=== PATIENT | male | born 1960 | race Caucasian/White ===

== ENCOUNTER 2016-09-19 11:34 | Inpatient (IN) ==
[2016-09-19 13:19] LABS: Basophils % 0.7 %; Hemoglobin 16.2 g/dL (12.9-16.9)
[2016-09-19 13:20] LABS: Basophils # 0.1 K/mcL (0.0-0.2); Eosinophils % 2.4 %; Hematocrit 48.7 % (37.5-50.1); Immature Granulocytes % 0.4 % (0-4); Immature Platelets 6.5 % (1.1-6.1); Lymphocytes % 51.8 %; Mean Corpuscular HGB Conc 33.3 g/dL (31.6-35.5); Mean Corpuscular Hemoglobin 30.5 pg (28.0-33.3); Mean Corpuscular Volume 91.7 fL (83.0-100.0); Mean Platelet Volume 10.9 fL (9.4-12.4); Monocytes % 8.8 %; Red Blood Count 5.31 M/mcL (4.19-5.50); Red Cell Distribution Width 13.6 % (11.5-14.5); Segmented Neutrophils % 35.9 %
[2016-09-19 13:21] LABS: Eosinophils # 0.2 K/mcL (0.0-0.6); Lymphocytes # 3.6 K/mcL (0.6-4.6); Monocytes # 0.6 K/mcL (0.0-1.3); Neutrophils # 2.5 K/mcL (1.6-8.9)
[2016-09-19 13:30] LABS: Bilirubin,Urine Negative (Negative); Blood,Urine Large (Negative); Clarity,Urine Clear (Clear); Color,Urine Yellow (Yellow); Glucose,Urine (UA) Normal (Normal); Ketones,Urine Negative (Negative); Leukocyte Esterase,Urine Moderate (Negative); Nitrite,Urine Negative (Negative); Protein,Urine 30 mg/dL (Neg-Trace); Specific Gravity,Urine 1.007 (1.010-1.025); Urobilinogen,Urine Normal (Normal)
[2016-09-19 13:32] LABS: Bacteria,Urine None Seen per hpf (None-Few); Hyaline Casts,Urine None Seen per lpf (None-Few); RBC,Urine 15-30 per hpf (0-3); Squamous Epithelial Cell,Urine Many per lpf (None-Few); WBC,Urine 30-50 per hpf (0-3)
[2016-09-19 13:35] LABS: BUN/Creatinine Ratio 10 (6-26); Blood Urea Nitrogen 9 mg/dL (8-26); Calcium 8.9 mg/dL (8.6-10.8); Carbon Dioxide 22 mEq/L (19-29); Chloride 104 mEq/L (98-109); Glucose 105 mg/dL (70-99); Osmolality,Calculated 283 (280-300); Sodium 137 mEq/L (136-145); eGFR For African Americans > 60 (> 60); eGFR For Non-African Americans > 60 (> 60)
[2016-09-19 13:37] LABS: Amphetamine Screen,Urine Negative ng/mL (Cutoff=1000); Barbiturate Screen,Urine Negative ng/mL (Cutoff=200); Benzodiazepines Screen,Urine Negative ng/mL (Cutoff=200); Cannabinoid Screen,Urine Positive ng/mL (Cutoff = 50); Cocaine Screen,Urine Negative ng/mL (Cutoff= 300); Opiate Screen,Urine Negative ng/mL (Cutoff=300); Phencyclidine Screen,Urine Negative ng/mL (Cutoff=25)
[2016-09-19 13:40] LABS: Acetaminophen < 1.0 mcg/mL (10-30); Salicylate < 5.0 mg/dL (15-30)
[2016-09-19 13:41] LABS: Ethanol < 10 mg/dL (0-10)
[2016-09-19 13:44] LABS: Platelet Count 90 K/mcL (140-400)
[2016-09-19 13:45] LABS: Platelet Estimate Slight Decrease (Normal); Reactive Lymphocytes Present (Not Present)
[2016-09-19 14:12] LABS: Thyroid Stimulating Hormone 1.839 mcIU/mL (0.350-4.840)
[2016-09-19] MEDS ORDERED: Lidocaine 1% 20 ML MDV ID ONE (14:15)
[2016-09-19] MEDS ORDERED: *HR* LORazepam 2 MG/ML VIAL IM PRN (18:21)
[2016-09-19] MEDS ORDERED: Ibuprofen 400 MG TABLET PO PRN (18:21)
[2016-09-19] MEDS ORDERED: Haloperidol Lactate 5 MG/ML VIAL IM PRN (18:21)
[2016-09-19] MEDS ORDERED: *HR* LORazepam 1 MG TABLET PO PRN (18:21)
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
[2016-09-20] MEDS: clonazePAM 0.5 MG TABLET PO SCH (14:32)
[2016-09-20] MEDS: Mirtazapine 15 MG TABLET PO SCH (20:49)
[2016-09-20] MEDS: Neosporin OINT 15 GM TUBE TP SCH (20:49)
[2016-09-21] MEDS: clonazePAM 0.5 MG TABLET PO SCH (08:28)
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
[2016-09-21] MEDS: Neosporin OINT 15 GM TUBE TP SCH ×2 (15:54→21:18)
[2016-09-21] MEDS: Mirtazapine 15 MG TABLET PO SCH (21:14)
[2016-09-22] MEDS: clonazePAM 0.5 MG TABLET PO SCH (08:31)
[2016-09-22] MEDS: Neosporin OINT 15 GM TUBE TP SCH ×2 (08:32→20:59)
[2016-09-22] MEDS: Nicotine 14 MG PATCH.TD24 TD SCH (09:54)
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
[2016-09-22] MEDS: Mirtazapine 15 MG TABLET PO SCH (20:37)
[2016-09-22] MEDS ORDERED: traZODone 50 MG TABLET PO PRN (22:33)
[2016-09-22] MEDS ORDERED: hydrOXYzine pamoate 25 MG CAPSULE PO PRN (22:33)
[2016-09-22] MEDS ORDERED: MOM Conc 10 ML UD.LIQ PO PRN (22:33)
[2016-09-22] MEDS ORDERED: Mag Hydrox/Al Hydrox/Simeth 30 ML UDC PO PRN (22:33)
[2016-09-23] MEDS: Nicotine 14 MG PATCH.TD24 TD SCH (08:32)
[2016-09-23] MEDS: clonazePAM 0.5 MG TABLET PO SCH (08:32)
[2016-09-23 08:36] VITALS: BP 125/94
[2016-09-23] MEDS: Neosporin OINT 15 GM TUBE TP SCH (09:08)
--- NOTE | 2016-09-23 13:20 | Discharge Summary ---
Date of Encounter: 09/23/16 Time of Encounter: 13:14 Diagnosis - Discharge Diagnosis (1) PTSD (post-traumatic stress disorder) Priority: Primary Status: Acute Medications - Discharge Medications Prescriptions: Mirtazapine [Remeron] 15 mg PO HS #30 tablet Prazosin [Minipress] 1 mg PO HS #30 capsule Mirtazapine [Remeron] 15 mg PO HS #30 tablet 09/23/16 [Rx] Prazosin [Minipress] 1 mg PO HS #30 capsule 09/23/16 [Rx] Allergies Penicillins Allergy (Verified 09/19/16 11:43) Hives Provider Date of admission: 09/19/16 18:02 Primary care physician: PCP NO Discharging clinician: Marcos White Assessment and Plan - Patient/Caregiver Discharge Instructions Activity: resume usual activities as tolerated Diet: regular diet - Follow up Plan Follow up with: [facility] [Outside] - 10/13/16 2:00 pm (The above appointment is with tutu Albaradoor. When you come to your first appointment , you will have an orientation to the agency and you will meet with a counselor. Please bring the following with you to your first visit to the clinic: 1) proof of household income (two consecutive pay stubs, social security award letter, bank statement, statement letter from [facility], child support statement, IRS 1040 or W2 form, or a statement from the person who financially supports you stating they help provide for your basic needs), 2) proof of residency (drivers license, a piece of mail showing your address, a statement from person you live with verifying you live at their address), 3) your social security number, and 4) your insurance card (if you have commercial insurance you must call to obtain a prior authorization number before you arrive to your first appointment). If you do not bring these items, you will not be seen.) Pawel Shah PAC [Physician Commercial Collections Driver] - 10/12/16 10:00 am (The above appointment is with VALE Beasley at [facility]. This appointment is to establish you with a primary care provider. If you have needs related to psychiatric medication and/or Vivitrol, you will be assessed for these as well. Please arrive 15 minutes early to complete paperwork. Please bring your insurance card, photo ID and list of current medications to your first appointment.) Functional capacity at discharge: independent ambulation Overall status at discharge: Stable Disposition: Home, Self-Care Hospital Course Hospital course: Mr. Camilo is a 55 year old male admitted from the emergency room having suicidal ideation and PTSD symptoms. For details of the admission please see H& P. On the unit patient medication were reviewed and he was placed on mirtazapine in addition to when necessary medication and blood pressure medication prazosin. His sleep and appetite improved his, paranoia improved he participated in some activities. Prior to discharge patient was medically stable and tolerates her medication and future oriented with discharge plans and follow-up he was non suicidal , his nightmares and flashback subsided. - Time Spent with Patient Total time spent providing and/or coordinating discharge services: Less than 30 minutes Quality - Multiple Antipsychotics Patient discharged on 2 or more antipsychotic medications: No Mental Status Exam - Mental Status Exam Patient orientation: Yes Person, Yes Time, Yes Place Level of alertness: Alert Patient appearance: Appropriate, Well Groomed Behavior: calm, cooperative, restless, dramatic Psychomotor activity: Normal Eye contact: Maintains Eye Contact Mood description: Depressed, Anxious Affect description: tearful, dysphoric, anxious Speech pattern: Normal rate, Normal rhythm, Normal tone Speech Volume: Normal Thought process: Intact, Logical, Linear, Goal Oriented Thought Content: Yes Intact, No Suicidal ideation Perceptual Disturbances: No Auditory hallucinations, No Visual hallucinations Judgment: Fair Insight: Partial
== END 2016-09-23 15:05 | disposition home or self-care (01) | DRG 755 ==
LOC: EMEROO 11:34 → 1ANU 18:02 → SUATTDRO 18:02 → 1ANU 18:19
PROVIDERS: ADMIT Psychiatry & Neurology Psychiatry; ATTEND Psychiatry & Neurology Psychiatry

== ENCOUNTER 2017-10-09 07:38 | Inpatient (IN) ==
[2017-10-09 08:10] LABS: Basophils % 0.3 %; Hematocrit 38.8 % (37.5-50.1); Hemoglobin 12.7 g/dL (12.9-16.9); Immature Granulocytes % 1.1 % (0-4); Lymphocytes # 1.5 K/mcL (0.6-4.6); Lymphocytes % 12.6 %; Mean Corpuscular HGB Conc 32.7 g/dL (31.6-35.5); Mean Corpuscular Hemoglobin 29.8 pg (28.0-33.3); Mean Corpuscular Volume 91.1 fL (83.0-100.0); Mean Platelet Volume 9.7 fL (9.4-12.4); Monocytes # 0.9 K/mcL (0.0-1.3); Monocytes % 7.8 %; Platelet Count 117 K/mcL (140-400); Red Blood Count 4.26 M/mcL (4.19-5.50); Segmented Neutrophils % 78.2 %
[2017-10-09] MEDS: 0.9 % Sodium Chloride 1,000 ML IVC SCH ×2 (08:21→09:20)
--- NOTE | 2017-10-09 08:25 | Emergency Department Note ---
START Narrative - START START: I examined this patient and my medical decision-making was reviewed with the Resident Physician. I agree with the documented findings, disposition and treatment plan as described except to the extent set forth below. 56-year-old male presents to the ER for evaluation for right leg pain. Patient had been in [place] [facility] all weekend has been out for 3 days. He lives at his house. He has been sick for the past few days with fevers. States he snorted heroin last night for fun. He also took some gabapentin. He apparently also snorted some sort of marijuana last night for fondness well. On arrival to the ER, patient has a fever is tachycardic. He is having some right lower extremity pain. We will obtain some plain films of this as well as a chest x-ray. Sepsis workup at this time. Fluids and antipyretics. 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 He denies any recent IV drug use. Total critical care time of 35 minutes spent in medical management of Sirs criteria and possible sepsis.
[2017-10-09 08:47] LABS: Albumin 3.2 g/dL (3.5-5.7); Albumin/Globulin Ratio 0.9 (1.1-2.2); Bilirubin,Direct 0.3 mg/dL (0.0-0.2); Bilirubin,Indirect 0.4 mg/dL (0.0-1.2); Bilirubin,Total 0.7 mg/dL (0.3-1.0); Calcium 8.7 mg/dL (8.6-10.3); Globulin 3.5 g/dL (2.4-3.5); Magnesium 2.2 mg/dL (1.6-2.6); Potassium 3.9 mEq/L (3.5-5.1); Total Protein 6.7 g/dL (6.4-8.9)
[2017-10-09] MEDS ORDERED: 0.9 % Sodium Chloride 500 ML IVC ONE (09:41)
--- NOTE | 2017-10-09 12:36 | Emergency Department Note ---
Disposition Clinical Impression: CRISTHIAN (acute kidney injury), SIRS (systemic inflammatory response syndrome), Polysubstance abuse Febrile Qualifiers: Fever type: unspecified Qualified Code(s): R50.9 - Fever, unspecified Disposition: Admitted As Inpatient Condition: Fair Time of Disposition: 12:46 General Adult HPI - General Chief complaint: ED Syncope Stated complaint: syncope/R knee pain Time Seen by Provider: 10/09/17 07:43 Source: EMS Mode of arrival: EMS Limitations: no limitations Nursing Notes Reviewed: Yes Vital Signs Reviewed: Yes - History of Present Illness HPI Narrative: 56-year-old male presenting to the emergency Department chief complaint of fall. The patient states he was walking over to his brother's house this morning when he slipped in a mud puddle and hit his head on a telephone pole. Patient states he is having right knee pain. Denies dizziness or syncope. Patient was recently released from the alf 3 days ago. Patient has a significant past medical history of endocarditis at the age of 21. He does disclose snorting heroin yesterday. Patient denies any chest pain or recent illnesses. Patient is repeating that he needs his home medications because "he is out of his mind" without them. Pain Scale: 8 - Related Data Home Medications Medication Instructions Recorded Confirmed Unable To Obtain [Unable to Obtain] 10/09/17 10/09/17 Allergies Allergy/AdvReac Type Severity Reaction Status Date / Time Penicillins Allergy Hives Verified 10/09/17 07:39 All systems ED: reviewed and negative except as stated. Constitutional: Reports: fever Cardiovascular: Denies: chest pain, palpitations Respiratory: Denies: cough, dyspnea, wheezes Gastrointestinal: Denies: abdominal pain, nausea, vomiting Integumentary: Denies: rash Past Medical History - Past Medical History Attestation: Yes The following information was validated with the patient. Medical history: Reports: hypertension, other Psychiatric history: Reports: no psych history, PTSD - Social History Smoking Status: Current every day smoker Smokeless Tobacco Status: No Alcohol use: Reports: none Drug use: Reports: none Physical Exam - General Limitations: no limitations General appearance: alert, in no apparent distress - Head Head exam: atraumatic, normocephalic, normal inspection - Eye Eye exam: Present: normal appearance, PERRL, EOMI. Absent: scleral icterus, conjunctival injection - Neck Neck exam: Present: normal inspection, full ROM. Absent: tenderness, meningismus - Chest Chest inspection: Present: normal inspection, symmetric chest wall rise. Absent : tenderness, rash - Respiratory Respiratory exam: Present: normal lung sounds bilaterally. Absent: respiratory distress, wheezes - Cardiovascular Cardiovascular exam: Present: normal rhythm, tachycardia, normal heart sounds - Abdominal Exam Abdominal exam: Present: soft, Non-Tender. Absent: distention, guarding, rebound - Extremities Exam Extremities exam: Present: normal inspection, full ROM, tenderness (diffuse mild tenderness to palpation of right knee. no swelling, redness or crepitus noted), other (BLE muscle strength 5/5, patient neurovascularly intact b/l LE) - Neurological Exam Neurological exam: Present: alert, oriented X3 - Psychiatric Psychiatric exam: Present: normal affect, normal mood - Skin Skin exam: Present: warm, intact Course Course Narrative: 56-year-old male presenting to emergency Department after a fall. Complaining of right knee pain. On physical exam is slightly altered. He is febrile at 102. Patient does disclose drug use. We will perform sepsis workup including CBC, BMP, lactate And Provide the Patient with Fluids. Patient Is Stable at This Time. Stable Vital Signs. Patient agrees with the plan. Brother is at bedside. - Reevaluation(s) Reevaluation #1: Patient has elevated creatinine at 3.07. Patient unable to provide us with urine sample at this time. Provided the patient with 2500 of fluid. Patient refuses catheter for urine specimen. I spoke with the admitting hospitalist Dr. Oates who agrees to accept the patient at this time. Patient is alert with brother at bedside. Stable vital signs at this time. Agrees to admission. Vital Signs Temperature 102.6 F H 10/09/17 07:40 Pulse Rate 106 10/09/17 07:40 Respiratory Rate 22 10/09/17 07:40 Blood Pressure 94/71 10/09/17 07:40 O2 Sat by Pulse Oximetry 94 10/09/17 07:40 Temperature 98.2 F 10/09/17 11:31 Pulse Rate 94 10/09/17 11:31 Respiratory Rate 16 10/09/17 11:31 Blood Pressure 107/83 10/09/17 11:31 O2 Sat by Pulse Oximetry 95 10/09/17 11:31 Oxygen Delivery Oxygen Delivery Room Air Medical Decision Making - Lab Data Result diagrams: 10/09/17 08:02 10/09/17 08:02 Lab Results 10/09/17 10/09/17 10/09/17 Range/Units 08:02 08:02 08:02 WBC 11.5 H (4.3-11.1) K/mcL RBC 4.26 (4.19-5.50) M/mcL Hgb 12.7 L (12.9-16.9) g/dL Hct 38.8 (37.5-50.1) % MCV 91.1 (83.0-100.0) fL MCH 29.8 (28.0-33.3) pg MCHC 32.7 (31.6-35.5) g/dL RDW 15.0 H (11.5-14.5) % Plt Count 117 L (140-400) K/mcL MPV 9.7 (9.4-12.4) fL Immature Gran % 1.1 (0-4) % Seg Neutrophils % 78.2 % Lymphocytes % 12.6 % Monocytes % 7.8 % Eosinophils % 0.0 % Basophils % 0.3 % Neutrophils # 9.0 H (1.6-8.9) K/mcL Lymphocytes # 1.5 (0.6-4.6) K/mcL Monocytes # 0.9 (0.0-1.3) K/mcL Eosinophils # 0.0 (0.0-0.6) K/mcL Basophils # 0.0 (0.0-0.2) K/mcL Sodium 128 L (136-145) mEq/L Potassium 3.9 (3.5-5.1) mEq/L Chloride 98 (98-107) mEq/L Carbon Dioxide 19 L (23-29) mEq/L BUN 42 H (6-20) mg/dL Creatinine 3.07 H (0.70-1.30) mg/dL Est GFR ( Amer) 26 L (> 60) Est GFR (Non-Af Amer) 21 L (> 60) BUN/Creatinine Ratio 14 (6-26) Glucose 159 H (70-105) mg/dL Calculated Osmolality 280 (280-300) Lactic Acid 3.1 H (0.5-2.2) mmol/L Calcium 8.7 (8.6-10.3) mg/dL Magnesium 2.2 (1.6-2.6) mg/dL Total Bilirubin 0.7 (0.3-1.0) mg/dL Direct Bilirubin 0.3 H (0.0-0.2) mg/dL Indirect Bilirubin 0.4 (0.0-1.2) mg/dL AST 28 (13-39) Units/L ALT 29 (7-52) Units/L Alkaline Phosphatase 105 H (34-104) Units/L Troponin I (< 0.04) ng/mL Serum Total Protein 6.7 (6.4-8.9) g/dL Albumin 3.2 L (3.5-5.7) g/dL Globulin 3.5 (2.4-3.5) g/dL Albumin/Globulin Ratio 0.9 L (1.1-2.2) 10/09/17 Range/Units 08:02 WBC (4.3-11.1) K/mcL RBC (4.19-5.50) M/mcL Hgb (12.9-16.9) g/dL Hct (37.5-50.1) % MCV (83.0-100.0) fL MCH (28.0-33.3) pg MCHC (31.6-35.5) g/dL RDW (11.5-14.5) % Plt Count (140-400) K/mcL MPV (9.4-12.4) fL Immature Gran % (0-4) % Seg Neutrophils % % Lymphocytes % % Monocytes % % Eosinophils % % Basophils % % Neutrophils # (1.6-8.9) K/mcL Lymphocytes # (0.6-4.6) K/mcL Monocytes # (0.0-1.3) K/mcL Eosinophils # (0.0-0.6) K/mcL Basophils # (0.0-0.2) K/mcL Sodium (136-145) mEq/L Potassium (3.5-5.1) mEq/L Chloride (98-107) mEq/L Carbon Dioxide (23-29) mEq/L BUN (6-20) mg/dL Creatinine (0.70-1.30) mg/dL Est GFR ( Amer) (> 60) Est GFR (Non-Af Amer) (> 60) BUN/Creatinine Ratio (6-26) Glucose (70-105) mg/dL Calculated Osmolality (280-300) Lactic Acid (0.5-2.2) mmol/L Calcium (8.6-10.3) mg/dL Magnesium (1.6-2.6) mg/dL Total Bilirubin (0.3-1.0) mg/dL Direct Bilirubin (0.0-0.2) mg/dL Indirect Bilirubin (0.0-1.2) mg/dL AST (13-39) Units/L ALT (7-52) Units/L Alkaline Phosphatase (34-104) Units/L Troponin I 0.03 (< 0.04) ng/mL Serum Total Protein (6.4-8.9) g/dL Albumin (3.5-5.7) g/dL Globulin (2.4-3.5) g/dL Albumin/Globulin Ratio (1.1-2.2) - EKG Data EKG #1 EKG attestation: Yes I reviewed and interpreted this EKG. EKG results narrative: Sinus tachycardia. 106 bpm. DE interval 148, QRS 100, QTc 381. Nonspecific T wave abnormality noted. No signs of acute ST segment elevation or ischemia. Compared to previous EKG completed on 04/10/2017 New Nonspecific T-wave changes noted.
[2017-10-09] MEDS ORDERED: Naloxone 0.4 MG/ML INJ IVP PRN (12:53)
--- NOTE | 2017-10-09 12:59 | Internal Med History&Physical ---
<Aquilino Page - Last Filed: 10/09/17 12:57> Date of Encounter: 10/09/17 Time of Encounter: 12:57 Assessment and Plan (1) Congestive heart failure Current visit: Yes Status: Acute Presents today with pulmonary vascular congestion as well as fluid overload with swelling in BLE No prior known h/o CHF, denies CAD, or prior IN. Admits to prior h/o endocarditis. No recent cardiac workup. rales B/L lobes anterior and posterior as well as mild tachycardia remains stable from a respiratory standpoint -TTE -trop now -measure I&O, Daily weight -hold lasix for now as he also has an CRISTHIAN. Consider lasix if BLE swelling or pulmonary vascular congestion does not improve -tele, SP02 monitoring -CBCD, CMP in am -heparin 5000 units SC BID Qualifiers: Heart failure type: unspecified Heart failure chronicity: unspecified Qualified Code(s): I50.9 - Heart failure, unspecified (2) Fluid overload Current visit: Yes Status: Acute see plan above Qualifiers: Hypervolemia type: unspecified Qualified Code(s): E87.70 - Fluid overload, unspecified (3) Uveih-ia-hpuovwn kidney injury Current visit: Yes Status: Acute H/O chronic kidney disease. Does not follow with nephrology. Increase in serum creatinine from 1.56 to 3.07 Unclear as to whether this is pre-renal or cardiorenal syndrome May be r/t drug ingestion (heroin) -avoid nephrotoxins -consult nephrology Qualifiers: Acute renal failure type: unspecified Chronic kidney disease stage: unspecified stage Qualified Code(s): N17.9 - Acute kidney failure, unspecified ; N18.9 - Chronic kidney disease, unspecified; N18.9 - Chronic kidney disease, unspecified (4) Intoxication by drug Current visit: Yes Status: Acute remains intermittently confused ingested heroin, marijuana last night unclear if he ingested any additional substances -UDS now -tele, spo2 monitoring Qualifiers: Complication of substance-induced condition: with unspecified complication Qualified Code(s): F19.929 - Other psychoactive substance use, unspecified with intoxication, unspecified (5) Pain and swelling of right knee Current visit: Yes Status: Acute Mild erythema and pain in superior aspect of right knee unknown mechanism of injury. Reports he fell this morning but that his knee was swollen prior to fall, however I am unsure if this is correct as he is still intermittently confused Does not appear to have joint involvement, mild limitation to ROM d/t swelling and pain treat with rocephin 1gm daily tylenol for pain (6) Falls Current visit: Yes Status: Acute d/t drug intoxication. likely the result of the rt knee injury Qualifiers: Encounter type: initial encounter Qualified Code(s): W19.XXXA - Unspecified fall, initial encounter (7) SIRS (systemic inflammatory response syndrome) Current visit: Yes Status: Acute Presented with mild leukocytosis, fever, hypotension, tachycardia, and tachypnea Hemodynamic status improved with volume replacement 1gm IV tylenol given and he is now afebrile. No longer tachycardic No obvious source of infection. Does have some swelling and erythema on Rt knee but no open wounds -blood cultures x2 -treat Rt knee swelling/erythema with rocephin -CBCD, CMP (8) Polysubstance abuse Current visit: Yes Status: Acute Admits that he snorted heroin last night, ingested gabapentin, and smoked marijuana -UDS (9) Febrile Current visit: Yes Status: Resolved Qualifiers: Fever type: unspecified Qualified Code(s): R50.9 - Fever, unspecified (10) DVT prophylaxis Current visit: Yes Status: Acute Internal Medicine - H&P: HPI Chief complaint: falls, CHF, polysubtance abuse, acute on chronic kidney injury , rt knee sheri Admitted From: Home Plans for Post Hospital Care: Home History of present illness: Mr. Camilo is a 56 year old male with a PMH of chronic kidney disease, endocarditis, and polysubstance abuse. He present to [facility] today s/p fall early this morning at approximately 0500. He reports that last night he ingested heroin, marijuana, and gabapentin and woke up this morning feeling delirious and disoriented. He states that he walked to his brother's to get help and fell in the mud, striking his head on a telephone pole. He is also reporting Rt knee swelling and pain. It is unclear if the knee pain/swelling was there prior to the fall or not but he reports that it was there prior to the fall. He denies any constitutional symptoms, chest pain, syncope, dizziness, weakness , dyspnea, abdominal pain, CVA tenderness, dysuria, or extremity swelling or pain. He does admits to RLE weakness d/t pain in his Rt knee and new BLE swelling. CXR reveals pulmonary vascular congestion. Metabolic panel reveals an acute kidney injury. Past Med Surg Social Fam HX - Past Medical History Medical history: hypertension, other Psychiatric history: no psych history, PTSD - Social History Smoking Status: Current every day smoker Smokeless Tobacco Status: No Alcohol use: none Drug use: none - Family History Brother Adopted: No Family Member Ethnicity: Non- Living Status: Still Living Hx Family Cardiac Disorders: Yes Hx Family Respiratory Disorders: No Hx Family Cancer: Yes Hx Family GI Disorders: No Hx Family Endocrine Disorder: No Hx Family Neuromuscular Disorders: No Hx Family Neurologic Disorders: No Hx Family HEENT Disorders: No Hx Family Autoimmune Disorders: No Father Living Status: Cause of : IN Hx Family Cardiac Disorders: Yes Internal Medicine - H&P: Meds Unable To Obtain [Unable to Obtain] 10/09/17 [History] 3 Allergy/AdvReac Type Severity Reaction Status Date / Time Penicillins Allergy Hives Verified 10/09/17 07:39 All Systems PM: A 10-system review of systems was performed and is negative for pertinent findings except as documented above in the HPI. - Constitutional Constitutional: falls, weight loss, no chills, no fatigue, no fever(s), no lethargy, no night sweats, no weakness - Cardiovascular Cardiovascular ROS IM: edema (BLE), no chest pain, no diaphoresis, no dyspnea, no lightheadedness, no palpitations, no syncope - Respiratory Respiratory: no cough, no dyspnea, no wheezing, no excessive phlegm production - Gastrointestinal Gastrointestinal: no abdominal pain, no diarrhea, no hematemesis, no hematochezia, no melena, no nausea, no vomiting - Genitourinary Genitourinary ROS male: no difficulty urinating, no dysuria, no flank pain - Musculoskeletal Musculoskeletal ROS IM: no numbness, no tingling - Integumentary Integumentary IM: erythema (Superior aspect of Rt knee, no lesion just swelling and erhtyema), no rash, no unusual bruising - Neurological Neurological ROS: confusion (intermittent), frequent falls - Hematologic/Lymphatic Hematologic/Lymphatic: no easy bruising - Constitutional Vitals: Temp Pulse Resp BP Pulse Ox 98.2 F 94 16 107/83 95 02/24/18 11:31 10/09/17 11:31 10/09/17 11:31 10/09/17 11:31 10/09/17 11:31 General appearance: Present: cooperative, A&O X 3, no acute distress Exam: H/o polysubstance abuse, patient still continues to be mildly confused and as such history is somewhat unreliable. - Head Head exam: Present: atraumatic, normocephalic - Eye Eye exam: Present: EOMI. Absent: periorbital swelling, periorbital tenderness Pupils: Present: PERRL - Neck Neck exam general surgery: Present: supple, trachea midline. Absent: lymphadenopathy - Respiratory Respiratory exam: Present: rales, tachypnea. Absent: accessory muscle use, chest wall tenderness, decreased breath sounds, respiratory distress, rhonchi, wheezes - Cardiovascular Cardiovascular exam: Present: RRR, +S1, +S2. Absent: diastolic murmur, gallop, rubs, systolic murmur - GI/Abdominal GI/Abdominal exam: Present: normal bowel sounds, soft, no peritoneal signs. Absent: distended, tenderness - Extremities Exam Additional comments: BLE swelling without pitting - Expanded Lower Extremities Exam Lower Leg exam: Present: erythema, swelling, tenderness (RLE superior aspect of RT knee). Absent: full ROM - Neurological Exam Neurological exam: Present: alert, oriented X3, strengths equal and symetr throughout. Absent: facial droop, speech deficit - Expanded Neurological Exam Coma Scale Eye Opening: Spontaneous Coma Scale Motor Response: Obeys Commands Coma Scale Verbal Response: Confused (intermittent confusion) Coma Scale Total: 14 - Skin Skin exam: Present: dry, erythema, intact Internal Med - H&P Results - Labs CBC & Chem 7: 10/09/17 08:02 10/09/17 08:02 - EKG Data -: EKG Interpreted by Myself EKG shows normal: sinus rhythm Rate: tachycardia - EKG Data EKG comments: Sinus tachycardia with a rate of 106 10/09/17 13:03 - Impressions Impressions Chest X-Ray 10/09/17 07:44 IMPRESSION: Low lung volumes. Mild pulmonary vascular congestion. D/ / Ethan Buchanan MD / Ethan Buchanan MD Interpreting Provider: Ethan Buchanan MD Head CT 10/09/17 07:46 IMPRESSION: No acute intracranial abnormality. D/ / Patrice Sapp MD / Patrice Sapp MD Interpreting Provider: Patrice Sapp MD Knee X-Ray 10/09/17 07:46 IMPRESSION: No acute osseous abnormality. D/ / Annemarie Brown MD / Annemarie Brown MD Interpreting Provider: Annemarie Brown MD <Alyssa Oates - Last Filed: 10/09/17 18:28> Date of Encounter: 10/09/17 Internal Medicine - H&P: HPI History of present illness: Mr. Camilo is a 56 year old male All Systems PM: A 10-system review of systems was performed and is negative for pertinent findings except as documented above in the HPI. - Constitutional Vitals: Temp Pulse Resp BP Pulse Ox 98.1 F 79 17 102/63 90 10/09/17 15:46 10/09/17 15:46 10/09/17 15:46 10/09/17 15:46 10/09/17 15:46 Internal Med - H&P Results - Labs CBC & Chem 7: 10/09/17 08:02 10/09/17 08:02 Labs: Cardiac Enzymes 10/09/17 Range/Units 14:03 Troponin I 0.07 H* (< 0.04) ng/mL - Attending Attestation I have personally performed a face to face evaluation on this patient. I have reviewed and agree with the care plan provided by DAREK Page. History and Exam by me shows: Mr. Camilo is a 56 year old male with a PMH of chronic kidney disease, endocarditis, and polysubstance abuse. He present to [facility] today s/p fall early this morning at approximately 0500. He reports that last night he ingested heroin, marijuana, and gabapentin and woke up this morning feeling delirious and disoriented. Gen: A, A, O x 3 Chest: Diminished BS b/l, no crackles, No rales Heart: S1S2 + RRR no murmurs Ext: 2+ Pitting edema in both legs a/p 1. SIRS 2. CHF - not in exacerbation 3. CRISTHIAN with CKD-3 4. ?? Cardiorenal syndrome 5. Poly substance abuse / Drug intoxication Will hold on IV fluids since he does have fluid overload will f/u on UA to r/o source of inf place him on tele check serial trop 2 D Echo in AM If he becomes SOB and BP allows will give Lasix
[2017-10-09] MEDS: cefTRIAXone 1,000 MG in Water for inj. (sterile) 20 ML 10 ML IVP SCH (14:57)
[2017-10-09] MEDS ORDERED: Ipratropium/Albuterol Neb 3 ML IH PRN (15:58)
[2017-10-09] MEDS: Nicotine 21 MG PATCH.TD24 TD SCH (16:23)
[2017-10-09] MEDS: *HR* Heparin 5,000 UNIT/ML VIAL SQ SCH (16:23)
[2017-10-09 18:31] LABS: Bilirubin,Urine Small (Negative); Blood,Urine Large (Negative); Clarity,Urine Turbid (Clear); Glucose,Urine (UA) Normal (Normal); Ketones,Urine Negative (Negative); Leukocyte Esterase,Urine Moderate (Negative); Nitrite,Urine Negative (Negative); Protein,Urine >=300 mg/dL (Neg-Trace); Specific Gravity,Urine 1.017 (1.010-1.025); Urobilinogen,Urine Normal (Normal)
[2017-10-09 18:32] LABS: RBC,Urine TNTC per hpf (0-3); Squamous Epithelial Cell,Urine Moderate per lpf (None-Few); WBC,Urine 50-100 per hpf (0-3)
[2017-10-09 18:33] LABS: Color,Urine Amber (Yellow)
[2017-10-09 18:39] LABS: Amphetamine Screen,Urine Negative ng/mL (Cutoff=1000); Barbiturate Screen,Urine Negative ng/mL (Cutoff=200); Benzodiazepines Screen,Urine Negative ng/mL (Cutoff=200); Cannabinoid Screen,Urine Negative ng/mL (Cutoff = 50); Cocaine Screen,Urine Positive ng/mL (Cutoff= 300); Opiate Screen,Urine Positive ng/mL (Cutoff=300); Phencyclidine Screen,Urine Negative ng/mL (Cutoff=25)
[2017-10-09 19:00] LABS: Bacteria,Urine Few per hpf (None-Few); Granular Casts,Urine Few per lpf (None Seen)
[2017-10-09] MEDS: *HR* OxyCODONE/APAP 5/325 TABLET PO PRN (20:27)
[2017-10-10] MEDS: *HR* OxyCODONE/APAP 5/325 TABLET PO PRN ×3 (04:05→18:24)
[2017-10-10] MEDS: *HR* Heparin 5,000 UNIT/ML VIAL SQ SCH ×2 (05:03→18:24)
[2017-10-10 06:33] LABS: Basophils % 0.2 %; Hemoglobin 11.3 g/dL (12.9-16.9); Immature Granulocytes % 0.3 % (0-4); Red Cell Distribution Width 14.8 % (11.5-14.5)
[2017-10-10 06:34] LABS: Eosinophils # 0.3 K/mcL (0.0-0.6); Eosinophils % 5.3 %; Hematocrit 33.5 % (37.5-50.1); Lymphocytes # 1.7 K/mcL (0.6-4.6); Lymphocytes % 28.1 %; Mean Corpuscular HGB Conc 33.7 g/dL (31.6-35.5); Mean Corpuscular Hemoglobin 30.1 pg (28.0-33.3); Mean Corpuscular Volume 89.3 fL (83.0-100.0); Mean Platelet Volume 9.8 fL (9.4-12.4); Monocytes # 0.6 K/mcL (0.0-1.3); Monocytes % 10.5 %; Red Blood Count 3.75 M/mcL (4.19-5.50); Segmented Neutrophils % 55.6 %
[2017-10-10 06:37] LABS: Neutrophils # 3.3 K/mcL (1.6-8.9)
[2017-10-10 06:38] LABS: Platelet Count 90 K/mcL (140-400)
[2017-10-10 06:50] LABS: Albumin 2.6 g/dL (3.5-5.7); Albumin/Globulin Ratio 0.9 (1.1-2.2); Bilirubin,Total 0.4 mg/dL (0.3-1.0); Calcium 7.7 mg/dL (8.6-10.3); Potassium 3.8 mEq/L (3.5-5.1); Total Protein 5.6 g/dL (6.4-8.9)
[2017-10-10] MEDS: Nicotine 21 MG PATCH.TD24 TD SCH (08:07)
--- NOTE | 2017-10-10 09:30 | Nephrology Consult Note ---
Date of Encounter: 10/10/17 Time of Encounter: 09:15 Assessment and Plan (1) Mmshc-zv-hpjgprg kidney injury Current Visit: Yes Status: Acute Unclear if CRISTHIAN superimposed on CKD versus progressive CKD. Will start GN workup. Will start IV fluids 0.9NS at 100cc/hr. Ordered stat Renal US. Accurate I&O, avoid nephrotoxins. Will continue to monitor. Qualifiers: Acute renal failure type: unspecified Chronic kidney disease stage: unspecified stage Qualified Code(s): N17.9 - Acute kidney failure, unspecified ; N18.9 - Chronic kidney disease, unspecified; N18.9 - Chronic kidney disease, unspecified (2) PTSD (post-traumatic stress disorder) Current Visit: No Status: Acute (3) SIRS (systemic inflammatory response syndrome) Current Visit: Yes Status: Acute (4) Pain and swelling of right knee Current Visit: Yes Status: Acute History of Present Illness - Reason for Consult Acute Kidney Injury - History of Present Illness Mr. Camilo is a 56 year old male who presented to ER yesterday after falling , slipping in mud puddle and hitting head on telephone pole. Denies LOC, complains of right knee and left ankle swelling. Mr Camilo admitted snorting Heroin, marijuana and taking some Gabapentin. He denies recent IVD use. He was recently released several days ago.from a 60 day incarceration. CXR-Mild pulmonary vascular congestion. Head CT-no acute findings. Right knee xray-no acute abnormality. ECHO results pending. Sepsis workup started in ER, fluids and antipyretics. 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 Most of HPI from prior notes and records. 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 Supposed CKD in same setting, denies ever having been on HD. He thinks "he had part of lung removed and kidney removed." At time of consult he is alert, oriented, continues to have right knee and left ankle discomfort. Could not appreciate right knee swelling or erythema. However left ankle is swollen, erythemic and hot to touch. He denies any LEROY, chest pain , N/V or diarrhea. He denies NSAID use. He denies proteinuria or hematuria, both of which are large on UA with moderate leukocytes. Ceftriaxone 1gm/24 hours. Blood and urine cultures pending. He admits one renal stone event ten years ago. He does admit difficulty in emptying bladder since the onset of a right inguinal hernia he states presented while incarcerated, He states he has right testicular pain and pulling when voiding. No hernia noted on exam, no scrotal swelling. Creat 3.14, presented 3.07. Creat Mar 2017 1.56 with normal creat in Sep 2016 0.86. Past Med Surg Social Fam HX - Past Medical History Medical history: hypertension, other Psychiatric history: no psych history, PTSD - Social History Smoking Status: Current every day smoker Smokeless Tobacco Status: No Alcohol use: none Drug use: none - Family History Brother Adopted: No Family Member Ethnicity: Non- Living Status: Still Living Hx Family Cardiac Disorders: Yes Hx Family Respiratory Disorders: No Hx Family Cancer: Yes Hx Family GI Disorders: No Hx Family Endocrine Disorder: No Hx Family Neuromuscular Disorders: No Hx Family Neurologic Disorders: No Hx Family HEENT Disorders: No Hx Family Autoimmune Disorders: No Father Living Status: Cause of : [place] Hx Family Cardiac Disorders: Yes Medications and Allergies Unable To Obtain [Unable to Obtain] 10/09/17 [History] 3 Allergy/AdvReac Type Severity Reaction Status Date / Time Penicillins Allergy Hives Verified 10/09/17 07:39 Review of Systems All Systems: reviewed and no additional remarkable complaints except as stated Exam - Vital Signs Vital signs: Initial Vital Signs Temp Pulse Resp BP Pulse Ox 102.6 F H 106 22 94/71 94 10/09/17 07:40 10/09/17 07:40 10/09/17 07:40 10/09/17 07:40 10/09/17 07:40 Vital Signs - Last 8 Hours Temp Pulse Resp BP Pulse Ox 10/10/17 06:44 98.3 F 75 14 108/69 93 10/10/17 04:36 98.4 F 76 17 121/70 95 Intake and Output 10/09/17 10/10/17 10/10/17 23:59 07:59 15:59 Intake Total 1440 / 1440 Output Total 300 / 300 Balance 1140 / 1140 Intake: Oral 1440 / 1440 Output: Urine 300 / 300 Other: # Voids 1 Weight 77.111 kg Patient Weight 10/10/17 23:59 Weight 77.111 kg - General Appearance General appearance: well-developed, well-nourished, appears started age EENT: mucous membranes moist Neck: no JVD Respiratory: clear Cardiology: edema, regular rate, regular rhythm Additional Comments: left ankle swelling Gastrointestinal: hypoactive bowel sounds, no tenderness Integumentary: warm and dry Neurologic: alert and oriented x3 Musculoskeletal: erythema Additional Comments: left ankle Psychiatric: mood/affect appropriate, cooperative Results - Lab Results 10/10/17 05:57 10/10/17 05:57 Most recent lab results Calcium 7.7 mg/dL (8.6-10.3) L 10/10/17 05:57 Magnesium 2.2 mg/dL (1.6-2.6) 10/09/17 08:02 Consult Discharge Plan - Plan Referrals: Pawel Shah, PAC [Primary Care Provider] -
[2017-10-10] MEDS: 0.9 % Sodium Chloride 1,000 ML IVC SCH ×2 (10:29→23:10)
--- NOTE | 2017-10-10 11:38 | Internal Med Progress Note ---
Date of Encounter: 10/10/17 Time of Encounter: 10:45 - Assessment and plan (1) Qvcce-ea-ilcycry kidney injury Current Visit: Yes Status: Acute Assessment and plan: Patient with acute kidney injury. Creatinine 3.14 today. Nephrology following. Started patient on IV fluids. Renal ultrasound ordered. Nephrology recommends doing glomerulonephritis workup. We will follow results. Monitor renal function closely. High risk for complications. Qualifiers: Acute renal failure type: with acute tubular necrosis Chronic kidney disease stage: stage 2 (mild) Qualified Code(s): N17.0 - Acute kidney failure with tubular necrosis; N18.2 - Chronic kidney disease, stage 2 (mild); N18.2 - Chronic kidney disease, stage 2 (mild) (2) Congestive heart failure Current Visit: Yes Status: Chronic Assessment and plan: Pulmonary congestion on chest x-ray. No significant lower extremity edema today. We will get 2-D echocardiogram. No signs of acute heart failure. Qualifiers: Heart failure type: unspecified Heart failure chronicity: unspecified Qualified Code(s): I50.9 - Heart failure, unspecified (3) Pain and swelling of right knee Current Visit: Yes Status: Acute Assessment and plan: No improvement in pain. Reports that swelling is getting worse. Will get CT scan of the right knee (4) Polysubstance abuse Current Visit: Yes Status: Acute Assessment and plan: Monitor for signs of withdrawal. 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 (5) SIRS (systemic inflammatory response syndrome) Current Visit: Yes Status: Acute Assessment and plan: Resolved now. WBC count normal. Urine culture sent. Receiving ceftriaxone currently. May have underlying UTI (6) DVT prophylaxis Current Visit: Yes Status: Acute Assessment and plan: With subcutaneous heparin - Subjective Interval history: Patient is awake and alert. Complaints of severe right knee pain and swelling. Also complaining of anxiety and inability to sleep because of pain. Denies any fever or chills overnight. No shortness of breath or chest pain. - Constitutional Vitals: Temp Pulse Resp BP Pulse Ox 98.3 F 75 14 108/69 93 10/10/17 06:44 10/10/17 06:44 10/10/17 06:44 10/10/17 06:44 10/10/17 06:44 General appearance: Present: cooperative, A&O X 3, no acute distress, answers questions appropriately - Neck Neck exam general surgery: Present: supple, trachea midline. Absent: lymphadenopathy - Respiratory Respiratory exam: Present: CTAB. Absent: accessory muscle use, rales, rhonchi, wheezes - Cardiovascular Cardiovascular exam: Present: RRR, +S1, +S2. Absent: diastolic murmur, gallop, rubs, systolic murmur - GI/Abdominal GI/Abdominal exam: Present: normal bowel sounds, soft, no peritoneal signs. Absent: distended, tenderness - Extremities Exam Extremities exam: Present: tenderness (right knee with swelling. No erythema or warmth), warm, radial pulses palpable and symmetrical. Absent: calf tenderness , cyanotic, pedal edema - Neurological Exam Neurological exam: Present: CN II-XII intact, oriented X3, no focal deficits. Absent: facial droop, speech deficit - Skin Skin exam: Present: dry, intact Internal Medicine: Result - Labs CBC & Chem 7: 10/10/17 05:57 10/10/17 05:57 Labs: Short CBC 10/10/17 Range/Units 05:57 WBC 6.0 (4.3-11.1) K/mcL Hgb 11.3 L (12.9-16.9) g/dL Hct 33.5 L (37.5-50.1) % Plt Count 90 L (140-400) K/mcL Neutrophils # 3.3 (1.6-8.9) K/mcL BMP 10/10/17 05:57 Sodium 133 L Potassium 3.8 Chloride 104 Carbon Dioxide 21 L BUN 49 H Creatinine 3.14 H Glucose 110 H Calcium 7.7 L Cardiac Enzymes 10/09/17 10/09/17 Range/Units 14:03 20:39 Troponin I 0.07 H* 0.03 (< 0.04) ng/mL Liver Function 10/10/17 Range/Units 05:57 Total Bilirubin 0.4 (0.3-1.0) mg/dL AST 43 H (13-39) Units/L ALT 24 (7-52) Units/L Alkaline Phosphatase 100 (34-104) Units/L Albumin 2.6 L (3.5-5.7) g/dL Urine 10/09/17 Range/Units 18:20 Urine Color Rima A (Yellow) Urine Clarity Turbid A (Clear) Urine pH 6.0 (5.0-8.0) pH Units Ur Specific [place] 1.017 (1.010-1.025) Urine Protein >=300 H (Neg-Trace) mg/dL Urine Glucose (UA) Normal (Normal) mg/dL Consult Discharge Plan - Plan Referrals: Pawel Shah, PAC [Primary Care Provider] -
[2017-10-10] MEDS: cefTRIAXone 1,000 MG in Water for inj. (sterile) 20 ML 10 ML IVP SCH (14:28)
[2017-10-10] MEDS: *HR* FentaNYL (PF) 100 MCG/2 ML VIAL IVP PRN (14:28)
[2017-10-10] MEDS: Gabapentin 100 MG CAPSULE PO SCH ×2 (15:58→20:33)
[2017-10-10] MEDS: clonazePAM 0.5 MG TABLET PO PRN (15:58)
[2017-10-11] MEDS: *HR* OxyCODONE/APAP 5/325 TABLET PO PRN ×2 (01:23→12:23)
[2017-10-11] MEDS: clonazePAM 0.5 MG TABLET PO PRN ×2 (01:35→10:39)
[2017-10-11] MEDS: *HR* Heparin 5,000 UNIT/ML VIAL SQ SCH ×2 (05:12→18:47)
[2017-10-11] MEDS: *HR* FentaNYL (PF) 100 MCG/2 ML VIAL IVP PRN ×3 (05:12→15:39)
[2017-10-11 07:07] LABS: Hemoglobin 10.7 g/dL (12.9-16.9); Red Cell Distribution Width 14.9 % (11.5-14.5)
[2017-10-11 07:09] LABS: Basophils % 0.3 %; Eosinophils # 0.3 K/mcL (0.0-0.6); Eosinophils % 7.2 %; Hematocrit 32.6 % (37.5-50.1); Immature Granulocytes % 0.8 % (0-4); Immature Platelets 2.1 % (1.1-6.1); Lymphocytes # 1.3 K/mcL (0.6-4.6); Lymphocytes % 36.9 %; Mean Corpuscular HGB Conc 32.8 g/dL (31.6-35.5); Mean Corpuscular Hemoglobin 29.5 pg (28.0-33.3); Mean Corpuscular Volume 89.8 fL (83.0-100.0); Mean Platelet Volume 9.5 fL (9.4-12.4); Monocytes # 0.5 K/mcL (0.0-1.3); Monocytes % 12.8 %; Neutrophils # 1.5 K/mcL (1.6-8.9); Red Blood Count 3.63 M/mcL (4.19-5.50)
[2017-10-11 07:22] LABS: Platelet Count 95 K/mcL (140-400)
[2017-10-11 08:14] LABS: HIV-1&2 Antibody & p24 Ag Nonreactive (Nonreactive); Hepatitis A Antibody IgM Nonreactive (Nonreactive); Hepatitis B Core IgM Nonreactive (Nonreactive); Hepatitis B Surface Antigen Nonreactive (Nonreactive)
[2017-10-11 08:35] LABS: Hepatitis C Virus Antibody Reactive (Nonreactive)
[2017-10-11 08:36] LABS: Calcium 7.9 mg/dL (8.6-10.3); Potassium 4.4 mEq/L (3.5-5.1)
--- NOTE | 2017-10-11 09:12 | Nephrology Progress Note ---
Date of Encounter: 10/11/17 Time of Encounter: 08:45 - Assessment and Plan (1) Fnbuf-yg-oocqcvt kidney injury Current Visit: Yes Status: Acute Unclear if CRISTHIAN superimposed on CKD versus progressive CKD. Renal fct improving. Creat 2.63. Documented urine output 1380 cc. Started GN workup. No results from stat orders placed yesterday. Continue IV fluids 0.9NS at 100cc/hr. Accurate I&O , avoid nephrotoxins. Will continue to monitor. Qualifiers: Acute renal failure type: with acute tubular necrosis Chronic kidney disease stage: stage 2 (mild) Qualified Code(s): N17.0 - Acute kidney failure with tubular necrosis; N18.2 - Chronic kidney disease, stage 2 (mild); N18.2 - Chronic kidney disease, stage 2 (mild) (2) PTSD (post-traumatic stress disorder) Current Visit: No Status: Acute (3) SIRS (systemic inflammatory response syndrome) Current Visit: Yes Status: Acute (4) Pain and swelling of right knee Current Visit: Yes Status: Acute Subjective Interval history: Watching tv. States feeling much better. "Pain in right knee has now moved to right shoulder." Objective - Vital Signs Vital signs: Vital Signs Temp Pulse Resp BP Pulse Ox 10/11/17 06:54 97.4 F L 62 17 122/81 100 10/11/17 03:41 97.7 F 66 16 121/68 96 10/11/17 00:05 97.6 F 69 16 128/76 95 10/10/17 19:00 98.3 F 88 16 125/77 94 10/10/17 15:29 98.2 F 84 14 124/83 94 10/10/17 11:57 98.3 F 85 14 133/83 94 Intake and Output 10/10/17 10/11/17 10/11/17 23:59 07:59 15:59 Intake Total 1000 / 1000 Output Total 280 / 280 Balance 720 / 720 Intake: IV Fluids 1000 / 1000 0.9 % Sodium Chloride 1,000 ML 1000 / 1000 @ 100 mls/hr IVC .Q10H AKANKSHA Rx#: [id number] Output: Urine 280 / 280 - General Appearance General appearance: Present: well-developed, well-nourished, appears started age EENT: Present: mucous membranes moist Neck: Present: no JVD Respiratory: Present: clear Cardiology: Present: no edema, regular rate, regular rhythm Gastrointestinal: Present: normoactive bowel sounds, no tenderness Integumentary: Present: warm and dry Psychiatric: Present: mood/affect appropriate, cooperative - Lab 10/11/17 06:46 10/11/17 06:46 Most recent lab results Calcium 7.9 mg/dL (8.6-10.3) L 10/11/17 06:46 Magnesium 2.2 mg/dL (1.6-2.6) 10/09/17 08:02 Consult Discharge Plan - Plan Referrals: Pawel Shah, PAC [Primary Care Provider] -
[2017-10-11] MEDS: Gabapentin 100 MG CAPSULE PO SCH ×3 (09:26→20:12)
[2017-10-11] MEDS: Nicotine 21 MG PATCH.TD24 TD SCH (09:26)
[2017-10-11] MEDS: 0.9 % Sodium Chloride 1,000 ML IVC SCH ×2 (09:27→20:10)
[2017-10-11] MEDS: cefTRIAXone 1,000 MG in Water for inj. (sterile) 20 ML 10 ML IVP SCH (14:16)
--- NOTE | 2017-10-11 14:39 | Internal Med Progress Note ---
Date of Encounter: 10/11/17 Time of Encounter: 10:10 - Assessment and plan (1) Hylar-fs-diwzdfb kidney injury Current Visit: Yes Status: Acute Assessment and plan: Improving. Continues to have good urine output. Creatinine 2.63. Workup for glomerulonephritis continue. Urine culture shows no significant growth. Continue IV fluids. Nephrology following. Qualifiers: Acute renal failure type: with acute tubular necrosis Chronic kidney disease stage: stage 2 (mild) Qualified Code(s): N17.0 - Acute kidney failure with tubular necrosis; N18.2 - Chronic kidney disease, stage 2 (mild); N18.2 - Chronic kidney disease, stage 2 (mild) (2) Congestive heart failure Current Visit: Yes Status: Chronic Assessment and plan: No acute heart failure. 2-D echocardiogram shows mild left ventricle and diastolic dysfunction. Patient has normal EF of 60-65%. Qualifiers: Heart failure type: diastolic Heart failure chronicity: chronic Qualified Code(s): I50.32 - Chronic diastolic (congestive) heart failure (3) Pain and swelling of right knee Current Visit: Yes Status: Resolved Assessment and plan: CT scan of the right knee shows no acute fracture. There is tricompartmental osteoarthritis of the knee. Small amount of knee effusion and small popliteal cyst present. Patient reports pain has improved in this joint. Continue supportive care. (4) Polysubstance abuse Current Visit: Yes Status: Acute Assessment and plan: At risk for withdrawal. We will monitor for withdrawal symptoms and treat accordingly. 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 (5) SIRS (systemic inflammatory response syndrome) Current Visit: Yes Status: Acute Assessment and plan: Urine culture shows no growth. WBC count normal now. Patient has received antibiotics for 3 days. Will stop antibiotics at this time. (6) DVT prophylaxis Current Visit: Yes Status: Acute Assessment and plan: subcutaneous heparin - Subjective Interval history: Complains of left shoulder pain today. Says his right knee pain has subsided. Asking for stronger narcotic medications to treat pain. Has been having some tremors this morning. Good urine output. - Constitutional Vitals: Temp Pulse Resp BP Pulse Ox 97.5 F L 76 17 117/80 100 10/11/17 11:54 10/11/17 11:54 10/11/17 11:54 10/11/17 11:54 10/11/17 11:54 General appearance: Present: cooperative, A&O X 3, no acute distress, answers questions appropriately - Eye Eye exam: Present: EOMI, PERRL, conjuntiva pink, sclera anicteric - Neck Neck exam general surgery: Present: supple, trachea midline. Absent: lymphadenopathy - Respiratory Respiratory exam: Present: CTAB. Absent: accessory muscle use, rales, rhonchi, wheezes - Cardiovascular Cardiovascular exam: Present: RRR, +S1, +S2. Absent: diastolic murmur, gallop, rubs, systolic murmur - GI/Abdominal GI/Abdominal exam: Present: normal bowel sounds, soft, no peritoneal signs. Absent: distended, tenderness - Extremities Exam Extremities exam: Present: tenderness (Mild over left shoulder.), warm, radial pulses palpable and symmetrical. Absent: calf tenderness, cyanotic, pedal edema - Neurological Exam Neurological exam: Present: CN II-XII intact, oriented X3, no focal deficits. Absent: facial droop, speech deficit - Skin Skin exam: Present: dry, intact Internal Medicine: Result - Labs CBC & Chem 7: 10/11/17 06:46 10/11/17 06:46 Labs: Short CBC 10/11/17 Range/Units 06:46 WBC 3.6 L (4.3-11.1) K/mcL Hgb 10.7 L (12.9-16.9) g/dL Hct 32.6 L (37.5-50.1) % Plt Count 95 L (140-400) K/mcL Neutrophils # 1.5 L (1.6-8.9) K/mcL BMP 10/11/17 06:46 Sodium 137 Potassium 4.4 Chloride 110 H Carbon Dioxide 19 L BUN 42 H Creatinine 2.63 H Glucose 137 H Calcium 7.9 L Consult Discharge Plan - Plan Referrals: Pawel Shah, PAC [Primary Care Provider] -
[2017-10-12] MEDS: *HR* FentaNYL (PF) 100 MCG/2 ML VIAL IVP PRN (04:49)
[2017-10-12] MEDS: clonazePAM 0.5 MG TABLET PO PRN (04:54)
[2017-10-12 05:49] VITALS: BP 129/83
[2017-10-12] MEDS: *HR* Heparin 5,000 UNIT/ML VIAL SQ SCH (06:27)
[2017-10-12] MEDS: 0.9 % Sodium Chloride 1,000 ML IVC SCH (06:29)
[2017-10-12 07:28] LABS: Basophils % 0.3 %
[2017-10-12 07:30] LABS: Eosinophils # 0.2 K/mcL (0.0-0.6); Eosinophils % 5.6 %; Hematocrit 31.6 % (37.5-50.1); Hemoglobin 10.5 g/dL (12.9-16.9); Immature Platelets 1.9 % (1.1-6.1); Lymphocytes % 30.7 %; Mean Corpuscular HGB Conc 33.2 g/dL (31.6-35.5); Mean Corpuscular Hemoglobin 29.8 pg (28.0-33.3); Mean Corpuscular Volume 89.8 fL (83.0-100.0); Mean Platelet Volume 9.6 fL (9.4-12.4); Monocytes # 0.4 K/mcL (0.0-1.3); Monocytes % 13.1 %; Neutrophils # 1.5 K/mcL (1.6-8.9); Platelet Count 102 K/mcL (140-400); Red Blood Count 3.52 M/mcL (4.19-5.50); Red Cell Distribution Width 14.8 % (11.5-14.5); Segmented Neutrophils % 49.3 %
[2017-10-12] MEDS: Gabapentin 100 MG CAPSULE PO SCH (07:52)
[2017-10-12] MEDS: *HR* OxyCODONE/APAP 5/325 TABLET PO PRN (07:52)
[2017-10-12] MEDS: Nicotine 21 MG PATCH.TD24 TD SCH (07:52)
--- NOTE | 2017-10-12 08:04 | Nephrology Progress Note ---
Date of Encounter: 10/12/17 Time of Encounter: 08:02 - Assessment and Plan (1) Uojzx-ej-odlpulh kidney injury Current Visit: Yes Status: Acute Patient presents with an elevated serum creatinine that is partially improved. Previous creatinine levels were 0.86 in September 2016 and 1.56 in March 2017. This raises the possibility of progressive chronic renal disease versus acute kidney injury. Currently it is unclear with the exact status is. Patient does have a suspicion for glomerular disease. Urinalysis shows proteinuria and hematuria. He is hepatitis C positive raising the possibility for some type of liver associated glomerulonephritis. Serologies and 24 urine protein are pending. Renal ultrasound is unremarkable. No attempt to obtain a urine from the patient and review the urine sediment personally. The patient may end up requiring a renal biopsy for definitive diagnosis. It also would be appropriate to consult GI to see if he is a candidate for treatment for his hepatitis C. Qualifiers: Acute renal failure type: unspecified Chronic kidney disease stage: stage 3 (moderate) Qualified Code(s): N17.9 - Acute kidney failure, unspecified; N18.3 - Chronic kidney disease, stage 3 (moderate); N18.3 - Chronic kidney disease, stage 3 (moderate) (2) Polysubstance abuse Current Visit: Yes Status: Acute (3) Pain and swelling of right knee Current Visit: Yes Status: Resolved Subjective Interval history: Patient reports she does not feel well in general but he offers no specific complaints. His serum creatinine is improved from 3.14 down to 2.63. Urine output is 1.4 L. Patient is positive for hepatitis C. Hepatitis B studies as well as HIV studies are unremarkable. Other serologic studies are pending. Objective - Vital Signs Vital signs: Vital Signs Temp Pulse Resp BP Pulse Ox 10/12/17 05:46 97.8 F 75 16 129/83 95 10/11/17 22:56 97.8 F 75 16 134/80 96 10/11/17 15:41 98.4 F 77 16 105/61 96 10/11/17 11:54 97.5 F L 76 17 117/80 100 Intake and Output 10/11/17 10/12/17 10/12/17 23:59 07:59 15:59 Intake Total 1000 / 1000 1300 / 1300 Output Total 200 / 200 500 / 500 Balance 800 / 800 800 / 800 Intake: IV Fluids 1000 / 1000 1000 / 1000 0.9 % Sodium Chloride 1,000 ML 1000 / 1000 1000 / 1000 @ 100 mls/hr IVC .Q10H AKANKSHA Rx#: [id number] Oral 300 / 300 Output: Urine 200 / 200 500 / 500 Other: Meal CEREAL X2, MILK, CRACKERS # Voids 1 1 Weight 77.5 kg Patient Weight 10/12/17 23:59 Weight 77.5 kg - General Appearance Exam: Patient is in no acute distress. Vital signs are stable. Lungs essentially clear to auscultation. Heart regular rate and rhythm. Abdomen is benign. There is minimal lower extremity swelling. - Lab 10/12/17 06:54 10/11/17 06:46 Most recent lab results Calcium 7.9 mg/dL (8.6-10.3) L 10/11/17 06:46 Magnesium 2.2 mg/dL (1.6-2.6) 10/09/17 08:02 Consult Discharge Plan - Plan Referrals: Pawel Shah, PAC [Primary Care Provider] -
[2017-10-12 08:18] LABS: Potassium 4.4 mEq/L (3.5-5.1)
[2017-10-12 09:34] LABS: Phosphorous 2.7 mg/dL (2.7-4.5)
--- NOTE | 2017-10-12 15:37 | Discharge Summary ---
Orders not resulted at time of discharge: Pending orders 10/10/17 11:10 DOMINICK IgG REECE rflx IFA Stat Complement Component 3 Stat Complement Component 4 Stat Immunoelectrophoresis Stat MPO/PR3 (ANCA) Antibodies Stat 10/10/17 19:25 Immunofixation,Urine (BJP) Stat Urine Total Protein 24 Hr [UCHEM] Stat Date of Encounter: 10/12/17 Time of Encounter: 11:00 - Discharge Diagnosis (1) Ppcis-ri-fidtrwl kidney injury Priority: Primary Status: Acute Qualifiers: Acute renal failure type: unspecified Chronic kidney disease stage: stage 3 (moderate) Qualified Code(s): N17.9 - Acute kidney failure, unspecified; N18.3 - Chronic kidney disease, stage 3 (moderate); N18.3 - Chronic kidney disease, stage 3 (moderate) (2) Falls Priority: Secondary Status: Acute Qualifiers: Encounter type: initial encounter Qualified Code(s): W19.XXXA - Unspecified fall, initial encounter (3) Intoxication by drug Priority: Primary Status: Acute Qualifiers: Complication of substance-induced condition: with unspecified complication Qualified Code(s): F19.929 - Other psychoactive substance use, unspecified with intoxication, unspecified (4) Polysubstance abuse Priority: Primary Status: Acute (5) Congestive heart failure Priority: Secondary Status: Chronic Qualifiers: Heart failure type: diastolic Heart failure chronicity: chronic Qualified Code(s): I50.32 - Chronic diastolic (congestive) heart failure (6) Pain and swelling of right knee Priority: Primary Status: Resolved Hospital course: Patient is a 56-year-old male who presented to the ER on 10/09/17 after mechanical fall due to intoxication with Peron and marijuana in addition to gabapentin. During patients hospital stay he was treated for acute on chronic renal failure and was also found to have nephropathy in addition to being positive for hepatitis C. Patient decided to leave AGAINST MEDICAL ADVICE before being seen this morning. - Time Spent with Patient Total time spent providing and/or coordinating discharge services: Less than 30 minutes - Discharge Medications Home Medications: Unable To Obtain [Unable to Obtain] 10/09/17 [History] Allergies/Adverse Reactions: 3 Allergy/AdvReac Type Severity Reaction Status Date / Time Penicillins Allergy Hives Verified 10/09/17 07:39 Date of admission: 10/09/17 12:53 Primary care physician: Pawel Shah - Constitutional Vitals: Temp Pulse Resp BP Pulse Ox 97.8 F 75 16 129/83 95 10/12/17 05:46 10/12/17 05:46 10/12/17 05:46 10/12/17 05:46 10/12/17 05:46 General appearance: Present: cooperative, A&O X 3, no acute distress, answers questions appropriately - Patient Status Disposition: Left Against Medical Advice Condition: Fair - Discharge Instructions Follow Up With: Pawel Shah, PAC [Primary Care Provider] - Forms: ED Satisfaction Letter
--- NOTE | 2017-10-12 18:10 | Electrocardiograph Report ---
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
[2017-10-13 07:46] LABS: Complement Component 3 108 mg/dL (88-201); Complement Component 4 25 mg/dL (10-40)
[2017-10-13 14:37] LABS: ANA IgG by ELISA NONE DETECTED (None Detected)
[2017-10-13 16:10] LABS: Alpha 2 Globulin (PEP) 0.86 g/dL (0.48-1.05); Beta Globulin (PEP) 0.85 g/dL (0.48-1.10)
[2017-10-14 07:36] LABS: IFE Reflexed NOT DONE
[2017-10-14 07:45] LABS: Myeloperoxidase Ab 2 AU/mL (0-19); Serine Protease-3 Antibody 1 AU/mL (0-19)
[2017-10-15 15:57] LABS: Urine Collection Duration 24 hr; Urine Collection Volume 2175 mL
== END 2017-10-12 10:55 | disposition left against medical advice (07) | DRG 469 ==
LOC: EMEROO 07:38 → 2ANU 07:38 → SUATTDRO 12:53
PROVIDERS: ADMIT Family Medicine; ATTEND Hospitalist

== ENCOUNTER 2018-04-25 01:42 | Inpatient (IN) ==
[2018-04-25] MEDS ORDERED: 0.9 % Sodium Chloride 1,000 ML IVC ONE (01:55)
[2018-04-25] MEDS ORDERED: Meropenem 1,000 MG in Water for inj. (sterile) 20 ML 10 ML IVP ONE (01:57)
[2018-04-25 02:37] LABS: Basophils % 0.2 %; Eosinophils % 0.1 %; Hematocrit 38.2 % (37.5-50.1); Hemoglobin 12.6 g/dL (12.9-16.9); Immature Granulocytes % 0.3 % (0-4); Lymphocytes # 0.5 K/mcL (0.6-4.6); Mean Corpuscular Hemoglobin 27.8 pg (28.0-33.3); Mean Corpuscular Volume 84.3 fL (83.0-100.0); Mean Platelet Volume 8.7 fL (9.4-12.4); Monocytes # 0.4 K/mcL (0.0-1.3); Monocytes % 4.8 %; Neutrophils # 7.9 K/mcL (1.6-8.9); Platelet Count 145 K/mcL (140-400); Red Blood Count 4.53 M/mcL (4.19-5.50); Red Cell Distribution Width 14.2 % (11.5-14.5); Segmented Neutrophils % 88.6 %
[2018-04-25 02:46] LABS: Bilirubin,Urine Negative (Negative); Blood,Urine Large (Negative); Clarity,Urine Cloudy (Clear); Color,Urine Yellow (Yellow); Glucose,Urine (UA) Normal (Normal); Ketones,Urine Negative (Negative); Leukocyte Esterase,Urine Trace (Negative); Nitrite,Urine Negative (Negative); PH,Urine 6.5 pH Units (5.0-8.0); Protein,Urine 100 mg/dL (Neg-Trace); Specific Gravity,Urine 1.012 (1.010-1.025); Urobilinogen,Urine Normal (Normal)
[2018-04-25 02:47] LABS: Prothrombin Time 11.8 Seconds (9.4-12.1)
[2018-04-25 02:48] LABS: Bacteria,Urine None Seen per hpf (None-Few); Hyaline Casts,Urine None Seen per lpf (None-Few); RBC,Urine TNTC per hpf (0-3); Squamous Epithelial Cell,Urine Many per lpf (None-Few); WBC,Urine 15-30 per hpf (0-3)
[2018-04-25 02:49] LABS: Activated Partial Thrombo Time 29.3 Seconds (26.0-36.0)
[2018-04-25 02:54] LABS: Amphetamine Screen,Urine Positive ng/mL (Cutoff=1000); Barbiturate Screen,Urine Negative ng/mL (Cutoff=200); Benzodiazepines Screen,Urine Negative ng/mL (Cutoff=200); Cannabinoid Screen,Urine Positive ng/mL (Cutoff = 50); Cocaine Screen,Urine Positive ng/mL (Cutoff= 300); Opiate Screen,Urine Negative ng/mL (Cutoff=300); Phencyclidine Screen,Urine Negative ng/mL (Cutoff=25)
[2018-04-25 03:14] LABS: Alanine Aminotransferase 32 Units/L (7-52); Albumin 3.2 g/dL (3.5-5.7); Albumin/Globulin Ratio 0.8 (1.1-2.2); Alkaline Phosphatase 148 Units/L (34-104); Aspartate Amino Transferase 75 Units/L (13-39); BUN/Creatinine Ratio 7 (6-26); Bilirubin,Direct 0.3 mg/dL (0.0-0.2); Bilirubin,Indirect 0.3 mg/dL (0.0-1.2); Bilirubin,Total 0.6 mg/dL (0.3-1.0); Blood Urea Nitrogen 9 mg/dL (6-20); Carbon Dioxide 21 mEq/L (23-29); Chloride 104 mEq/L (98-107); Creatine Kinase 5816 Units/L (30-223); Ethanol < 10 mg/dL (Less than 10); Globulin 4.2 g/dL (2.4-3.5); Glucose 127 mg/dL (70-105); Osmolality,Calculated 282 (280-300); Potassium 3.9 mEq/L (3.5-5.1); Salicylate < 2.5 mg/dL (15.0-30.0); Sodium 136 mEq/L (136-145); Total Protein 7.4 g/dL (6.4-8.9); eGFR For Non-African Americans 53 (> 60)
[2018-04-25 03:15] LABS: Acetaminophen < 10 mcg/mL (10-20)
[2018-04-25 03:28] LABS: Troponin I 0.03 ng/mL (< 0.04)
--- NOTE | 2018-04-25 03:33 | Emergency Department Note ---
Disposition Clinical Impression: Encephalopathy acute, Seizure-like activity, Drug abuse Altered mental status Qualifiers: Altered mental status type: unspecified Qualified Code(s): R41.82 - Altered mental status, unspecified Disposition: Admitted As Inpatient Condition: Fair Time of Disposition: 06:31 General Adult HPI - General Chief complaint: ED Altered Mental Status Stated complaint: ams Time Seen by Provider: 04/25/18 01:47 Source: EMS Limitations: altered mental status Nursing Notes Reviewed: Yes Vital Signs Reviewed: Yes - History of Present Illness HPI Narrative: Patient is a 57-year-old male with unclear past medical history however according to squbreezy possibly hepatitis B, hepatitis C and possibly endocarditis presenting to the emergency department for altered mental status. According to squbreezy patient family walked into his bedroom and he was up against the wall spinning and they are unsure of what exactly was doing. William states they are unsure if this was seizure-like activity refuses having Reiger's. Family states that he was being treated for a form of hepatitis or endocarditis that he did not complete treatment they are unsure. Patient himself is unable to answer any of my questions. Pain Scale: 0 - Related Data Home Medications Medication Instructions Recorded Confirmed Methadone 75 mg PO DAILY 03/06/18 04/25/18 Previous Rx's Medication Instructions Recorded Walker [WALKER] 1 each .ROUTE AD #1 each 03/12/18 Allergies Allergy/AdvReac Type Severity Reaction Status Date / Time Penicillins Allergy Hives Verified 10/09/17 07:39 Limitations: ROS unobtainable due to patients medical condition Past Medical History - Past Medical History Medical history: Reports: CHF, hypertension Surgical history: Reports: orthopedic, other, other Psychiatric history: Reports: no psych history, PTSD - Social History Smoking Status: Unknown if ever smoked Smokeless Tobacco Status: No Alcohol use: Reports: none Drug use: Reports: none, IV Drug Use Physical Exam - General Limitations: altered mental status General appearance: alert - Head Head exam: atraumatic, normocephalic, normal inspection - Eye Eye exam: Present: normal appearance, PERRL - ENT ENT exam: normal exam, mucous membranes dry - Neck Neck exam: Present: normal inspection, full ROM, trachea midline. Absent: tenderness - Chest Chest inspection: Present: normal inspection, symmetric chest wall rise. Absent : tenderness - Respiratory Respiratory exam: Present: normal lung sounds bilaterally. Absent: respiratory distress, wheezes - Cardiovascular Cardiovascular exam: Present: normal rhythm, tachycardia, normal heart sounds, + S1, +S2 - Abdominal Exam Abdominal exam: Present: soft, Non-Tender, normal bowel sounds - Extremities Exam Extremities exam: Present: normal inspection, full ROM. Absent: tenderness - Back Exam Back exam: Present: normal inspection. Absent: tenderness - Expanded Neurological Exam Coma Scale Eye Opening: To Pain Coma Scale Motor Response: Localizes to Pain Coma Scale Verbal Response: Inappropriate Coma Scale Total: 10 - Skin Skin exam: Present: warm, dry Course Course Narrative: Upon arrival and thorough workup was initiated given the limited history of the patient and concerns with failure to complete treatment for possibly hepatitis versus endocarditis. Plan on arrival was for the patient undergo CT imaging of his head and neck which were both negative. Given concern for possible endometritis as well as the patient's temperature of 100.1 on arrival the patient was started prophylactically on broad coverage for endocarditis and cultures were obtained. During the concern for the patient's encephalopathy and also worked him up for any possible DRY BOSS infection and he received a lumbar puncture in which cultures and specimens were sent and he received broad- spectrum coverage for meningitis including ceftriaxone as well as acyclovir. During the lumbar puncture procedure the patient underwent procedural sedation with a successful LP. Upon the propofol wearing off the patient came to and was alert and oriented 4. He is no longer disoriented. Given this finding concern at this time is that the patient had some type of encephalopathy possibly due to infection versus methamphetamine abuse versus seizure-like activity as discontinued by the propofol use. Vital Signs Temperature 100.1 F H 04/25/18 01:47 Pulse Rate 99 04/25/18 01:47 Respiratory Rate 20 04/25/18 01:47 Blood Pressure 117/85 04/25/18 01:47 O2 Sat by Pulse Oximetry 98 04/25/18 01:47 Temperature 99.7 F H 04/25/18 02:38 Pulse Rate 72 04/25/18 04:42 Respiratory Rate 19 04/25/18 04:42 Blood Pressure 110/74 04/25/18 04:42 O2 Sat by Pulse Oximetry 98 04/25/18 01:47 Oxygen Delivery Oxygen Delivery [0455] Nasal Cannula Oxygen Delivery [0452] Nasal Cannula Oxygen Delivery [0450] Nasal Cannula Oxygen Delivery [0447] Nasal Cannula Oxygen Delivery [0445] Nasal Cannula Oxygen Delivery [0440] Nasal Cannula Oxygen Delivery Room Air Procedures - Lumbar Puncture Time Out Performed: Yes Patient Position: left lateral decubitus Skin Prep: Povidone-Iodine 1% Spinal Needle Gauge: 20G Interspace Used: L3-L4 Fluid Initially Obtained: clear Complications: none - Procedural Sedation Indication: other (lumbar puncture) Dietary Status: No solid food in preceding 4 hrs and no liquid in preceding 2 hrs H&P (including ROS) documented in medical record: Yes Previous reaction to sedatives/anesthetics: Unknown Dentition: poor dentition Airway Assessment: Patient can open mouth completely, TMJ function normal Possible difficult airway: No Difficult Airway; If yes,: History of difficult intubation ASA Classification: CLASS II-Mild systemic disease Preparation: secured entrance monitor applied, pulse oximeter, capnometry used, supplemental O2 applied, suction/airway equipment at bedside, IV secured IV Propofol Dose (mgs): 250 Patient Tolerated Procedure: well Complications: none Interventions: oxygen applied Additional Comments: Procedure performed by the physician rehab assistantRanjeet under the supervision of Dr. Neil. Medical Decision Making - Medical Records Medical records reviewed: Yes I reviewed the patient's medical records. - Lab Data Lab results reviewed: Yes I reviewed the patient's lab results. Result diagrams: 04/25/18 02:29 04/25/18 02:29 Lab Results 04/25/18 04/25/18 04/25/18 Range/Units 02:29 02:29 02:29 WBC 8.9 (4.3-11.1) K/mcL RBC 4.53 (4.19-5.50) M/mcL Hgb 12.6 L (12.9-16.9) g/dL Hct 38.2 (37.5-50.1) % MCV 84.3 (83.0-100.0) fL MCH 27.8 L (28.0-33.3) pg MCHC 33.0 (31.6-35.5) g/dL RDW 14.2 (11.5-14.5) % Plt Count 145 (140-400) K/mcL MPV 8.7 L (9.4-12.4) fL Immature Gran % 0.3 (0-4) % Seg Neutrophils % 88.6 % Lymphocytes % 6.0 % Monocytes % 4.8 % Eosinophils % 0.1 % Basophils % 0.2 % Neutrophils # 7.9 (1.6-8.9) K/mcL Lymphocytes # 0.5 L (0.6-4.6) K/mcL Monocytes # 0.4 (0.0-1.3) K/mcL Eosinophils # 0.0 (0.0-0.6) K/mcL Basophils # 0.0 (0.0-0.2) K/mcL PT 11.8 (9.4-12.1) Seconds INR 1.0 APTT 29.3 (26.0-36.0) Seconds Carboxyhemoglobin (0-5) % Sodium 136 (136-145) mEq/L Potassium 3.9 (3.5-5.1) mEq/L Chloride 104 (98-107) mEq/L Carbon Dioxide 21 L (23-29) mEq/L BUN 9 (6-20) mg/dL Creatinine 1.38 H (0.70-1.30) mg/dL Est GFR ( Amer) > 60 (> 60) Est GFR (Non-Af Amer) 53 L (> 60) BUN/Creatinine Ratio 7 (6-26) Glucose 127 H (70-105) mg/dL Calculated Osmolality 282 (280-300) Calcium 9.0 (8.6-10.3) mg/dL Total Bilirubin 0.6 (0.3-1.0) mg/dL Direct Bilirubin 0.3 H (0.0-0.2) mg/dL Indirect Bilirubin 0.3 (0.0-1.2) mg/dL AST 75 H (13-39) Units/L ALT 32 (7-52) Units/L Alkaline Phosphatase 148 H (34-104) Units/L Ammonia (16-53) mcmol/L Creatine Kinase 5816 H (30-223) Units/L Troponin I 0.03 (< 0.04) ng/mL Serum Total Protein 7.4 (6.4-8.9) g/dL Albumin 3.2 L (3.5-5.7) g/dL Globulin 4.2 H (2.4-3.5) g/dL Albumin/Globulin Ratio 0.8 L (1.1-2.2) TSH 2.285 (0.340-5.600) mcIU/mL Urine Color (Yellow) Urine Clarity (Clear) Urine pH (5.0-8.0) pH Units Ur Specific [place] (1.010-1.025) Urine Protein (Neg-Trace) mg/dL Urine Glucose (UA) (Normal) mg/dL Urine Ketones (Negative) mg/dL Urine Blood (Negative) Urine Nitrite (Negative) Urine Bilirubin (Negative) Urine Urobilinogen (Normal) mg/dL Ur Leukocyte Esterase (Negative) Urine Microscopic RBC (0-3) per hpf Urine Microscopic WBC (0-3) per hpf Ur Squamous Epith Cells (None-Few) per lpf Urine Bacteria (None-Few) per hpf Hyaline Casts (None-Few) per lpf Ur Culture Indicated? (NO) CSF Volume mL CSF Appearance (Clear) CSF Color (Colorless) CSF RBC (0.000 - 0.002) M/mcL CSF Tot Nucleated Cells (0-5) TNC/mcL CSF Seg Neutrophils CSF Band Neutrophils % CSF Lymphocytes % CSF Monocytes % CSF Eosinophils % CSF Basophils % CSF Other Cells % CSF Glucose (40-70) mg/dL CSF Xanth Comm (Not Observe) CSF Total Protein (15-45) mg/dL Salicylates < 2.5 L (15.0-30.0) mg/dL Urine Opiates Screen (Rhkner=687) ng/mL Acetaminophen < 10 L (10-20) mcg/mL Ur Barbiturates Screen (Wlydbl=111) ng/mL Ur Phencyclidine Scrn (Cutoff=25) ng/mL Ur Amphetamines Screen (Ijbims=8779) ng/mL U Benzodiazepines Scrn (Zcoztc=215) ng/mL Urine Cocaine Screen (Cutoff= 300) ng/mL U Marijuana (THC) Screen (Cutoff = 50) ng/mL Ur Drug Screen Interp Ethyl Alcohol < 10 (Less than 10) mg/dL 04/25/18 04/25/18 04/25/18 Range/Units 02:29 02:29 02:33 WBC (4.3-11.1) K/mcL RBC (4.19-5.50) M/mcL Hgb (12.9-16.9) g/dL Hct (37.5-50.1) % MCV (83.0-100.0) fL MCH (28.0-33.3) pg MCHC (31.6-35.5) g/dL RDW (11.5-14.5) % Plt Count (140-400) K/mcL MPV (9.4-12.4) fL Immature Gran % (0-4) % Seg Neutrophils % % Lymphocytes % % Monocytes % % Eosinophils % % Basophils % % Neutrophils # (1.6-8.9) K/mcL Lymphocytes # (0.6-4.6) K/mcL Monocytes # (0.0-1.3) K/mcL Eosinophils # (0.0-0.6) K/mcL Basophils # (0.0-0.2) K/mcL PT (9.4-12.1) Seconds INR APTT (26.0-36.0) Seconds Carboxyhemoglobin 8.9 H (0-5) % Sodium (136-145) mEq/L Potassium (3.5-5.1) mEq/L Chloride (98-107) mEq/L Carbon Dioxide (23-29) mEq/L BUN (6-20) mg/dL Creatinine (0.70-1.30) mg/dL Est GFR ( Amer) (> 60) Est GFR (Non-Af Amer) (> 60) BUN/Creatinine Ratio (6-26) Glucose (70-105) mg/dL Calculated Osmolality (280-300) Calcium (8.6-10.3) mg/dL Total Bilirubin (0.3-1.0) mg/dL Direct Bilirubin (0.0-0.2) mg/dL Indirect Bilirubin (0.0-1.2) mg/dL AST (13-39) Units/L ALT (7-52) Units/L Alkaline Phosphatase (34-104) Units/L Ammonia 35 (16-53) mcmol/L Creatine Kinase (30-223) Units/L Troponin I (< 0.04) ng/mL Serum Total Protein (6.4-8.9) g/dL Albumin (3.5-5.7) g/dL Globulin (2.4-3.5) g/dL Albumin/Globulin Ratio (1.1-2.2) TSH (0.340-5.600) mcIU/mL Urine Color Yellow (Yellow) Urine Clarity Cloudy A (Clear) Urine pH 6.5 (5.0-8.0) pH Units Ur Specific [place] 1.012 (1.010-1.025) Urine Protein 100 H (Neg-Trace) mg/dL Urine Glucose (UA) Normal (Normal) mg/dL Urine Ketones Negative (Negative) mg/dL Urine Blood Large H (Negative) Urine Nitrite Negative (Negative) Urine Bilirubin Negative (Negative) Urine Urobilinogen Normal (Normal) mg/dL Ur Leukocyte Esterase Trace H (Negative) Urine Microscopic RBC TNTC H (0-3) per hpf Urine Microscopic WBC 15-30 H (0-3) per hpf Ur Squamous Epith Cells Many H (None-Few) per lpf Urine Bacteria None Seen (None-Few) per hpf Hyaline Casts None Seen (None-Few) per lpf Ur Culture Indicated? NO. A (NO) CSF Volume mL CSF Appearance (Clear) CSF Color (Colorless) CSF RBC (0.000 - 0.002) M/mcL CSF Tot Nucleated Cells (0-5) TNC/mcL CSF Seg Neutrophils CSF Band Neutrophils % CSF Lymphocytes % CSF Monocytes % CSF Eosinophils % CSF Basophils % CSF Other Cells % CSF Glucose (40-70) mg/dL CSF Xanth Comm (Not Observe) CSF Total Protein (15-45) mg/dL Salicylates (15.0-30.0) mg/dL Urine Opiates Screen (Dcokiz=515) ng/mL Acetaminophen (10-20) mcg/mL Ur Barbiturates Screen (Woyngz=196) ng/mL Ur Phencyclidine Scrn (Cutoff=25) ng/mL Ur Amphetamines Screen (Hfcnze=7982) ng/mL U Benzodiazepines Scrn (Orihys=384) ng/mL Urine Cocaine Screen (Cutoff= 300) ng/mL U Marijuana (THC) Screen (Cutoff = 50) ng/mL Ur Drug Screen Interp Ethyl Alcohol (Less than 10) mg/dL 04/25/18 04/25/18 Range/Units 02:33 04:58 WBC (4.3-11.1) K/mcL RBC (4.19-5.50) M/mcL Hgb (12.9-16.9) g/dL Hct (37.5-50.1) % MCV (83.0-100.0) fL MCH (28.0-33.3) pg MCHC (31.6-35.5) g/dL RDW (11.5-14.5) % Plt Count (140-400) K/mcL MPV (9.4-12.4) fL Immature Gran % (0-4) % Seg Neutrophils % % Lymphocytes % % Monocytes % % Eosinophils % % Basophils % % Neutrophils # (1.6-8.9) K/mcL Lymphocytes # (0.6-4.6) K/mcL Monocytes # (0.0-1.3) K/mcL Eosinophils # (0.0-0.6) K/mcL Basophils # (0.0-0.2) K/mcL PT (9.4-12.1) Seconds INR APTT (26.0-36.0) Seconds Carboxyhemoglobin (0-5) % Sodium (136-145) mEq/L Potassium (3.5-5.1) mEq/L Chloride (98-107) mEq/L Carbon Dioxide (23-29) mEq/L BUN (6-20) mg/dL Creatinine (0.70-1.30) mg/dL Est GFR ( Amer) (> 60) Est GFR (Non-Af Amer) (> 60) BUN/Creatinine Ratio (6-26) Glucose (70-105) mg/dL Calculated Osmolality (280-300) Calcium (8.6-10.3) mg/dL Total Bilirubin (0.3-1.0) mg/dL Direct Bilirubin (0.0-0.2) mg/dL Indirect Bilirubin (0.0-1.2) mg/dL AST (13-39) Units/L ALT (7-52) Units/L Alkaline Phosphatase (34-104) Units/L Ammonia (16-53) mcmol/L Creatine Kinase (30-223) Units/L Troponin I (< 0.04) ng/mL Serum Total Protein (6.4-8.9) g/dL Albumin (3.5-5.7) g/dL Globulin (2.4-3.5) g/dL Albumin/Globulin Ratio (1.1-2.2) TSH (0.340-5.600) mcIU/mL Urine Color (Yellow) Urine Clarity (Clear) Urine pH (5.0-8.0) pH Units Ur Specific [place] (1.010-1.025) Urine Protein (Neg-Trace) mg/dL Urine Glucose (UA) (Normal) mg/dL Urine Ketones (Negative) mg/dL Urine Blood (Negative) Urine Nitrite (Negative) Urine Bilirubin (Negative) Urine Urobilinogen (Normal) mg/dL Ur Leukocyte Esterase (Negative) Urine Microscopic RBC (0-3) per hpf Urine Microscopic WBC (0-3) per hpf Ur Squamous Epith Cells (None-Few) per lpf Urine Bacteria (None-Few) per hpf Hyaline Casts (None-Few) per lpf Ur Culture Indicated? (NO) CSF Volume 4.0 mL CSF Appearance Clear (Clear) CSF Color Colorless (Colorless) CSF RBC < 0.002 (0.000 - 0.002) M/mcL CSF Tot Nucleated Cells < 3 (0-5) TNC/mcL CSF Seg Neutrophils TNP CSF Band Neutrophils % TNP CSF Lymphocytes % TNP CSF Monocytes % TNP CSF Eosinophils % TNP CSF Basophils % TNP CSF Other Cells % TNP CSF Glucose 65 (40-70) mg/dL CSF Xanth Comm Not Observed (Not Observe) CSF Total Protein 65 H (15-45) mg/dL Salicylates (15.0-30.0) mg/dL Urine Opiates Screen Negative (Aoibgj=515) ng/mL Acetaminophen (10-20) mcg/mL Ur Barbiturates Screen Negative (Ykbkgm=616) ng/mL Ur Phencyclidine Scrn Negative (Cutoff=25) ng/mL Ur Amphetamines Screen Positive H (Lzmzac=3189) ng/mL U Benzodiazepines Scrn Negative (Amilao=913) ng/mL Urine Cocaine Screen Positive H (Cutoff= 300) ng/mL U Marijuana (THC) Screen Positive H (Cutoff = 50) ng/mL Ur Drug Screen Interp See Below Ethyl Alcohol (Less than 10) mg/dL - Radiology Data Radiology results reviewed: Yes I reviewed the patient's radiology results. Cervical Spine CT 04/25/18 01:55 IMPRESSION: No acute abnormality of the cervical spine. D/ / Hitesh Krishnamurthy MD / Hitesh Krishnamurthy MD Interpreting Provider: Hitesh Krishnamurthy MD Chest X-Ray 04/25/18 01:55 IMPRESSION: Subtle left lung airspace disease suspected (versus summation artifact). D/ / Juan Diego Carr / Juan Diego Carr Interpreting Provider: Juan Diego Carr Head CT 04/25/18 01:55 IMPRESSION: Motion artifact limits evaluation. No definite acute intracranial abnormality. D/ / Gaston Castelan MD / Gaston Castelan MD Interpreting Provider: Gaston Castelan MD - EKG Data EKG #1 EKG attestation: Yes I reviewed and interpreted this EKG. EKG results narrative: EKG done at 15:11 shows sinus tachycardia 1 and 3 bpm. Normal access. Normal intervals. No signs of ST elevation, ST depression or Q waves present. Attestation Statement - Attestation Attestation: I examined this patient and my medical decision-making was reviewed with the Resident Physician. I agree with the documented findings, disposition and treatment plan as described except to the extent set forth below. This is a male patient arrived with altered mental status. He was febrile on arrival with significant tremor. There was question about Reiger is at home. No seizure history. History of polysubstance abuse as well as hepatitis. Also remote history of possible endocarditis. The patient was started on broad spectrum antibiotics and further imaging with head CT as well as CT of the cervical spine was obtained. White blood cell, was actually normal. CT scan of the head was negative. He did have ongoing tremors and was not following any commands. There are no identifiable metabolic causes to his altered mental status and as such we did proceed with initiation of lumbar puncture rule out encephalitis versus meningitis. He did require sedation with propofol. He required a significant amount of propofol and adequately tolerated this. 250 mg were given intravenously over a period of 25 minutes as to obtain appropriate amounts of CSf for collection. Concurrently ceftriaxone, vancomycin , acyclovir were obtained. Viral cultures including enterovirus, HSV, West Nile were sent. The patient actually had complete resolution of altered mental status with propofol. It is unclear if this could represent subclinical seizures versus suppression of amphetamine intoxication. I would proceed with admission to intensive care unit for further management. I spent greater than 35 minutes of critical care time resuscitating this acutely ill patient suffering from altered mental status in the setting of polysubstance abuse. This was a screening billable procedures.
[2018-04-25 03:40] LABS: Thyroid Stimulating Hormone 2.285 mcIU/mL (0.340-5.600)
[2018-04-25] MEDS ORDERED: cefTRIAXone 2,000 MG in Water for inj. (sterile) 20 ML 20 ML IVP ONE (03:53)
[2018-04-25] MEDS ORDERED: Acyclovir 600 MG in D5% in Water 250 ML IVPB ONE (03:53)
[2018-04-25] MEDS ORDERED: *HR* Propofol 500 MG/50 ML BOTTLE IVP ONE (04:08)
[2018-04-25] MEDS ORDERED: Propofol 500 MG/50 ML INFUS..BTL ONE (04:22)
[2018-04-25 05:29] LABS: Red Blood Cell,CSF < 0.002 M/mcL
[2018-04-25 05:30] LABS: Appearance,CSF Clear (Clear)
[2018-04-25 05:46] LABS: Glucose,CSF 65 mg/dL (40-70); Total Protein,CSF 65 mg/dL (15-45)
[2018-04-25] MEDS ORDERED: Sodium Bicarbonate 150 MEQ in D5% in Water 1,000 ML IVC SCH (08:00)
[2018-04-25] MEDS ORDERED: Naloxone 0.4 MG/ML INJ IVP PRN (09:01)
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
[2018-04-25] MEDS: Acyclovir 600 MG in D5% in Water 250 ML IVPB SCH ×2 (13:16→20:50)
[2018-04-25] MEDS: Methadone Oral Concentrate 10 MG/ML PO SCH (13:23)
--- NOTE | 2018-04-25 14:44 | EEG/EMG/Oth Biometrics Report ---
EEG Procedure Report EEG Procedure: Routine EEG Procedure Note: EEG: This is a multichannel digital EEG recording using the international 10-20 placement system. The resting record is showed ominant posterior rhythm that is between 4-6 Hz symmetrical or the both hemisphere but continued to be slightly higher amplitude without much reactivity, Hyperventilation was not performed. Photic stimulation did not significantly alter the background rhythm. There was noted the presence of a rhythmic sharp discharge in the right frontocentral region. IMPRESSION: This is an abnormal EEG recording because of the presence of right frontal maximal epileptiform discharges, that could be potential for seizures Same time his generalized slowing noticed, which seems to be consistent with encephalopathy as commonly seen the patient with diffuse cerebral dysfunction. Clinical correlation with imaging studies of the head are suggested
[2018-04-25] MEDS ORDERED: Gadolinium Contrast Agent (WT Based) IV PRN (15:43)
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
[2018-04-25] MEDS: *HR* Heparin 5,000 UNIT/ML VIAL SQ SCH ×2 (16:27→20:44)
[2018-04-25] MEDS: levETIRAcetam 250 MG TABLET PO SCH (18:12)
[2018-04-25 19:13] LABS: Folate 19.9 ng/mL (3.0-16.0)
[2018-04-25] MEDS: Sodium Bicarbonate 150 MEQ in D5% in Water 1,000 ML IVC SCH ×2 (20:18→20:31)
[2018-04-25] MEDS: Aspirin 325 MG TABLET PO SCH (20:43)
[2018-04-26] MEDS: Sodium Bicarbonate 150 MEQ in D5% in Water 1,000 ML IVC SCH ×3 (00:16→20:07)
[2018-04-26 03:57] LABS: Basophils % 0.2 %; Eosinophils # 0.1 K/mcL (0.0-0.6); Eosinophils % 1.4 %; Hematocrit 30.2 % (37.5-50.1); Immature Granulocytes % 0.4 % (0-4); Lymphocytes # 1.8 K/mcL (0.6-4.6); Lymphocytes % 35.7 %; Mean Corpuscular HGB Conc 33.1 g/dL (31.6-35.5); Mean Corpuscular Hemoglobin 27.8 pg (28.0-33.3); Mean Corpuscular Volume 83.9 fL (83.0-100.0); Mean Platelet Volume 8.8 fL (9.4-12.4); Monocytes # 0.4 K/mcL (0.0-1.3); Monocytes % 7.3 %; Neutrophils # 2.7 K/mcL (1.6-8.9); Platelet Count 103 K/mcL (140-400); Red Cell Distribution Width 14.2 % (11.5-14.5)
[2018-04-26 04:07] LABS: INR 1.1
[2018-04-26 04:09] LABS: VBG Ionized Calcium 1.09 mmol/L (1.15-1.35)
[2018-04-26 04:09] LABS: Activated Partial Thrombo Time 31.3 Seconds (26.0-36.0)
[2018-04-26] MEDS: *HR* Heparin 5,000 UNIT/ML VIAL SQ SCH ×3 (04:11→20:10)
[2018-04-26] MEDS: levETIRAcetam 250 MG TABLET PO SCH ×3 (04:12→20:10)
[2018-04-26] MEDS: Acyclovir 600 MG in D5% in Water 250 ML IVPB SCH ×2 (04:22→12:50)
[2018-04-26 04:30] LABS: Alanine Aminotransferase 56 Units/L (7-52); Albumin 2.3 g/dL (3.5-5.7); Albumin/Globulin Ratio 0.7 (1.1-2.2); Alkaline Phosphatase 99 Units/L (34-104); Aspartate Amino Transferase 303 Units/L (13-39); BUN/Creatinine Ratio 11 (6-26); Bilirubin,Total 0.4 mg/dL (0.3-1.0); Blood Urea Nitrogen 12 mg/dL (6-20); Calcium 7.8 mg/dL (8.6-10.3); Carbon Dioxide 35 mEq/L (23-29); Chloride 99 mEq/L (98-107); Creatine Kinase 14295 Units/L (30-223); Globulin 3.1 g/dL (2.4-3.5); Glucose 114 mg/dL (70-105); Osmolality,Calculated 287 (280-300); Potassium 3.3 mEq/L (3.5-5.1); Sodium 138 mEq/L (136-145); Total Protein 5.4 g/dL (6.4-8.9); eGFR For Non-African Americans > 60 (> 60)
[2018-04-26] MEDS: Aspirin 325 MG TABLET PO SCH (08:24)
[2018-04-26] MEDS: Methadone Oral Concentrate 10 MG/ML PO SCH (08:38)
--- NOTE | 2018-04-26 09:15 | Pulmonology Progress Note ---
<Soco Sung E - Last Filed: 04/26/18 14:39> Date of Encounter: 04/26/18 Time of Encounter: 09:11 Assessment and Plan (1) Altered mental status Current Visit: Yes Status: Acute History of IV drug use, hep B, hep C, endocarditis of N and treatment status. Lumbar puncture performed in ED with cultures to get a, cell counts normal, protein elevated Was started on Keppra 500 mg twice a day yesterday by neuro Patient will be transferred to a telemetry bed when available this resident spoke with the ending hospitalist. MRI brain: 1. There is an acute infarct noted along the inferior aspect of the right cerebellar hemisphere (series 3, image 5). 2. There are areas of encephalomalacia in the left temporal lobe and left parietal lobe. Smaller chronic lacunar infarcts are noted in bilateral centrum semiovale, as well as in bilateral globi pallidi. This raises the possibility of a previous global hypoxic event. 3. Cerebral and cerebellar parenchymal volume loss with chronic microvascular white matter ischemic disease. 4. No evidence of an intracranial mass. EEG: This is a multichannel digital EEG recording using the international 10-20 placement system. The resting record is showed ominant posterior rhythm that is between 4-6 Hz symmetrical or the both hemisphere but continued to be slightly higher amplitude without much reactivity, Hyperventilation was not performed. Photic stimulation did not significantly alter the background rhythm. There was noted the presence of a rhythmic sharp discharge in the right frontocentral region. IMPRESSION: This is an abnormal EEG recording because of the presence of right frontal maximal epileptiform discharges, that could be potential for seizures Same time his generalized slowing noticed, which seems to be consistent with encephalopathy as commonly seen the patient with diffuse cerebral dysfunction. Clinical correlation with imaging studies of the head are suggested Qualifiers: Altered mental status type: unspecified Qualified Code(s): R41.82 - Altered mental status, unspecified (2) Drug abuse Current Visit: Yes Status: Acute Urine drug screen positive for methamphetamine, cocaine, THC in the ED. Social work consulted for polysubstance abuse and social situation (3) Encephalopathy acute Current Visit: Yes Status: Acute Neurology is following Keppra started yesterday of 500 mg twice a day 3 monitor him for any underlying metabolic and infectious etiologies MRI brain: 1. There is an acute infarct noted along the inferior aspect of the right cerebellar hemisphere (series 3, image 5). 2. There are areas of encephalomalacia in the left temporal lobe and left parietal lobe. Smaller chronic lacunar infarcts are noted in bilateral centrum semiovale, as well as in bilateral globi pallidi. This raises the possibility of a previous global hypoxic event. 3. Cerebral and cerebellar parenchymal volume loss with chronic microvascular white matter ischemic disease. 4. No evidence of an intracranial mass. EEG: This is a multichannel digital EEG recording using the international 10-20 placement system. The resting record is showed ominant posterior rhythm that is between 4-6 Hz symmetrical or the both hemisphere but continued to be slightly higher amplitude without much reactivity, Hyperventilation was not performed. Photic stimulation did not significantly alter the background rhythm. There was noted the presence of a rhythmic sharp discharge in the right frontocentral region. IMPRESSION: This is an abnormal EEG recording because of the presence of right frontal maximal epileptiform discharges, that could be potential for seizures Same time his generalized slowing noticed, which seems to be consistent with encephalopathy as commonly seen the patient with diffuse cerebral dysfunction. Clinical correlation with imaging studies of the head are suggested (4) DVT prophylaxis Current Visit: No Status: Acute Heparin 5000 units subcutaneous every 12 Subjective Principal diagnosis: altered mental status Interval history: Mr. Camilo is a 57-year-old male with past medical history of HFP EF, chronic renal failure, hep B, hep C, and arthritis, multi-substance IV drug use , who presented on July night to the ED for altered mental status. Family suspected seizure activity, unsure if he has a history of seizures, was found spinning in a corner and had diffuse upper extremity tremor. He was given propofol for procedural sedation for lumbar puncture in the ED and then was mentating A&O 4 after propofol wore off. Yesterday he can answer questions but needed significant prompting, today he answers questions in full sentences. Still complaining of pain in his left arm that is poorly localized, he says that he cannot raise his arm more than fdc without pain. He was found with 3 tablets of 300 mg of gabapentin on his person but he had not filled his gabapentin prescription sense March of last year. He said he got these from another person, disease unable to fill his prescription. His urine drug screen was positive for methamphetamines, cocaine, and THC. Objective PUL Vital signs: Last Vital Signs Temp 98.0 F 04/26/18 04:00 Pulse 70 04/26/18 08:00 Resp 14 04/26/18 08:00 BP 107/66 04/26/18 08:00 Pulse Ox 93 04/26/18 08:00 General appearance: no acute distress Eyes: nonicteric ENT: oropharynx moist Effort: normal Auscultation: bilateral: clear Cardiovascular: regular rate and rhythm Gastrointestinal: normoactive bowel sounds, soft, non-tender Integumentary: normal Extremities: no cyanosis, no edema, pink and warm other (Motor strength in upper extremities normal and symmetric, patient does not follow commands to follow finger with eyes. Instead his gaze is fixed straightforward.) Results - Laboratory Findings CBC and BMP: 04/26/18 03:27 04/26/18 03:27 PT/INR, D-dimer PT 12.0 Seconds (9.4-12.1) 04/26/18 03:27 Abnormal lab findings: Abnormal lab results RBC 3.60 M/mcL (4.19-5.50) L 04/26/18 03:27 Hgb 10.0 g/dL (12.9-16.9) L D 04/26/18 03:27 Hct 30.2 % (37.5-50.1) L 04/26/18 03:27 MCH 27.8 pg (28.0-33.3) L 04/26/18 03:27 Plt Count 103 K/mcL (140-400) L 04/26/18 03:27 MPV 8.8 fL (9.4-12.4) L 04/26/18 03:27 Potassium 3.3 mEq/L (3.5-5.1) L 04/26/18 03:27 Carbon Dioxide 35 mEq/L (23-29) H 04/26/18 03:27 Glucose 114 mg/dL (70-105) H 04/26/18 03:27 POC Glucose 154 mg/dL (70-99) H 04/25/18 01:54 Calcium 7.8 mg/dL (8.6-10.3) L 04/26/18 03:27 Venous Ioniz Calcium 1.09 mmol/L (1.15-1.35) L 04/26/18 03:54 Direct Bilirubin 0.3 mg/dL (0.0-0.2) H 04/25/18 02:29 AST 303 Units/L (13-39) H 04/26/18 03:27 ALT 56 Units/L (7-52) H 04/26/18 03:27 Creatine Kinase 20980 Units/L (30-223) H 04/26/18 03:27 B-Natriuretic Peptide 245 pg/mL (Less than 100) H 04/25/18 10:52 Serum Total Protein 5.4 g/dL (6.4-8.9) L 04/26/18 03:27 Albumin 2.3 g/dL (3.5-5.7) L 04/26/18 03:27 Albumin/Globulin Ratio 0.7 (1.1-2.2) L 04/26/18 03:27 Folate 19.9 ng/mL (3.0-16.0) H 04/25/18 16:27 Urine Clarity Cloudy (Clear) A 04/25/18 02:33 Urine Protein 100 mg/dL (Neg-Trace) H 04/25/18 02:33 Urine Blood Large (Negative) H 04/25/18 02:33 Ur Leukocyte Esterase Trace (Negative) H 04/25/18 02:33 Urine Microscopic RBC TNTC per hpf (0-3) H 04/25/18 02:33 Urine Microscopic WBC 15-30 per hpf (0-3) H 04/25/18 02:33 Ur Squamous Epith Cells Many per lpf (None-Few) H 04/25/18 02:33 Ur Culture Indicated? NO. (NO) A 04/25/18 02:33 CSF Total Protein 65 mg/dL (15-45) H 04/25/18 04:58 Salicylates < 2.5 mg/dL (15.0-30.0) L 04/25/18 02:29 Acetaminophen < 10 mcg/mL (10-20) L 04/25/18 02:29 Ur Amphetamines Screen Positive ng/mL (Gfzaql=[id number]) H 04/25/18 02:33 Urine Cocaine Screen Positive ng/mL (Cutoff= 300) H 04/25/18 02:33 U Marijuana (THC) Screen Positive ng/mL (Cutoff = 50) H 04/25/18 02:33 - Clinical Findings Intake & Output: Intake & Output 04/25/18 04/26/18 04/26/18 23:59 07:59 15:59 Intake Total 1402 / 1402 2412 / 2412 Output Total 50 / 50 1800 / 1800 Balance 1352 / 1352 612 / 612 Consult Discharge Plan - Plan Referrals: Pawel Shah, PAC [Primary Care Provider] - <David Hoffmann - Last Filed: 04/26/18 15:38> Date of Encounter: 04/26/18 Objective PUL Vital signs: Last Vital Signs Temp 98.0 F 04/26/18 09:00 Pulse 60 04/26/18 12:00 Resp 14 04/26/18 12:00 BP 122/87 04/26/18 12:00 Pulse Ox 93 04/26/18 12:00 Results - Laboratory Findings CBC and BMP: 04/26/18 03:27 04/26/18 03:27 PT/INR, D-dimer PT 12.0 Seconds (9.4-12.1) 04/26/18 03:27 Abnormal lab findings: Abnormal lab results RBC 3.60 M/mcL (4.19-5.50) L 04/26/18 03:27 Hgb 10.0 g/dL (12.9-16.9) L D 04/26/18 03:27 Hct 30.2 % (37.5-50.1) L 04/26/18 03:27 MCH 27.8 pg (28.0-33.3) L 04/26/18 03:27 Plt Count 103 K/mcL (140-400) L 04/26/18 03:27 MPV 8.8 fL (9.4-12.4) L 04/26/18 03:27 Potassium 3.3 mEq/L (3.5-5.1) L 04/26/18 03:27 Carbon Dioxide 35 mEq/L (23-29) H 04/26/18 03:27 Glucose 114 mg/dL (70-105) H 04/26/18 03:27 POC Glucose 154 mg/dL (70-99) H 04/25/18 01:54 Calcium 7.8 mg/dL (8.6-10.3) L 04/26/18 03:27 Venous Ioniz Calcium 1.09 mmol/L (1.15-1.35) L 04/26/18 03:54 Direct Bilirubin 0.3 mg/dL (0.0-0.2) H 04/25/18 02:29 AST 303 Units/L (13-39) H 04/26/18 03:27 ALT 56 Units/L (7-52) H 04/26/18 03:27 Creatine Kinase 26760 Units/L (30-223) H 04/26/18 03:27 B-Natriuretic Peptide 245 pg/mL (Less than 100) H 04/25/18 10:52 Serum Total Protein 5.4 g/dL (6.4-8.9) L 04/26/18 03:27 Albumin 2.3 g/dL (3.5-5.7) L 04/26/18 03:27 Albumin/Globulin Ratio 0.7 (1.1-2.2) L 04/26/18 03:27 Folate 19.9 ng/mL (3.0-16.0) H 04/25/18 16:27 Urine Clarity Cloudy (Clear) A 04/25/18 02:33 Urine Protein 100 mg/dL (Neg-Trace) H 04/25/18 02:33 Urine Blood Large (Negative) H 04/25/18 02:33 Ur Leukocyte Esterase Trace (Negative) H 04/25/18 02:33 Urine Microscopic RBC TNTC per hpf (0-3) H 04/25/18 02:33 Urine Microscopic WBC 15-30 per hpf (0-3) H 04/25/18 02:33 Ur Squamous Epith Cells Many per lpf (None-Few) H 04/25/18 02:33 Ur Culture Indicated? NO. (NO) A 04/25/18 02:33 CSF Total Protein 65 mg/dL (15-45) H 04/25/18 04:58 Salicylates < 2.5 mg/dL (15.0-30.0) L 04/25/18 02:29 Acetaminophen < 10 mcg/mL (10-20) L 04/25/18 02:29 Ur Amphetamines Screen Positive ng/mL (Thtnip=5589) H 04/25/18 02:33 Urine Cocaine Screen Positive ng/mL (Cutoff= 300) H 04/25/18 02:33 U Marijuana (THC) Screen Positive ng/mL (Cutoff = 50) H 04/25/18 02:33 - Clinical Findings Intake & Output: Intake & Output 04/25/18 04/26/18 04/26/18 23:59 07:59 15:59 Intake Total 1402 / 1402 2412 / 2412 1150 / 1150 Output Total 50 / 50 1800 / 1800 Balance 1352 / 1352 612 / 612 1150 / 1150 - Attending Attestation Attending Attestation I saw and evaluated this patient and my medical decision-making was reviewed with the Resident Physician. I agree with the documented findings, disposition and treatment plan as described except to the extent set forth below. We independently had [id number] contact with the patient Patient seen and examined at bedside Labs, radiology, chart personally reviewed. Management was reviewed during multidisciplinary critical care rounds. INGOT HEADER: Patient presenting with altered mental status and encephalopathy secondary to toxic/metabolic secondary to suspected gabapentin overdose, U tox positive for amphetamine that can cause this altered mental status no focal neurological deficit with negative CT scan with improving neuro exam will hold off MRI. EEG was done waiting for final report. 04/26 Patient is more alert and oriented today , EEG yesterday showed seizure like activity started on Keppra and MRI showed Acute Cerebellar stroke patient has severe encephalomalacia with chronic lacunar infarcts . Neuro following . Pulm: Patient has stable oxygenation and ventilation minimal VQ mismatch patient is doing well on room air. Cards: Patient is hemodynamically stable FEN-GI: Advance diet as tolerated Renal: Labs and output were reviewed ID: Patient has history of endocarditis is no active clinical signs will get echocardiogram will hold off all antimicrobials except for acyclovir for possible viral encephalitis very low probability if clinically improving we will hold off acyclovir at that point. 04/26 Patient clinically doing better will stop Acyclovir Heme/Onc: Labs reviewed thromboprophylaxis Endo: Glucose Monitored Integ/MSK: Skin Care per routine ICU Nursing Protocol to prevent ulcers. Lines: All lines examined without evidence of infection : Dispo: Can be transferred to medical telemetry CODE:Full Code
[2018-04-26] MEDS ORDERED: 0.9 % Sodium Chloride 1,000 ML IVC SCH (12:15)
--- NOTE | 2018-04-26 15:01 | Neurology Progress Note ---
Date of Encounter: 04/26/18 Time of Encounter: 08:30 Assessment and Plan (1) Acute cerebrovascular accident of cerebellum Current Visit: Yes Status: Acute Patient noted to have an acute infarct in the right cerebellum without any significant findings. His mental status changes seems to be improving do not think that his cerebellar stroke as a cause of his mental status changes suspect it is incidental finding certainly he has a lot of risk factors for the stroke. Patient is been is started on an aspirin suggested to continue Also suggest getting a CTA of his neck to make sure that he did not have any critical stenosis of his posterior circulation Otherwise continue monitor his blood pressure and blood sugar and keep it stable range (2) Altered mental status Current Visit: Yes Status: Acute His mental status changes slowly improving he is remains on antibiotics and other medication prescribed by ID and primary care. His metabolic workup for mental status changes seems to be negative Qualifiers: Altered mental status type: unspecified Qualified Code(s): R41.82 - Altered mental status, unspecified Subjective Principal diagnosis: altered mental status Interval history: Patient is seen as an follow-up from yesterday he is more awake and less confused now able to have a conversation he did have an MRI of of the brain that shows acute infarct in the right cerebellum as well as evidence of chronic lacunar infarct. Clinically patient is a stable did not have any other new symptoms. His CK remains elevated his B12 folate and TSH was all within normal limits He did not have any other seizure type of activity Complaining of left shoulder pain with movement Objective - Constitutional Vitals: Temp Pulse Resp BP Pulse Ox 98.0 F 60 14 122/87 93 04/26/18 09:00 04/26/18 12:00 04/26/18 12:00 04/26/18 12:00 04/26/18 12:00 - Neurological Exam Sensorimotor examination: Present: intact (On examination he is alert awake and oriented, to follow simple commands no significant dysmetria but he did have limited movement, and shoulder abduction complaining of pain in the left shoulder joint. Beside that no other focal motor weakness) Motor Examination: Present: grossly full strength in all extremities Motor examination - left side: 5/5: deltoids (Pain in right shoulder make assessment difficult ), biceps, triceps, wrist flexion, hip flexors, natural gas trader, quadriceps, tibialis Anterior, toe extension (EHL), plantarflexion Sensation intact: Present: intact Reflex and gait examination: intact Mental Status Examination: Present: awake, alert, oriented to person, oriented to place Cranial nerve examination: Present: PERRL, EOMI, visual carnes intact, sensory to face intact Results - Laboratory Findings CBC and BMP: 04/26/18 03:27 04/26/18 03:27 Abnormal lab findings: Abnormal lab results RBC 3.60 M/mcL (4.19-5.50) L 04/26/18 03:27 Hgb 10.0 g/dL (12.9-16.9) L D 04/26/18 03:27 Hct 30.2 % (37.5-50.1) L 04/26/18 03:27 MCH 27.8 pg (28.0-33.3) L 04/26/18 03:27 Plt Count 103 K/mcL (140-400) L 04/26/18 03:27 MPV 8.8 fL (9.4-12.4) L 04/26/18 03:27 Potassium 3.3 mEq/L (3.5-5.1) L 04/26/18 03:27 Carbon Dioxide 35 mEq/L (23-29) H 04/26/18 03:27 Glucose 114 mg/dL (70-105) H 04/26/18 03:27 POC Glucose 154 mg/dL (70-99) H 04/25/18 01:54 Calcium 7.8 mg/dL (8.6-10.3) L 04/26/18 03:27 Venous Ioniz Calcium 1.09 mmol/L (1.15-1.35) L 04/26/18 03:54 Direct Bilirubin 0.3 mg/dL (0.0-0.2) H 04/25/18 02:29 AST 303 Units/L (13-39) H 04/26/18 03:27 ALT 56 Units/L (7-52) H 04/26/18 03:27 Creatine Kinase 43351 Units/L (30-223) H 04/26/18 03:27 B-Natriuretic Peptide 245 pg/mL (Less than 100) H 04/25/18 10:52 Serum Total Protein 5.4 g/dL (6.4-8.9) L 04/26/18 03:27 Albumin 2.3 g/dL (3.5-5.7) L 04/26/18 03:27 Albumin/Globulin Ratio 0.7 (1.1-2.2) L 04/26/18 03:27 Folate 19.9 ng/mL (3.0-16.0) H 04/25/18 16:27 Urine Clarity Cloudy (Clear) A 04/25/18 02:33 Urine Protein 100 mg/dL (Neg-Trace) H 04/25/18 02:33 Urine Blood Large (Negative) H 04/25/18 02:33 Ur Leukocyte Esterase Trace (Negative) H 04/25/18 02:33 Urine Microscopic RBC TNTC per hpf (0-3) H 04/25/18 02:33 Urine Microscopic WBC 15-30 per hpf (0-3) H 04/25/18 02:33 Ur Squamous Epith Cells Many per lpf (None-Few) H 04/25/18 02:33 Ur Culture Indicated? NO. (NO) A 04/25/18 02:33 CSF Total Protein 65 mg/dL (15-45) H 04/25/18 04:58 Salicylates < 2.5 mg/dL (15.0-30.0) L 04/25/18 02:29 Acetaminophen < 10 mcg/mL (10-20) L 04/25/18 02:29 Ur Amphetamines Screen Positive ng/mL (Owcxma=1414) H 04/25/18 02:33 Urine Cocaine Screen Positive ng/mL (Cutoff= 300) H 04/25/18 02:33 U Marijuana (THC) Screen Positive ng/mL (Cutoff = 50) H 04/25/18 02:33 Consult Discharge Plan - Plan Referrals: Pawel Shah, PAC [Primary Care Provider] -
[2018-04-26] MEDS ORDERED: Isovue-370 500 ML INFUS..BTL IV ONE (15:04)
[2018-04-26] MEDS ORDERED: Naloxone 0.4 MG/ML INJ IVP PRN (17:26)
[2018-04-26] MEDS: 0.9 % Sodium Chloride 1,000 ML IVC SCH (19:00)
[2018-04-27] MEDS ORDERED: Acetaminophen 325 MG TABLET PO ONE ×2 (01:01→21:40)
[2018-04-27] MEDS ORDERED: Melatonin 3 MG TABLET PO PRN (02:49)
[2018-04-27] MEDS: hydrOXYzine pamoate 25 MG CAPSULE PO PRN ×2 (03:12→21:15)
[2018-04-27] MEDS: *HR* Heparin 5,000 UNIT/ML VIAL SQ SCH (06:20)
[2018-04-27] MEDS: levETIRAcetam 250 MG TABLET PO SCH ×2 (06:20→18:45)
--- NOTE | 2018-04-27 08:57 | Pulmonology Progress Note ---
<Soco Sung E - Last Filed: 04/27/18 11:09> Date of Encounter: 04/27/18 Time of Encounter: 08:54 Assessment and Plan (1) Altered mental status Current Visit: Yes Status: Acute History of IV drug use, hep B, hep C, endocarditis of N and treatment status. Lumbar puncture performed in ED with cultures to get a, cell counts normal, protein elevated Was started on Keppra 500 mg twice a day yesterday by neuro Patient spoke in complete sentences today, was no longer shaky on exam. Patient will be transferred to a telemetry bed when available this resident spoke with the ending hospitalist. Qualifiers: Altered mental status type: unspecified Qualified Code(s): R41.82 - Altered mental status, unspecified (2) Drug abuse Current Visit: Yes Status: Acute Patient was on 40 of methadone yesterday today we will increase to 75 Urine drug screen positive for methamphetamine, cocaine, THC in the ED. Social work consulted for polysubstance abuse and social situation (3) Pulmonary emboli Current Visit: Yes Status: Acute CTA showed bilateral lower lobe pulmonary emboli bilateral lower extremity doppler ordered Xerelto 15 BID 3 weeks and 20 daily afterwards Qualifiers: Pulmonary embolism type: other Chronicity: unspecified Acute cor pulmonale presence: without acute cor pulmonale Qualified Code(s): I26.99 - Other pulmonary embolism without acute cor pulmonale (4) Encephalopathy acute Current Visit: Yes Status: Acute Neurology is following Keppra started yesterday of 500 mg twice a day Continue to monitor him for any underlying metabolic and infectious etiologies (5) DVT prophylaxis Current Visit: No Status: Acute Heparin 5000 units subcutaneous every 12 Subjective Principal diagnosis: altered mental status Interval history: On exam this morning Mr. Camilo stated that he was feeling much better. He was given Desyrel for sleep last night which he said did not help at all. This morning on the want to draw labs his power 1 would not draw, we are considering a PICC line or regular lab draw. He refused to allow for regular lab draw or PICC line. He said he did not want anymore labs done or anything else that would require him to be stuck with a needle. He brought up that his methadone was only 40 and that he had been receiving much more than this before coming to the hospital, and that he was feeling agitated and wound up. Objective PUL Vital signs: Last Vital Signs Temp 97.1 F L 04/27/18 08:00 Pulse 75 04/27/18 07:57 Resp 16 04/27/18 07:55 BP 134/68 04/27/18 07:55 Pulse Ox 98 04/27/18 07:55 General appearance: appears uncomfortable Eyes: nonicteric ENT: oropharynx moist Neck: no lymphadenopathy Effort: normal Auscultation: bilateral: clear Cardiovascular: regular rate and rhythm Gastrointestinal: normoactive bowel sounds, soft, non-tender Extremities: no cyanosis, no edema, pink and warm pupils equal and round (Still will not follow finger for eye tracking, just stays fixed straightforward) Results - Laboratory Findings CBC and BMP: 04/27/18 09:57 04/27/18 09:57 PT/INR, D-dimer PT 12.0 Seconds (9.4-12.1) 04/26/18 03:27 Abnormal lab findings: Abnormal lab results RBC 3.60 M/mcL (4.19-5.50) L 04/26/18 03:27 Hgb 10.0 g/dL (12.9-16.9) L D 04/26/18 03:27 Hct 30.2 % (37.5-50.1) L 04/26/18 03:27 MCH 27.8 pg (28.0-33.3) L 04/26/18 03:27 Plt Count 103 K/mcL (140-400) L 04/26/18 03:27 MPV 8.8 fL (9.4-12.4) L 04/26/18 03:27 Potassium 3.3 mEq/L (3.5-5.1) L 04/26/18 03:27 Carbon Dioxide 35 mEq/L (23-29) H 04/26/18 03:27 Glucose 114 mg/dL (70-105) H 04/26/18 03:27 POC Glucose 110 mg/dL (70-99) H 04/25/18 06:48 Calcium 7.8 mg/dL (8.6-10.3) L 04/26/18 03:27 Venous Ioniz Calcium 1.09 mmol/L (1.15-1.35) L 04/26/18 03:54 Direct Bilirubin 0.3 mg/dL (0.0-0.2) H 04/25/18 02:29 AST 303 Units/L (13-39) H 04/26/18 03:27 ALT 56 Units/L (7-52) H 04/26/18 03:27 Creatine Kinase 10732 Units/L (30-223) H 04/26/18 03:27 B-Natriuretic Peptide 245 pg/mL (Less than 100) H 04/25/18 10:52 Serum Total Protein 5.4 g/dL (6.4-8.9) L 04/26/18 03:27 Albumin 2.3 g/dL (3.5-5.7) L 04/26/18 03:27 Albumin/Globulin Ratio 0.7 (1.1-2.2) L 04/26/18 03:27 Folate 19.9 ng/mL (3.0-16.0) H 04/25/18 16:27 Urine Clarity Cloudy (Clear) A 04/25/18 02:33 Urine Protein 100 mg/dL (Neg-Trace) H 04/25/18 02:33 Urine Blood Large (Negative) H 04/25/18 02:33 Ur Leukocyte Esterase Trace (Negative) H 04/25/18 02:33 Urine Microscopic RBC TNTC per hpf (0-3) H 04/25/18 02:33 Urine Microscopic WBC 15-30 per hpf (0-3) H 04/25/18 02:33 Ur Squamous Epith Cells Many per lpf (None-Few) H 04/25/18 02:33 Ur Culture Indicated? NO. (NO) A 04/25/18 02:33 CSF Total Protein 65 mg/dL (15-45) H 04/25/18 04:58 Salicylates < 2.5 mg/dL (15.0-30.0) L 04/25/18 02:29 Acetaminophen < 10 mcg/mL (10-20) L 04/25/18 02:29 Ur Amphetamines Screen Positive ng/mL (Qmmero=1383) H 04/25/18 02:33 Urine Cocaine Screen Positive ng/mL (Cutoff= 300) H 04/25/18 02:33 U Marijuana (THC) Screen Positive ng/mL (Cutoff = 50) H 04/25/18 02:33 - Clinical Findings Intake & Output: Intake & Output 04/26/18 04/27/18 04/27/18 23:59 07:59 15:59 Output Total 1050 / 1050 550 / 550 100 / 100 Balance -1050 / -1050 -550 / -550 -100 / -100 Consult Discharge Plan - Plan Referrals: Pawel Shah, PAC [Primary Care Provider] - <David Hoffmann - Last Filed: 04/27/18 11:32> Date of Encounter: 04/27/18 Objective PUL Vital signs: Last Vital Signs Temp 97.1 F L 04/27/18 08:00 Pulse 75 04/27/18 07:57 Resp 16 04/27/18 07:55 BP 134/68 04/27/18 07:55 Pulse Ox 98 04/27/18 07:55 Results - Laboratory Findings CBC and BMP: 04/27/18 09:57 04/27/18 09:57 PT/INR, D-dimer PT 10.7 Seconds (9.4-12.1) 04/27/18 09:57 Abnormal lab findings: Abnormal lab results WBC 3.3 K/mcL (4.3-11.1) L 04/27/18 09:57 RBC 4.04 M/mcL (4.19-5.50) L 04/27/18 09:57 Hgb 11.3 g/dL (12.9-16.9) L 04/27/18 09:57 Hct 35.4 % (37.5-50.1) L 04/27/18 09:57 Plt Count 95 K/mcL (140-400) L 04/27/18 09:57 MPV 9.2 fL (9.4-12.4) L 04/27/18 09:57 APTT 20.3 Seconds (26.0-36.0) L 04/27/18 09:57 Carboxyhemoglobin 7.6 % (0-5) H 04/27/18 09:57 POC Glucose 110 mg/dL (70-99) H 04/25/18 06:48 Calcium 8.5 mg/dL (8.6-10.3) L 04/27/18 09:57 Venous Ioniz Calcium 1.08 mmol/L (1.15-1.35) L 04/27/18 10:07 Direct Bilirubin 0.3 mg/dL (0.0-0.2) H 04/25/18 02:29 AST 266 Units/L (13-39) H 04/27/18 09:57 ALT 71 Units/L (7-52) H 04/27/18 09:57 Alkaline Phosphatase 124 Units/L (34-104) H 04/27/18 09:57 Creatine Kinase 5012 Units/L (30-223) H 04/27/18 09:57 B-Natriuretic Peptide 245 pg/mL (Less than 100) H 04/25/18 10:52 Albumin 2.7 g/dL (3.5-5.7) L 04/27/18 09:57 Globulin 3.7 g/dL (2.4-3.5) H 04/27/18 09:57 Albumin/Globulin Ratio 0.7 (1.1-2.2) L 04/27/18 09:57 Folate 19.9 ng/mL (3.0-16.0) H 04/25/18 16:27 Urine Clarity Cloudy (Clear) A 04/25/18 02:33 Urine Protein 100 mg/dL (Neg-Trace) H 04/25/18 02:33 Urine Blood Large (Negative) H 04/25/18 02:33 Ur Leukocyte Esterase Trace (Negative) H 04/25/18 02:33 Urine Microscopic RBC TNTC per hpf (0-3) H 04/25/18 02:33 Urine Microscopic WBC 15-30 per hpf (0-3) H 04/25/18 02:33 Ur Squamous Epith Cells Many per lpf (None-Few) H 04/25/18 02:33 Ur Culture Indicated? NO. (NO) A 04/25/18 02:33 CSF Total Protein 65 mg/dL (15-45) H 04/25/18 04:58 Salicylates < 2.5 mg/dL (15.0-30.0) L 04/25/18 02:29 Acetaminophen < 10 mcg/mL (10-20) L 04/25/18 02:29 Ur Amphetamines Screen Positive ng/mL (Dfqdjq=[id number]) H 04/25/18 02:33 Urine Cocaine Screen Positive ng/mL (Cutoff= 300) H 04/25/18 02:33 U Marijuana (THC) Screen Positive ng/mL (Cutoff = 50) H 04/25/18 02:33 - Clinical Findings Intake & Output: Intake & Output 04/26/18 04/27/18 04/27/18 23:59 07:59 15:59 Intake Total 1240 / 1240 Output Total 1050 / 1050 550 / 550 100 / 100 Balance -1050 / -1050 -550 / -550 1140 / 1140 - Attending Attestation Attending Attestation I saw and evaluated this patient and my medical decision-making was reviewed with the Resident Physician. I agree with the documented findings, disposition and treatment plan as described except to the extent set forth below. We independently had [id number] contact with the patient Patient seen and examined at bedside Labs, radiology, chart personally reviewed. Management was reviewed during multidisciplinary critical care rounds. 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 EEG was done waiting for final report. 04/26 Patient is more alert and oriented today , EEG yesterday showed seizure like activity started on Keppra and MRI showed Acute Cerebellar stroke patient has severe encephalomalacia with chronic lacunar infarcts . Neuro following . 04/27 patient is conscious oriented 3 speaking well in full sentences no obvious focal neurological deficit. Pulm: Patient has stable oxygenation and ventilation minimal VQ mismatch patient is doing well on room air. Patient had an incidental finding while doing a CTA neck found to have bilateral lower lobe pulmonary embolism spoke with patient patient agreed for oral anticoagulant therapy will start on Xarelto 15 mg BID for 3 weeks and then 20 mg OD . Cards: Patient is hemodynamically stable. FEN-GI: Advance diet as tolerated Renal: Labs and output were reviewed ID: Patient has history of endocarditis is no active clinical signs will get echocardiogram will hold off all antimicrobials except for acyclovir for possible viral encephalitis very low probability if clinically improving we will hold off acyclovir at that point. 04/26 Patient clinically doing better will stop Acyclovir 04/27 no active ID issues. Heme/Onc: Labs reviewed patient is now on therapeutic anticoagulation for PE. Endo: Glucose Monitored Integ/MSK: Skin Care per routine ICU Nursing Protocol to prevent ulcers. Lines: All lines examined without evidence of infection : Dispo: Can be transferred to medical telemetry CODE:Full Code
[2018-04-27] MEDS ORDERED: Methadone Oral Concentrate 10 MG/ML PO SCH (09:00)
[2018-04-27] MEDS: 0.9 % Sodium Chloride 1,000 ML IVC SCH ×3 (09:30→20:27)
[2018-04-27] MEDS: Aspirin 325 MG TABLET PO SCH (09:32)
[2018-04-27 10:09] LABS: VBG Ionized Calcium 1.08 mmol/L (1.15-1.35)
[2018-04-27 10:17] LABS: Basophils % 0.3 %; Eosinophils # 0.1 K/mcL (0.0-0.6); Eosinophils % 1.8 %; Hematocrit 35.4 % (37.5-50.1); Hemoglobin 11.3 g/dL (12.9-16.9); Immature Granulocytes % 0.3 % (0-4); Lymphocytes # 1.3 K/mcL (0.6-4.6); Lymphocytes % 39.6 %; Mean Corpuscular HGB Conc 31.9 g/dL (31.6-35.5); Mean Corpuscular Volume 87.6 fL (83.0-100.0); Mean Platelet Volume 9.2 fL (9.4-12.4); Monocytes # 0.2 K/mcL (0.0-1.3); Monocytes % 6.9 %; Neutrophils # 1.7 K/mcL (1.6-8.9); Red Blood Count 4.04 M/mcL (4.19-5.50); Red Cell Distribution Width 14.2 % (11.5-14.5); Segmented Neutrophils % 51.1 %
[2018-04-27 10:19] LABS: Platelet Count 95 K/mcL (140-400)
[2018-04-27 10:23] LABS: Prothrombin Time 10.7 Seconds (9.4-12.1)
[2018-04-27 10:27] LABS: Alanine Aminotransferase 71 Units/L (7-52); Albumin 2.7 g/dL (3.5-5.7); Albumin/Globulin Ratio 0.7 (1.1-2.2); Alkaline Phosphatase 124 Units/L (34-104); Aspartate Amino Transferase 266 Units/L (13-39); BUN/Creatinine Ratio 11 (6-26); Bilirubin,Total 0.4 mg/dL (0.3-1.0); Blood Urea Nitrogen 11 mg/dL (6-20); Calcium 8.5 mg/dL (8.6-10.3); Carbon Dioxide 26 mEq/L (23-29); Chloride 107 mEq/L (98-107); Globulin 3.7 g/dL (2.4-3.5); Glucose 92 mg/dL (70-105); Magnesium 1.9 mg/dL (1.6-2.6); Osmolality,Calculated 281 (280-300); Potassium 4.3 mEq/L (3.5-5.1); Sodium 136 mEq/L (136-145); Total Protein 6.4 g/dL (6.4-8.9); eGFR For Non-African Americans > 60 (> 60)
[2018-04-27 10:35] LABS: Activated Partial Thrombo Time 20.3 Seconds (26.0-36.0)
[2018-04-27] MEDS: Methadone Oral Concentrate 10 MG/ML PO SCH (10:43)
[2018-04-27 11:17] LABS: Creatine Kinase 5012 Units/L (30-223)
[2018-04-27] MEDS: *HR* Rivaroxaban 15 MG TABLET PO SCH ×2 (12:57→21:14)
--- NOTE | 2018-04-27 13:53 | Neurology Progress Note ---
Date of Encounter: 04/27/18 Time of Encounter: 08:15 Assessment and Plan (1) Acute cerebrovascular accident of cerebellum Current Visit: Yes Status: Acute Patient noted to have an acute infarct in the right cerebellum without any significant findings. His mental status changes seems to be improving do not think that his cerebellar stroke as a cause of his mental status changes suspect it is incidental finding certainly he has a lot of risk factors for the stroke. Patient is been is started on an aspirin suggested to continue CTA of his neck did not show any critical stenosis in the posterior circulation , suggest to continue on antiplatelet therapy No clinical seizures reported [facility] from neurology standpoint other treatment is as per ICU team Otherwise continue monitor his blood pressure and blood sugar and keep it stable range (2) Altered mental status Current Visit: Yes Status: Acute Qualifiers: Altered mental status type: unspecified Qualified Code(s): R41.82 - Altered mental status, unspecified Subjective Principal diagnosis: altered mental status Interval history: Patient is seen as an follow-up from yesterday he is more awake and less confused now able to have a conversation he did have an MRI of of the brain that shows acute infarct in the right cerebellum as well as evidence of chronic lacunar infarct. Clinically patient is a stable did not have any other new symptoms. His CK remains elevated his B12 folate and TSH was all within normal limits He did not have any other seizure type of activity CTA of the neck showed 1. Bilateral lower lobe pulmonary emboli. 2. There is an ascending thoracic aortic aneurysm measuring up to 4.9 cm. 3. No flow limiting stenosis of the cervical carotid or vertebral arteries. 4. Nonspecific mildly enlarged mediastinal and bilateral axillary lymph nodes. Objective - Constitutional Vitals: Temp Pulse Resp BP Pulse Ox 98.1 F 62 16 160/85 96 04/27/18 12:00 04/27/18 12:00 04/27/18 12:00 04/27/18 12:04/27/18 12:00 - Neurological Exam Sensorimotor examination: Present: intact (On examination he is alert awake and oriented, to follow simple commands no significant dysmetria but he did have limited movement, and shoulder abduction complaining of pain in the left shoulder joint. Beside that no other focal motor weakness) Motor Examination: Present: grossly full strength in all extremities Motor examination - left side: 5/5: deltoids (Pain in right shoulder make assessment difficult ), biceps, triceps, wrist flexion, hip flexors, principal web developer, quadriceps, tibialis Anterior, toe extension (EHL), plantarflexion Sensation intact: Present: intact Reflex and gait examination: intact Mental Status Examination: Present: awake, alert, oriented to person, oriented to place Cranial nerve examination: Present: PERRL, EOMI, visual carnes intact, sensory to face intact Results - Laboratory Findings CBC and BMP: 04/27/18 09:57 04/27/18 09:57 Abnormal lab findings: Abnormal lab results WBC 3.3 K/mcL (4.3-11.1) L 04/27/18 09:57 RBC 4.04 M/mcL (4.19-5.50) L 04/27/18 09:57 Hgb 11.3 g/dL (12.9-16.9) L 04/27/18 09:57 Hct 35.4 % (37.5-50.1) L 04/27/18 09:57 Plt Count 95 K/mcL (140-400) L 04/27/18 09:57 MPV 9.2 fL (9.4-12.4) L 04/27/18 09:57 APTT 20.3 Seconds (26.0-36.0) L 04/27/18 09:57 Carboxyhemoglobin 7.6 % (0-5) H 04/27/18 09:57 POC Glucose 110 mg/dL (70-99) H 04/25/18 06:48 Calcium 8.5 mg/dL (8.6-10.3) L 04/27/18 09:57 Venous Ioniz Calcium 1.08 mmol/L (1.15-1.35) L 04/27/18 10:07 Direct Bilirubin 0.3 mg/dL (0.0-0.2) H 04/25/18 02:29 AST 266 Units/L (13-39) H 04/27/18 09:57 ALT 71 Units/L (7-52) H 04/27/18 09:57 Alkaline Phosphatase 124 Units/L (34-104) H 04/27/18 09:57 Creatine Kinase 5012 Units/L (30-223) H 04/27/18 09:57 B-Natriuretic Peptide 245 pg/mL (Less than 100) H 04/25/18 10:52 Albumin 2.7 g/dL (3.5-5.7) L 04/27/18 09:57 Globulin 3.7 g/dL (2.4-3.5) H 04/27/18 09:57 Albumin/Globulin Ratio 0.7 (1.1-2.2) L 04/27/18 09:57 Folate 19.9 ng/mL (3.0-16.0) H 04/25/18 16:27 Urine Clarity Cloudy (Clear) A 04/25/18 02:33 Urine Protein 100 mg/dL (Neg-Trace) H 04/25/18 02:33 Urine Blood Large (Negative) H 04/25/18 02:33 Ur Leukocyte Esterase Trace (Negative) H 04/25/18 02:33 Urine Microscopic RBC TNTC per hpf (0-3) H 04/25/18 02:33 Urine Microscopic WBC 15-30 per hpf (0-3) H 04/25/18 02:33 Ur Squamous Epith Cells Many per lpf (None-Few) H 04/25/18 02:33 Ur Culture Indicated? NO. (NO) A 04/25/18 02:33 CSF Total Protein 65 mg/dL (15-45) H 04/25/18 04:58 Salicylates < 2.5 mg/dL (15.0-30.0) L 04/25/18 02:29 Acetaminophen < 10 mcg/mL (10-20) L 04/25/18 02:29 Ur Amphetamines Screen Positive ng/mL (Sdnslw=1168) H 04/25/18 02:33 Urine Cocaine Screen Positive ng/mL (Cutoff= 300) H 04/25/18 02:33 U Marijuana (THC) Screen Positive ng/mL (Cutoff = 50) H 04/25/18 02:33 Consult Discharge Plan - Plan Referrals: Pawel Shah, PAC [Primary Care Provider] -
--- NOTE | 2018-04-27 18:19 | Internal Med Progress Note ---
Hospitalist Progress Note - Encounter Date of Encounter: 04/27/18 Time of Encounter: 19:00 - Subjective Interval History: SUBJECTIVE: The patient seems to be his usual self today. He feels good. Denies chest pain , dyspnea, coughing and wheezing. Denies abdominal pain, nausea and vomiting. He makes good amounts of urine. He remembers taking 2 tablets of Neurontin (300 mg per tablet). He says, that he could have taken more than that. He took Neurontin for low back pain. He bought a bottle with pills from a street. There was only a few tablets of Neurontin left in the bottleafter he has developed altered mental status. He denies taking any other drugs. Somebody is prescribing methadone to him. OBJECTIVE: Skin: Free of rash and discoloration. ENMT: Oral/pharyngeal mucosa is normal in appearance. Eyes: Sclera is white. There is no discharge from eyes. Respiratory: Normal breath sounds; no crackles or wheezes. CV: Heart is regular; no gallop or murmur. GI: Abdomen is soft and not tender. There is no palpable mass or visceromegaly. Neuro: There is no focal deficits. His hemoglobin is 11.3; 10.6 at admission. WBC is 3.3 thousand; 8.9 at admission. Pro time INR is 1.6. Creatinine is 1.0; 1.38 at admission. He has normal electrolytes. AST is 266 with ALT of 71. Creatinine kinase is 5000; over 20,000 at admission. ASSESSMENT AND PLAN: Acute encephalopathy, basically resolved. Likely secondary to polysubstance abuse. Urine drug screen is positive for amphetamines, cocaine and marijuana. He was tested negative for alcohol and salicylates. We will increase his level of ambulation. Will repeat his CBC and transaminases tomorrow morning. The patient was found accidentally to have pulmonary emboli (when getting CT angiogram neck). He started doing Xarelto. Venous duplex of lower extremities has been ordered. He is not hypoxic. Rhabdomyolysis. Likely secondary to tremors, he has experienced recently. This is likely due to overdosing of Neurontin. His elevated transaminases on a for the same reason. Acute kidney injury. Likely prerenal. Resolved with IV fluids. Carboxyhemoglobinemia. Resolving. The cause is unknown. DISPOSITION: We will increase his activities. Tentative discharge is tomorrow. - Exam Vitals: Temp Pulse Resp BP Pulse Ox 97.6 F 51 15 145/85 98 04/27/18 15:05 04/27/18 15:05 04/27/18 15:05 04/27/18 15:05 04/27/18 15:05 Exam: xxx - Assessment and Plan (1) Encephalopathy acute Current Visit: Yes Status: Acute (2) Polysubstance abuse Current Visit: No Status: Chronic (3) Pulmonary emboli Current Visit: Yes Status: Acute (4) Rhabdomyolysis Current Visit: Yes Status: Acute (5) Transaminitis Current Visit: Yes Status: Acute (6) CRISTHIAN (acute kidney injury) Current Visit: No Status: Resolved (7) Carboxyhemoglobinemia Current Visit: Yes Status: Resolved - Time Spent with Patient Total time spent is greater than 50% in coordination of care (as documented) at patient's floor/unit and/or counseling patient: 25 - 35 minutes Plan of Care Discussed with: patient Internal Medicine: Result - Labs CBC & Chem 7: 04/28/18 03:30 04/28/18 03:30 - ABG Interpretation ABG results: PT/INR, D-dimer PT 10.7 Seconds (9.4-12.1) 04/27/18 09:57 Consult Discharge Plan - Plan Additional Instructions: THE PATIENT WAS STOP DOING POLYSUBSTANCE ABUSE.. Referrals: Eloisa Tavares [Advanced Practice Nurse] - 05/11/18 2:00 pm Prescriptions: Rivaroxaban [Xarelto] 15 mg PO BID 21 Days #42 tablet (3) Pulmonary emboli Qualifiers: Pulmonary embolism type: other Chronicity: unspecified Acute cor pulmonale presence: without acute cor pulmonale Qualified Code(s): I26.99 - Other pulmonary embolism without acute cor pulmonale (7) Carboxyhemoglobinemia Qualifiers: Encounter type: initial encounter Injury intent: undetermined intent Qualified Code(s): T58.94XA - Toxic effect of carbon monoxide from unspecified source, undetermined, initial encounter
[2018-04-27 21:55] LABS: West Nile Virus PCR Source CSF
[2018-04-28 04:06] LABS: Basophils % 0.3 %; Eosinophils # 0.1 K/mcL (0.0-0.6); Eosinophils % 3.1 %; Hematocrit 30.1 % (37.5-50.1); Hemoglobin 9.9 g/dL (12.9-16.9); Immature Granulocytes % 0.3 % (0-4); Lymphocytes # 1.3 K/mcL (0.6-4.6); Lymphocytes % 40.3 %; Mean Corpuscular HGB Conc 32.9 g/dL (31.6-35.5); Mean Platelet Volume 8.4 fL (9.4-12.4); Monocytes # 0.3 K/mcL (0.0-1.3); Monocytes % 8.1 %; Neutrophils # 1.5 K/mcL (1.6-8.9); Platelet Count 103 K/mcL (140-400); Red Blood Count 3.54 M/mcL (4.19-5.50); Red Cell Distribution Width 14.1 % (11.5-14.5); Segmented Neutrophils % 47.9 %
[2018-04-28 04:28] LABS: Activated Partial Thrombo Time 33.7 Seconds (26.0-36.0); Alanine Aminotransferase 59 Units/L (7-52); Albumin 2.2 g/dL (3.5-5.7); Albumin/Globulin Ratio 0.7 (1.1-2.2); Alkaline Phosphatase 113 Units/L (34-104); Aspartate Amino Transferase 170 Units/L (13-39); BUN/Creatinine Ratio 14 (6-26); Bilirubin,Total 0.3 mg/dL (0.3-1.0); Blood Urea Nitrogen 14 mg/dL (6-20); Calcium 7.9 mg/dL (8.6-10.3); Carbon Dioxide 25 mEq/L (23-29); Chloride 109 mEq/L (98-107); Creatine Kinase 1562 Units/L (30-223); Globulin 3.3 g/dL (2.4-3.5); Glucose 83 mg/dL (70-105); INR 1.6; Magnesium 1.9 mg/dL (1.6-2.6); Osmolality,Calculated 284 (280-300); Potassium 4.3 mEq/L (3.5-5.1); Prothrombin Time 17.7 Seconds (9.4-12.1); Sodium 137 mEq/L (136-145); Total Protein 5.5 g/dL (6.4-8.9); eGFR For Non-African Americans > 60 (> 60)
[2018-04-28] MEDS: levETIRAcetam 250 MG TABLET PO SCH ×2 (04:56→17:50)
[2018-04-28] MEDS: *HR* Rivaroxaban 15 MG TABLET PO SCH ×2 (09:25→21:47)
[2018-04-28] MEDS: Aspirin 325 MG TABLET PO SCH (09:25)
[2018-04-28] MEDS: Methadone Oral Concentrate 10 MG/ML PO SCH (09:33)
[2018-04-28] MEDS: 0.9 % Sodium Chloride 1,000 ML IVC SCH ×2 (09:40→17:51)
--- NOTE | 2018-04-28 10:05 | Neurology Progress Note ---
<Dougie Quiles P - Last Filed: 04/28/18 13:44> Date of Encounter: 04/28/18 Time of Encounter: 09:45 Assessment and Plan (1) Acute cerebrovascular accident of cerebellum Current Visit: Yes Status: Acute Patient noted to have an acute infarct along the inferior aspect of the right cerebellar hemisphere . He has lots of risk factors for stroke He was confused previously, now he is well oriented to time, place and person Patient is been is on aspirin Keppra for seizure prophylaxis ,No seizure attack post admission CTA Neck : no any critical stenosis in the posterior circulation Subjective Principal diagnosis: altered mental status Interval history: Today is 4th day post admission.Mr. Camilo is a 57 year old male with past medical history of chronic renal failure, Hep B, Hep C, endocarditis, multisubstance abuse and IVDU, who was transfered to general chacko from ICU The patient didn't know much about his illness and he is still confused. His family member reported that he had seizure like activity and diffuse hand tremors and he was found spinning in a corner.His history was unsure about treatment of Infective endocarditis and hepatitis . He had h/o fracture left Hip fracture s/p ORIF and pain and stiffness in left shoulder. Patient lives in homeless skilled nursing . Today the patient is lying in bed , comfortable , responding to the questions , his looks oriented to time , place and person.He doesnot have any fresh complaints. He describes that he is doing better than before . Vitals: 99F , pulse 68, Labs WBC 8.9 Na 136, K 3.9 , BUN 9, creatinine 1.38, ammonia 35, LP CSF: WNL except protein slightly high : 65 , culture report; no growth Toxicology: Urine cocain positive ,marijuana positive , amphetamine positive but alcohol level < 10 ECHO : LVEF 60-65% , no new changes from previous Echo reports , no vegetation or clots MRI head : Consistant with acute infarct in inferior aspect of right cerebellar hemisphere : encephalomelacia right temporal lobe and left parietal lobe . EEG: consistent with encephalopathy Plan: add Keppra 500 mg BD as a seizure prophylaxis Objective - Constitutional Vitals: Temp Pulse Resp BP Pulse Ox 98.2 F 58 16 154/82 100 04/28/18 07:39 04/28/18 07:39 04/28/18 07:39 04/28/18 07:39 04/28/18 07:39 - Neurological Exam Sensorimotor examination: Present: intact (On examination he is alert awake and oriented, to follow simple commands no significant dysmetria but he did have limited movement, and shoulder abduction complaining of pain in the left shoulder joint. Beside that no other focal motor weakness) Motor Examination: Present: grossly full strength in all extremities Motor examination - right side: 5/5: deltoids, biceps, triceps, wrist flexion, wrist extension, marketing pr intern, hip flexors, tibialis Anterior, quadriceps, toe extension (EHL), plantarflexion Motor examination - left side: 5/5: deltoids (Pain in right shoulder make assessment difficult ), biceps, triceps, wrist flexion, hip flexors, marketing pr intern, quadriceps, tibialis Anterior, toe extension (EHL), plantarflexion Sensation intact: Present: intact Reflex and gait examination: intact Reflexes: Biceps: 2+, Triceps: 2+, Brachioradialis: 2+, Patella: 2+, Achilles: 2 + Mental Status Examination: Present: awake, alert, oriented to person, oriented to place, oriented to time, follows commands appropriately, answers questions appropriately, no aphasia Cranial nerve examination: Present: PERRL, EOMI, visual carnes intact, sensory to face intact Cerebellar examination: Present: performs finger to nose and heel to wilkerson symmetrically without ataxia, no gait ataxia Results - Laboratory Findings CBC and BMP: 04/28/18 03:30 04/28/18 03:30 Abnormal lab findings: Abnormal lab results WBC 3.2 K/mcL (4.3-11.1) L 04/28/18 03:30 RBC 3.54 M/mcL (4.19-5.50) L 04/28/18 03:30 Hgb 9.9 g/dL (12.9-16.9) L 04/28/18 03:30 Hct 30.1 % (37.5-50.1) L 04/28/18 03:30 Plt Count 103 K/mcL (140-400) L 04/28/18 03:30 MPV 8.4 fL (9.4-12.4) L 04/28/18 03:30 Neutrophils # 1.5 K/mcL (1.6-8.9) L 04/28/18 03:30 PT 17.7 Seconds (9.4-12.1) H D 04/28/18 03:30 Chloride 109 mEq/L (98-107) H 04/28/18 03:30 POC Glucose 110 mg/dL (70-99) H 04/25/18 06:48 Calcium 7.9 mg/dL (8.6-10.3) L 04/28/18 03:30 Direct Bilirubin 0.3 mg/dL (0.0-0.2) H 04/25/18 02:29 AST 170 Units/L (13-39) H 04/28/18 03:30 ALT 59 Units/L (7-52) H 04/28/18 03:30 Alkaline Phosphatase 113 Units/L (34-104) H 04/28/18 03:30 Creatine Kinase 1562 Units/L (30-223) H 04/28/18 03:30 B-Natriuretic Peptide 245 pg/mL (Less than 100) H 04/25/18 10:52 Serum Total Protein 5.5 g/dL (6.4-8.9) L 04/28/18 03:30 Albumin 2.2 g/dL (3.5-5.7) L 04/28/18 03:30 Albumin/Globulin Ratio 0.7 (1.1-2.2) L 04/28/18 03:30 Folate 19.9 ng/mL (3.0-16.0) H 04/25/18 16:27 Urine Clarity Cloudy (Clear) A 04/25/18 02:33 Urine Protein 100 mg/dL (Neg-Trace) H 04/25/18 02:33 Urine Blood Large (Negative) H 04/25/18 02:33 Ur Leukocyte Esterase Trace (Negative) H 04/25/18 02:33 Urine Microscopic RBC TNTC per hpf (0-3) H 04/25/18 02:33 Urine Microscopic WBC 15-30 per hpf (0-3) H 04/25/18 02:33 Ur Squamous Epith Cells Many per lpf (None-Few) H 04/25/18 02:33 Ur Culture Indicated? NO. (NO) A 04/25/18 02:33 CSF Total Protein 65 mg/dL (15-45) H 04/25/18 04:58 Salicylates < 2.5 mg/dL (15.0-30.0) L 04/25/18 02:29 Acetaminophen < 10 mcg/mL (10-20) L 04/25/18 02:29 Ur Amphetamines Screen Positive ng/mL (Pxrgvl=[id number]) H 04/25/18 02:33 Urine Cocaine Screen Positive ng/mL (Cutoff= 300) H 04/25/18 02:33 U Marijuana (THC) Screen Positive ng/mL (Cutoff = 50) H 04/25/18 02:33 Consult Discharge Plan - Plan Additional Instructions: THE PATIENT WAS STOP DOING POLYSUBSTANCE ABUSE.. Referrals: Eloisa Tavares [Advanced Practice Nurse] - 05/11/18 2:00 pm Prescriptions: Rivaroxaban [Xarelto] 15 mg PO BID 21 Days #42 tablet <Alex Durham I - Last Filed: 04/28/18 17:14> Date of Encounter: 04/28/18 Assessment and Plan (1) Acute cerebrovascular accident of cerebellum Current Visit: Yes Status: Acute Pt was seen and examined, my medical decision was reviewed with the Resident Physician, I agree with the documented findings, disposition and treatment plas as described except to the extent set forth below He stable suggest continue the same medication including seizure medication Alex Durham MD (2) Altered mental status Current Visit: Yes Status: Acute Qualifiers: Altered mental status type: unspecified Qualified Code(s): R41.82 - Altered mental status, unspecified Objective - Constitutional Vitals: Temp Pulse Resp BP Pulse Ox 98.0 F 86 18 127/70 94 04/28/18 15:56 04/28/18 15:56 04/28/18 15:56 04/28/18 15:56 04/28/18 15:56 Results - Laboratory Findings CBC and BMP: 04/28/18 03:30 04/28/18 03:30 Abnormal lab findings: Abnormal lab results WBC 3.2 K/mcL (4.3-11.1) L 04/28/18 03:30 RBC 3.54 M/mcL (4.19-5.50) L 04/28/18 03:30 Hgb 9.9 g/dL (12.9-16.9) L 04/28/18 03:30 Hct 30.1 % (37.5-50.1) L 04/28/18 03:30 Plt Count 103 K/mcL (140-400) L 04/28/18 03:30 MPV 8.4 fL (9.4-12.4) L 04/28/18 03:30 Neutrophils # 1.5 K/mcL (1.6-8.9) L 04/28/18 03:30 PT 17.7 Seconds (9.4-12.1) H D 04/28/18 03:30 Chloride 109 mEq/L (98-107) H 04/28/18 03:30 POC Glucose 110 mg/dL (70-99) H 04/25/18 06:48 Calcium 7.9 mg/dL (8.6-10.3) L 04/28/18 03:30 Direct Bilirubin 0.3 mg/dL (0.0-0.2) H 04/25/18 02:29 AST 170 Units/L (13-39) H 04/28/18 03:30 ALT 59 Units/L (7-52) H 04/28/18 03:30 Alkaline Phosphatase 113 Units/L (34-104) H 04/28/18 03:30 Creatine Kinase 1562 Units/L (30-223) H 04/28/18 03:30 B-Natriuretic Peptide 245 pg/mL (Less than 100) H 04/25/18 10:52 Serum Total Protein 5.5 g/dL (6.4-8.9) L 04/28/18 03:30 Albumin 2.2 g/dL (3.5-5.7) L 04/28/18 03:30 Albumin/Globulin Ratio 0.7 (1.1-2.2) L 04/28/18 03:30 Folate 19.9 ng/mL (3.0-16.0) H 04/25/18 16:27 Urine Clarity Cloudy (Clear) A 04/25/18 02:33 Urine Protein 100 mg/dL (Neg-Trace) H 04/25/18 02:33 Urine Blood Large (Negative) H 04/25/18 02:33 Ur Leukocyte Esterase Trace (Negative) H 04/25/18 02:33 Urine Microscopic RBC TNTC per hpf (0-3) H 04/25/18 02:33 Urine Microscopic WBC 15-30 per hpf (0-3) H 04/25/18 02:33 Ur Squamous Epith Cells Many per lpf (None-Few) H 04/25/18 02:33 Ur Culture Indicated? NO. (NO) A 04/25/18 02:33 CSF Total Protein 65 mg/dL (15-45) H 04/25/18 04:58 Salicylates < 2.5 mg/dL (15.0-30.0) L 04/25/18 02:29 Acetaminophen < 10 mcg/mL (10-20) L 04/25/18 02:29 Ur Amphetamines Screen Positive ng/mL (Dohauz=[id number]) H 04/25/18 02:33 Urine Cocaine Screen Positive ng/mL (Cutoff= 300) H 04/25/18 02:33 U Marijuana (THC) Screen Positive ng/mL (Cutoff = 50) H 04/25/18 02:33
--- NOTE | 2018-04-28 10:55 | Discharge Summary ---
Date of Encounter: 04/29/18 Time of Encounter: 09:28 - Discharge Diagnosis (1) Encephalopathy acute Priority: Primary Status: Resolved (2) Polysubstance abuse Priority: Primary Status: Chronic (3) Pulmonary emboli Priority: Secondary Status: Acute Qualifiers: Pulmonary embolism type: other Chronicity: unspecified Acute cor pulmonale presence: without acute cor pulmonale Qualified Code(s): I26.99 - Other pulmonary embolism without acute cor pulmonale (4) Rhabdomyolysis Priority: Primary Status: Acute Qualifiers: Rhabdomyolysis type: non-traumatic Qualified Code(s): M62.82 - Rhabdomyolysis (5) Transaminitis Priority: Primary Status: Acute (6) CRISTHIAN (acute kidney injury) Priority: Primary Status: Resolved (7) Carboxyhemoglobinemia Priority: Secondary Status: Resolved Qualifiers: Encounter type: initial encounter Injury intent: undetermined intent Qualified Code(s): T58.94XA - Toxic effect of carbon monoxide from unspecified source, undetermined, initial encounter Hospital course: HOSPITAL COURSE: This is a 57-year-old male. We admitted him with authority mental status. He evidently took some Neurontin pills. It was at least 2 300 mg tablets or capsules. He likely took more than that. He was tested positive for amphetamines, cocaine and marijuana. This patient was initially unresponsive. He was his baseline, when living Hospital. His lumbar puncture done in the emergency room showed normal findings. His CK was over 20,000; around 1500 at discharge. It was associated with mildly increased AST and ALT. His creatinine was initially 1.38; 1.02 at discharge. His hemoglobin was initially 12.6; 9.9 at discharge (got a lot of IV fluids). The patient denies taking other than Neurontin drugs. He says that his friends both of those chemicals into his foods. He buys his Neurontin from the streets. He suffers that he takes it for his low back pain. CONDITION AT DISCHARGE: He feels good. He has normal speech and swallowing. He ambulates on his own. Denies chest pain. Denies abdominal pain, nausea and vomiting. He makes good amounts of urine. Skin: Free of rash and discoloration. Respiratory: Normal breath sounds with no crackles and wheezes bilaterally. CV: Heart is regular with no gallop or murmur. GI: Abdomen is flat and soft with no palpable mass or visceromegaly. Neuro exam: There is no focal deficits. Normal speech, swallowing and gait. SEE DISCHARGE ORDERS/MEDICATIONS.. - Time Spent with Patient Total time spent providing and/or coordinating discharge services: Greater than 30 minutes (45 minutes) - Discharge Medications Prescriptions: Rivaroxaban [Xarelto] 15 mg PO BID 21 Days #42 tablet Home Medications: Methadone Oral Concentrate [Methadone] 105 mg PO DAILY 04/25/18 [History] Rivaroxaban [Xarelto] 15 mg PO BID 21 Days #42 tablet 04/28/18 [Rx] Allergies/Adverse Reactions: 3 Allergy/AdvReac Type Severity Reaction Status Date / Time Penicillins Allergy Hives Verified 10/09/17 07:39 Date of admission: 04/27/18 15:33 Primary care physician: Pawel Shah Discharging clinician: Sanford Garcia Anticipated date of discharge: 04/28/18 - Constitutional Vitals: Temp Pulse Resp BP Pulse Ox 98.2 F 58 16 154/82 100 04/28/18 07:39 04/28/18 07:39 04/28/18 07:39 04/28/18 07:39 04/28/18 07:39 General appearance: Present: A&O X 3, no acute distress, answers questions appropriately Exam: xx - Patient Status Disposition: Home, Self-Care Condition: Fair - Discharge Instructions Instructions: Methamphetamine Abuse (DC) Follow Up With: Eloisa Tavares [Advanced Practice Nurse] - 05/11/18 2:00 pm Additional Instructions: THE PATIENT WAS STOP DOING POLYSUBSTANCE ABUSE.. - Diet and Activity Activity: resume usual activities as tolerated Diet: regular diet - VTE Deep Vein Thrombosis/Pulmonary Embolism Present on Admission: Yes
--- NOTE | 2018-04-28 17:50 | Electrocardiograph Report ---
[place] [id number] Test Date: 2018-04-25 Pat Name: Demond Camilo Department: 112 Room: 3A22 Gender: M Nurse Clinician: : 1960 Requested By: Tisha Beach Order Number: [id number] Reading MD: Maura Rosenbaum Measurements Intervals [place] Rate: 64 P: 68 TX: 158 QRS: 36 QRSD: 94 T: 55 QT: 358 QTc: 368 Interpretive Statements SINUS RHYTHM NONSPECIFIC ST-WAVE ABNORMALITY Electronically Signed On 04-28-2018 17:49:04 EDT by Maura Rosenbaum
--- NOTE | 2018-04-28 18:14 | Electrocardiograph Report ---
[place] [id number] Test Date: 2018-04-25 Pat Name: Demond Camilo Department: [id number] Room: 3A22 Gender: M Aquatics Director: : 1960 Requested By: Joshua Neil Order Number: [id number] Reading MD: Maura Rosenbaum Measurements Intervals [place] Rate: 94 P: 78 WI: 142 QRS: 41 QRSD: 94 T: 58 QT: 488 QTc: 611 Interpretive Statements Sinus rhythm Anteroseptal infarct, old Borderline ST depression, anterolateral leads Prolonged QT interval Electronically Signed On 04-28-2018 18:12:16 EDT by Maura Rosenbaum
[2018-04-29] MEDS: 0.9 % Sodium Chloride 1,000 ML IVC SCH (04:18)
[2018-04-29] MEDS: levETIRAcetam 250 MG TABLET PO SCH (05:18)
--- NOTE | 2018-04-29 06:36 | Internal Med Progress Note ---
Hospitalist Progress Note - Encounter Date of Encounter: 04/28/18 Time of Encounter: 16:00 - Subjective Interval History: The patient feels good. He ambulates on his own without difficulties. He has normal speech and swallowing. Denies weakness in extremities. Denies chest pain, dyspnea, coughing and wheezing. Denies abdominal pain, nausea and vomiting. He makes good amounts of urine. OBJECTIVE: Skin: Free of rash and discoloration. ENMT: Oral/pharyngeal mucosa is normal in appearance. Eyes: Sclera is white. There is no discharge from eyes. Respiratory: Normal breath sounds; no crackles or wheezes. CV: Heart is regular; no gallop or murmur. GI: Abdomen is soft and not tender. There is no palpable mass or visceromegaly. Neuro: There is no focal deficits. His hemoglobin is 9.9; 10.6 at admission. WBC is 3.2 thousand; 8.9 at admission. Pro time INR is 1.6. Creatinine is 1.0; 1.38 at admission. He has normal electrolytes. AST is 170 with ALT of 59 (decreasing). Creatinine kinase is 1562; about 5000 yesterday. ASSESSMENT AND PLAN: Acute encephalopathy, resolved. Likely secondary to polysubstance abuse. Urine drug screen is positive for amphetamines, cocaine and marijuana. He was tested negative for alcohol and salicylates. He was advised to quit using Neurontin and other street drugs. Acute CVA. He has multiple risk factors for that problem. It is mostly about his street drugs. CT angios neck does not show any significant obstructions in carotid arteries. We will keep him on daily aspirin. See neurology notes. The patient was found accidentally to have pulmonary emboli (when getting CT angiogram neck). He started taking Xarelto. He is not hypoxic. Rhabdomyolysis. Likely secondary to tremors, he has experienced recently. This is likely due to overdosing of Neurontin. His elevated transaminases on a for the same reason. His creatinine kinase and logan transaminases show mild elevation. They keep decreasing. Acute kidney injury. Likely prerenal. Resolved with IV fluids. Carboxyhemoglobinemia. Resolving. The cause is unknown. DISPOSITION: This patient was supposed to go home today. He says that there is nobody to take him. He is to live with his brother before this hospitalization. We will talk to social organization professor about further actions. - Exam Vitals: Temp Pulse Resp BP Pulse Ox 98.1 F 54 16 130/77 95 04/29/18 03:55 04/29/18 03:55 04/29/18 03:55 04/29/18 03:55 04/29/18 03:55 Exam: xxx - Assessment and Plan (1) Encephalopathy acute Current Visit: Yes Status: Resolved (2) Acute cerebrovascular accident of cerebellum Current Visit: Yes Status: Acute (3) Polysubstance abuse Current Visit: No Status: Chronic (4) Pulmonary emboli Current Visit: Yes Status: Acute (5) Rhabdomyolysis Current Visit: Yes Status: Acute (6) Transaminitis Current Visit: Yes Status: Acute (7) CRISTHIAN (acute kidney injury) Current Visit: No Status: Resolved (8) Carboxyhemoglobinemia Current Visit: Yes Status: Resolved - Time Spent with Patient Total time spent is greater than 50% in coordination of care (as documented) at patient's floor/unit and/or counseling patient: 25 - 35 minutes Plan of Care Discussed with: patient Internal Medicine: Result - Labs CBC & Chem 7: 04/28/18 03:30 04/28/18 03:30 - ABG Interpretation ABG results: PT/INR, D-dimer PT 17.7 Seconds (9.4-12.1) H D 04/28/18 03:30 - VTE Deep Vein Thrombosis/Pulmonary Embolism Present on Admission: Yes Consult Discharge Plan - Plan Additional Instructions: THE PATIENT WAS STOP DOING POLYSUBSTANCE ABUSE.. Referrals: Eloisa Tavares [Advanced Practice Nurse] - 05/11/18 2:00 pm Prescriptions: Rivaroxaban [Xarelto] 15 mg PO BID 21 Days #42 tablet (4) Pulmonary emboli Qualifiers: Pulmonary embolism type: other Chronicity: unspecified Acute cor pulmonale presence: without acute cor pulmonale Qualified Code(s): I26.99 - Other pulmonary embolism without acute cor pulmonale (8) Carboxyhemoglobinemia Qualifiers: Encounter type: initial encounter Injury intent: undetermined intent Qualified Code(s): T58.94XA - Toxic effect of carbon monoxide from unspecified source, undetermined, initial encounter
[2018-04-29 07:02] VITALS: BP 143/83
[2018-04-29] MEDS: Aspirin 325 MG TABLET PO SCH (09:45)
[2018-04-29] MEDS: Methadone Oral Concentrate 10 MG/ML PO SCH (09:45)
[2018-04-29] MEDS: *HR* Rivaroxaban 15 MG TABLET PO SCH (09:45)
[2018-04-29 10:37] LABS: Enterovirus RNA Qual (PCR) NOT DETECTED; West Nile Virus RNA Result NOT DETECTED
[2018-04-29 10:50] LABS: HSV 2 Glycoprotein G IgG CSF 0.03 IV (<=0.89)
[2018-04-30 10:25] LABS: HSV 1 Glycoprotein G IgG CSF 1.22 IV (<=0.89)
== END 2018-04-29 15:21 | disposition home or self-care (01) | DRG 812 ==
LOC: EMEROOARM 01:42 → ICNU 01:42 → SUATTDRO 06:14 → ICNU 06:54 → 3ANU 04-27 14:58
PROVIDERS: ADMIT Family Medicine; ATTEND Internal Medicine

== ENCOUNTER 2018-07-12 19:17 | Inpatient (IN) ==
[~2018-07-12 19:17] MED LIST: *HR* Dextrose 50 % in Water (Syg) 50 ML SYRINGE IVC ONE; *HR* Etomidate 20 MG/10 ML AMPUL IVP ONE; *HR* Midazolam HCl 2 MG/2 ML VIAL IV ONE; *HR* Midazolam HCl 5 MG/5 ML VIAL IVP ONE; *HR* Rocuronium Bromide 100 MG/10 ML VIAL IVC ONE; Lidocaine 2% Syringe 100 MG/5 ML IV ONE
[2018-07-12] MEDS ORDERED: *HR* Dextrose 50 % in Water (Syg) 50 ML SYRINGE ONE (19:20)
[2018-07-12 19:28] LABS: ABG Base Excess 1 mEq/L (-2 to 3); ABG HCO3 28 mEq/L (21-27); ABG Oxygen Saturation 100 % (95-98); ABG PCO2 55 mmHg (35-45); ABG PH 7.32 pH Units (7.32-7.45); ABG PO2 211 mmHg (85-104); ABG TCO2 30 mEq/L (20-26)
[2018-07-12] MEDS ORDERED: Isovue-370 500 ML INFUS..BTL IV ONE (19:34)
[2018-07-12] MEDS ORDERED: Naloxone 0.4 MG/ML INJ IVP ONE (19:36)
[2018-07-12] MEDS ORDERED: *HR* Dextrose 50 % in Water (Syg) 50 ML SYRINGE IVP ONE (19:37)
[2018-07-12] MEDS ORDERED: 0.9 % Sodium Chloride 1,000 ML IVC ONE (19:38)
[2018-07-12] MEDS ORDERED: 0.9 % Sodium Chloride 1,000 ML ONE ×2 (20:05→20:13)
[2018-07-12 20:14] LABS: Basophils % 0.2 %; Eosinophils # 0.1 K/mcL (0.0-0.6); Eosinophils % 2.6 %; Hematocrit 28.1 % (37.5-50.1); Hemoglobin 8.6 g/dL (12.9-16.9); Immature Granulocytes % 0.9 % (0-4); Lymphocytes # 2.1 K/mcL (0.6-4.6); Lymphocytes % 38.8 %; Mean Corpuscular HGB Conc 30.6 g/dL (31.6-35.5); Mean Corpuscular Hemoglobin 24.6 pg (28.0-33.3); Mean Corpuscular Volume 80.3 fL (83.0-100.0); Mean Platelet Volume 9.2 fL (9.4-12.4); Monocytes # 0.4 K/mcL (0.0-1.3); Monocytes % 7.6 %; Neutrophils # 2.6 K/mcL (1.6-8.9); Platelet Count 107 K/mcL (140-400); Red Cell Distribution Width 16.7 % (11.5-14.5); Segmented Neutrophils % 49.9 %
[2018-07-12] MEDS ORDERED: Sodium Bicarbonate 50 MEQ/50 ML VIAL ONE (20:14)
[2018-07-12] MEDS: Sodium Bicarbonate 150 MEQ in D5% in Water 1,000 ML IVC SCH (20:19)
[2018-07-12 20:21] LABS: Bilirubin,Urine Negative (Negative); Blood,Urine Large (Negative); Clarity,Urine Cloudy (Clear); Color,Urine Red (Yellow); Glucose,Urine (UA) Normal (Normal); Ketones,Urine Trace mg/dL (Negative); Leukocyte Esterase,Urine Moderate (Negative); Nitrite,Urine Negative (Negative); Protein,Urine 100 mg/dL (Neg-Trace); Specific Gravity,Urine 1.016 (1.010-1.025); Urobilinogen,Urine Normal (Normal)
[2018-07-12 20:22] LABS: INR 1.4; Prothrombin Time 15.9 Seconds (9.4-12.1)
[2018-07-12 20:23] LABS: Bacteria,Urine None Seen per hpf (None-Few); Hyaline Casts,Urine None Seen per lpf (None-Few); RBC,Urine TNTC per hpf (0-3); Squamous Epithelial Cell,Urine Few per lpf (None-Few); WBC,Urine 30-50 per hpf (0-3)
[2018-07-12] MEDS ORDERED: *HR* FentaNYL (PF) 100 MCG/2 ML VIAL ONE (20:23)
[2018-07-12 20:24] LABS: Activated Partial Thrombo Time 34.3 Seconds (26.0-36.0)
[2018-07-12 20:33] LABS: Acetaminophen < 10 mcg/mL (10-20); Salicylate < 2.5 mg/dL (15.0-30.0)
[2018-07-12 20:35] LABS: Troponin I < 0.03 ng/mL (< 0.04)
[2018-07-12 20:41] LABS: Amphetamine Screen,Urine Negative ng/mL (Cutoff=1000); Barbiturate Screen,Urine Negative ng/mL (Cutoff=200); Benzodiazepines Screen,Urine Positive ng/mL (Cutoff=200); Cannabinoid Screen,Urine Negative ng/mL (Cutoff = 50); Cocaine Screen,Urine Negative ng/mL (Cutoff= 300); Opiate Screen,Urine Negative ng/mL (Cutoff=300); Phencyclidine Screen,Urine Negative ng/mL (Cutoff=25)
[2018-07-12 20:41] LABS: Alanine Aminotransferase 24 Units/L (7-52); Albumin 2.5 g/dL (3.5-5.7); Albumin/Globulin Ratio 0.6 (1.1-2.2); Alkaline Phosphatase 118 Units/L (34-104); Aspartate Amino Transferase 52 Units/L (13-39); BUN/Creatinine Ratio 13 (6-26); Bilirubin,Direct 0.1 mg/dL (0.0-0.2); Bilirubin,Indirect 0.2 mg/dL (0.0-1.2); Bilirubin,Total 0.3 mg/dL (0.3-1.0); Blood Urea Nitrogen 27 mg/dL (6-20); Carbon Dioxide 29 mEq/L (23-29); Chloride 109 mEq/L (98-107); Creatine Kinase 28 Units/L (30-223); Ethanol < 10 mg/dL (Less than 10); Glucose 117 mg/dL (70-105); Osmolality,Calculated 302 (280-300); Potassium 4.1 mEq/L (3.5-5.1); Sodium 143 mEq/L (136-145); Total Protein 6.5 g/dL (6.4-8.9); eGFR For Non-African Americans 34 (> 60)
[2018-07-12] MEDS: FentaNYL (PF) 1,000 MCG in 0.9 % Sodium Chloride 80 ML IVC SCH (20:51)
--- NOTE | 2018-07-12 21:43 | Emergency Department Note ---
Disposition Clinical Impression: History of methadone use, Acute kidney injury, Benzodiazepine abuse Pneumonia Qualifiers: Pneumonia type: due to unspecified organism Laterality: unspecified laterality Lung location: unspecified part of lung Qualified Code(s): J18.9 - Pneumonia, unspecified organism Altered mental status Qualifiers: Altered mental status type: unspecified Qualified Code(s): R41.82 - Altered mental status, unspecified Anemia Qualifiers: Anemia type: unspecified type Qualified Code(s): D64.9 - Anemia, unspecified Disposition: Admitted As Inpatient Condition: Serious Referrals: NONE,PCP [Primary Care Provider] - Forms: ED Satisfaction Letter, Work/School Release Time of Disposition: 23:32 General Adult HPI - General Chief complaint: ED General Medical Stated complaint: AMS Time Seen by Provider: 07/12/18 20:34 Source: EMS Mode of arrival: EMS Limitations: altered mental status Nursing Notes Reviewed: Yes Vital Signs Reviewed: Yes - History of Present Illness HPI Narrative: Patient is a 57-year-old male with past medical history of previous drug abuse, methadone use, previous overdoses, previous carbon monoxide poisoning. Presents today via EMS due to being found unresponsive by EMS. EMS states that the patient was hypoxic upon their arrival in the 80s, minimally responsive only to pain. They placed the patient on nonrebreather, this is checked glucose and glucose was in the 40s. No dextrose was given due to failed line placement 2. Upon arrival, patient was minimally responsive only to sternal rub. Did not a nswer any questions. Very somnolent. No family present with the patient. No additional history was able to be obtained. Patient was given 2 mg of Narcan and was given amp of D50. After this, patient became more awake but was very combative, confused, not answering questions appropriately. Patient subsequently had to be intubated due to agitation, confusion, needing to perform CTA of the head, neck, chest abdomen and pelvis due to unknown history and possible trauma. Patient was intubated Ld and etomidate. After intubation, patient began to have EKG changes on the monitor. EKG was performed and showed bigeminy but no signs of STEMI. QRS complexes were also widened. Patient was given an amp of bicarbonate and his QRS complexes quickly narrowed and he went back into sinus rhythm. This happened multiple times. Patient required multiple doses of bicarbonate and then was started on bicarbonate drip. Patient does require 1 additional bolus of bicarbonate after the drip was started due to QRS widening again. Central line was placed in the right femoral region due to right internal jugular bifurcation causing difficulty with central line placement on first attempt. Currently on versed and fentanyl drip for sedation. Basic blood work was drawn including lactic acid which came back normal, creatinine kinase to assess for rebound which came back normal. Labs showed no elevation white blood cell count. Patient was anemic. Creatinine was elevated to. Urinalysis showed large amount of blood. No overt signs of UTI, sent for culture. Cultures were drawn and vancomycin and Zosyn were started empirically. Patient is currently pending CT of the head, cervical spine, chest abdomen and pelvis. We are unable to perform chest abdomen pelvis with contrast due to elevated creatinine level. Toxicology was consult at due to QRS widening that was resolving with bicarbonate, concern for possible drug overdose. I discussed case with on-call plater printed circuit board panels. He agreed with the current management of the patient, agreed with continuing bicarbonate drip at this time. He states that he will review the case further and then call me back. No additional recommendations at this time. He did state that although we first considered a TCA overdose that is blood pressure would likely be very low if this was a TCA overdose but his blood pressure was elevated when he first came in. Pain Scale: 0 - Related Data Home Medications Medication Instructions Recorded Confirmed Methadone Oral Concentrate 115 mg PO DAILY 04/25/18 07/06/18 [Methadone] Rivaroxaban [Xarelto] 20 mg PO DAILY 07/05/18 07/06/18 Previous Rx's Medication Instructions Recorded Atorvastatin [Lipitor] 40 mg PO HS #30 tablet 07/07/18 Azithromycin [Zithromax] 500 mg PO Q24H 6 Days #12 tablet 07/07/18 Doxycycline 100 mg PO BID 6 Days #12 capsule 07/07/18 Ferrous Sulfate 325 mg PO BID #60 tablet. 07/07/18 Allergies Allergy/AdvReac Type Severity Reaction Status Date / Time Penicillins Allergy Hives Verified 10/09/17 07:39 Limitations: ROS unobtainable due to patients medical condition Past Medical History - Past Medical History Medical history: Reports: CHF, hypertension Surgical history: Reports: orthopedic, other, other Psychiatric history: Reports: no psych history, PTSD - Social History Smoking Status: Unknown if ever smoked Smokeless Tobacco Status: No Alcohol use: Reports: none Drug use: Reports: marijuana, IV Drug Use Physical Exam - General Limitations: altered mental status General appearance: lethargic - Head Head exam: atraumatic, normocephalic, normal inspection - Eye Eye exam: Present: normal appearance, PERRL, EOMI - ENT ENT exam: mucous membranes dry, other (edentulous) - Neck Neck exam: Present: normal inspection, trachea midline - Chest Chest inspection: Present: normal inspection, symmetric chest wall rise - Respiratory Respiratory exam: Present: other (mild rhonchi bilateral LL; shallow breathing, hypoxic; on nonrebreather and 98%) - Cardiovascular Cardiovascular exam: Present: regular rate, normal rhythm, normal heart sounds - Abdominal Exam Abdominal exam: Present: soft, Non-Tender. Absent: tenderness, distention, guarding, rebound, rigidity - Extremities Exam Extremities exam: Present: full ROM, pedal edema (bilateral LE). Absent: tenderness - Neurological Exam Neurological exam: Present: other (lethargic) - Expanded Neurological Exam Coma Scale Eye Opening: To Pain Coma Scale Motor Response: Withdraws to Pain Coma Scale Verbal Response: Incomprehensible Coma Scale Total: 8 - Psychiatric Psychiatric exam: Present: normal affect, normal mood - Skin Skin exam: Present: warm, dry, intact, normal color Course Course Narrative: CT cervical spine negative for any acute pathology. There is a chronic fracture of the T3 spinous process. CT the chest shows multifocal pneumonia versus edema. Patient started on vancomycin and cefepime. Zosyn was not started due to penicillin allergy. CT the head was negative. Currently waiting on CT abdomen and pelvis and then we will discuss case with hospitalist for admission to the ICU. Toxicology is has called back and has no further recommendations at this time. Patient remains sedated on fentanyl and Versed drip, is not requiring any pressors at this time. Vitals are stable. Remains intubated. 23:30 CT abdomen and pelvis shows peripancreatic fat stranding. Lipase is ordered and pending. This questionable thickening of the small bowel, possibly nonspecific enteritis. Right femoral venous catheter appears to be extending into the retroperitoneal vein. However, line is flushing and drawing appropriately. Discussed this with the hospitalist. Patient currently has 2 peripheral lines, one left humeral IO. Hemodynamically stable and not requiring pressors. We discussed right femoral line placement and difficulty with a right IJ placement. We will keep right femoral line in place currently and only uses an emergent situation. Otherwise, will utilize the other lines. Hospitalist was agreeable with this plan. Patient has been accepted to the ICU by Dr. Elabor. [facility] X-Ray 07/12/18 00:00 IMPRESSION: The tip of the OG tube is in the distal esophagus. If this tube is not coiled in the nasopharynx, the tube should be advanced 20 cm. 1.85 cm right renal calculus. D/ / Suhas Gaming MD / Suhas Gaming MD Interpreting Provider: Suhas Gaming MD Abdomen/Pelvis CT 07/12/18 19:34 IMPRESSION: Possible peripancreatic fat stranding. Correlate with laboratory evidence of pancreatitis. Question mural thickening of small bowel within the mid to upper abdomen, which raise the possibility of nonspecific enteritis. Malpositioned right femoral central venous catheter extending into a retroperitoneal vein. Correlate with function and consider repositioning. Small amount of free pelvic fluid, presumably reactive. Nonobstructing right nephrolithiasis. Moderate amount of stool within the colon. Correlate with clinical evidence of constipation. Findings were discussed with Jasbir Painting at 11:12 pm on 07/12/2018. D/ / Justin De La Cruz MD / Justin De La Cruz MD Interpreting Provider: Justin De La Cruz MD Cervical Spine CT 07/12/18 19:34 IMPRESSION: Somewhat limited study due to motion artifact. No convincing evidence for acute intracranial pathology. Fluid and debris within the nasopharynx and oropharynx. Chronic fracture of the T3 spinous process. Subtle airspace opacities within the left upper lobe, either contusion or possibly infectious/inflammatory. Subcutaneous air within the left-sided neck behind the sternocleidomastoid muscle. Correlation for soft tissue laceration suggested. D/ / Chaparro Mckeon MD / Chaparro Mckeon MD Interpreting Provider: Chaparro Mckeon MD Chest CT 07/12/18 19:34 IMPRESSION: There is bilateral multifocal airspace disease superimposed on chronic pleural and parenchymal scarring. Pulmonary edema is suspected. Multifocal pneumonia is not excluded. Bilateral gynecomastia. D/ / Suhas Gaming MD / Suhas Gaming MD Interpreting Provider: Suhas Gaming MD Head CT 07/12/18 19:34 IMPRESSION: Somewhat limited study due to motion artifact. No convincing evidence for acute intracranial pathology. Fluid and debris within the nasopharynx and oropharynx. Chronic fracture of the T3 spinous process. Subtle airspace opacities within the left upper lobe, either contusion or possibly infectious/inflammatory. Subcutaneous air within the left-sided neck behind the sternocleidomastoid muscle. Correlation for soft tissue laceration suggested. D/ / Chaparro Mckeon MD / Chaparro Mckeon MD Interpreting Provider: Chaparro Mckeon MD Chest X-Ray 07/12/18 19:36 IMPRESSION: Mild pulmonary edema increased in severity from 07/05/2018. The endotracheal tube is in satisfactory position. The tip of the OG tube is in the distal esophagus. If the tube is not coiled in the nasopharynx, the tube should be advanced 20 cm. D/ / Suhas Gaming MD / Suhas Gaming MD Interpreting Provider: Suhas Gaming MD X-Ray 07/12/18 00:00 IMPRESSION: The tip of the OG tube is in the distal esophagus. If this tube is not coiled in the nasopharynx, the tube should be advanced 20 cm. 1.85 cm right renal calculus. D/ / Suhas Gaming MD / Suhas Gaming MD Interpreting Provider: Suhas Gaming MD Cervical Spine CT 07/12/18 19:34 IMPRESSION: Somewhat limited study due to motion artifact. No convincing evidence for acute intracranial pathology. Fluid and debris within the nasopharynx and oropharynx. Chronic fracture of the T3 spinous process. Subtle airspace opacities within the left upper lobe, either contusion or possibly infectious/inflammatory. Subcutaneous air within the left-sided neck behind the sternocleidomastoid muscle. Correlation for soft tissue laceration suggested. D/ / Chaparro Mckeon MD / Chaparro Mckeon MD Interpreting Provider: Chaparro Mckeon MD Chest CT 07/12/18 19:34 IMPRESSION: There is bilateral multifocal airspace disease superimposed on chronic pleural and parenchymal scarring. Pulmonary edema is suspected. Multifocal pneumonia is not excluded. Bilateral gynecomastia. D/ / Suhas Gaming MD / Suhas Gaming MD Interpreting Provider: Suhas Gaming MD Head CT 07/12/18 19:34 IMPRESSION: Somewhat limited study due to motion artifact. No convincing evidence for acute intracranial pathology. Fluid and debris within the nasopharynx and oropharynx. Chronic fracture of the T3 spinous process. Subtle airspace opacities within the left upper lobe, either contusion or possibly infectious/inflammatory. Subcutaneous air within the left-sided neck behind the sternocleidomastoid muscle. Correlation for soft tissue laceration suggested. D/ / Chaparro Mckeon MD / Chaparro Mckeon MD Interpreting Provider: Chaparro Mckeon MD Chest X-Ray 07/12/18 19:36 IMPRESSION: Mild pulmonary edema increased in severity from 07/05/2018. The endotracheal tube is in satisfactory position. The tip of the OG tube is in the distal esophagus. If the tube is not coiled in the nasopharynx, the tube should be advanced 20 cm. D/ / Suhas Gaming MD / Suhas Gaming MD Interpreting Provider: Suhas Gaming MD Vital Signs Temperature 98.2 F 07/12/18 19:26 Pulse Rate 59 07/12/18 19:26 Respiratory Rate 12 07/12/18 19:26 Blood Pressure 0/0 07/12/18 19:26 O2 Sat by Pulse Oximetry 98 07/12/18 19:26 Temperature 98.2 F 07/12/18 19:26 Pulse Rate 67 07/12/18 22:51 Respiratory Rate 12 07/12/18 22:51 Blood Pressure 107/72 07/12/18 22:51 O2 Sat by Pulse Oximetry 100 07/12/18 22:51 Oxygen Delivery Oxygen Delivery Ventilator Procedures - Central Line Placement Right Femoral Central Line Inserted*: Yes Central Line Catheter Replacement*: Yes Central Line Insertion: emergent Procedural Pause: verify patient name and date of , timeout performed per policy, mu and assess the site, assemble equipment and verify supplies, perform hand hygiene Patient Placed on Monitor/Pulse Ox: Yes During the Procedure: clinician is wearing sterile gloves, cap, mask,& gown d uring insertion, sterile field and sterile technique are maintained, patient's face is covered with drape or mask and wearing a cap, everyone in room is wearing a mask Central Line Prep: Chlorhexidine scrub Prep the Procedure Site: apply chloraprep to the skin using a back and forth scrubbing motion Ultrasound Used for Placement: Yes Central Line Lumen Inserted: triple Post Procedure: sutured in place, good blood return, all ports aspirated, flushed, capped, sterile dressing applied, guide wire removed and visualized, dressing is dated Patient Tolerated Procedure: well Complications: none Name of Clinician Inserting Central Line: Performed by Dr. Katia Velasquez and Dr. Painting, supervised by Dr. Neil Date: 07/12/18 Time: 22:18 Additional Comments: Right central line IJ attempted but failed attempt due to bifurcation of right internal jugular vein causing inability of guidewire to progress. Postprocedure chest x-ray showed no signs of pneumothorax. KUB X-Ray 07/12/18 00:00 IMPRESSION: The tip of the OG tube is in the distal esophagus. If this tube is not coiled in the nasopharynx, the tube should be advanced 20 cm. 1.85 cm right renal calculus. D/ / Suhas Gaming MD / Suhas Gaming MD Interpreting Provider: Suhas Gaming MD Chest X-Ray 07/12/18 19:36 IMPRESSION: Mild pulmonary edema increased in severity from 07/05/2018. The endotracheal tube is in satisfactory position. The tip of the OG tube is in the distal esophagus. If the tube is not coiled in the nasopharynx, the tube should be advanced 20 cm. D/ / Suhas Gaming MD / Suhas Gaming MD Interpreting Provider: Suhas Gaming MD - Intubation Time out performed: Yes sedative: Etomidate Mg Given: 20 paralytic: Rocuronium Mg Given: 70 Laryngoscope: fiber optic video scope ET Tube Size: 7.5 ET Tube Uncuffed: Yes Tube Secured Depth (cm): 24 Tube Secured Location: lips Tube Placement Confirmation: visualized tube passing through cords, equal breath sounds bilaterally, no breath sounds over epigastrium, confirmation by capnometry Patient Tolerated Procedure: well Intubation Complications: none Additional Comments: Performed by Dr. Rupal Chaudhari and assisted by Jasbir Painting. Supervised by Dr. Neil - GERI Left Humerus Time Out Performed: Yes IO Instrument Used to Penetrate the Cortex: standard IO needle Patient Tolerated Procedure: well Complications: none Medical Decision Making - MDM Narrative Medical decision making narrative: CT cervical spine negative for any acute pathology. There is a chronic fracture of the T3 spinous process. CT the chest shows multifocal pneumonia versus edema. Patient started on vancomycin and cefepime. Zosyn was not started due to penicillin allergy. CT the head was negative. Currently waiting on CT abdomen and pelvis and then we will discuss case with hospitalist for admission to the ICU. Toxicology is has called back and has no further recommendations at this time. Patient remains sedated on fentanyl and Versed drip, is not requiring any pressors at this time. Vitals are stable. Remains intubated. 23:30 CT abdomen and pelvis shows peripancreatic fat stranding. Lipase is ordered and pending. This questionable thickening of the small bowel, possibly nonspecific enteritis. Right femoral venous catheter appears to be extending into the retroperitoneal vein. However, line is flushing and drawing appropriately. Discussed this with the hospitalist. Patient currently has 2 peripheral lines, one left humeral IO. Hemodynamically stable and not requiring pressors. We discussed right femoral line placement and difficulty with a ri ght IJ placement. We will keep right femoral line in place currently and only uses an emergent situation. Otherwise, will utilize the other lines. Hospitalist was agreeable with this plan. Patient has been accepted to the ICU by Dr. Dotson. - Medical Records Medical records reviewed: Yes I reviewed the patient's medical records. - Lab Data Lab results reviewed: Yes I reviewed the patient's lab results. Result diagrams: 07/12/18 20:03 07/12/18 20:03 Lab Results 07/12/18 07/12/18 07/12/18 Range/Units 19:22 20:03 20:03 WBC 5.3 (4.3-11.1) K/mcL RBC 3.50 L (4.19-5.50) M/mcL Hgb 8.6 L (12.9-16.9) g/dL Hct 28.1 L (37.5-50.1) % MCV 80.3 L (83.0-100.0) fL MCH 24.6 L (28.0-33.3) pg MCHC 30.6 L (31.6-35.5) g/dL RDW 16.7 H (11.5-14.5) % Plt Count 107 L (140-400) K/mcL MPV 9.2 L (9.4-12.4) fL Immature Gran % 0.9 (0-4) % Seg Neutrophils % 49.9 % Lymphocytes % 38.8 % Monocytes % 7.6 % Eosinophils % 2.6 % Basophils % 0.2 % Neutrophils # 2.6 (1.6-8.9) K/mcL Lymphocytes # 2.1 (0.6-4.6) K/mcL Monocytes # 0.4 (0.0-1.3) K/mcL Eosinophils # 0.1 (0.0-0.6) K/mcL Basophils # 0.0 (0.0-0.2) K/mcL PT 15.9 H (9.4-12.1) Seconds INR 1.4 APTT 34.3 (26.0-36.0) Seconds Sample Site L Radial ABG pH 7.32 (7.32-7.45) pH Units ABG pCO2 55 H (35-45) mmHg ABG pO2 211 H (85-104) mmHg ABG HCO3 28 H (21-27) mEq/L ABG Total CO2 30 H (20-26) mEq/L ABG O2 Saturation 100 H (95-98) % ABG Base Excess 1 (-2 to 3) mEq/L Colin Test Positive Carboxyhemoglobin (0-5) % O2 Delivery Device NRB Inspired O2 100.0 (1-15=lpm [id number]=%) Sodium (136-145) mEq/L Potassium (3.5-5.1) mEq/L Chloride (98-107) mEq/L Carbon Dioxide (23-29) mEq/L BUN (6-20) mg/dL Creatinine (0.70-1.30) mg/dL Est GFR ( Amer) (> 60) Est GFR (Non-Af Amer) (> 60) BUN/Creatinine Ratio (6-26) Glucose (70-105) mg/dL Calculated Osmolality (280-300) Lactic Acid (0.5-2.2) mmol/L Calcium (8.6-10.3) mg/dL Total Bilirubin (0.3-1.0) mg/dL Direct Bilirubin (0.0-0.2) mg/dL Indirect Bilirubin (0.0-1.2) mg/dL AST (13-39) Units/L ALT (7-52) Units/L Alkaline Phosphatase (34-104) Units/L Creatine Kinase (30-223) Units/L Troponin I (< 0.04) ng/mL Serum Total Protein (6.4-8.9) g/dL Albumin (3.5-5.7) g/dL Globulin (2.4-3.5) g/dL Albumin/Globulin Ratio (1.1-2.2) Urine Color (Yellow) Urine Clarity (Clear) Urine pH (5.0-8.0) pH Units Ur Specific Flushing (1.010-1.025) Urine Protein (Neg-Trace) mg/dL Urine Glucose (UA) (Normal) mg/dL Urine Ketones (Negative) mg/dL Urine Blood (Negative) Urine Nitrite (Negative) Urine Bilirubin (Negative) Urine Urobilinogen (Normal) mg/dL Ur Leukocyte Esterase (Negative) Urine Microscopic RBC (0-3) per hpf Urine Microscopic WBC (0-3) per hpf Ur Squamous Epith Cells (None-Few) per lpf Urine Bacteria (None-Few) per hpf Hyaline Casts (None-Few) per lpf Ur Culture Indicated? (NO) Salicylates (15.0-30.0) mg/dL Urine Opiates Screen (Pnefkb=347) ng/mL Acetaminophen (10-20) mcg/mL Ur Barbiturates Screen (Qttkxk=825) ng/mL Ur Phencyclidine Scrn (Cutoff=25) ng/mL Ur Amphetamines Screen (Vosjrs=8702) ng/mL U Benzodiazepines Scrn (Ecsyft=057) ng/mL Urine Cocaine Screen (Cutoff= 300) ng/mL U Marijuana (THC) Screen (Cutoff = 50) ng/mL Ur Drug Screen Interp Ethyl Alcohol (Less than 10) mg/dL 07/12/18 07/12/18 07/12/18 Range/Units 20:03 20:03 20:03 WBC (4.3-11.1) K/mcL RBC (4.19-5.50) M/mcL Hgb (12.9-16.9) g/dL Hct (37.5-50.1) % MCV (83.0-100.0) fL MCH (28.0-33.3) pg MCHC (31.6-35.5) g/dL RDW (11.5-14.5) % Plt Count (140-400) K/mcL MPV (9.4-12.4) fL Immature Gran % (0-4) % Seg Neutrophils % % Lymphocytes % % Monocytes % % Eosinophils % % Basophils % % Neutrophils # (1.6-8.9) K/mcL Lymphocytes # (0.6-4.6) K/mcL Monocytes # (0.0-1.3) K/mcL Eosinophils # (0.0-0.6) K/mcL Basophils # (0.0-0.2) K/mcL PT (9.4-12.1) Seconds INR APTT (26.0-36.0) Seconds Sample Site ABG pH (7.32-7.45) pH Units ABG pCO2 (35-45) mmHg ABG pO2 (85-104) mmHg ABG HCO3 (21-27) mEq/L ABG Total CO2 (20-26) mEq/L ABG O2 Saturation (95-98) % ABG Base Excess (-2 to 3) mEq/L Colin Test Carboxyhemoglobin (0-5) % O2 Delivery Device Inspired O2 (1-15=lpm [id number]=%) Sodium 143 (136-145) mEq/L Potassium 4.1 (3.5-5.1) mEq/L Chloride 109 H (98-107) mEq/L Carbon Dioxide 29 (23-29) mEq/L BUN 27 H (6-20) mg/dL Creatinine 2.03 H (0.70-1.30) mg/dL Est GFR ( Amer) 41 L (> 60) Est GFR (Non-Af Amer) 34 L (> 60) BUN/Creatinine Ratio 13 (6-26) Glucose 117 H (70-105) mg/dL Calculated Osmolality 302 H (280-300) Lactic Acid 1.6 (0.5-2.2) mmol/L Calcium 8.0 L (8.6-10.3) mg/dL Total Bilirubin 0.3 (0.3-1.0) mg/dL Direct Bilirubin 0.1 (0.0-0.2) mg/dL Indirect Bilirubin 0.2 (0.0-1.2) mg/dL AST 52 H (13-39) Units/L ALT 24 (7-52) Units/L Alkaline Phosphatase 118 H (34-104) Units/L Creatine Kinase 28 L (30-223) Units/L Troponin I < 0.03 (< 0.04) ng/mL Serum Total Protein 6.5 (6.4-8.9) g/dL Albumin 2.5 L (3.5-5.7) g/dL Globulin 4.0 H (2.4-3.5) g/dL Albumin/Globulin Ratio 0.6 L (1.1-2.2) Urine Color (Yellow) Urine Clarity (Clear) Urine pH (5.0-8.0) pH Units Ur Specific Flushing (1.010-1.025) Urine Protein (Neg-Trace) mg/dL Urine Glucose (UA) (Normal) mg/dL Urine Ketones (Negative) mg/dL Urine Blood (Negative) Urine Nitrite (Negative) Urine Bilirubin (Negative) Urine Urobilinogen (Normal) mg/dL Ur Leukocyte Esterase (Negative) Urine Microscopic RBC (0-3) per hpf Urine Microscopic WBC (0-3) per hpf Ur Squamous Epith Cells (None-Few) per lpf Urine Bacteria (None-Few) per hpf Hyaline Casts (None-Few) per lpf Ur Culture Indicated? (NO) Salicylates < 2.5 L (15.0-30.0) mg/dL Urine Opiates Screen (Qcappu=009) ng/mL Acetaminophen < 10 L (10-20) mcg/mL Ur Barbiturates Screen (Wkgdun=288) ng/mL Ur Phencyclidine Scrn (Cutoff=25) ng/mL Ur Amphetamines Screen (Hcuyhi=9292) ng/mL U Benzodiazepines Scrn (Toexmg=588) ng/mL Urine Cocaine Screen (Cutoff= 300) ng/mL U Marijuana (THC) Screen (Cutoff = 50) ng/mL Ur Drug Screen Interp Ethyl Alcohol < 10 (Less than 10) mg/dL 07/12/18 07/12/18 07/12/18 Range/Units 20:05 20:05 21:43 WBC (4.3-11.1) K/mcL RBC (4.19-5.50) M/mcL Hgb (12.9-16.9) g/dL Hct (37.5-50.1) % MCV (83.0-100.0) fL MCH (28.0-33.3) pg MCHC (31.6-35.5) g/dL RDW (11.5-14.5) % Plt Count (140-400) K/mcL MPV (9.4-12.4) fL Immature Gran % (0-4) % Seg Neutrophils % % Lymphocytes % % Monocytes % % Eosinophils % % Basophils % % Neutrophils # (1.6-8.9) K/mcL Lymphocytes # (0.6-4.6) K/mcL Monocytes # (0.0-1.3) K/mcL Eosinophils # (0.0-0.6) K/mcL Basophils # (0.0-0.2) K/mcL PT (9.4-12.1) Seconds INR APTT (26.0-36.0) Seconds Sample Site ABG pH (7.32-7.45) pH Units ABG pCO2 (35-45) mmHg ABG pO2 (85-104) mmHg ABG HCO3 (21-27) mEq/L ABG Total CO2 (20-26) mEq/L ABG O2 Saturation (95-98) % ABG Base Excess (-2 to 3) mEq/L Colin Test Carboxyhemoglobin 3.9 (0-5) % O2 Delivery Device Inspired O2 (1-15=lpm qg48-785=%) Sodium (136-145) mEq/L Potassium (3.5-5.1) mEq/L Chloride (98-107) mEq/L Carbon Dioxide (23-29) mEq/L BUN (6-20) mg/dL Creatinine (0.70-1.30) mg/dL Est GFR ( Amer) (> 60) Est GFR (Non-Af Amer) (> 60) BUN/Creatinine Ratio (6-26) Glucose (70-105) mg/dL Calculated Osmolality (280-300) Lactic Acid (0.5-2.2) mmol/L Calcium (8.6-10.3) mg/dL Total Bilirubin (0.3-1.0) mg/dL Direct Bilirubin (0.0-0.2) mg/dL Indirect Bilirubin (0.0-1.2) mg/dL AST (13-39) Units/L ALT (7-52) Units/L Alkaline Phosphatase (34-104) Units/L Creatine Kinase (30-223) Units/L Troponin I (< 0.04) ng/mL Serum Total Protein (6.4-8.9) g/dL Albumin (3.5-5.7) g/dL Globulin (2.4-3.5) g/dL Albumin/Globulin Ratio (1.1-2.2) Urine Color Red A (Yellow) Urine Clarity Cloudy A (Clear) Urine pH 6.0 (5.0-8.0) pH Units Ur Specific [place] 1.016 (1.010-1.025) Urine Protein 100 H (Neg-Trace) mg/dL Urine Glucose (UA) Normal (Normal) mg/dL Urine Ketones Trace H (Negative) mg/dL Urine Blood Large H (Negative) Urine Nitrite Negative (Negative) Urine Bilirubin Negative (Negative) Urine Urobilinogen Normal (Normal) mg/dL Ur Leukocyte Esterase Moderate H (Negative) Urine Microscopic RBC TNTC H (0-3) per hpf Urine Microscopic WBC 30-50 H (0-3) per hpf Ur Squamous Epith Cells Few (None-Few) per lpf Urine Bacteria None Seen (None-Few) per hpf Hyaline Casts None Seen (None-Few) per lpf Ur Culture Indicated? YES A (NO) Salicylates (15.0-30.0) mg/dL Urine Opiates Screen Negative (Afmrqp=739) ng/mL Acetaminophen (10-20) mcg/mL Ur Barbiturates Screen Negative (Xviacs=354) ng/mL Ur Phencyclidine Scrn Negative (Cutoff=25) ng/mL Ur Amphetamines Screen Negative (Hmglrn=4938) ng/mL U Benzodiazepines Scrn Positive H (Cmevkw=030) ng/mL Urine Cocaine Screen Negative (Cutoff= 300) ng/mL U Marijuana (THC) Screen Negative (Cutoff = 50) ng/mL Ur Drug Screen Interp See Below Ethyl Alcohol (Less than 10) mg/dL - Radiology Data Radiology results reviewed: Yes I reviewed the patient's radiology results. KUB X-Ray 07/12/18 00:00 IMPRESSION: The tip of the OG tube is in the distal esophagus. If this tube is not coiled in the nasopharynx, the tube should be advanced 20 cm. 1.85 cm right renal calculus. D/ / Suhas Gaming MD / Suhas Gaming MD Interpreting Provider: Suhas Gaming MD Abdomen/Pelvis CT 07/12/18 19:34 IMPRESSION: Possible peripancreatic fat stranding. Correlate with laboratory evidence of pancreatitis. Question mural thickening of small bowel within the mid to upper abdomen, which raise the possibility of nonspecific enteritis. Malpositioned right femoral central venous catheter extending into a retroperitoneal vein. Correlate with function and consider repositioning. Small amount of free pelvic fluid, presumably reactive. Nonobstructing right nephrolithiasis. Moderate amount of stool within the colon. Correlate with clinical evidence of constipation. Findings were discussed with Jasbir Painting at 11:12 pm on 07/12/2018. D/ / Justin De La Cruz MD / Justin De La Cruz MD Interpreting Provider: Justin De La Cruz MD Cervical Spine CT 07/12/18 19:34 IMPRESSION: Somewhat limited study due to motion artifact. No convincing evidence for acute intracranial pathology. Fluid and debris within the nasopharynx and oropharynx. Chronic fracture of the T3 spinous process. Subtle airspace opacities within the left upper lobe, either contusion or possibly infectious/inflammatory. Subcutaneous air within the left-sided neck behind the sternocleidomastoid muscle. Correlation for soft tissue laceration suggested. D/ / Chaparro Mckeon MD / Chaparro Mckeon MD Interpreting Provider: Chaparro Mckeon MD Chest CT 07/12/18 19:34 IMPRESSION: There is bilateral multifocal airspace disease superimposed on chronic pleural and parenchymal scarring. Pulmonary edema is suspected. Multifocal pneumonia is not excluded. Bilateral gynecomastia. D/ / Suhas Gaming MD / Suhas Gaming MD Interpreting Provider: Suhas Gaming MD Head CT 07/12/18 19:34 IMPRESSION: Somewhat limited study due to motion artifact. No convincing evidence for acute intracranial pathology. Fluid and debris within the nasopharynx and oropharynx. Chronic fracture of the T3 spinous process. Subtle airspace opacities within the left upper lobe, either contusion or possibly infectious/inflammatory. Subcutaneous air within the left-sided neck behind the sternocleidomastoid muscle. Correlation for soft tissue laceration suggested. D/ / Chaparro Mckeon MD / Chaparro Mckeon MD Interpreting Provider: Chaparro Mckeon MD Chest X-Ray 07/12/18 19:36 IMPRESSION: Mild pulmonary edema increased in severity from 07/05/2018. The endotracheal tube is in satisfactory position. The tip of the OG tube is in the distal esophagus. If the tube is not coiled in the nasopharynx, the tube should be advanced 20 cm. D/ / Suhas Gaming MD / Suhas Gaming MD Interpreting Provider: Suhas Gaming MD Seth - Seth Situation: Demographics, MOA Background: Presenting Complaint, Relevant PMH, Meds, & Allergies Assessment: Vital Signs, Course and respsone to treatment, Exam Concerns, Patient/Family Expectation, Pertinant Lab Results, Outstanding Labs (Pending lipase) Recommendation: Barrier(s) to disposition, Recommendation based on pending studies, treatments, or consults Seth Report Given to: Dr. Mauri Ann Repor Time: 23:32 Attestation Statement - Attestation Attestation: I examined this patient and my medical decision-making was reviewed with the Resident Physician. I agree with the documented findings, disposition and treatment plan as described except to the extent set forth below. 35 minutes of critical care time. Patient with overdose, hypoglycemia, suspected polypha rmacy, intubated for hypoxemic respiratory failure. Consults to tox. Required massive amounts of bicarb for rythm stabilization, although I do not suspect TCA overdose I can not exclude this definitively. Will continue to monitor, admit to ICU, obtain advanced imaging.
[2018-07-12 23:48] LABS: Lipase 19 Units/L (11-82)
[2018-07-13] MEDS ORDERED: Cefepime HCl 2,000 MG in 0.9 % Sodium Chloride Mini Bag 100 ML IVPB SCH
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
[2018-07-13] MEDS ORDERED: Naloxone 0.4 MG/ML INJ IVP PRN (01:21)
[2018-07-13] MEDS ORDERED: Artificial Tears SOLN 15 ML BOTTLE BOTH EYES PRN (01:39)
[2018-07-13] MEDS: Sodium Bicarbonate 150 MEQ in D5% in Water 1,000 ML IVC SCH (02:23)
[2018-07-13] MEDS: FentaNYL (PF) 1,000 MCG in 0.9 % Sodium Chloride 80 ML IVC SCH (02:28)
[2018-07-13] MEDS: Artificial Tears SOLN 15 ML BOTTLE BOTH EYES SCH ×6 (03:09→23:02)
[2018-07-13 03:35] LABS: ABG Base Excess 13 mEq/L (-2 to 3); ABG HCO3 40 mEq/L (21-27); ABG Oxygen Saturation 93 % (95-98); ABG PCO2 69 mmHg (35-45); ABG PH 7.37 pH Units (7.32-7.45); ABG PO2 71 mmHg (85-104); ABG TCO2 42 mEq/L (20-26); Blood Gas Modality ASSIST CONTROL; Blood Gas PEEP 5 cm H2O; Blood Gas Respiration Rate 14; Blood Gas VT 450 cc
[2018-07-13 03:49] LABS: Basophils % 0.3 %; Hemoglobin 7.2 g/dL (12.9-16.9)
[2018-07-13 03:51] LABS: Eosinophils # 0.1 K/mcL (0.0-0.6); Eosinophils % 1.8 %; Hematocrit 24.1 % (37.5-50.1); Immature Granulocytes % 0.6 % (0-4); Immature Platelets 0.9 % (1.1-6.1); Lymphocytes # 0.8 K/mcL (0.6-4.6); Lymphocytes % 24.6 %; Mean Corpuscular HGB Conc 29.9 g/dL (31.6-35.5); Mean Corpuscular Hemoglobin 24.6 pg (28.0-33.3); Mean Corpuscular Volume 82.3 fL (83.0-100.0); Mean Platelet Volume 8.6 fL (9.4-12.4); Monocytes # 0.3 K/mcL (0.0-1.3); Neutrophils # 2.1 K/mcL (1.6-8.9); Platelet Count 105 K/mcL (140-400); Red Blood Count 2.93 M/mcL (4.19-5.50); Red Cell Distribution Width 16.3 % (11.5-14.5); Segmented Neutrophils % 62.7 %
[2018-07-13 03:56] LABS: INR 1.2; Prothrombin Time 13.9 Seconds (9.4-12.1)
[2018-07-13 03:59] LABS: Albumin 2.2 g/dL (3.5-5.7); Albumin/Globulin Ratio 0.6 (1.1-2.2); Bilirubin,Total 0.3 mg/dL (0.3-1.0); Calcium 7.5 mg/dL (8.6-10.3); Globulin 3.4 g/dL (2.4-3.5); Magnesium 1.6 mg/dL (1.6-2.6); Phosphorous 4.1 mg/dL (2.7-4.5); Potassium 3.9 mEq/L (3.5-5.1); Total Protein 5.6 g/dL (6.4-8.9)
[2018-07-13] MEDS: Potassium Chloride 40 MEQ/200 ML BAG IVPB PRN (05:45)
[2018-07-13] MEDS: Norepinephrine 4 MG in D5% in Water 250 ML IVC SCH (05:48)
[2018-07-13] MEDS ORDERED: MetroNIDAZOLE 500 MG/100 ML 500 MG/100 ML BAG IVPB SCH (06:00)
[2018-07-13] MEDS ORDERED: 0.9 % Sodium Chloride 250 ML IVC ONE (06:09)
[2018-07-13] MEDS ORDERED: 0.9 % Sodium Chloride 500 ML ONE (06:13)
[2018-07-13] MEDS: Pantoprazole 40 MG VIAL IVP SCH (08:08)
[2018-07-13] MEDS: cefTRIAXone 1,000 MG in Water for inj. (sterile) 20 ML 10 ML IVP SCH (08:08)
[2018-07-13] MEDS: Chlorhexidine Rinse 15 ML MOUTHWASH MM SCH ×2 (08:08→20:20)
[2018-07-13 08:43] LABS: Thyroid Stimulating Hormone 2.812 mcIU/mL (0.340-5.600)
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
[2018-07-13] MEDS: *HR* Heparin 5,000 UNIT/ML VIAL SQ SCH ×2 (10:49→18:16)
[2018-07-13] MEDS ORDERED: D5% in Water 1,000 ML IVC PRN (11:24)
[2018-07-13] MEDS ORDERED: Dextrose Gel 15 GM/37.5 ML TUBE PO PRN ×2 (11:24)
[2018-07-13] MEDS: *HR* Dextrose 50 % in Water (Syg) 50 ML SYRINGE IVP PRN ×2 (12:06→15:38)
--- NOTE | 2018-07-13 14:10 | Electrocardiograph Report ---
[address] [address] Test Date: 2018-07-13 Pat Name: Demond Camilo Department: 112 Room: [facility] Gender: Residential Direct Support Professional: : [id number] Requested By: Narendra Helton Order Number: [id number] Reading MD: Myah Dunne Measurements Intervals [place] Rate: 56 P: 48 NV: 166 QRS: 5 QRSD: 90 T: 35 QT: 519 QTc: 510 Interpretive Statements SINUS BRADYCARDIA PROLONGED QT INTERVAL Electronically Signed On 07-13-2018 14:09:05 EST by Myah Dunne
--- NOTE | 2018-07-13 14:12 | Electrocardiograph Report ---
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
[2018-07-14 03:27] LABS: Basophils % 0.4 %; Eosinophils # 0.1 K/mcL (0.0-0.6); Eosinophils % 4.2 %; Hematocrit 22.6 % (37.5-50.1); Hemoglobin 6.6 g/dL (12.9-16.9); Immature Granulocytes % 0.4 % (0-4); Mean Corpuscular HGB Conc 29.2 g/dL (31.6-35.5); Mean Corpuscular Hemoglobin 24.5 pg (28.0-33.3); Mean Platelet Volume 9.1 fL (9.4-12.4); Monocytes # 0.2 K/mcL (0.0-1.3); Monocytes % 8.4 %; Red Blood Count 2.69 M/mcL (4.19-5.50); Red Cell Distribution Width 16.7 % (11.5-14.5); Segmented Neutrophils % 53.6 %
[2018-07-14 03:32] LABS: Neutrophils # 1.6 K/mcL (1.6-8.9); Platelet Count 91 K/mcL (140-400)
[2018-07-14 03:44] LABS: Calcium 7.3 mg/dL (8.6-10.3); Magnesium 1.8 mg/dL (1.6-2.6); Phosphorous 3.2 mg/dL (2.7-4.5); Potassium 3.6 mEq/L (3.5-5.1)
[2018-07-14] MEDS: Artificial Tears SOLN 15 ML BOTTLE BOTH EYES SCH ×3 (04:44→13:30)
[2018-07-14] MEDS: *HR* Heparin 5,000 UNIT/ML VIAL SQ SCH ×2 (04:45→17:22)
[2018-07-14] MEDS: Norepinephrine 4 MG in D5% in Water 250 ML IVC SCH (04:46)
[2018-07-14] MEDS: Potassium Chloride 40 MEQ/200 ML BAG IVPB PRN (05:36)
[2018-07-14] MEDS: Chlorhexidine Rinse 15 ML MOUTHWASH MM SCH (08:19)
--- NOTE | 2018-07-14 08:40 | Pulmonology Progress Note ---
<Mariana Moreno M - Last Filed: 07/14/18 10:12> Date of Encounter: 07/14/18 Objective PUL Vital signs: Last Vital Signs Temp 98.6 F 07/14/18 09:18 Pulse 65 07/14/18 09:18 Resp 14 07/14/18 09:18 BP 88/58 07/14/18 09:18 Pulse Ox 94 07/14/18 09:18 Results - Laboratory Findings CBC and BMP: 07/14/18 03:10 07/14/18 03:10 ABG ABG pH 7.37 pH Units (7.32-7.45) 07/13/18 03:31 ABG pCO2 69 mmHg (35-45) H 07/13/18 03:31 ABG pO2 71 mmHg (85-104) L 07/13/18 03:31 ABG O2 Saturation 93 % (95-98) L 07/13/18 03:31 PT/INR, D-dimer PT 13.9 Seconds (9.4-12.1) H 07/13/18 03:30 Abnormal lab findings: Abnormal lab results WBC 2.9 K/mcL (4.3-11.1) L 07/14/18 03:10 RBC 2.69 M/mcL (4.19-5.50) L 07/14/18 03:10 Hgb 6.6 g/dL (12.9-16.9) L 07/14/18 03:10 Hct 22.6 % (37.5-50.1) L 07/14/18 03:10 MCH 24.5 pg (28.0-33.3) L 07/14/18 03:10 MCHC 29.2 g/dL (31.6-35.5) L 07/14/18 03:10 RDW 16.7 % (11.5-14.5) H 07/14/18 03:10 Plt Count 91 K/mcL (140-400) L 07/14/18 03:10 MPV 9.1 fL (9.4-12.4) L 07/14/18 03:10 Immature Plt Fraction 1.0 % (1.1-6.1) L 07/14/18 03:10 PT 13.9 Seconds (9.4-12.1) H 07/13/18 03:30 ABG pCO2 69 mmHg (35-45) H 07/13/18 03:31 ABG pO2 71 mmHg (85-104) L 07/13/18 03:31 ABG HCO3 40 mEq/L (21-27) H 07/13/18 03:31 ABG Total CO2 42 mEq/L (20-26) H 07/13/18 03:31 ABG O2 Saturation 93 % (95-98) L 07/13/18 03:31 ABG Base Excess 13 mEq/L (-2 to 3) H 07/13/18 03:31 Carbon Dioxide 32 mEq/L (23-29) H 07/14/18 03:10 Creatinine 1.84 mg/dL (0.70-1.30) H 07/14/18 03:10 Est GFR ( Amer) 46 (> 60) L 07/14/18 03:10 Est GFR (Non-Af Amer) 38 (> 60) L 07/14/18 03:10 Glucose 141 mg/dL (70-105) H 07/14/18 03:10 Calcium 7.3 mg/dL (8.6-10.3) L 07/14/18 03:10 AST 40 Units/L (13-39) H 07/13/18 03:30 Alkaline Phosphatase 105 Units/L (34-104) H 07/13/18 03:30 Creatine Kinase 28 Units/L (30-223) L 07/12/18 20:03 Serum Total Protein 5.6 g/dL (6.4-8.9) L 07/13/18 03:30 Albumin 2.2 g/dL (3.5-5.7) L 07/13/18 03:30 Albumin/Globulin Ratio 0.6 (1.1-2.2) L 07/13/18 03:30 Urine Color Red (Yellow) A 07/12/18 20:05 Urine Clarity Cloudy (Clear) A 07/12/18 20:05 Urine Protein 100 mg/dL (Neg-Trace) H 07/12/18 20:05 Urine Ketones Trace mg/dL (Negative) H 07/12/18 20:05 Urine Blood Large (Negative) H 07/12/18 20:05 Ur Leukocyte Esterase Moderate (Negative) H 07/12/18 20:05 Urine Microscopic RBC TNTC per hpf (0-3) H 07/12/18 20:05 Urine Microscopic WBC 30-50 per hpf (0-3) H 07/12/18 20:05 Ur Culture Indicated? YES (NO) A 07/12/18 20:05 Salicylates < 2.5 mg/dL (15.0-30.0) L 07/12/18 20:03 Acetaminophen < 10 mcg/mL (10-20) L 07/12/18 20:03 U Benzodiazepines Scrn Positive ng/mL (Hcrszq=011) H 07/12/18 20:05 - Microbiology Findings Microbiology Findings: Microbiology, Last 48 Hours 07/12/18 20:05 Urine Culture - Final Urine,Clean Catch No growth. 07/13/18 05:00 Legionella Antigen - Final Urine,Catheterized Streptococcus pneumoniae Antigen (M - Final 07/12/18 20:03 Blood Culture - Preliminary Peripheral Venipuncture Culture is incubating and being continuously monitored for growth. Final report to follow. 07/12/18 19:51 Blood Culture - Preliminary Peripheral Venipuncture Culture is incubating and being continuously monitored for growth. Final report to follow. - Clinical Findings Intake & Output: Intake & Output 07/13/18 07/14/18 07/14/18 23:59 07:59 15:59 Intake Total 100 / 100 1000 / 1000 1294 / 1294 Output Total 900 / 900 200 / 200 250 / 250 Balance -800 / -800 800 / 800 1044 / 1044 Consult Discharge Plan - Plan Referrals: NONE,PCP [Primary Care Provider] - - Attending Attestation I examined this patient and my medical decision-making was reviewed with the Resident Physician. I agree with the documented findings, disposition and treatment plan as described except to the extent set forth below. Patient seen and examined. Labs, radiology, chart personally reviewed. 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 Patient with severe protein-calorie malnutrition and dietary is following up. Heme: DVT prophylaxis per routine. I suspect anemia of chronic disease and might have some blood loss form the OG tube and will transfuse unit. Hold anticoagulation because of anemia and check doppler to check for any DVT. ID: Continue antibiotics and plan to de-escalation Renal; urine out put and renal funtion reviewed Endorcine: blood glucose is monitored Lines: all lines checked and no evidence of infections Skin: skin care to prevent pressure ulcers per nursing routine care Psych: consult psych and resume his methadone. Pt will be transfer to floor. <Alexey Beltran - Last Filed: 07/14/18 13:48> Date of Encounter: 07/14/18 Time of Encounter: 08:38 Assessment and Plan (1) Altered mental status Current Visit: Yes Status: Acute Etiology concerning for drug ingestion/overdose CT head negative Extubated yesterday, AOx3 today Qualifiers: Altered mental status type: unspecified Qualified Code(s): R41.82 - Altered mental status, unspecified (2) Acute respiratory failure with hypoxia Current Visit: Yes Status: Acute Likely secondary to resp depression from ingestion Extubated yesterday, doing well today (3) Anemia Current Visit: Yes Status: Acute Hgb 6.4 today (7.2) Denies any blood in stool, no abdominal pain Patient did have large blood clot surrounding ET tube yesterday when extubated suspect due to traumatic NG placement, no signs of active bleeding Plan: - Transfuse 1 pRBC today - Monitor H&H - Patient on Home Xarelto for DVT in LLE. Pending DVT study today to evaluate treatment success. If negative, can stop home xeralto - If continues to trend down should prompt further investigation of cause Qualifiers: Anemia type: unspecified type Qualified Code(s): D64.9 - Anemia, unspecified (4) Arrhythmia Current Visit: Yes Status: Acute Intermittently widening QRS Required NaHCO3 drip on admission Resolved - thought to be due to drug ingestion Qualifiers: Arrhythmia type: other cardiac arrhythmia Qualified Code(s): I49.8 - Other specified cardiac arrhythmias (5) Pneumonia Current Visit: Yes Status: Acute Rocephin Day 2 - aspiration pneumonia Qualifiers: Pneumonia type: aspiration pneumonia Aspiration pneumonia type: due to vomit Laterality: unspecified laterality Lung location: unspecified part of lung Qualified Code(s): J69.0 - Pneumonitis due to inhalation of food and vomit (6) Szsnv-vs-bfgyyqf kidney injury Current Visit: Yes Status: Acute Cr 1.84 (1.76) Suspect multifactorial etiology, however prerenal is likely component - Continue to monitor - Consider nephrology consult if not improving - Avoid nephrotoxins Qualifiers: Acute renal failure type: unspecified Chronic kidney disease stage: stage 3 (moderate) Qualified Code(s): N17.9 - Acute kidney failure, unspecified; N18.3 - Chronic kidney disease, stage 3 (moderate) (7) Congestive heart failure Current Visit: No Status: Chronic Hx diastolic CHF, chronic CT chest and CXR show signs of pulmonary edema TTE 04/25/18 shows EF 60-65% with mild LV diastolic dysfunction - Patient appears improved clinically - Extubated yesterday - conservative fluid intake Qualifiers: Heart failure type: diastolic Heart failure chronicity: chronic Qualified Code(s): I50.32 - Chronic diastolic (congestive) heart failure (8) History of suicidal ideation Current Visit: Yes Status: Acute Patient denies SI at this time, states was not his intent 1A should be consulted to further evaluate patient given he has a history of SI and this appears to be ingestion (9) DVT prophylaxis Current Visit: No Status: Acute Holding DVT prophylaxis due to anemia Subjective Principal diagnosis: AMS/Ingstion/SI Interval history: Patient is a 57M with PMHx CHF, HTN< CKD3, HCV, PTDS, SI, and DVT intially admitted for AMS. Possible etiology drug ingestion (methadone vs phenergan vs valium vs clonezepam). Patient was extubated yesterday. Continues to do well overnight, no complaints. Objective PUL Vital signs: Last Vital Signs Temp 99.5 F 07/14/18 04:15 Pulse 58 07/14/18 06:00 Resp 18 07/14/18 06:00 BP 88/56 07/14/18 06:00 Pulse Ox 97 07/14/18 06:00 General appearance: no acute distress, alert Eyes: nonicteric ENT: oropharynx moist Neck: supple Effort: normal Auscultation: bilateral: clear Cardiovascular: regular rate and rhythm Gastrointestinal: normoactive bowel sounds Integumentary: normal Extremities: no cyanosis, no edema Musculoskeletal: no deformities normal mental status, non-focal exam mood appropriate, affect normal Results - Laboratory Findings CBC and BMP: 07/14/18 03:10 07/14/18 03:10 ABG ABG pH 7.37 pH Units (7.32-7.45) 07/13/18 03:31 ABG pCO2 69 mmHg (35-45) H 07/13/18 03:31 ABG pO2 71 mmHg (85-104) L 07/13/18 03:31 ABG O2 Saturation 93 % (95-98) L 07/13/18 03:31 PT/INR, D-dimer PT 13.9 Seconds (9.4-12.1) H 07/13/18 03:30 Abnormal lab findings: Abnormal lab results WBC 2.9 K/mcL (4.3-11.1) L 07/14/18 03:10 RBC 2.69 M/mcL (4.19-5.50) L 07/14/18 03:10 Hgb 6.6 g/dL (12.9-16.9) L 07/14/18 03:10 Hct 22.6 % (37.5-50.1) L 07/14/18 03:10 MCH 24.5 pg (28.0-33.3) L 07/14/18 03:10 MCHC 29.2 g/dL (31.6-35.5) L 07/14/18 03:10 RDW 16.7 % (11.5-14.5) H 07/14/18 03:10 Plt Count 91 K/mcL (140-400) L 07/14/18 03:10 MPV 9.1 fL (9.4-12.4) L 07/14/18 03:10 Immature Plt Fraction 1.0 % (1.1-6.1) L 07/14/18 03:10 PT 13.9 Seconds (9.4-12.1) H 07/13/18 03:30 ABG pCO2 69 mmHg (35-45) H 07/13/18 03:31 ABG pO2 71 mmHg (85-104) L 07/13/18 03:31 ABG HCO3 40 mEq/L (21-27) H 07/13/18 03:31 ABG Total CO2 42 mEq/L (20-26) H 07/13/18 03:31 ABG O2 Saturation 93 % (95-98) L 07/13/18 03:31 ABG Base Excess 13 mEq/L (-2 to 3) H 07/13/18 03:31 Carbon Dioxide 32 mEq/L (23-29) H 07/14/18 03:10 Creatinine 1.84 mg/dL (0.70-1.30) H 07/14/18 03:10 Est GFR ( Amer) 46 (> 60) L 07/14/18 03:10 Est GFR (Non-Af Amer) 38 (> 60) L 07/14/18 03:10 Glucose 141 mg/dL (70-105) H 07/14/18 03:10 Calcium 7.3 mg/dL (8.6-10.3) L 07/14/18 03:10 AST 40 Units/L (13-39) H 07/13/18 03:30 Alkaline Phosphatase 105 Units/L (34-104) H 07/13/18 03:30 Creatine Kinase 28 Units/L (30-223) L 07/12/18 20:03 Serum Total Protein 5.6 g/dL (6.4-8.9) L 07/13/18 03:30 Albumin 2.2 g/dL (3.5-5.7) L 07/13/18 03:30 Albumin/Globulin Ratio 0.6 (1.1-2.2) L 07/13/18 03:30 Urine Color Red (Yellow) A 07/12/18 20:05 Urine Clarity Cloudy (Clear) A 07/12/18 20:05 Urine Protein 100 mg/dL (Neg-Trace) H 07/12/18 20:05 Urine Ketones Trace mg/dL (Negative) H 07/12/18 20:05 Urine Blood Large (Negative) H 07/12/18 20:05 Ur Leukocyte Esterase Moderate (Negative) H 07/12/18 20:05 Urine Microscopic RBC TNTC per hpf (0-3) H 07/12/18 20:05 Urine Microscopic WBC 30-50 per hpf (0-3) H 07/12/18 20:05 Ur Culture Indicated? YES (NO) A 07/12/18 20:05 Salicylates < 2.5 mg/dL (15.0-30.0) L 07/12/18 20:03 Acetaminophen < 10 mcg/mL (10-20) L 07/12/18 20:03 U Benzodiazepines Scrn Positive ng/mL (Tzmoqg=887) H 07/12/18 20:05 - Microbiology Findings Microbiology Findings: Microbiology, Last 48 Hours 07/12/18 20:05 Urine Culture - Final Urine,Clean Catch No growth. 07/13/18 05:00 Legionella Antigen - Final Urine,Catheterized Streptococcus pneumoniae Antigen (M - Final 07/12/18 20:03 Blood Culture - Preliminary Peripheral Venipuncture Culture is incubating and being continuously monitored for growth. Final report to follow. 07/12/18 19:51 Blood Culture - Preliminary Peripheral Venipuncture Culture is incubating and being continuously monitored for growth. Final report to follow. - Clinical Findings Intake & Output: Intake & Output 07/13/18 07/14/18 07/14/18 23:59 07:59 15:59 Intake Total 100 / 100 1000 / 1000 804 / 804 Output Total 900 / 900 200 / 200 Balance -800 / -800 800 / 800 804 / 804
[2018-07-14] MEDS ORDERED: 0.9 % Sodium Chloride 250 ML ONE (09:09)
[2018-07-14] MEDS: cefTRIAXone 1,000 MG in Water for inj. (sterile) 20 ML 10 ML IVP SCH (09:16)
[2018-07-14] MEDS: Pantoprazole 40 MG VIAL IVP SCH (09:16)
[2018-07-14] MEDS ORDERED: Methadone Oral Concentrate 50 MG/5 ML UDC PO SCH (12:30)
[2018-07-14 15:00] LABS: Basophils % 0.3 %; Eosinophils # 0.2 K/mcL (0.0-0.6); Eosinophils % 4.6 %; Hematocrit 26.2 % (37.5-50.1); Hemoglobin 7.6 g/dL (12.9-16.9); Immature Granulocytes % 0.5 % (0-4); Lymphocytes # 1.2 K/mcL (0.6-4.6); Lymphocytes % 31.6 %; Mean Corpuscular Volume 82.6 fL (83.0-100.0); Mean Platelet Volume 9.7 fL (9.4-12.4); Monocytes # 0.3 K/mcL (0.0-1.3); Monocytes % 8.7 %; Platelet Count 102 K/mcL (140-400); Red Blood Count 3.17 M/mcL (4.19-5.50); Red Cell Distribution Width 16.2 % (11.5-14.5); Segmented Neutrophils % 54.3 %
[2018-07-14 15:01] LABS: Magnesium 2.1 mg/dL (1.6-2.6); Potassium 4.5 mEq/L (3.5-5.1)
[2018-07-14] MEDS ORDERED: *HR* Dextrose 50 % in Water (Syg) 50 ML SYRINGE IVP PRN (15:02)
[2018-07-14] MEDS ORDERED: D5% in Water 1,000 ML IVC PRN (15:02)
[2018-07-14] MEDS ORDERED: Dextrose Gel 15 GM/37.5 ML TUBE PO PRN ×2 (15:02)
[2018-07-15 04:26] LABS: Hematocrit 25.7 % (37.5-50.1)
[2018-07-15 04:28] LABS: Basophils % 0.3 %; Eosinophils # 0.1 K/mcL (0.0-0.6); Hemoglobin 7.7 g/dL (12.9-16.9); Immature Granulocytes % 0.3 % (0-4); Immature Platelets 0.9 % (1.1-6.1); Lymphocytes # 1.4 K/mcL (0.6-4.6); Lymphocytes % 34.4 %; Mean Corpuscular Hemoglobin 24.9 pg (28.0-33.3); Mean Corpuscular Volume 83.2 fL (83.0-100.0); Mean Platelet Volume 9.4 fL (9.4-12.4); Monocytes # 0.3 K/mcL (0.0-1.3); Monocytes % 7.8 %; Platelet Count 109 K/mcL (140-400); Red Blood Count 3.09 M/mcL (4.19-5.50); Red Cell Distribution Width 16.1 % (11.5-14.5); Segmented Neutrophils % 54.2 %
[2018-07-15 04:32] LABS: Neutrophils # 2.2 K/mcL (1.6-8.9)
[2018-07-15 04:45] LABS: Albumin 2.1 g/dL (3.5-5.7); Albumin/Globulin Ratio 0.6 (1.1-2.2); Bilirubin,Total 0.3 mg/dL (0.3-1.0); Calcium 7.5 mg/dL (8.6-10.3); Globulin 3.4 g/dL (2.4-3.5); Potassium 4.5 mEq/L (3.5-5.1); Total Protein 5.5 g/dL (6.4-8.9)
[2018-07-15] MEDS: *HR* Heparin 5,000 UNIT/ML VIAL SQ SCH ×2 (05:10→17:06)
[2018-07-15] MEDS: Pantoprazole 40 MG VIAL IVP SCH (08:31)
[2018-07-15] MEDS ORDERED: cefTRIAXone 1,000 MG in Water for inj. (sterile) 20 ML 10 ML IVP SCH (09:00)
[2018-07-15] MEDS ORDERED: Methadone Oral Concentrate 50 MG/5 ML UDC PO SCH (09:00)
[2018-07-15] MEDS ORDERED: Methadone Oral Concentrate 50 MG/5 ML UDC PO ONE (10:00)
--- NOTE | 2018-07-15 11:41 | Internal Med Progress Note ---
Hospitalist Progress Note - Encounter Date of Encounter: 07/15/18 Time of Encounter: 11:38 - Subjective Interval History: Pt denies fever, chills, N/V or diarrhea. He denies CP or SOB. He denies dark or bright red bloody stools. - Exam Vitals: Temp Pulse Resp BP Pulse Ox 98.2 F 66 16 106/64 93 07/15/18 11:28 07/15/18 11:28 07/15/18 11:28 07/15/18 11:28 07/15/18 11:28 Exam: Gen: Vitals noted. No acute distress. Patient is sedated and mechanically ventilated Eyes: anicteric sclerae, moist conjunctivae; no lid-lag; Pupils equal and reactive to light HENT: Atraumatic; moist mucous membranes and no mucosal ulcerations, Nose no rhinorrhea. Neck: Trachea midline; supple, no thyromegaly or lymphadenopathy Cardiac: RRR, 2/6 systolic ejection murmur, +S1/S2 Pulmonary: CTA bilaterally, no wheezes, rales or rhonchi, equal chest expansion Abdomen: soft, nontender, no guarding. No masses or hepatosplenomegaly Extremities: 1+ BLE edema, nontender calf, no cyanosis or clubbing Skin: Normal temperature, turgor and texture; no rash, ulcers or subcutaneous nodules Neuro: Alert and oriented x 3 . CN I-XII grossly intact. - Assessment and Plan (1) Encephalopathy acute Current Visit: Yes Status: Acute Assessment and Plan: Pt admits that he took Ativan from a friend. Pt states he is not prescribed any benzos by a medical physician. He denies hx of depression or suicidal ideation or attempt. HE is back at his baseline mental status. (2) Pneumonia Current Visit: Yes Status: Acute Assessment and Plan: Pt was started on antibiotic due ot low grade temp and CT chest showing posisble PNA ve pulm edema. Due to encephalopathy, there was also concern for possible aspiration. Currently on IV Ceftrixaone. Will switch to PO antibiotic with Cefdinir. (3) History of pulmonary embolism Current Visit: Yes Status: Acute Assessment and Plan: Pt admits to medical non-complaince with his Xarelto. He reports taking it for about 3 weeks but then left his pills at his son's place and just recently got his meds refilled again. HE reports that he had not been taken his Xarelto now for a couple of weeks. Hgb 7.7 today, therefore will check stool occul. and iron studies. If occult neg, will resume home dose Xarelto. (4) Puwqr-sn-lkadttc kidney injury Current Visit: Yes Status: Acute Assessment and Plan: Pt likely with underlying CKD. He states PCP had referred him to nephrology out pt but he did not follow up. Pt strongly encouraged to follow up out pt with nephrology as recommended. Will give one time dose Lasix and check BMP in am. (5) Anemia Current Visit: Yes Status: Acute Assessment and Plan: Hgb 7.7. Will check Ferritin, folate, and vitamin B12. Checking stool occult. Pancytopenic. Pt denies prior history of heavy ETOH. HE denies prior EGD or colonoscopy. (6) Arrhythmia Current Visit: Yes Status: Acute Assessment and Plan: Pt states heart rate rhythm regular. He denies palpitations. He denies chest pain or SOB. (7) Congestive heart failure Current Visit: No Status: Chronic Assessment and Plan: History of Diastolic CHF, chronic TTE 04/25/18 Shows LVEF 60-65% with mild LV diastolic dysfunction and mild Aortic stenosis Patient has no evidence of JVD on exam, however does have prominent murmur, peripheral and possible pulmonary edema We will continue to monitor, avoid excessive volume. Pt does not clinically appear volume overloaded. Will give one time Lasix 20 mg IV x one and recheck chest x ray in am. (8) Hypertension Current Visit: No Status: Resolved Assessment and Plan: Pt has been hypotensive since admission and no BP listed on home medication list. Will continue to monitor. (9) Polysubstance abuse Current Visit: Yes Status: Chronic Assessment and Plan: Cessation strongly advised. Pt states he had taken a friend's Ativan and not forthcoming about what else eh took that caused him to be unresponsive. He does deny suicidal ideation and attempt. (10) Medical non-compliance Current Visit: Yes Status: Acute Assessment and Plan: Per pharmacy, there have been multiple attempts to locate pt home meds and have been limited due to pt not being complaint and not following adequately with his physicians. DVT Prophylaxis: Heparin - Summary of Assessment and Plan Summary of Assessment and Plan: History of present illness: Dr. Dotson/ Hitesh Mike Camilo is a 57 year old male with history of IV drug use, previous overdoses, DVT, CHF who presented to the [facility] after being found by EMS unconscious due to suspected overdose. The patient is unconscious at time of examination so history is primarily obtained by previous providers and documentation. He apparently was found by EMS unresponsive and was found to be hypoxic with SPO2 in the 80s. He was brought to the ED at which point he was found to still be unresponsive. The patient apparently received Narcan upon arrival and initially woke up and became very combative, confused and was not able to answer questions appropriately. He later became unconscious again and at that time he was intubated. It was at that time that he was noted to have a blood glucose in the 40s and was given an amp of D50. He was sedated with fentanyl and versed. The patient apparently then developed an abnormal cardiac rhythm with widened QRS complex which improved with two amps of bicarb. Toxicology was consulted and recommended continued mechanical ventilation with addition of bicarb drip. The patient did receive a chest CT which was significant for b/l airspace disease with potential pulmonary edema vs. pneumonia. The patient was transferred to the ICU for further management. - Time Spent with Patient Total time spent is greater than 50% in coordination of care (as documented) at patient's floor/unit and/or counseling patient: less than 15 minutes Plan of Care Discussed with: patient Internal Medicine: Result - Labs CBC & Chem 7: 07/15/18 04:11 07/15/18 04:11 Labs: Short CBC 07/14/18 07/15/18 Range/Units 14:25 04:11 WBC 3.7 L 4.0 L (4.3-11.1) K/mcL Hgb 7.6 L 7.7 L (12.9-16.9) g/dL Hct 26.2 L 25.7 L (37.5-50.1) % Plt Count 102 L 109 L (140-400) K/mcL Neutrophils # 2.0 2.2 (1.6-8.9) K/mcL BMP 07/14/18 07/15/18 14:25 04:11 Sodium 140 Potassium 4.5 4.5 Chloride 107 Carbon Dioxide 29 BUN 21 H Creatinine 1.72 H Glucose 137 H Calcium 7.5 L Liver Function 07/15/18 Range/Units 04:11 Total Bilirubin 0.3 (0.3-1.0) mg/dL AST 28 (13-39) Units/L ALT 14 (7-52) Units/L Alkaline Phosphatase 107 H (34-104) Units/L Albumin 2.1 L (3.5-5.7) g/dL - ABG Interpretation ABG results: ABG ABG pH 7.37 pH Units (7.32-7.45) 07/13/18 03:31 ABG pCO2 69 mmHg (35-45) H 07/13/18 03:31 ABG pO2 71 mmHg (85-104) L 07/13/18 03:31 ABG O2 Saturation 93 % (95-98) L 07/13/18 03:31 PT/INR, D-dimer PT 13.9 Seconds (9.4-12.1) H 07/13/18 03:30 Consult Discharge Plan - Plan Referrals: NONE,PCP [Primary Care Provider] - (2) Pneumonia Qualifiers: Pneumonia type: aspiration pneumonia Aspiration pneumonia type: due to vomit Laterality: unspecified laterality Lung location: unspecified part of lung Qualified Code(s): J69.0 - Pneumonitis due to inhalation of food and vomit (4) Ruyjb-yx-jtjmtiz kidney injury Qualifiers: Acute renal failure type: unspecified Chronic kidney disease stage: stage 3 (moderate) Qualified Code(s): N17.9 - Acute kidney failure, unspecified; N18.3 - Chronic kidney disease, stage 3 (moderate) (5) Anemia Qualifiers: Anemia type: unspecified type Qualified Code(s): D64.9 - Anemia, unspecified (6) Arrhythmia Qualifiers: Arrhythmia type: other cardiac arrhythmia Qualified Code(s): I49.8 - Other specified cardiac arrhythmias (7) Congestive heart failure Qualifiers: Heart failure type: diastolic Heart failure chronicity: chronic Qualified Code(s): I50.32 - Chronic diastolic (congestive) heart failure (8) Hypertension Qualifiers: Hypertension type: essential hypertension Qualified Code(s): I10 - Essential (primary) hypertension
[2018-07-15] MEDS ORDERED: Furosemide 20 MG/2 ML VIAL IVP ONE (13:16)
[2018-07-15] MEDS: Cefdinir 300 MG CAPSULE PO SCH (20:21)
[2018-07-16 05:00] LABS: Magnesium 1.7 mg/dL (1.6-2.6)
[2018-07-16 05:23] LABS: Folate 19.1 ng/mL (3.0-16.0)
[2018-07-16] MEDS: *HR* Heparin 5,000 UNIT/ML VIAL SQ SCH ×2 (05:48→18:23)
[2018-07-16] MEDS: Pantoprazole 40 MG VIAL IVP SCH (09:28)
[2018-07-16] MEDS: Cefdinir 300 MG CAPSULE PO SCH ×2 (09:28→20:57)
--- NOTE | 2018-07-16 09:38 | Internal Med Progress Note ---
Hospitalist Progress Note - Encounter Date of Encounter: 07/16/18 Time of Encounter: 09:30 - Subjective Interval History: Patient seen and examined this morning at bedside. No acute overnight events. Denies any nausea vomiting or diarrhea. Denies any chest pain or shortness of breath. Denies any dark tarry stool. - Exam Vitals: Temp Pulse Resp BP Pulse Ox 99.2 F 62 18 112/73 90 07/16/18 07:26 07/16/18 07:26 07/16/18 07:26 07/16/18 07:26 07/16/18 07:26 Exam: Gen: Vitals noted. No acute distress. Neck: Trachea midline; supple, no thyromegaly or lymphadenopathy Cardiac: RRR, 2/6 systolic ejection murmur, +S1/S2 Pulmonary: CTA bilaterally, no wheezes, rales or rhonchi, equal chest expansion Abdomen: soft, nontender, no guarding. No masses or hepatosplenomegaly Extremities: no edema, nontender calf, no cyanosis or clubbing. Rt mid-arm pain from thrombophlebitis Neuro: Alert and oriented x 3 . 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 - Assessment and Plan (1) Polysubstance abuse Current Visit: Yes Status: Chronic (2) Duyxx-se-kkwtfic kidney injury Current Visit: Yes Status: Acute (3) Congestive heart failure Current Visit: No Status: Chronic (4) Hypertension Current Visit: No Status: Resolved (5) Encephalopathy acute Current Visit: Yes Status: Acute (6) Anemia Current Visit: Yes Status: Acute (7) Pneumonia Current Visit: Yes Status: Acute (8) Arrhythmia Current Visit: Yes Status: Acute (9) History of pulmonary embolism Current Visit: Yes Status: Acute (10) Medical non-compliance Current Visit: Yes Status: Acute - Summary of Assessment and Plan Summary of Assessment and Plan: Anemia - Hgb 7.7 after 1 PRBC on 07/14 from 6.6 - Low Ferritin. Normal folate, and vitamin B12. Will add transferrin, ldh, haptoglobin, retic count, Blood smear. Spoke with Heme. Will f/u with them outpatient once surgical evaluation is negative. - Pancytopenic currently - Pt denies prior history of ETOH. - Possible iron deficiency. However stool occult positive and needs to be on Xarelto. Will obtain surgical evaluation for EGD evaluation. Encephalopathy acute - Now resolve - Likely from drug use. Pneumonia - CT chest showing posisble PNA ve pulm edema. - With initial concern for possible aspiration. - c/w Cefdinir. Abnormal UA - Urine cultures negative. History of pulmonary embolism - Pt admits to medical non-complaince with his Xarelto. - He reports taking it for about 3 weeks but then left his pills at his son's place and just recently got his meds refilled again. HE reports that he had not been taken his Xarelto now for a couple of weeks. - Hgb 7.7 yesterday. Stool occult positive - Hold xarelto for now. Sxklf-fh-pwltdhg kidney injury - Pt likely with underlying CKD. - Did not follow up with Nephro in past when referred. - Renal function improving. - No indication of MANAGER OF PROGRAM currently. - Monitor for now Congestive heart failure - History of Diastolic CHF, chronic - TTE 04/25/18 with EF 60-65%, mild LV diastolic dysfunction and mild Aortic stenosis - Clinically euvolemic. - Hold diuresis for now. Hypertension - BP stable for now. hold home medications for now. - Will continue to monitor. Polysubstance abuse - Cessation strongly advised. - Took friend's Ativan - denies suicidal ideation and attempt. - Time Spent with Patient Total time spent is greater than 50% in coordination of care (as documented) at patient's floor/unit and/or counseling patient: Internal Medicine: Result - Labs CBC & Chem 7: 07/15/18 04:11 07/15/18 04:11 - ABG Interpretation ABG results: ABG ABG pH 7.37 pH Units (7.32-7.45) 07/13/18 03:31 ABG pCO2 69 mmHg (35-45) H 07/13/18 03:31 ABG pO2 71 mmHg (85-104) L 07/13/18 03:31 ABG O2 Saturation 93 % (95-98) L 07/13/18 03:31 PT/INR, D-dimer PT 13.9 Seconds (9.4-12.1) H 07/13/18 03:30 - Impressions Impressions Chest X-Ray 07/15/18 13:17 IMPRESSION: Increased lung markings bilaterally, may be related to mild pulmonary edema versus bronchitis, stable to minimally improved since the prior study. D/ / 07/15/2018 15:47:41 Ethan Buchanan MD / [email or web address] Interpreting Provider: Ethan Buchanan MD Consult Discharge Plan - Plan Referrals: NONE,PCP [Primary Care Provider] - (2) Yyoof-oq-xwtplej kidney injury Qualifiers: Acute renal failure type: unspecified Chronic kidney disease stage: stage 3 (moderate) Qualified Code(s): N17.9 - Acute kidney failure, unspecified; N18.3 - Chronic kidney disease, stage 3 (moderate) (3) Congestive heart failure Qualifiers: Heart failure type: diastolic Heart failure chronicity: chronic Qualified Code(s): I50.32 - Chronic diastolic (congestive) heart failure (4) Hypertension Qualifiers: Hypertension type: essential hypertension Qualified Code(s): I10 - Essential (primary) hypertension (6) Anemia Qualifiers: Anemia type: unspecified type Qualified Code(s): D64.9 - Anemia, unspecified (7) Pneumonia Qualifiers: Pneumonia type: aspiration pneumonia Aspiration pneumonia type: due to vomit Laterality: unspecified laterality Lung location: unspecified part of lung Qualified Code(s): J69.0 - Pneumonitis due to inhalation of food and vomit (8) Arrhythmia Qualifiers: Arrhythmia type: other cardiac arrhythmia Qualified Code(s): I49.8 - Other specified cardiac arrhythmias
[2018-07-16] MEDS: Methadone Oral Concentrate 50 MG/5 ML UDC PO SCH (10:01)
[2018-07-16 10:31] LABS: Immature Reticulocyte % 15.3 % (11.0-38.0); Retculocyte # 0.05 M/mcL (0.05-0.10); Reticulocyte % 1.3 % (1.6-2.8)
[2018-07-16 10:48] LABS: % Iron Saturation 8 % (20-55); Iron 22 mcg/dL (65-175); Lactate Dehydrogenase 193 Units/L (140-271); Transferrin 204 mg/dL (203-362)
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
[2018-07-16] MEDS ORDERED: Acetaminophen 325 MG TABLET PO PRN (21:06)
[2018-07-17] MEDS ORDERED: MOM Conc 10 ML UD.LIQ PO ONE (03:52)
[2018-07-17] MEDS: *HR* Heparin 5,000 UNIT/ML VIAL SQ SCH (05:03)
--- NOTE | 2018-07-17 05:13 | Event Note ---
Date of Encounter: 07/17/18 Time of Encounter: 00:29 Alerted by patient's nurse FARAZ Glasgow that patient finished almost all of his ordered bowel prep and had only one small formed bowel movement. Patient also has the 2 enema protocol for the a.m. if bowels were not clear. One-time dose of by mouth MiraLAX ordered which was ineffective as of 03:49. Concern for possible bowel obstruction so CT of the abdomen/pelvis ordered to r/o SBO which showed small bowel caliber was normal. The appendix was not identified. There is large volume of stool in the colon. A few sigmoid colon diverticula are present without evidence for diverticulitis. Splenomegaly. Non-obstructing right renal calculi. Ordered a brown cow at 03:54 a.m. (milk of magnesia w/warm prune juice). Next step will be milk and molasses enema if brown cow is not effective. Pt. and output will be monitored.
[2018-07-17 05:26] LABS: Basophils % 0.3 %; Eosinophils # 0.2 K/mcL (0.0-0.6); Eosinophils % 3.3 %; Hematocrit 27.8 % (37.5-50.1); Hemoglobin 8.5 g/dL (12.9-16.9); Immature Granulocytes % 0.7 % (0-4); Lymphocytes # 1.9 K/mcL (0.6-4.6); Lymphocytes % 32.3 %; Mean Corpuscular HGB Conc 30.6 g/dL (31.6-35.5); Mean Corpuscular Hemoglobin 24.9 pg (28.0-33.3); Mean Corpuscular Volume 81.5 fL (83.0-100.0); Mean Platelet Volume 9.8 fL (9.4-12.4); Monocytes # 0.6 K/mcL (0.0-1.3); Monocytes % 9.6 %; Neutrophils # 3.1 K/mcL (1.6-8.9); Platelet Count 111 K/mcL (140-400); Red Blood Count 3.41 M/mcL (4.19-5.50); Red Cell Distribution Width 16.7 % (11.5-14.5); Segmented Neutrophils % 53.8 %
[2018-07-17 05:40] LABS: Calcium 7.8 mg/dL (8.6-10.3); Potassium 5.3 mEq/L (3.5-5.1)
[2018-07-17] MEDS: Pantoprazole 40 MG VIAL IVP SCH (09:39)
[2018-07-17] MEDS: Cefdinir 300 MG CAPSULE PO SCH ×2 (09:39→20:05)
[2018-07-17] MEDS: Methadone Oral Concentrate 50 MG/5 ML UDC PO SCH (09:40)
--- NOTE | 2018-07-17 10:20 | Anesthesia Evaluation PreOp ---
Date of Encounter: 07/17/18 Time of Encounter: 10:15 - Past History Planned Operation: Double Endo Cardiac History: Other (Endocarditis, CHF...ECHO EF 55%) Pulmonary History: Former smoker F[employer] DEVELOPER History: Denies Any Significant HX Other Medical History: Hepatic (B and C), Other (PTSD) Anesthesia History: No Prior Anesthetic Complications Alcohol Use: none Drug use: marijuana, IV Drug Use, prescription drug abuse, other (Be nzodiazepines) Medications and Allergies Methadone Oral Concentrate [Methadone] 115 mg PO DAILY 04/25/18 [History] Rivaroxaban [Xarelto] 20 mg PO DAILY 07/05/18 [History] Atorvastatin [Lipitor] 40 mg PO HS #30 tablet 07/07/18 [Rx] Ferrous Sulfate 325 mg PO BID #60 tablet. 07/07/18 [Rx] Azithromycin 500 mg PO DAILY 07/13/18 [History] Doxycycline Monohydrate [Mondoxyne Nl] 100 mg PO BID 07/13/18 [History] Rivaroxaban [Xarelto] 15 mg PO BID 07/13/18 [History] Allergy/AdvReac Type Severity Reaction Status Date / Time Penicillins Allergy Hives Verified 10/09/17 07:39 - Meds/Allergy Pre-op Review Medications Reviewed: Yes Allergies Reviewed: Yes Beta Blockers on Current Med List: No Anesthesia Results - Labs 07/17/18 05:15 07/17/18 05:15 - Imaging EKG: report reviewed (SR) Additional studies: ECHO EF 60%, no pulm htn Anesthesia Exam O2 Sat Weight 71.3 kg O2 Sat by Pulse Oximetry 90 O2 Sat by Pulse Oximetry 90 O2 Sat by Pulse Oximetry 90 O2 Sat by Pulse Oximetry 92 O2 Sat by Pulse Oximetry 96 Vital Signs Temp Pulse Resp BP Pulse Ox 98.2 F 59 12 0/0 98 07/12/18 19:26 07/12/18 19:26 07/12/18 19:26 07/12/18 19:26 07/12/18 19:26 Height: 5'9 Weight: 157 lbs NPO (# of Hours): MN Pain Scale: 0 - HEENT Pupil (Motor): Pupils equal, EOMI Mallampati: II Teeth: Poor dentition Oral Opening: Greater than 3 - [employer] DEVELOPER LOC: Oriented [employer]ELOPER Motor: Normal RUE, Normal LUE, Normal RLE, Normal LLE, Normal Face [employer]EL[employer] Sensory: Normal: RUE, LUE, RLE, LLE, Face - Cardiac Rhythm: Regular Murmur: None JVD: No Carotid Bruit: No - Pulmonary Breath Sounds: bilateral Clear Respiratory Effort: Symmetrical Anesthesia Assess/Plan ASA Score: 2 Level of consciousness: Cooperative Anesthetic Plan: MAC Autologous Blood: No Monitoring Plan: Standard Monitors Recovery Plan: Other (Discussed MAC, possible GA, agrees to proceed)
[2018-07-17] MEDS ORDERED: Propofol 500 MG/50 ML INFUS..BTL ONE (10:35)
--- NOTE | 2018-07-17 11:10 | Internal Med Progress Note ---
Hospitalist Progress Note - Encounter Date of Encounter: 07/17/18 Time of Encounter: 09:46 - Subjective Interval History: Patient seen and examined this morning at bedside. No acute overnight events. Had obtain CT abdomen to rule out bowel obstruction which did not show evidence of bowel obstruction. Has not had bowel movements since past few hours. Last bowel movement was not clear. Nurse. Denies any nausea vomiting or diarrhea. Denies any chest pain or shortness of breath. - Exam Vitals: Temp Pulse Resp BP Pulse Ox 98.0 F 63 16 120/85 94 07/17/18 04:09 07/17/18 10:33 07/17/18 10:33 07/17/18 10:33 07/17/18 10:33 Exam: Gen: Vitals noted. No acute distress. Neck: Trachea midline; supple, no thyromegaly or lymphadenopathy Cardiac: RRR, 2/6 systolic ejection murmur, +S1/S2 Pulmonary: CTA bilaterally, no wheezes, rales or rhonchi, equal chest expansion Abdomen: soft, nontender, no guarding. No masses or hepatosplenomegaly Extremities: no edema, nontender calf, no cyanosis or clubbing. Rt mid-arm pain from thrombophlebitis Neuro: Alert and oriented x 3 . 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 - Assessment and Plan (1) Polysubstance abuse Current Visit: Yes Status: Chronic (2) Qxciq-sa-qbpplon kidney injury Current Visit: Yes Status: Acute (3) Congestive heart failure Current Visit: No Status: Chronic (4) Encephalopathy acute Current Visit: Yes Status: Acute (5) Anemia Current Visit: Yes Status: Acute (6) Pneumonia Current Visit: Yes Status: Acute (7) Arrhythmia Current Visit: Yes Status: Acute (8) History of pulmonary embolism Current Visit: Yes Status: Acute (9) Medical non-compliance Current Visit: Yes Status: Chronic - Summary of Assessment and Plan Summary of Assessment and Plan: Anemia - Hgb 7.7 after 1 PRBC on 07/14 from 6.6. Today 8.5 without any further tranfusioin - Low Ferritin, iron, saturation and retic count. Normal transferrin. Normal folate, and vitamin B12. ldh normal. f/u haptoglobin. f/u Blood smear. Spoke with Heme. Will f/u with them outpatient once surgical evaluation is negative. - White count and anemia improved. - Pt denies prior history of ETOH. - Possible iron deficiency. However stool occult positive and needs to be on Xarelto. - To get EGD and colonoscopy today. Encephalopathy acute - Now resolve - Likely from drug use. Pneumonia - CT chest showing posisble PNA ve pulm edema. - With initial concern for possible aspiration. - c/w Cefdinir. Abnormal UA - Urine cultures negative. Hyperkalemia - get EKG. Negative tele. History of pulmonary embolism/DVT - Pt admits to medical non-complaince with his Xarelto. - He reports taking it for about 3 weeks but then left his pills at his son's place and just recently got his meds refilled again. HE reports that he had not been taken his Xarelto now for a couple of weeks. - Hgb 7.7 yesterday. Stool occult positive - Hold xarelto for now. - Patient is poor historian does not know when it occured. - Venous duplex with chronic DVT on Lt. - h/o PE in april with CT with b/l Lower lobe PE. Deviy-bu-knwtncw kidney injury - Pt likely with underlying CKD. - Did not follow up with Nephro in past when referred. - Renal function improving. - No indication of LITIGATION PARTNER currently. - Monitor for now Congestive heart failure - History of Diastolic CHF, chronic - TTE 04/25/18 with EF 60-65%, mild LV diastolic dysfunction and mild Aortic stenosis - Clinically euvolemic. - Hold diuresis for now. Hypertension - BP stable for now. hold home medications for now. - Will continue to monitor. Polysubstance abuse - Cessation strongly advised. - Took friend's Ativan - denies suicidal ideation and attempt. - Time Spent with Patient Total time spent is greater than 50% in coordination of care (as documented) at patient's floor/unit and/or counseling patient: Internal Medicine: Result - Labs CBC & Chem 7: 07/17/18 05:15 07/17/18 05:15 Labs: Short CBC 07/17/18 Range/Units 05:15 WBC 5.7 (4.3-11.1) K/mcL Hgb 8.5 L (12.9-16.9) g/dL Hct 27.8 L (37.5-50.1) % Plt Count 111 L (140-400) K/mcL Neutrophils # 3.1 (1.6-8.9) K/mcL BMP 07/17/18 05:15 Sodium 135 L Potassium 5.3 H Chloride 105 Carbon Dioxide 28 BUN 24 H Creatinine 1.62 H Glucose 88 Calcium 7.8 L - ABG Interpretation ABG results: ABG ABG pH 7.37 pH Units (7.32-7.45) 07/13/18 03:31 ABG pCO2 69 mmHg (35-45) H 07/13/18 03:31 ABG pO2 71 mmHg (85-104) L 07/13/18 03:31 ABG O2 Saturation 93 % (95-98) L 07/13/18 03:31 PT/INR, D-dimer PT 13.9 Seconds (9.4-12.1) H 07/13/18 03:30 - Impressions Impressions Abdomen/Pelvis CT 07/17/18 02:20 IMPRESSION: 1. No evidence for bowel obstruction. 2. Splenomegaly. 3. Nonobstructing right renal calculi. D/ / Kaushik Merritt MD / Kaushik Merritt MD Interpreting Provider: Kaushik Merritt MD Consult Discharge Plan - Plan Referrals: NONE,PCP [Primary Care Provider] - (2) Rhhyn-hz-iimkxge kidney injury Qualifiers: Acute renal failure type: unspecified Chronic kidney disease stage: stage 3 (moderate) Qualified Code(s): N17.9 - Acute kidney failure, unspecified; N18.3 - Chronic kidney disease, stage 3 (moderate) (3) Congestive heart failure Qualifiers: Heart failure type: diastolic Heart failure chronicity: chronic Qualified Code(s): I50.32 - Chronic diastolic (congestive) heart failure (5) Anemia Qualifiers: Anemia type: unspecified type Qualified Code(s): D64.9 - Anemia, unspecified (6) Pneumonia Qualifiers: Pneumonia type: aspiration pneumonia Aspiration pneumonia type: due to vomit Laterality: unspecified laterality Lung location: unspecified part of lung Qualified Code(s): J69.0 - Pneumonitis due to inhalation of food and vomit (7) Arrhythmia Qualifiers: Arrhythmia type: other cardiac arrhythmia Qualified Code(s): I49.8 - Other specified cardiac arrhythmias
--- NOTE | 2018-07-17 11:28 | Event Note ---
Date of Encounter: 07/17/18 Time of Encounter: 11:27 EGD and colonoscopy performed. No gross abnormalities seen. No evidence of bleeding. Internal hemorrhoids visualized but no bleeding. Okay to resume regular diet. Patient should have a repeat colonoscopy in 5 years (there was a small 1 mm polyp which could not be removed due to difficulty in visualization but it was not suspicious for any type of adenomatous abnormality). Will sign off.
[2018-07-17] MEDS ORDERED: Acetaminophen 325 MG TABLET PO PRN (11:53)
[2018-07-17] MEDS ORDERED: Dextrose Gel 15 GM/37.5 ML TUBE PO PRN ×2 (11:53)
[2018-07-17] MEDS ORDERED: *HR* Dextrose 50 % in Water (Syg) 50 ML SYRINGE IVP PRN (11:53)
[2018-07-17] MEDS ORDERED: D5% in Water 1,000 ML IVC PRN (11:53)
--- NOTE | 2018-07-17 11:55 | Anesthesia Evaluation Post Op ---
Date of Encounter: 07/17/18 Time of Encounter: 12:00 - Vital Signs Vital Signs: Vital Signs/O2 Sat/Glucose, Most Current Pulse Resp BP Pulse Ox 07/17/18 10:33 63 16 120/85 94 - Lungs Lungs: Clear Ascult./Percussion - Airway Airway: Non-obstructed - Cardiovascular Regular Rate - Mental Status Mental Status: Alert & Oriented, Answers Appropriately - Pain Pain Scale: 0 - Nausea Vomiting Nausea Vomiting: Not Present - Hydration Hydration: NPO - Discharge PostOp Status: Transfer Patient to floor
[2018-07-17 13:16] LABS: Calcium 7.7 mg/dL (8.6-10.3); Potassium 5.1 mEq/L (3.5-5.1)
[2018-07-17] MEDS ORDERED: 0.9 % Sodium Chloride 1,000 ML IVC ONE (17:25)
[2018-07-17] MEDS ORDERED: *HR* Rivaroxaban 10 MG TABLET PO SCH (17:45)
[2018-07-17] MEDS ORDERED: *HR* Heparin 5,000 UNIT/ML VIAL SQ SCH (18:00)
[2018-07-18 04:58] LABS: Basophils % 0.2 %; Eosinophils # 0.2 K/mcL (0.0-0.6); Eosinophils % 4.5 %; Hematocrit 25.5 % (37.5-50.1); Hemoglobin 7.8 g/dL (12.9-16.9); Immature Granulocytes % 0.4 % (0-4); Lymphocytes # 1.4 K/mcL (0.6-4.6); Lymphocytes % 30.6 %; Mean Corpuscular HGB Conc 30.6 g/dL (31.6-35.5); Mean Corpuscular Hemoglobin 24.9 pg (28.0-33.3); Mean Corpuscular Volume 81.5 fL (83.0-100.0); Mean Platelet Volume 10.2 fL (9.4-12.4); Monocytes # 0.4 K/mcL (0.0-1.3); Monocytes % 8.5 %; Neutrophils # 2.6 K/mcL (1.6-8.9); Platelet Count 106 K/mcL (140-400); Red Blood Count 3.13 M/mcL (4.19-5.50); Segmented Neutrophils % 55.8 %
[2018-07-18 05:18] LABS: Calcium 7.9 mg/dL (8.6-10.3); Potassium 4.7 mEq/L (3.5-5.1)
[2018-07-18 07:21] VITALS: BP 113/54
[2018-07-18] MEDS ORDERED: Pantoprazole 40 MG VIAL IVP SCH (09:00)
[2018-07-18] MEDS ORDERED: Methadone Oral Concentrate 50 MG/5 ML UDC PO SCH (09:00)
[2018-07-18] MEDS: Cefdinir 300 MG CAPSULE PO SCH (09:29)
--- NOTE | 2018-07-18 09:35 | Discharge Summary ---
- NOTES TO OUTPATIENT PROVIDER Notes to Outpatient Provider: Restarted on xarelto for PE as GI workup was negative. We will need to monitor patient's renal function as well as hemoglobin. Orders not resulted at time of discharge: Pending orders 07/16/18 10:05 Haptoglobin Routine 07/17/18 11:15 EKG [ECG 12 lead ECG] [ECG] Stat Date of Encounter: 07/18/18 Time of Encounter: 09:33 - Discharge Diagnosis (1) Polysubstance abuse Priority: Primary Status: Chronic (2) Fpyed-ku-gdvggwv kidney injury Priority: Primary Status: Acute Qualifiers: Acute renal failure type: unspecified Chronic kidney disease stage: stage 3 (moderate) Qualified Code(s): N17.9 - Acute kidney failure, unspecified; N18.3 - Chronic kidney disease, stage 3 (moderate) (3) Congestive heart failure Priority: Secondary Status: Chronic Qualifiers: Heart failure type: diastolic Heart failure chronicity: chronic Qualified Code(s): I50.32 - Chronic diastolic (congestive) heart failure (4) Encephalopathy acute Priority: Primary Status: Acute (5) Anemia Priority: Primary Status: Acute Qualifiers: Anemia type: unspecified type Qualified Code(s): D64.9 - Anemia, unspecified (6) Pneumonia Priority: Primary Status: Acute Qualifiers: Pneumonia type: aspiration pneumonia Aspiration pneumonia type: due to vomit Laterality: unspecified laterality Lung location: unspecified part of lung Qualified Code(s): J69.0 - Pneumonitis due to inhalation of food and vomit (7) Arrhythmia Priority: Primary Status: Acute Qualifiers: Arrhythmia type: other cardiac arrhythmia Qualified Code(s): I49.8 - Other specified cardiac arrhythmias (8) History of pulmonary embolism Priority: Secondary Status: Acute (9) Medical non-compliance Priority: Secondary Status: Chronic Hospital course: Mr. Camilo is a 57 year old male male with past medical history of IV drug use, history of drug overdose, DVT, PE in April was found unconscious and brought to the hospital for suspected overdose. CT head was negative. He tox was positive for benzodiazepines. Patient had severe acidemia and wide complex tachycardia likely secondary to metabolic derangements from CRISTHIAN on CKD. Patient was started on antibiotics empirically for suspected pneumonia. Patient was initially intubated and transferred to ICU for acute management. Patient was also noted to have hypoglycemia initially. Blood cultures and urine cultures came negative. Antibiotics were the escalated to cefdinir which patient finished a course of. Erythema resolved after correction of electrolyte abnormalities. Patient CRISTHIAN was likely prerenal. Which partially corrected however patient probably has significant CKD now. Patient also significant anemia and was found to have positive stool occult blood. Given that patient needs to be on xarelto for PE surgical evaluation was obtained for EGD and colonoscopy which patient underwent. EGD was unremarkable and colonoscopy showed internal hemorrhoids. Patient is stable today with hemoglobin stable after restarting xarelto. Patient's anemia likely from CKD and poor nutrition. We will discharged on iron supplementation. Patient needs to be followed outpatient with PCP and nephrology for CKD. We will discharge patient today. - Time Spent with Patient Total time spent providing and/or coordinating discharge services: Greater than 30 minutes (38) - Discharge Medications Prescriptions: Rivaroxaban [Xarelto] 20 mg PO DAILY 30 Days #30 tablet Home Medications: Methadone Oral Concentrate [Methadone] 115 mg PO DAILY 04/25/18 [History] Atorvastatin [Lipitor] 40 mg PO HS #30 tablet 07/07/18 [Rx] Ferrous Sulfate 325 mg PO BID #60 tablet. 07/07/18 [Rx] Rivaroxaban [Xarelto] 20 mg PO DAILY 30 Days #30 tablet 07/18/18 [Rx] Allergies/Adverse Reactions: Allergy/AdvReac Type Severity Reaction Status Date / Time Penicillins Allergy Hives Verified 10/09/17 07:39 Date of admission: 07/12/18 23:35 Primary care physician: PCP NONE Consults: 07/13/18 04:00 Consult to Pulmonology [CONS] Routine Consulting Provider: [facility] Reason for Consult: Intubated Call Completed: No 07/13/18 12:54 Consult to [facility] [CONS] Stat Reason for SW Consult: Please talk to Ravindra RUTH about poison control's request of having [employer] go to patient's house to check for Carbon Monoxide 07/16/18 10:00 Consult to Surgery [CONS] Routine Consulting Provider: [facility] Reason for Consult: Anemia on xarelto for PE. evaluation for EGD Call Completed: Yes Discharging clinician: Josephine Brown - Constitutional Vitals: Temp Pulse Resp BP Pulse Ox 97.8 F 59 16 113/54 94 07/18/18 07:14 07/18/18 07:14 07/18/18 07:14 07/18/18 07:14 07/18/18 08:12 Exam: Gen: Vitals noted. No acute distress. Neck: Trachea midline; supple, no thyromegaly or lymphadenopathy Cardiac: RRR, 2/6 systolic ejection murmur, +S1/S2 Pulmonary: CTA bilaterally, no wheezes, rales or rhonchi, equal chest expansion Abdomen: soft, nontender, no guarding. No masses or hepatosplenomegaly Extremities: no edema, nontender calf, no cyanosis or clubbing. Neuro: Alert and oriented x 3 . - Patient Status Disposition: Home, Self-Care Condition: Fair - Discharge Instructions Follow Up With: NONE,PCP [Primary Care Provider] - - Diet and Activity Activity: resume usual activities as tolerated
[2018-07-19] MEDS ORDERED: *HR* Rivaroxaban 10 MG TABLET GTUBE SCH (09:00)
== END 2018-07-18 11:06 | disposition home or self-care (01) | DRG 812 ==
LOC: EMEROOARM 19:17 → ICNU 23:35 → SUATTDRO 23:35 → ICNU 07-13 00:32 → 2ANU 07-15 10:05
PROVIDERS: ADMIT Internal Medicine; ATTEND Internal Medicine

== ENCOUNTER 2018-08-26 08:07 | Inpatient (IN) ==
--- NOTE | 2018-08-26 08:23 | Emergency Department Note ---
Disposition Clinical Impression: Somnolence Pneumonia Qualifiers: Pneumonia type: due to unspecified organism Laterality: right Lung location: middle lobe of lung Qualified Code(s): J18.1 - Lobar pneumonia, unspecified organism Disposition: Admitted As Inpatient Condition: Fair Referrals: NONE,PCP [Non-Partnered Physician] - Forms: ED Satisfaction Letter, Work/School Release Time of Disposition: 10:18 Allergic Reaction HPI - General Chief complaint: ED General Medical Stated complaint: "swelling all over" Time Seen by Provider: 08/26/18 08:16 Source: patient Mode of arrival: ambulatory Limitations: no limitations Nursing Notes Reviewed: Yes Vital Signs Reviewed: Yes - History of Present Illness HPI Narrative: 57-year-old male presents to the emergency department worried about allergic reaction. Patient states that he handled his dogs medication yesterday and since then is being and to have more swelling in the face. He does note that he did touch the medications that the dog took he was not sure what they were his only known allergy is penicillin. Patient was seen at the methadone clinic today as he does have history of opiate abuse does not IV and checked her normally just took Percocets by mouth. He was seen there and they said because of the swelling the recommend he come to the emergency department before the give him the methadone. Patient when he was seen here also say is having right- sided chest pain is more right upper chest worse with palpation. He has not been short of breath has not had a cough. He is noted no fevers. 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 Otherwise patient has no other complaints right now he is complaining of chest pain describes as 6 out of 10 nonradiating just located right side of the chest were worse with deep breath. Has not taken anything for the pain. Otherwise no headache, blurry vision, neck pain, back pain, fever, chills, nausea, vomiting, shortness of breath, abdominal pain, change in bowel become painful urination pain or tingling going down the arms or legs or generalized weakness. - Related Data Home Medications Medication Instructions Recorded Confirmed Methadone Oral Concentrate 115 mg PO DAILY 04/25/18 07/13/18 [Methadone] Previous Rx's Medication Instructions Recorded Atorvastatin [Lipitor] 40 mg PO HS #30 tablet 07/07/18 Ferrous Sulfate 325 mg PO BID #60 tablet. 07/07/18 Allergies Allergy/AdvReac Type Severity Reaction Status Date / Time Penicillins Allergy Hives Verified 08/26/18 08:16 All systems ED: reviewed and negative except as stated. Review of Systems: As Per HPI Past Medical History - Past Medical History Attestation: Yes The following information was validated with the patient. Source: patient Medical history: Reports: CHF, COPD, GERD, hypertension Surgical history: Reports: orthopedic, other, other Psychiatric history: Reports: anxiety, PTSD - Social History Smoking Status: Current every day smoker Smokeless Tobacco Status: No Alcohol use: Reports: none Drug use: Reports: marijuana, IV Drug Use, prescription drug abuse, other (Benzo diazepines) Physical Exam - General Limitations: no limitations General appearance: alert, in no apparent distress - Head Head exam: atraumatic, normocephalic, normal inspection - Eye Eye exam: Present: normal appearance, PERRL, EOMI, periorbital swelling (Mild bilaterally) - ENT ENT exam: normal exam, normal oropharynx, mucous membranes moist - Neck Neck exam: Present: normal inspection, full ROM, trachea midline - Chest Chest inspection: Present: normal inspection, symmetric chest wall rise - Respiratory Respiratory exam: Present: normal lung sounds bilaterally - Cardiovascular Cardiovascular exam: Present: regular rate, normal rhythm, normal heart sounds - Abdominal Exam Abdominal exam: Present: soft, Non-Tender, normal bowel sounds. Absent: tenderness, distention, guarding, rebound, rigidity - Extremities Exam Extremities exam: Present: normal inspection, full ROM, pedal edema (1+ bilaterally). Absent: tenderness - Back Exam Back exam: Present: normal inspection, full ROM. Absent: tenderness - Neurological Exam Neurological exam: Present: alert, oriented X3 - Skin Skin exam: Present: warm, dry, intact, normal color Course Vital Signs Temperature 97.9 F 08/26/18 08:08 Pulse Rate 85 08/26/18 08:08 Respiratory Rate 18 08/26/18 08:08 Blood Pressure 115/62 08/26/18 08:08 Temperature 97.9 F 08/26/18 08:17 Pulse Rate 81 08/26/18 08:32 Respiratory Rate 16 08/26/18 08:32 Blood Pressure 109/65 08/26/18 08:32 O2 Sat by Pulse Oximetry 99 08/26/18 08:32 Oxygen Delivery Oxygen Delivery Room Air Allergic Reaction - MDM Narrative Medical decision making narrative: First saw patient he was mainly complaining of the chest pain as well as allergic reaction to give him 50 mg IV Benadryl after this patient did become mildly somnolent. Also get chest x-ray and EKG. EKG had no acute findings. There is no acute changes chest x-ray did show right upper lobe pneumonia. Patient's vitals were normal he did not meet Sirs criteria were planning on sending patient home with oral antibiotics but after reevaluating and he is much more somnolent difficult to wake up so we felt that admission is better warranted. Patient was last admitted in June for similar symptoms but has had no problems since then. Again patient's vital signs were normal there is no signs of any Sirs or sepsis on exam he did not meet septic shock or severe septic qualities at this time. This also could be secondary to patient needing methadone and going through mild withdrawal. I at this time decided to get further labs are still pending at this time. Started patient on azithromycin and ceftriaxone to cover both atypicals as well as gram negatives as patient does have a possibility of having aspiration pneumonia as well as being a right upper lobe. Patient is stable at this time. I spoke with the hospitalist Dr. Troncoso who did agree to admit admit the patient to the hospital. He did request that an ABG be ordered I did order this and he will follow up on the res ults for that. Chest X-Ray 08/26/18 08:22 IMPRESSION: New focal airspace opacities in the right lung suspicious for pneumonia. Recommend follow-up to ensure resolution. D/ / Susana Brown MD / Susana Brown MD Interpreting Provider: Susana Brown MD - Medical Records Medical records reviewed: Yes I reviewed the patient's medical records. - Lab Data Lab results reviewed: Yes I reviewed the patient's lab results. - Radiology Data Radiology results reviewed: Yes I reviewed the patient's radiology results. - EKG Data EKG attestation: Yes I reviewed and interpreted this EKG. EKG results narrative: EKG done at 0 828 review myself and the attending shows sinus rhythm at a rate of 81, curette 95, QTC 494. There is no acute ST changes no acute T-wave changes no other signs of ischemia. No signs of hypertrophy, heart strain, heart block. No W BW/Brugada/HOCM. EKG is otherwise unchanged when compared with old one done 07/13/18
[2018-08-26] MEDS ORDERED: Azithromycin 500 MG in D5% in Water 250 ML IVPB ONE (09:47)
[2018-08-26] MEDS ORDERED: cefTRIAXone 1,000 MG in Water for inj. (sterile) 20 ML 10 ML IVP ONE (09:47)
--- NOTE | 2018-08-26 09:58 | Emergency Department Note ---
Disposition Clinical Impression: Somnolence Pneumonia Qualifiers: Pneumonia type: due to unspecified organism Laterality: right Lung location: middle lobe of lung Qualified Code(s): J18.1 - Lobar pneumonia, unspecified organism Disposition: Admitted As Inpatient Forms: ED Satisfaction Letter, Work/School Release General Adult HPI - General Chief complaint: ED General Medical Stated complaint: "swelling all over" Time Seen by Provider: 08/26/18 08:16 Source: patient Mode of arrival: ambulatory Limitations: no limitations - History of Present Illness Pain Scale: 8 - Related Data Home Medications Medication Instructions Recorded Confirmed Methadone Oral Concentrate 115 mg PO DAILY 04/25/18 07/13/18 [Methadone] Previous Rx's Medication Instructions Recorded Atorvastatin [Lipitor] 40 mg PO HS #30 tablet 07/07/18 Ferrous Sulfate 325 mg PO BID #60 tablet. 07/07/18 Allergies Allergy/AdvReac Type Severity Reaction Status Date / Time Penicillins Allergy Hives Verified 08/26/18 08:16 Past Medical History - Past Medical History Medical history: Reports: CHF, COPD, GERD, hypertension Surgical history: Reports: orthopedic, other, other Psychiatric history: Reports: anxiety, PTSD - Social History Smoking Status: Current every day smoker Smokeless Tobacco Status: No Alcohol use: Reports: none Drug use: Reports: marijuana, IV Drug Use, prescription drug abuse, other (Benzodiazepines) Physical Exam - General Limitations: no limitations General appearance: alert Course Vital Signs Temperature 97.9 F 08/26/18 08:08 Pulse Rate 85 08/26/18 08:08 Respiratory Rate 18 08/26/18 08:08 Blood Pressure 115/62 08/26/18 08:08 Temperature 97.9 F 08/26/18 08:17 Pulse Rate 81 08/26/18 08:32 Respiratory Rate 16 08/26/18 08:32 Blood Pressure 109/65 08/26/18 08:32 O2 Sat by Pulse Oximetry 99 08/26/18 08:32 Oxygen Delivery Oxygen Delivery Room Air Attestation Statement - Attestation Attestation: I examined this patient and my medical decision-making was reviewed with the Resident Physician. I agree with the documented findings, disposition and treatment plan as described except to the extent set forth below. Ill appearing male who lives with his brother presents due to facial swelling but also complains of cough and has a right middle lobe infiltrate. Has a history of polysubstance abuse, never an IV drug user. Was last admitted about 2 months ago. Low risk for multidrug resistant pathogens, possible physician 2 months ago would be his only risk factor. He does not know who the president is, but is otherwise oriented. He is groggy, arousable but not to the level of being alert. Vital signs are unremarkable, but his ill appearance, polysubstance abuse, and lack of reliable follow-up make me hesitant to send him home.
[2018-08-26] MEDS ORDERED: Naloxone 0.4 MG/ML INJ IVP PRN (11:04)
[2018-08-26] MEDS ORDERED: traMADol 50 MG TABLET PO PRN (11:04)
[2018-08-26] MEDS ORDERED: Levofloxacin 750 MG/150 ML 750 MG/150 ML BAG IVPB SCH ×2 (11:15→11:30)
[2018-08-26] MEDS ORDERED: D5% in Water 1,000 ML IVC PRN (11:45)
[2018-08-26] MEDS ORDERED: Dextrose Gel 15 GM/37.5 ML TUBE PO PRN ×2 (11:45)
[2018-08-26] MEDS ORDERED: *HR* Dextrose 50 % in Water (Syg) 50 ML SYRINGE IVP PRN (11:45)
[2018-08-26] MEDS ORDERED: D5% in 0.9% NACL 1,000 ML IVC SCH (11:45)
[2018-08-26 11:59] LABS: ABG Base Excess -1 mEq/L (-2 to 3); ABG HCO3 23 mEq/L (21-27); ABG Oxygen Saturation 97 % (95-98); ABG PCO2 35 mmHg (35-45); ABG PH 7.43 pH Units (7.32-7.45); ABG PO2 87 mmHg (85-104); ABG TCO2 24 mEq/L (20-26)
[2018-08-26 12:12] LABS: INR Corrected Result; Prothrombin Time Corrected Result Seconds (9.4-12.1)
[2018-08-26 12:13] LABS: Activated Partial Thrombo Time Corrected Result Seconds (26.0-36.0)
[2018-08-26 12:40] LABS: Mean Corpuscular HGB Conc 27.2 g/dL (31.6-35.5); Mean Corpuscular Hemoglobin 22.6 pg (28.0-33.3); Mean Corpuscular Volume 83.1 fL (83.0-100.0); Nucleated Red Blood Cells 0.3 /100 WBC (0); Platelet Count 130 K/mcL (140-400); Red Blood Count 1.24 M/mcL (4.19-5.50); Red Cell Distribution Width 18.1 % (11.5-14.5)
[2018-08-26 12:41] LABS: INR 1.1; Prothrombin Time 12.3 Seconds (9.4-12.1)
[2018-08-26 12:44] LABS: Activated Partial Thrombo Time 32.1 Seconds (26.0-36.0)
[2018-08-26 12:50] LABS: Alanine Aminotransferase 15 Units/L (7-52); Albumin 2.2 g/dL (3.5-5.7); Albumin/Globulin Ratio 0.7 (1.1-2.2); Alkaline Phosphatase 89 Units/L (34-104); Aspartate Amino Transferase 27 Units/L (13-39); BUN/Creatinine Ratio 20 (6-26); Bilirubin,Direct 0.1 mg/dL (0.0-0.2); Bilirubin,Indirect 0.1 mg/dL (0.0-1.2); Bilirubin,Total 0.2 mg/dL (0.3-1.0); Blood Urea Nitrogen 29 mg/dL (6-20); Calcium 7.4 mg/dL (8.6-10.3); Carbon Dioxide 22 mEq/L (23-29); Chloride 107 mEq/L (98-107); Cholesterol 44 mg/dL (< 200); Globulin 3.2 g/dL (2.4-3.5); Glucose 159 mg/dL (70-105); Magnesium 2.1 mg/dL (1.6-2.6); Osmolality,Calculated 285 (280-300); Phosphorous 2.1 mg/dL (2.7-4.5); Potassium 4.1 mEq/L (3.5-5.1); Sodium 133 mEq/L (136-145); Total Protein 5.4 g/dL (6.4-8.9); Triglycerides 54 mg/dL (< 150); eGFR For Non-African Americans 52 (> 60)
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
[2018-08-26 12:53] LABS: Hemoglobin 2.8 g/dL (12.9-16.9)
[2018-08-26 12:54] LABS: Hematocrit 10.3 % (37.5-50.1)
[2018-08-26] MEDS ORDERED: *HR* Ketamine 500 MG/5 ML MDV IVP ONE (13:19)
[2018-08-26] MEDS ORDERED: 0.9 % Sodium Chloride 250 ML ONE ×2 (13:21→18:48)
[2018-08-26] MEDS ORDERED: 0.9 % Sodium Chloride 1,000 ML ONE (13:29)
[2018-08-26] MEDS: 0.9 % Sodium Chloride 1,000 ML IVC ONE ×2 (13:32→13:48)
[2018-08-26 13:37] LABS: Mean Corpuscular HGB Conc 27.6 g/dL (31.6-35.5); Mean Corpuscular Hemoglobin 22.7 pg (28.0-33.3); Mean Platelet Volume 10.2 fL (9.4-12.4); Platelet Count 136 K/mcL (140-400); Red Blood Count 1.28 M/mcL (4.19-5.50); Red Cell Distribution Width 18.1 % (11.5-14.5)
[2018-08-26 13:37] LABS: Chol/HDL Ratio 1.9 (0-4.9); HDL Cholesterol 23 mg/dL (40-59); LDL Cholesterol,Calculated 10 mg/dL (0-99)
[2018-08-26 13:43] LABS: Eosinophils # 0.1 K/mcL (0.0-0.6); Hypochromasia Present (Not Present); Lymphocytes # 0.3 K/mcL (0.6-4.6); Microcytosis Present (Not Present); Neutrophils # 6.3 K/mcL (1.6-8.9); Platelet Estimate Decreased (Normal)
[2018-08-26 13:45] LABS: Hematocrit 10.5 % (37.5-50.1); Hemoglobin 2.9 g/dL (12.9-16.9)
[2018-08-26 13:46] LABS: Anisocytosis 1+ (Not Present); Poikilocytosis 1+ (Not Present); Polychromasia 1+ (Not Present)
[2018-08-26] MEDS ORDERED: KETAMINE HCL 50 MG/ML SYRINGE IV ONE (13:52)
--- NOTE | 2018-08-26 14:16 | Event Note ---
Date of Encounter: 08/26/18 Time of Encounter: 14:15 I have discussed with Dr. Linton and Dr. Mattson about patient severe anemia. Patient needs to be admitted to the critical care service.
--- NOTE | 2018-08-26 14:16 | Emergency Department Note ---
Disposition Clinical Impression: Somnolence, Low hemoglobin, Pancytopenia Pneumonia Qualifiers: Pneumonia type: due to unspecified organism Laterality: right Lung location: middle lobe of lung Qualified Code(s): J18.1 - Lobar pneumonia, unspecified organism Disposition: Admitted As Inpatient Condition: Critical Time of Disposition: 14:19 General Adult HPI - General Chief complaint: ED General Medical Stated complaint: "swelling all over" Time Seen by Provider: 08/26/18 08:16 Source: patient Mode of arrival: ambulatory Limitations: no limitations - History of Present Illness HPI Narrative: This is a procedure and reassessment note as patient's status change sense I signed my last note. For full history and physical please refer to other note. Pain Scale: 8 - Related Data Home Medications Medication Instructions Recorded Confirmed Methadone Oral Concentrate 115 mg PO DAILY 04/25/18 08/26/18 [Methadone] Atorvastatin [Lipitor] 40 mg PO DAILY 08/26/18 08/26/18 Rivaroxaban [Xarelto] 20 mg PO DAILY 08/26/18 08/26/18 Previous Rx's Medication Instructions Recorded Ferrous Sulfate 325 mg PO BID #60 tablet. 07/07/18 Allergies Allergy/AdvReac Type Severity Reaction Status Date / Time Penicillins Allergy Hives Verified 08/26/18 11:29 Past Medical History - Past Medical History Medical history: Reports: CHF, COPD, GERD, hypertension Surgical history: Reports: orthopedic, other, other Psychiatric history: Reports: anxiety, PTSD - Social History Smoking Status: Current every day smoker Smokeless Tobacco Status: No Alcohol use: Reports: none Drug use: Reports: marijuana, IV Drug Use, prescription drug abuse, other (Benzodiazepines) Physical Exam - General Limitations: no limitations General appearance: alert, in no apparent distress Course Vital Signs Temperature 97.9 F 08/26/18 08:08 Pulse Rate 85 08/26/18 08:08 Respiratory Rate 18 08/26/18 08:08 Blood Pressure 115/62 08/26/18 08:08 Temperature 98.8 F 08/26/18 15:06 Pulse Rate 78 08/26/18 15:06 Respiratory Rate 20 08/26/18 15:06 Blood Pressure 90/64 08/26/18 15:06 O2 Sat by Pulse Oximetry 96 08/26/18 14:51 Oxygen Delivery Oxygen Delivery Room Air Procedures - Central Line Placement Right Femoral Central Line Inserted*: Yes Central Line Catheter Replacement*: Yes Central Line Insertion: emergent Consent Obtained: verbal consent Procedural Pause: verify patient name and date of , timeout performed per policy, mu and assess the site, assemble equipment and verify supplies, perform hand hygiene Patient Placed on Monitor/Pulse Ox: Yes During the Procedure: clinician is wearing sterile gloves, cap, mask,& gown during insertion, sterile field and sterile technique are maintained, patient's face is covered with drape or mask and wearing a cap, everyone in room is wearing a mask Central Line Prep: Chlorhexidine scrub Prep the Procedure Site: apply chloraprep to the skin using a back and forth scrubbing motion, apply chloraprep for 30 seconds (upper body), 1-2 min (femoral sites), allow prep to dry, drape the patient with a full body drape Local Anesthetic: lidocaine 1% Amount of anesthesia used (mL): 3 Ultrasound Used for Placement: Yes Central Line Lumen Inserted: single Post Procedure: sutured in place, good blood return, all ports aspirated, flu shed, capped, sterile dressing applied, guide wire removed and visualized Patient Tolerated Procedure: well, no complications Complications: none Name of Clinician Inserting Central Line: Dr. Jared Linton Clinician Assisting/Completing Checklist: Dr. Jose Mattson Date: 08/26/18 Time: 14:17 - Procedural Sedation Procedure: Right femoral central line Indication: other (Patient is very anxious and difficult to hold down during midline placement.) Dietary Status: unknown H&P (including ROS) documented in medical record: Yes Previous reaction to sedatives/anesthetics: No Dentition: No loose teeth or bridges, full dentition, poor dentition Airway Assessment: Patient can open mouth completely, TMJ function normal Possible difficult airway: No ASA Classification: CLASS II-Mild systemic disease Plan of Care: Pt appropriate candidate for procedure/moderate/conscious sedation, Risks/benefits of procedure/sedation discussed w/ patient/family Preparation: synoptic meteorologist applied, pulse oximeter, suction/airway equipment at bedside, IV secured Ketamine Dose: 140 Patient Tolerated Procedure: well, no complications Complications: none Additional Comments: This did not dissociate the patient very well as he was still awake and talking during the procedure but we were able to complete the procedure with no calm occasions. Medical Decision Making - MDM Narrative Medical decision making narrative: Patient was admitted to the hospitalist you was stable. They were getting labs are still pending at this time. Hemoglobin up coming back at 2.6. Due to having the pancytopenia this is also comparable to last time where he did receive 2 units of blood we felt that patient did need blood transfusion again. I ordered 5 units type and cross. Those are still pending at this time. Patient's blood pressure then dropped to 90/60 patient does have a midline and place but we felt like we wanted better central access so a femoral trauma line was placed. This was done successfully by myself under the supervision of Dr. Pelayo. We had to use chemical sedation or to have this done we did give patient a total of 2 mg/kg of IV ketamine this mildly dissociated him but did not completely dissociate him. Patient tolerated the procedure well successfully placed. Due to patient's low hemoglobin patient does need to go to the ICU for further evaluation. Hemoccult is still pending and was done at bedside. It is unknown where patient is bleeding at this time. Patient did receive IV fluids. Patient was also given calcium gluconate as he most likely will need multiple transfusions of blood. I spoke with the adviser sales Dr. Moon who agreed to admit the patient to their service. Chest X-Ray 08/26/18 08:22 IMPRESSION: New focal airspace opacities in the right lung suspicious for pneumonia. Recommend follow-up to ensure resolution. D/ / Susana Brown MD / Susana Brown MD Interpreting Provider: Susana Brown MD Abdomen/Pelvis CT 08/26/18 11:44 IMPRESSION: No CT evidence of acute intra-abdominal process. 1.5 cm and smaller nonobstructing stones in the right kidney. Large amount stool throughout the colon. D/ / Armin Awad / Armin Awad Interpreting Provider: Armin Awad - Medical Records Medical records reviewed: Yes I reviewed the patient's medical records. - Lab Data Lab results reviewed: Yes I reviewed the patient's lab results. Result diagrams: 08/26/18 12:22 08/26/18 12:22 Lab Results 08/26/18 08/26/18 08/26/18 Range/Units 11:26 11:26 11:56 WBC (4.3-11.1) K/mcL RBC (4.19-5.50) M/mcL Hgb (12.9-16.9) g/dL Hct (37.5-50.1) % MCV (83.0-100.0) fL MCH (28.0-33.3) pg MCHC (31.6-35.5) g/dL RDW (11.5-14.5) % Plt Count (140-400) K/mcL MPV (9.4-12.4) fL Immature Gran % Seg Neutrophils % Lymphocytes % Monocytes % Eosinophils % Basophils % Neutrophils # Lymphocytes # Monocytes # Eosinophils # Basophils # Nucleated RBCs/100 WBC (0) /100 WBC Platelet Estimate (Normal) Polychromasia (Not Present) Hypochromasia (Not Present) Poikilocytosis (Not Present) Anisocytosis (Not Present) Microcytosis (Not Present) PT Corrected Result L (9.4-12.1) Seconds INR Corrected Result APTT Corrected Result L (26.0-36.0) Seconds ABG pH 7.43 (7.32-7.45) pH Units ABG pCO2 35 (35-45) mmHg ABG pO2 87 (85-104) mmHg ABG HCO3 23 (21-27) mEq/L ABG Total CO2 24 (20-26) mEq/L ABG O2 Saturation 97 (95-98) % ABG Base Excess -1 (-2 to 3) mEq/L Sodium (136-145) mEq/L Potassium (3.5-5.1) mEq/L Chloride (98-107) mEq/L Carbon Dioxide (23-29) mEq/L BUN (6-20) mg/dL Creatinine (0.70-1.30) mg/dL Est GFR ( Amer) (> 60) Est GFR (Non-Af Amer) (> 60) BUN/Creatinine Ratio (6-26) Glucose (70-105) mg/dL Calculated Osmolality (280-300) Lactic Acid (0.5-2.2) mmol/L Calcium (8.6-10.3) mg/dL Phosphorus (2.7-4.5) mg/dL Magnesium (1.6-2.6) mg/dL Total Bilirubin (0.3-1.0) mg/dL Direct Bilirubin (0.0-0.2) mg/dL Indirect Bilirubin (0.0-1.2) mg/dL AST (13-39) Units/L ALT (7-52) Units/L Alkaline Phosphatase (34-104) Units/L Ammonia (16-53) mcmol/L Serum Total Protein (6.4-8.9) g/dL Albumin (3.5-5.7) g/dL Globulin (2.4-3.5) g/dL Albumin/Globulin Ratio (1.1-2.2) Triglycerides (< 150) mg/dL Cholesterol (< 200) mg/dL LDL Cholesterol, Calc (0-99) mg/dL VLDL Cholesterol, Calc (< 31) mg/dL HDL Cholesterol (40-59) mg/dL Cholesterol/HDL Ratio (0-4.9) Specimen Rejected Miscellaneous Blood Type Antibody Screen Crossmatch 08/26/18 08/26/18 08/26/18 Range/Units 12:20 12:22 12:22 WBC 6.9 (4.3-11.1) K/mcL RBC 1.28 L (4.19-5.50) M/mcL Hgb 2.9 L* (12.9-16.9) g/dL Hct 10.5 L* (37.5-50.1) % MCV 82.0 L (83.0-100.0) fL MCH 22.7 L (28.0-33.3) pg MCHC 27.6 L (31.6-35.5) g/dL RDW 18.1 H (11.5-14.5) % Plt Count 136 L (140-400) K/mcL MPV 10.2 (9.4-12.4) fL Immature Gran % Test Not Performed Seg Neutrophils % Test Not Performed Lymphocytes % Test Not Performed Monocytes % Test Not Performed Eosinophils % Test Not Performed Basophils % Test Not Performed Neutrophils # Test Not Performed Lymphocytes # Test Not Performed Monocytes # Test Not Performed Eosinophils # Test Not Performed Basophils # Test Not Performed Nucleated RBCs/100 WBC (0) /100 WBC Platelet Estimate (Normal) Polychromasia (Not Present) Hypochromasia (Not Present) Poikilocytosis (Not Present) Anisocytosis (Not Present) Microcytosis (Not Present) PT 12.3 H D (9.4-12.1) Seconds INR 1.1 D APTT 32.1 D (26.0-36.0) Seconds ABG pH (7.32-7.45) pH Units ABG pCO2 (35-45) mmHg ABG pO2 (85-104) mmHg ABG HCO3 (21-27) mEq/L ABG Total CO2 (20-26) mEq/L ABG O2 Saturation (95-98) % ABG Base Excess (-2 to 3) mEq/L Sodium 133 L (136-145) mEq/L Potassium 4.1 (3.5-5.1) mEq/L Chloride 107 (98-107) mEq/L Carbon Dioxide 22 L (23-29) mEq/L BUN 29 H (6-20) mg/dL Creatinine 1.42 H (0.70-1.30) mg/dL Est GFR ( Amer) > 60 (> 60) Est GFR (Non-Af Amer) 52 L (> 60) BUN/Creatinine Ratio 20 (6-26) Glucose 159 H (70-105) mg/dL Calculated Osmolality 285 (280-300) Lactic Acid (0.5-2.2) mmol/L Calcium 7.4 L (8.6-10.3) mg/dL Phosphorus 2.1 L (2.7-4.5) mg/dL Magnesium 2.1 (1.6-2.6) mg/dL Total Bilirubin 0.2 L (0.3-1.0) mg/dL Direct Bilirubin 0.1 (0.0-0.2) mg/dL Indirect Bilirubin 0.1 (0.0-1.2) mg/dL AST 27 (13-39) Units/L ALT 15 (7-52) Units/L Alkaline Phosphatase 89 (34-104) Units/L Ammonia (16-53) mcmol/L Serum Total Protein 5.4 L (6.4-8.9) g/dL Albumin 2.2 L (3.5-5.7) g/dL Globulin 3.2 (2.4-3.5) g/dL Albumin/Globulin Ratio 0.7 L (1.1-2.2) Triglycerides 54 (< 150) mg/dL Cholesterol 44 (< 200) mg/dL LDL Cholesterol, Calc 10 (0-99) mg/dL VLDL Cholesterol, Calc 11 (< 31) mg/dL HDL Cholesterol 23 L (40-59) mg/dL Cholesterol/HDL Ratio 1.9 (0-4.9) Specimen Rejected Blood Type Antibody Screen Crossmatch 08/26/18 08/26/18 08/26/18 Range/Units 12:22 12:22 12:22 WBC 6.7 (4.3-11.1) K/mcL RBC 1.24 L (4.19-5.50) M/mcL Hgb 2.8 L* (12.9-16.9) g/dL Hct 10.3 L* (37.5-50.1) % MCV 83.1 (83.0-100.0) fL MCH 22.6 L (28.0-33.3) pg MCHC 27.2 L (31.6-35.5) g/dL RDW 18.1 H (11.5-14.5) % Plt Count 130 L (140-400) K/mcL MPV 10.0 (9.4-12.4) fL Immature Gran % Seg Neutrophils % 94.0 Lymphocytes % 4.0 Monocytes % Eosinophils % 2.0 Basophils % Neutrophils # 6.3 Lymphocytes # 0.3 L Monocytes # Eosinophils # 0.1 Basophils # Nucleated RBCs/100 WBC 0.3 H (0) /100 WBC Platelet Estimate Decreased L (Normal) Polychromasia 1+ A (Not Present) Hypochromasia Present A (Not Present) Poikilocytosis 1+ A (Not Present) Anisocytosis 1+ A (Not Present) Microcytosis Present A (Not Present) PT (9.4-12.1) Seconds INR APTT (26.0-36.0) Seconds ABG pH (7.32-7.45) pH Units ABG pCO2 (35-45) mmHg ABG pO2 (85-104) mmHg ABG HCO3 (21-27) mEq/L ABG Total CO2 (20-26) mEq/L ABG O2 Saturation (95-98) % ABG Base Excess (-2 to 3) mEq/L Sodium (136-145) mEq/L Potassium (3.5-5.1) mEq/L Chloride (98-107) mEq/L Carbon Dioxide (23-29) mEq/L BUN (6-20) mg/dL Creatinine (0.70-1.30) mg/dL Est GFR ( Amer) (> 60) Est GFR (Non-Af Amer) (> 60) BUN/Creatinine Ratio (6-26) Glucose (70-105) mg/dL Calculated Osmolality (280-300) Lactic Acid 1.7 (0.5-2.2) mmol/L Calcium (8.6-10.3) mg/dL Phosphorus (2.7-4.5) mg/dL Magnesium (1.6-2.6) mg/dL Total Bilirubin (0.3-1.0) mg/dL Direct Bilirubin (0.0-0.2) mg/dL Indirect Bilirubin (0.0-1.2) mg/dL AST (13-39) Units/L ALT (7-52) Units/L Alkaline Phosphatase (34-104) Units/L Ammonia 33 (16-53) mcmol/L Serum Total Protein (6.4-8.9) g/dL Albumin (3.5-5.7) g/dL Globulin (2.4-3.5) g/dL Albumin/Globulin Ratio (1.1-2.2) Triglycerides (< 150) mg/dL Cholesterol (< 200) mg/dL LDL Cholesterol, Calc (0-99) mg/dL VLDL Cholesterol, Calc (< 31) mg/dL HDL Cholesterol (40-59) mg/dL Cholesterol/HDL Ratio (0-4.9) Specimen Rejected Blood Type Antibody Screen Crossmatch 08/26/18 Range/Units 13:06 WBC (4.3-11.1) K/mcL RBC (4.19-5.50) M/mcL Hgb (12.9-16.9) g/dL Hct (37.5-50.1) % MCV (83.0-100.0) fL MCH (28.0-33.3) pg MCHC (31.6-35.5) g/dL RDW (11.5-14.5) % Plt Count (140-400) K/mcL MPV (9.4-12.4) fL Immature Gran % Seg Neutrophils % Lymphocytes % Monocytes % Eosinophils % Basophils % Neutrophils # Lymphocytes # Monocytes # Eosinophils # Basophils # Nucleated RBCs/100 WBC (0) /100 WBC Platelet Estimate (Normal) Polychromasia (Not Present) Hypochromasia (Not Present) Poikilocytosis (Not Present) Anisocytosis (Not Present) Microcytosis (Not Present) PT (9.4-12.1) Seconds INR APTT (26.0-36.0) Seconds ABG pH (7.32-7.45) pH Units ABG pCO2 (35-45) mmHg ABG pO2 (85-104) mmHg ABG HCO3 (21-27) mEq/L ABG Total CO2 (20-26) mEq/L ABG O2 Saturation (95-98) % ABG Base Excess (-2 to 3) mEq/L Sodium (136-145) mEq/L Potassium (3.5-5.1) mEq/L Chloride (98-107) mEq/L Carbon Dioxide (23-29) mEq/L BUN (6-20) mg/dL Creatinine (0.70-1.30) mg/dL Est GFR ( Amer) (> 60) Est GFR (Non-Af Amer) (> 60) BUN/Creatinine Ratio (6-26) Glucose (70-105) mg/dL Calculated Osmolality (280-300) Lactic Acid (0.5-2.2) mmol/L Calcium (8.6-10.3) mg/dL Phosphorus (2.7-4.5) mg/dL Magnesium (1.6-2.6) mg/dL Total Bilirubin (0.3-1.0) mg/dL Direct Bilirubin (0.0-0.2) mg/dL Indirect Bilirubin (0.0-1.2) mg/dL AST (13-39) Units/L ALT (7-52) Units/L Alkaline Phosphatase (34-104) Units/L Ammonia (16-53) mcmol/L Serum Total Protein (6.4-8.9) g/dL Albumin (3.5-5.7) g/dL Globulin (2.4-3.5) g/dL Albumin/Globulin Ratio (1.1-2.2) Triglycerides (< 150) mg/dL Cholesterol (< 200) mg/dL LDL Cholesterol, Calc (0-99) mg/dL VLDL Cholesterol, Calc (< 31) mg/dL HDL Cholesterol (40-59) mg/dL Cholesterol/HDL Ratio (0-4.9) Specimen Rejected Blood Type B NEGATIVE Antibody Screen NEGATIVE Crossmatch See Detail - Radiology Data Radiology results reviewed: Yes I reviewed the patient's radiology results.
--- NOTE | 2018-08-26 14:23 | Emergency Department Note ---
Disposition Clinical Impression: Somnolence, Low hemoglobin, Pancytopenia Pneumonia Qualifiers: Pneumonia type: due to unspecified organism Laterality: right Lung location: middle lobe of lung Qualified Code(s): J18.1 - Lobar pneumonia, unspecified organism Disposition: Admitted As Inpatient Condition: Critical General Adult HPI - General Chief complaint: ED General Medical Stated complaint: "swelling all over" Time Seen by Provider: 08/26/18 08:16 Source: patient Mode of arrival: ambulatory Limitations: no limitations - History of Present Illness HPI Narrative: This is a procedure note only. Pain Scale: 8 - Related Data Home Medications Medication Instructions Recorded Confirmed Methadone Oral Concentrate 115 mg PO DAILY 04/25/18 08/26/18 [Methadone] Atorvastatin [Lipitor] 40 mg PO DAILY 08/26/18 08/26/18 Rivaroxaban [Xarelto] 20 mg PO DAILY 08/26/18 08/26/18 Previous Rx's Medication Instructions Recorded Ferrous Sulfate 325 mg PO BID #60 tablet. 07/07/18 Allergies Allergy/AdvReac Type Severity Reaction Status Date / Time Penicillins Allergy Hives Verified 08/26/18 11:29 Past Medical History - Past Medical History Medical history: Reports: CHF, COPD, GERD, hypertension Surgical history: Reports: orthopedic, other, other Psychiatric history: Reports: anxiety, PTSD - Social History Smoking Status: Current every day smoker Smokeless Tobacco Status: No Alcohol use: Reports: none Drug use: Reports: marijuana, IV Drug Use, prescription drug abuse, other (Benzodiazepines) Physical Exam - General Limitations: no limitations General appearance: alert, in no apparent distress Course Vital Signs Temperature 97.9 F 08/26/18 08:08 Pulse Rate 85 08/26/18 08:08 Respiratory Rate 18 08/26/18 08:08 Blood Pressure 115/62 08/26/18 08:08 Temperature 97.9 F 08/26/18 08:17 Pulse Rate 83 08/26/18 14:04 Respiratory Rate 08/26/18 14:04 Blood Pressure 163/127 08/26/18 14:04 O2 Sat by Pulse Oximetry 98 08/26/18 14:04 Oxygen Delivery Oxygen Delivery Room Air Procedures - Procedural Sedation Indication: other (CVC placement) Dietary Status: unknown H&P (including ROS) documented in medical record: Yes Dentition: No loose teeth or bridges Airway Assessment: Patient can open mouth completely, TMJ function normal ASA Classification: CLASS II-Mild systemic disease Plan of Care: Pt appropriate candidate for procedure/moderate/conscious sedation, Risks/benefits of procedure/sedation discussed w/ patient/family, If not NPO; Risk of intake outweiged by necessity to perform procedure Preparation: threat monitoring analyst applied, pulse oximeter, IV secured Ketamine Dose: 140 Patient Tolerated Procedure: well, no complications Complications: none Medical Decision Making - Lab Data Result diagrams: 08/26/18 12:22 08/26/18 12:22 Lab Results 08/26/18 08/26/18 08/26/18 Range/Units 11:26 11:56 12:20 WBC 6.9 (4.3-11.1) K/mcL RBC 1.28 L (4.19-5.50) M/mcL Hgb 2.9 L* (12.9-16.9) g/dL Hct 10.5 L* (37.5-50.1) % MCV 82.0 L (83.0-100.0) fL MCH 22.7 L (28.0-33.3) pg MCHC 27.6 L (31.6-35.5) g/dL RDW 18.1 H (11.5-14.5) % Plt Count 136 L (140-400) K/mcL MPV 10.2 (9.4-12.4) fL Seg Neutrophils % % Lymphocytes % % Eosinophils % % Neutrophils # (1.6-8.9) K/mcL Lymphocytes # (0.6-4.6) K/mcL Eosinophils # (0.0-0.6) K/mcL Nucleated RBCs/100 WBC (0) /100 WBC Platelet Estimate (Normal) Polychromasia (Not Present) Hypochromasia (Not Present) Poikilocytosis (Not Present) Anisocytosis (Not Present) Microcytosis (Not Present) PT Corrected Result L (9.4-12.1) Seconds INR Corrected Result APTT Corrected Result L (26.0-36.0) Seconds ABG pH 7.43 (7.32-7.45) pH Units ABG pCO2 35 (35-45) mmHg ABG pO2 87 (85-104) mmHg ABG HCO3 23 (21-27) mEq/L ABG Total CO2 24 (20-26) mEq/L ABG O2 Saturation 97 (95-98) % ABG Base Excess -1 (-2 to 3) mEq/L Sodium (136-145) mEq/L Potassium (3.5-5.1) mEq/L Chloride (98-107) mEq/L Carbon Dioxide (23-29) mEq/L BUN (6-20) mg/dL Creatinine (0.70-1.30) mg/dL Est GFR ( Amer) (> 60) Est GFR (Non-Af Amer) (> 60) BUN/Creatinine Ratio (6-26) Glucose (70-105) mg/dL Calculated Osmolality (280-300) Lactic Acid (0.5-2.2) mmol/L Calcium (8.6-10.3) mg/dL Phosphorus (2.7-4.5) mg/dL Magnesium (1.6-2.6) mg/dL Total Bilirubin (0.3-1.0) mg/dL Direct Bilirubin (0.0-0.2) mg/dL Indirect Bilirubin (0.0-1.2) mg/dL AST (13-39) Units/L ALT (7-52) Units/L Alkaline Phosphatase (34-104) Units/L Ammonia (16-53) mcmol/L Serum Total Protein (6.4-8.9) g/dL Albumin (3.5-5.7) g/dL Globulin (2.4-3.5) g/dL Albumin/Globulin Ratio (1.1-2.2) Triglycerides (< 150) mg/dL Cholesterol (< 200) mg/dL LDL Cholesterol, Calc (0-99) mg/dL VLDL Cholesterol, Calc (< 31) mg/dL HDL Cholesterol (40-59) mg/dL Cholesterol/HDL Ratio (0-4.9) Blood Type Antibody Screen Crossmatch 08/26/18 08/26/18 08/26/18 Range/Units 12:22 12:22 12:22 WBC (4.3-11.1) K/mcL RBC (4.19-5.50) M/mcL Hgb (12.9-16.9) g/dL Hct (37.5-50.1) % MCV (83.0-100.0) fL MCH (28.0-33.3) pg MCHC (31.6-35.5) g/dL RDW (11.5-14.5) % Plt Count (140-400) K/mcL MPV (9.4-12.4) fL Seg Neutrophils % % Lymphocytes % % Eosinophils % % Neutrophils # (1.6-8.9) K/mcL Lymphocytes # (0.6-4.6) K/mcL Eosinophils # (0.0-0.6) K/mcL Nucleated RBCs/100 WBC (0) /100 WBC Platelet Estimate (Normal) Polychromasia (Not Present) Hypochromasia (Not Present) Poikilocytosis (Not Present) Anisocytosis (Not Present) Microcytosis (Not Present) PT 12.3 H D (9.4-12.1) Seconds INR 1.1 D APTT 32.1 D (26.0-36.0) Seconds ABG pH (7.32-7.45) pH Units ABG pCO2 (35-45) mmHg ABG pO2 (85-104) mmHg ABG HCO3 (21-27) mEq/L ABG Total CO2 (20-26) mEq/L ABG O2 Saturation (95-98) % ABG Base Excess (-2 to 3) mEq/L Sodium 133 L (136-145) mEq/L Potassium 4.1 (3.5-5.1) mEq/L Chloride 107 (98-107) mEq/L Carbon Dioxide 22 L (23-29) mEq/L BUN 29 H (6-20) mg/dL Creatinine 1.42 H (0.70-1.30) mg/dL Est GFR ( Amer) > 60 (> 60) Est GFR (Non-Af Amer) 52 L (> 60) BUN/Creatinine Ratio 20 (6-26) Glucose 159 H (70-105) mg/dL Calculated Osmolality 285 (280-300) Lactic Acid 1.7 (0.5-2.2) mmol/L Calcium 7.4 L (8.6-10.3) mg/dL Phosphorus 2.1 L (2.7-4.5) mg/dL Magnesium 2.1 (1.6-2.6) mg/dL Total Bilirubin 0.2 L (0.3-1.0) mg/dL Direct Bilirubin 0.1 (0.0-0.2) mg/dL Indirect Bilirubin 0.1 (0.0-1.2) mg/dL AST 27 (13-39) Units/L ALT 15 (7-52) Units/L Alkaline Phosphatase 89 (34-104) Units/L Ammonia (16-53) mcmol/L Serum Total Protein 5.4 L (6.4-8.9) g/dL Albumin 2.2 L (3.5-5.7) g/dL Globulin 3.2 (2.4-3.5) g/dL Albumin/Globulin Ratio 0.7 L (1.1-2.2) Triglycerides 54 (< 150) mg/dL Cholesterol 44 (< 200) mg/dL LDL Cholesterol, Calc 10 (0-99) mg/dL VLDL Cholesterol, Calc 11 (< 31) mg/dL HDL Cholesterol 23 L (40-59) mg/dL Cholesterol/HDL Ratio 1.9 (0-4.9) Blood Type Antibody Screen Crossmatch 08/26/18 08/26/18 08/26/18 Range/Units 12:22 12:22 13:06 WBC 6.7 (4.3-11.1) K/mcL RBC 1.24 L (4.19-5.50) M/mcL Hgb 2.8 L* (12.9-16.9) g/dL Hct 10.3 L* (37.5-50.1) % MCV 83.1 (83.0-100.0) fL MCH 22.6 L (28.0-33.3) pg MCHC 27.2 L (31.6-35.5) g/dL RDW 18.1 H (11.5-14.5) % Plt Count 130 L (140-400) K/mcL MPV 10.0 (9.4-12.4) fL Seg Neutrophils % 94.0 % Lymphocytes % 4.0 % Eosinophils % 2.0 % Neutrophils # 6.3 (1.6-8.9) K/mcL Lymphocytes # 0.3 L (0.6-4.6) K/mcL Eosinophils # 0.1 (0.0-0.6) K/mcL Nucleated RBCs/100 WBC 0.3 H (0) /100 WBC Platelet Estimate Decreased L (Normal) Polychromasia 1+ A (Not Present) Hypochromasia Present A (Not Present) Poikilocytosis 1+ A (Not Present) Anisocytosis 1+ A (Not Present) Microcytosis Present A (Not Present) PT (9.4-12.1) Seconds INR APTT (26.0-36.0) Seconds ABG pH (7.32-7.45) pH Units ABG pCO2 (35-45) mmHg ABG pO2 (85-104) mmHg ABG HCO3 (21-27) mEq/L ABG Total CO2 (20-26) mEq/L ABG O2 Saturation (95-98) % ABG Base Excess (-2 to 3) mEq/L Sodium (136-145) mEq/L Potassium (3.5-5.1) mEq/L Chloride (98-107) mEq/L Carbon Dioxide (23-29) mEq/L BUN (6-20) mg/dL Creatinine (0.70-1.30) mg/dL Est GFR ( Amer) (> 60) Est GFR (Non-Af Amer) (> 60) BUN/Creatinine Ratio (6-26) Glucose (70-105) mg/dL Calculated Osmolality (280-300) Lactic Acid (0.5-2.2) mmol/L Calcium (8.6-10.3) mg/dL Phosphorus (2.7-4.5) mg/dL Magnesium (1.6-2.6) mg/dL Total Bilirubin (0.3-1.0) mg/dL Direct Bilirubin (0.0-0.2) mg/dL Indirect Bilirubin (0.0-1.2) mg/dL AST (13-39) Units/L ALT (7-52) Units/L Alkaline Phosphatase (34-104) Units/L Ammonia 33 (16-53) mcmol/L Serum Total Protein (6.4-8.9) g/dL Albumin (3.5-5.7) g/dL Globulin (2.4-3.5) g/dL Albumin/Globulin Ratio (1.1-2.2) Triglycerides (< 150) mg/dL Cholesterol (< 200) mg/dL LDL Cholesterol, Calc (0-99) mg/dL VLDL Cholesterol, Calc (< 31) mg/dL HDL Cholesterol (40-59) mg/dL Cholesterol/HDL Ratio (0-4.9) Blood Type B NEGATIVE Antibody Screen NEGATIVE Crossmatch See Detail
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
[2018-08-26] MEDS ORDERED: Methadone Oral Concentrate 50 MG/5 ML UDC PO SCH (16:00)
[2018-08-26] MEDS: Insulin LISPRO 300 UNITS/3 ML VIAL SQ SCH ×3 (16:05→23:31)
[2018-08-26] MEDS: Cefepime HCl 2,000 MG in Water for inj. (sterile) 20 ML 20 ML IVP SCH (16:43)
[2018-08-26] MEDS ORDERED: Dicyclomine 20 MG/2 ML AMPUL IM STA (16:54)
[2018-08-26] MEDS ORDERED: *HR* Promethazine 25 MG/ML VIAL IM ONE (16:54)
[2018-08-26] MEDS: Pantoprazole 40 MG VIAL IVP SCH (17:01)
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
[2018-08-26] MEDS ORDERED: Furosemide 20 MG/2 ML VIAL IVP ONE (17:43)
[2018-08-26] MEDS ORDERED: *HR* Heparin 5,000 UNIT/ML VIAL SQ SCH (18:00)
[2018-08-26 19:15] LABS: Amphetamine Screen,Urine Negative ng/mL (Cutoff=1000); Barbiturate Screen,Urine Negative ng/mL (Cutoff=200); Benzodiazepines Screen,Urine Positive ng/mL (Cutoff=200); Cannabinoid Screen,Urine Positive ng/mL (Cutoff = 50); Cocaine Screen,Urine Negative ng/mL (Cutoff= 300); Opiate Screen,Urine Negative ng/mL (Cutoff=300); Phencyclidine Screen,Urine Negative ng/mL (Cutoff=25)
[2018-08-26 19:22] LABS: Immature Reticulocyte % 35.1 % (11.0-38.0); Retculocyte # 0.07 M/mcL (0.05-0.10); Reticulocyte % 4.1 % (1.6-2.8)
[2018-08-26 22:05] LABS: Adenovirus Not Detected (Not Detect); Coronavirus 229E Not Detected (Not Detect); Coronavirus HKU1 Not Detected (Not Detect); Coronavirus NL63 Not Detected (Not Detect); Coronavirus OC43 Not Detected (Not Detect); Human Metapneumovirus Not Detected (Not Detect); Human Rhinovirus/Enterovirus Not Detected (Not Detect)
[2018-08-26 22:06] LABS: Bordetella Pertussis Not Detected (Not Detect); Chlamydophila pneumoniae Not Detected (Not Detect); Influenza A Subtype 2009 H1 Not Detected (Not Detect); Influenza A Untypeable Not Detected (Not Detect); Influenza B Not Detected (Not Detect); Mycoplasma pneumoniae Not Detected (Not Detect); Parainfluenza Virus 1 Not Detected (Not Detect); Parainfluenza Virus 2 Not Detected (Not Detect); Parainfluenza Virus 3 Not Detected (Not Detect); Parainfluenza Virus 4 Not Detected (Not Detect); Respiratory Syncytial Virus Not Detected (Not Detect)
[2018-08-26 22:17] LABS: Red Blood Count 1.98 M/mcL (4.19-5.50); Red Cell Distribution Width 16.7 % (11.5-14.5)
[2018-08-26 22:18] LABS: Eosinophils # 0.2 K/mcL (0.0-0.6); Eosinophils % 2.3 %; Hematocrit 16.8 % (37.5-50.1); Immature Granulocytes % 0.8 % (0-4); Lymphocytes % 29.9 %; Mean Corpuscular HGB Conc 30.4 g/dL (31.6-35.5); Mean Corpuscular Hemoglobin 25.8 pg (28.0-33.3); Mean Corpuscular Volume 84.8 fL (83.0-100.0); Mean Platelet Volume 9.7 fL (9.4-12.4); Monocytes # 0.5 K/mcL (0.0-1.3); Neutrophils # 3.9 K/mcL (1.6-8.9); Platelet Count 119 K/mcL (140-400)
[2018-08-26 22:47] LABS: Hemoglobin 5.1 g/dL (12.9-16.9)
[2018-08-26 23:11] LABS: Hypochromasia Present (Not Present); Platelet Estimate Slight Decrease (Normal)
[2018-08-27] MEDS ORDERED: Cefepime HCl 1,000 MG in Water for inj. (sterile) 20 ML 10 ML IVP SCH
[2018-08-27] MEDS: Cefepime HCl 2,000 MG in Water for inj. (sterile) 20 ML 20 ML IVP SCH ×2 (04:56→15:59)
[2018-08-27] MEDS: Pantoprazole 40 MG VIAL IVP SCH ×2 (04:57→19:59)
[2018-08-27] MEDS: Insulin LISPRO 300 UNITS/3 ML VIAL SQ SCH (05:03)
--- NOTE | 2018-08-27 05:21 | Electrocardiograph Report ---
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 Electronically Signed On 08-27-2018 5:20:14 EST by Julius Avila
[2018-08-27 05:23] LABS: Basophils % 0.2 %; Eosinophils # 0.2 K/mcL (0.0-0.6); Eosinophils % 3.7 %; Hematocrit 24.1 % (37.5-50.1); Hemoglobin 7.4 g/dL (12.9-16.9); Immature Granulocytes % 0.7 % (0-4); Lymphocytes # 1.6 K/mcL (0.6-4.6); Lymphocytes % 28.4 %; Mean Corpuscular HGB Conc 30.7 g/dL (31.6-35.5); Mean Corpuscular Hemoglobin 26.5 pg (28.0-33.3); Mean Corpuscular Volume 86.4 fL (83.0-100.0); Mean Platelet Volume 9.5 fL (9.4-12.4); Monocytes # 0.5 K/mcL (0.0-1.3); Neutrophils # 3.3 K/mcL (1.6-8.9); Platelet Count 125 K/mcL (140-400); Red Blood Count 2.79 M/mcL (4.19-5.50); Red Cell Distribution Width 16.1 % (11.5-14.5)
[2018-08-27 05:30] LABS: INR 1.1; Prothrombin Time 12.3 Seconds (9.4-12.1)
[2018-08-27 05:34] LABS: BUN/Creatinine Ratio 17 (6-26); Blood Urea Nitrogen 24 mg/dL (6-20); Calcium 7.3 mg/dL (8.6-10.3); Carbon Dioxide 23 mEq/L (23-29); Chloride 113 mEq/L (98-107); Glucose 79 mg/dL (70-105); Osmolality,Calculated 287 (280-300); Sodium 137 mEq/L (136-145); eGFR For Non-African Americans 51 (> 60)
--- NOTE | 2018-08-27 07:02 | Pulmonology Progress Note ---
<Josh Kimball - Last Filed: 08/27/18 09:35> Date of Encounter: 08/27/18 Time of Encounter: 08:09 Assessment and Plan (1) Anemia Current Visit: Yes - Acute on chronic - H/H on presentation 2.8/10.3. Hemoglobin has improved to 7.4 after 5 units transfusion yesterday - Most recent hemoglobin drawn at 07/18/18 shows a baseline of 7-12 - Patient has been worked up for anemia in the past including EGD/colonoscopy which were significant only for nonbleeding internal hemorrhoids and polyp which was not resected - He is scheduled to follow-up with hematology never did - He is on home Xarelto for previous history of PE. - Stool occult is positive however no gross red blood noticed on examination per ED physician - Etiology is possibly multifactorial including kidney disease, liver disease, chronic blood loss - Blood pressure has been stable. No indications for vasopressors. Expect improvement with transfusions. - Hematology/oncology has been consult, appreciate recommendations - Iron studies, B12, folate, haptoglobin, reticulocyte count, peripheral smear, LDH, Maria M test ordered - LDH 133, bilirubin low at 0.2, iron panel in July shows iron deficiency and low saturation - Likely require Lasix given history of mild diastolic heart failure - Holding anticoagulation -We will ask on-call endoscopy to evaluate patient today. Of note, this interviewer has had multiple conversations with patient as he is threatening to leave AGAINST MEDICAL ADVICE. Serious and critical adverse effects were explained to the patient including a very poor prognosis and likely . Patient states that he accepts this however unless he is able to eat he will likely leave. At this time, he is currently agreeable to stay after his methadone is resumed At this time patient is medically stable for transfer out of ICU. Will obtain second peripheral line and then remove Cordis from right groin. Qualifiers: Anemia type: iron deficiency Iron deficiency anemia type: unspecified iron deficiency Qualified Code(s): D50.9 - Iron deficiency anemia, unspecified (2) Pneumonia Current Visit: Yes Status: Acute - As demonstrated on chest x-ray emergency department - Patient is nonseptic with 0/4 sirs criteria - Lactic acid of 1.7 - Started on azithromycin, ceftriaxone emergency room - We will broaden coverage to cefepime, vancomycin, Levaquin as patient is frequently exposed to inpatient facilities. Day #2 - MRSA swab pending - Reports penicillin allergy - Some suspicion for aspiration given a right upper lobe location, low threshold to broaden for anaerobic coverage - Blood cultures obtained emergency department, will de-escalate antibiotics based on culture results Qualifiers: Pneumonia type: due to unspecified organism Laterality: right Lung location: middle lobe of lung Qualified Code(s): J18.1 - Lobar pneumonia, unspecified organism (3) Thrombocytopenia Current Visit: Yes Status: Chronic - Appears to be chronic - Platelets on presentation of 136, this appears to be around baseline. -Today at 125 - No indications for transfusion at this time - Hematology/oncology has been consult, appreciate recommendations (4) CKD (chronic kidney disease) Current Visit: Yes Status: Acute - Based on chart review is states 3 CKD - BUNs/creatinine of 24/1.44 to this appears to be baseline creatinine of 1.1- 2.0 - Anticipate if this were a gross GI bleed and BUN may be more elevated - We will continue monitor and avoid nephrotoxins, renally dose medications Qualifiers: Chronic kidney disease stage: stage 3 (moderate) Qualified Code(s): N18.3 - Chronic kidney disease, stage 3 (moderate) (5) History of methadone use Current Visit: Yes Status: Chronic We will continue while in patient (6) History of pulmonary embolism Current Visit: Yes Status: Chronic Previous history of pulmonary embolism and was started on Xarelto Currently holding anticoagulation due to anemia Bilateral lower shortly Dopplers ordered, show preliminary chronic DVTs We will continue monitor (7) Medical non-compliance Current Visit: Yes Status: Chronic Known history of noncompliance and poor follow-up Patient threatened to leave A at this visit Patient convinced to stay at this time however he is high risk for adverse effects due to noncompliance with future (8) Polysubstance abuse Current Visit: Yes Status: Chronic - Previous history of IV drug use -Patient denies current IV drug use however he is on methadone and does admit to abusing benzodiazepines - Urine drug screen positive for benzodiazepines and marijuana - Denies alcohol use - We will continue methadone while Patient (9) Hepatitis C Current Visit: Yes Status: Suspected - Patient reports history of hepatitis B and hepatitis C - Per documentation, he believes he was treated for one but is not sure which one - We will obtain PCR quantification of both Qualifiers: Viral hepatitis chronicity: chronic Hepatic coma status: without hepatic coma Qualified Code(s): B18.2 - Chronic viral hepatitis C (10) DVT prophylaxis Current Visit: Yes Status: Acute Holding anticoagulation in the setting of acute anemia Subjective Principal diagnosis: Anemia Interval history: Patient was seen and examined at bedside this morning. Patient reports that overall he is feeling "fine". He does state that he continues to feel weak. He is currently denying any other symptoms but is wanting to sleep. He denies any shortness of breath Objective PUL Vital signs: Last Vital Signs Temp 97.6 F 08/27/18 04:00 Pulse 61 08/27/18 06:00 Resp 20 08/27/18 06:00 BP 107/68 08/27/18 06:00 Pulse Ox 97 08/27/18 06:00 General appearance: no acute distress, lethargic Eyes: nonicteric ENT: oropharynx moist Effort: normal Auscultation: bilateral: diminished breath sounds (Bases), wheezes (Expiratory) Cardiovascular: regular rate and rhythm Gastrointestinal: normoactive bowel sounds, hypoactive bowel sounds, soft, non- tender Integumentary: normal Extremities: no cyanosis, no edema, no clubbing, other (Pale) Musculoskeletal: no deformities normal mental status, non-focal exam mood appropriate, affect normal Results - Laboratory Findings CBC and BMP: 08/27/18 04:53 08/27/18 04:53 ABG ABG pH 7.43 pH Units (7.32-7.45) 08/26/18 11:56 ABG pCO2 35 mmHg (35-45) 08/26/18 11:56 ABG pO2 87 mmHg (85-104) 08/26/18 11:56 ABG O2 Saturation 97 % (95-98) 08/26/18 11:56 PT/INR, D-dimer PT 12.3 Seconds (9.4-12.1) H 08/27/18 04:53 Abnormal lab findings: Abnormal lab results RBC 2.79 M/mcL (4.19-5.50) L 08/27/18 04:53 Hgb 7.4 g/dL (12.9-16.9) L D 08/27/18 04:53 Hct 24.1 % (37.5-50.1) L 08/27/18 04:53 MCH 26.5 pg (28.0-33.3) L 08/27/18 04:53 MCHC 30.7 g/dL (31.6-35.5) L 08/27/18 04:53 RDW 16.1 % (11.5-14.5) H 08/27/18 04:53 Plt Count 125 K/mcL (140-400) L 08/27/18 04:53 Nucleated RBCs/100 WBC 0.3 /100 WBC (0) H 08/26/18 12:22 Platelet Estimate Slight Decrease (Normal) L 08/26/18 22:07 Polychromasia 1+ (Not Present) A 08/26/18 12:22 Hypochromasia Present (Not Present) A 08/26/18 22:07 Poikilocytosis 1+ (Not Present) A 08/26/18 12:22 Anisocytosis 1+ (Not Present) A 08/26/18 12:22 Microcytosis Present (Not Present) A 08/26/18 12:22 Percent Retic 4.1 % (1.6-2.8) H 08/26/18 15:33 Retic Hgb Equivalent 17.6 pg (28.61-36.33) L 08/26/18 15:33 PT 12.3 Seconds (9.4-12.1) H 08/27/18 04:53 Chloride 113 mEq/L (98-107) H 08/27/18 04:53 BUN 24 mg/dL (6-20) H 08/27/18 04:53 Creatinine 1.44 mg/dL (0.70-1.30) H 08/27/18 04:53 Est GFR (Non-Af Amer) 51 (> 60) L 08/27/18 04:53 Calcium 7.3 mg/dL (8.6-10.3) L 08/27/18 04:53 Phosphorus 2.1 mg/dL (2.7-4.5) L 08/26/18 12:22 Total Bilirubin 0.2 mg/dL (0.3-1.0) L 08/26/18 12:22 Lactate Dehydrogenase 133 Units/L (140-271) L 08/26/18 15:35 Serum Total Protein 5.4 g/dL (6.4-8.9) L 08/26/18 12:22 Albumin 2.2 g/dL (3.5-5.7) L 08/26/18 12:22 Albumin/Globulin Ratio 0.7 (1.1-2.2) L 08/26/18 12:22 HDL Cholesterol 23 mg/dL (40-59) L 08/26/18 12:22 Stool Occult Bld Scrn Positive (Negative) A 08/26/18 14:16 U Benzodiazepines Scrn Positive ng/mL (Chgucm=073) H 08/26/18 18:42 U Marijuana (THC) Screen Positive ng/mL (Cutoff = 50) H 08/26/18 18:42 - Microbiology Findings Microbiology Findings: Microbiology, Last 48 Hours 08/26/18 11:26 Blood Culture - Preliminary Peripheral Venipuncture Culture is incubating and being continuously monitored for growth. Final report to follow. 08/26/18 11:26 Blood Culture - Preliminary Peripheral Venipuncture Culture is incubating and being continuously monitored for growth. Final report to follow. - Clinical Findings Intake & Output: Intake & Output 08/26/18 08/26/18 08/27/18 15:59 23:59 07:59 Intake Total 2670 / 2670 654 / 654 689 / 689 Output Total 1650 / 1650 675 / 675 Balance 2670 / 2670 -996 / -996 Weight 69.6 kg 66.7 kg Consult Discharge Plan - Plan Referrals: NONE,PCP [Primary Care Provider] - <Slade Reyes - Last Filed: 08/27/18 10:28> Date of Encounter: 08/27/18 Objective PUL Vital signs: Last Vital Signs Temp 97.2 F L 08/27/18 07:35 Pulse 62 08/27/18 08:04 Resp 22 08/27/18 08:00 BP 104/75 08/27/18 08:00 Pulse Ox 96 08/27/18 08:00 Results - Laboratory Findings CBC and BMP: 08/27/18 04:53 08/27/18 04:53 ABG ABG pH 7.43 pH Units (7.32-7.45) 08/26/18 11:56 ABG pCO2 35 mmHg (35-45) 08/26/18 11:56 ABG pO2 87 mmHg (85-104) 08/26/18 11:56 ABG O2 Saturation 97 % (95-98) 08/26/18 11:56 PT/INR, D-dimer PT 12.3 Seconds (9.4-12.1) H 08/27/18 04:53 Abnormal lab findings: Abnormal lab results RBC 2.79 M/mcL (4.19-5.50) L 08/27/18 04:53 Hgb 7.4 g/dL (12.9-16.9) L D 08/27/18 04:53 Hct 24.1 % (37.5-50.1) L 08/27/18 04:53 MCH 26.5 pg (28.0-33.3) L 08/27/18 04:53 MCHC 30.7 g/dL (31.6-35.5) L 08/27/18 04:53 RDW 16.1 % (11.5-14.5) H 08/27/18 04:53 Plt Count 125 K/mcL (140-400) L 08/27/18 04:53 Nucleated RBCs/100 WBC 0.3 /100 WBC (0) H 08/26/18 12:22 Platelet Estimate Slight Decrease (Normal) L 08/26/18 22:07 Polychromasia 1+ (Not Present) A 08/26/18 12:22 Hypochromasia Present (Not Present) A 08/26/18 22:07 Poikilocytosis 1+ (Not Present) A 08/26/18 12:22 Anisocytosis 1+ (Not Present) A 08/26/18 12:22 Microcytosis Present (Not Present) A 08/26/18 12:22 Percent Retic 4.1 % (1.6-2.8) H 08/26/18 15:33 Retic Hgb Equivalent 17.6 pg (28.61-36.33) L 08/26/18 15:33 PT 12.3 Seconds (9.4-12.1) H 08/27/18 04:53 Chloride 113 mEq/L (98-107) H 08/27/18 04:53 BUN 24 mg/dL (6-20) H 08/27/18 04:53 Creatinine 1.44 mg/dL (0.70-1.30) H 08/27/18 04:53 Est GFR (Non-Af Amer) 51 (> 60) L 08/27/18 04:53 Calcium 7.3 mg/dL (8.6-10.3) L 08/27/18 04:53 Phosphorus 2.1 mg/dL (2.7-4.5) L 08/26/18 12:22 Total Bilirubin 0.2 mg/dL (0.3-1.0) L 08/26/18 12:22 Lactate Dehydrogenase 133 Units/L (140-271) L 08/26/18 15:35 Serum Total Protein 5.4 g/dL (6.4-8.9) L 08/26/18 12:22 Albumin 2.2 g/dL (3.5-5.7) L 08/26/18 12:22 Albumin/Globulin Ratio 0.7 (1.1-2.2) L 08/26/18 12:22 HDL Cholesterol 23 mg/dL (40-59) L 08/26/18 12:22 Stool Occult Bld Scrn Positive (Negative) A 08/26/18 14:16 U Benzodiazepines Scrn Positive ng/mL (Vomarf=333) H 08/26/18 18:42 U Marijuana (THC) Screen Positive ng/mL (Cutoff = 50) H 08/26/18 18:42 - Microbiology Findings Microbiology Findings: Microbiology, Last 48 Hours 08/26/18 11:26 Blood Culture - Preliminary Peripheral Venipuncture Culture is incubating and being continuously monitored for growth. Final report to follow. 08/26/18 11:26 Blood Culture - Preliminary Peripheral Venipuncture Culture is incubating and being continuously monitored for growth. Final report to follow. - Clinical Findings Intake & Output: Intake & Output 08/26/18 08/27/18 08/27/18 23:59 07:59 15:59 Intake Total 654 / 654 689 / 689 Output Total 1650 / 1650 675 / 675 450 / 450 Balance -996 / -996 14 14 -450 / -450 Weight 66.7 kg - Attending Attestation I examined this patient and my medical decision-making was reviewed with the Resident Physician. I agree with the documented findings, disposition and treatment plan as described except to the extent set forth below. We independently had [id number] contact with the patient Patient seen and examined at bedside Labs, radiology, chart personally reviewed. Management was reviewed during multidisciplinary critical care rounds. TELEVISION AGENT: Awake and alert no evidence of encephalopathy patient has chronic addiction and is on methadone which we will continue he is in a supervised program Pulm: Acceptable oxygenation on room air Cards: Pressure monitored and stable GI: Possible gastrointestinal hemorrhage which would have to be slow given chronicity of symptoms we will ask endoscopy to evaluate for possible evaluation Nutrition: He O until evaluated by endoscopy Renal: Chronic kidney disease which is stable UOP Monitored, Cont to Trend sCr and monitor Electrolytes. ID: Treating for pneumonia with planned to de-escalate antibiotics Heme/Onc: Pancytopenia with acute on chronic anemia status post transfusion with hemoglobin greater than 7 which is adequate for current situation appreciate oncology recommendations holding anticoagulation for DVT we will discuss with them about the utility of IVC filter in the situation Endo: Glucose Monitored Integ/MSK: Skin Care per routine ICU Nursing Protocol to prevent ulcers. Lines: All lines examined without evidence of infection : Dispo: Stable for transfer to [facility] telemetry for ongoing care CODE: Full
[2018-08-27] MEDS ORDERED: Naloxone 0.4 MG/ML INJ IVP PRN (07:53)
[2018-08-27] MEDS ORDERED: D5% in Water 1,000 ML IVC PRN (07:53)
[2018-08-27] MEDS ORDERED: *HR* Dextrose 50 % in Water (Syg) 50 ML SYRINGE IVP PRN (07:53)
[2018-08-27] MEDS ORDERED: traMADol 50 MG TABLET PO PRN (07:53)
[2018-08-27] MEDS ORDERED: Dextrose Gel 15 GM/37.5 ML TUBE PO PRN ×2 (07:53)
[2018-08-27] MEDS: Methadone Oral Concentrate 50 MG/5 ML UDC PO SCH (08:54)
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
[2018-08-27] MEDS ORDERED: Insulin LISPRO 300 UNITS/3 ML VIAL SQ SCH (12:00)
[2018-08-27] MEDS: Levofloxacin 750 MG/150 ML 750 MG/150 ML BAG IVPB SCH (12:38)
[2018-08-28] MEDS: Cefepime HCl 2,000 MG in Water for inj. (sterile) 20 ML 20 ML IVP SCH ×2 (05:03→17:58)
[2018-08-28 05:51] LABS: Basophils % 0.2 %; Eosinophils # 0.2 K/mcL (0.0-0.6); Eosinophils % 4.6 %; Hematocrit 24.3 % (37.5-50.1); Hemoglobin 7.3 g/dL (12.9-16.9); Immature Granulocytes % 0.5 % (0-4); Lymphocytes # 1.2 K/mcL (0.6-4.6); Lymphocytes % 28.5 %; Mean Corpuscular Hemoglobin 26.5 pg (28.0-33.3); Mean Corpuscular Volume 88.4 fL (83.0-100.0); Mean Platelet Volume 10.5 fL (9.4-12.4); Monocytes # 0.4 K/mcL (0.0-1.3); Monocytes % 8.6 %; Neutrophils # 2.4 K/mcL (1.6-8.9); Platelet Count 102 K/mcL (140-400); Red Blood Count 2.75 M/mcL (4.19-5.50); Red Cell Distribution Width 16.9 % (11.5-14.5); Segmented Neutrophils % 57.6 %
[2018-08-28 06:11] LABS: BUN/Creatinine Ratio 15 (6-26); Blood Urea Nitrogen 21 mg/dL (6-20); Calcium 7.6 mg/dL (8.6-10.3); Carbon Dioxide 21 mEq/L (23-29); Chloride 112 mEq/L (98-107); Glucose 140 mg/dL (70-105); Osmolality,Calculated 293 (280-300); Potassium 4.4 mEq/L (3.5-5.1); Sodium 139 mEq/L (136-145); eGFR For Non-African Americans 52 (> 60)
[2018-08-28] MEDS: Pantoprazole 40 MG VIAL IVP SCH ×2 (08:55→18:00)
[2018-08-28] MEDS: Levofloxacin 750 MG/150 ML 750 MG/150 ML BAG IVPB SCH (10:31)
[2018-08-28] MEDS: Methadone Oral Concentrate 50 MG/5 ML UDC PO SCH (10:32)
--- NOTE | 2018-08-28 10:55 | Internal Med Progress Note ---
<Aron Ash - Last Filed: 08/28/18 18:40> Hospitalist Progress Note - Encounter Date of Encounter: 08/28/18 Time of Encounter: 10:52 - Subjective Interval History: Patient was seen and evaluated at bedside this morning, patient appears to be very sleepy and falls asleep multiple times during questioning. Several ques tions have to be repeated, and patient appears to be inconsistent with review of systems questioning, answering "yes" at times and "no" for the same question when repeated. states that he is feeling much better. States that his pain is currently well-controlled on tramadol plus methadone. Patient admits to some back pain, chest pain/shortness of breath, nausea/vomiting/abdominal pain. Patient denies fever/chills, headache, vision change, tinnitus, neck pain, numbness/paresthesias, hematochezia, hematuria. - Exam Vitals: Temp Pulse Resp BP Pulse Ox 97.4 F L 63 14 113/74 96 08/28/18 08:27 08/28/18 08:27 08/28/18 08:27 08/28/18 08:27 08/28/18 08:27 Exam: Constitutional: Patient is awake, alert, engaged conversation and answering questions appropriately, there are no overt focal neurological deficits appreciated, he is in no acute distress. HEENT: Atraumatic, normocephalic, trachea midline, there is no sign of overt pupillary deficit or deficiencies with extraocular musculature. Cardiovascular: Systolic murmur appreciated, otherwise rhythm and rate are regular. Respiratory: Clear to auscultation bilaterally, no wheezes or stridor appreciated. Abdomen: Diffusely tender to palpation, soft, flat, nondistended, no guarding or rebound appreciated. Skin: Warm, dry, intact. - Summary of Assessment and Plan Summary of Assessment and Plan: (1) Anemia Current Visit: Yes - Patient transferred from the ICU on 08/27/2018 - Patient with known history of chronic anemia - H/H on presentation 2.8/10.3. Hemoglobin is currently 17.3 with hematocrit at 24.3 patient is asymptomatic - Hemoglobin drawn at 07/18/18 shows a baseline of 7-12 - Patient has been worked up for anemia in the past including EGD/colonoscopy w hich were significant only for nonbleeding internal hemorrhoids and polyp which was not resected - Patient was scheduled for hematology follow-up but did not do so - He is on home Xarelto for previous history of PE. - Stool occult is positive however no gross red blood noticed on examination per ED physician - Etiology is possibly multifactorial including kidney disease, liver disease, chronic blood loss - Blood pressure has been stable. No indications for vasopressors. Expect improvement with transfusions. - Hematology/oncology and gastroenterology has been consulted, appreciate recommendations - Iron studies, B12, folate, haptoglobin, reticulocyte count, peripheral smear, LDH, Maria M test ordered - LDH 133, bilirubin low at 0.2, iron panel in July shows iron deficiency and low saturation - Likely require Lasix given history of mild diastolic heart failure - Holding anticoagulation - Noted in previous echo mentation the patient has threatened to leave AGAINST MEDICAL ADVICE and the risks of such including increased morbidity up to including have been explained in depth to the patient. Qualifiers: Anemia type: iron deficiency Iron deficiency anemia type: unspecified iron deficiency Qualified Code(s): D50.9 - Iron deficiency anemia, unspecified (2) Pneumonia Current Visit: Yes Status: Acute - As demonstrated on chest x-ray emergency department - Patient is nonseptic with 0/4 sirs criteria - Lactic acid of 1.7 - Started on azithromycin, ceftriaxone emergency room and transitioned to cefepime, vancomycin, and Levaquin as inpatient - Continue cefepime, vancomycin, Levaquin. Day #3 - MRSA swab positive - Blood cultures pending, urine culture negative for strep pneumonia antigen. Qualifiers: Pneumonia type: due to unspecified organism Laterality: right Lung location: middle lobe of lung Qualified Code(s): J18.1 - Lobar pneumonia, unspecified organism (3) Thrombocytopenia Current Visit: Yes Status: Chronic - Appears to be chronic - Platelets on presentation of 136, this appears to be around baseline. -Today at 102 - No indications for transfusion at this time - Hematology/oncology has been consult, appreciate recommendations (4) CKD (chronic kidney disease) Current Visit: Yes Status: Acute - Based on chart review is states 3 CKD - BUNs/creatinine of 21/1.40 - which appears to be the patient's baseline - We will continue monitor and avoid nephrotoxins, renally dose medications Qualifiers: Chronic kidney disease stage: stage 3 (moderate) Qualified Code(s): N18.3 - Chronic kidney disease, stage 3 (moderate) (5) History of methadone use Current Visit: Yes Status: Chronic We will dose while inpatient (6) History of pulmonary embolism Current Visit: Yes Status: Chronic Previous history of pulmonary embolism and was started on Xarelto Currently holding anticoagulation due to anemia Bilateral lower shortly Dopplers show chronic thrombosis in the left femoral through popliteal vein We will continue monitor (7) Medical non-compliance Current Visit: Yes Status: Chronic Known history of noncompliance and poor follow-up Patient threatened to leave A at this visit Patient convinced to stay at this time however he is high risk for adverse effects due to noncompliance with future (8) Polysubstance abuse Current Visit: Yes Status: Chronic - Previous history of IV drug use -Patient denies current IV drug use however he is on methadone and does admit to abusing benzodiazepines - Urine drug screen positive for benzodiazepines and marijuana - Denies alcohol use - We will continue methadone while Patient (9) Hepatitis C Current Visit: Yes Status: Suspected - Patient reports history of hepatitis B and hepatitis C - Per documentation, he believes he was treated for one but is not sure which one - We will obtain PCR quantification of both Qualifiers: Viral hepatitis chronicity: chronic Hepatic coma status: without hepatic coma Qualified Code(s): B18.2 - Chronic viral hepatitis C (10) DVT prophylaxis Current Visit: Yes Status: Acute EPCDs - Time Spent with Patient Total time spent is greater than 50% in coordination of care (as documented) at patient's floor/unit and/or counseling patient: Internal Medicine: Result - Labs CBC & Chem 7: 08/28/18 05:19 08/28/18 05:19 Labs: Short CBC 08/28/18 Range/Units 05:19 WBC 4.2 L (4.3-11.1) K/mcL Hgb 7.3 L (12.9-16.9) g/dL Hct 24.3 L (37.5-50.1) % Plt Count 102 L (140-400) K/mcL Neutrophils # 2.4 (1.6-8.9) K/mcL BMP 08/28/18 05:19 Sodium 139 Potassium 4.4 Chloride 112 H Carbon Dioxide 21 L BUN 21 H Creatinine 1.40 H Glucose 140 H Calcium 7.6 L - ABG Interpretation ABG results: ABG ABG pH 7.43 pH Units (7.32-7.45) 08/26/18 11:56 ABG pCO2 35 mmHg (35-45) 08/26/18 11:56 ABG pO2 87 mmHg (85-104) 08/26/18 11:56 ABG O2 Saturation 97 % (95-98) 08/26/18 11:56 PT/INR, D-dimer PT 12.3 Seconds (9.4-12.1) H 08/27/18 04:53 Consult Discharge Plan - Plan Referrals: NONE,PCP [Primary Care Provider] - <Oswaldo Carreno - Last Filed: 08/29/18 08:37> Hospitalist Progress Note - Encounter Date of Encounter: 08/29/18 - Exam Vitals: Temp Pulse Resp BP Pulse Ox 97.7 F 59 18 113/73 99 08/29/18 06:41 08/29/18 06:41 08/29/18 04:26 08/29/18 06:41 08/29/18 06:41 - Time Spent with Patient Total time spent is greater than 50% in coordination of care (as documented) at patient's floor/unit and/or counseling patient: Internal Medicine: Result - Labs CBC & Chem 7: 08/29/18 04:48 08/29/18 04:48 Labs: Short CBC 08/29/18 Range/Units 04:48 WBC 4.8 (4.3-11.1) K/mcL Hgb 7.4 L (12.9-16.9) g/dL Hct 24.6 L (37.5-50.1) % Plt Count 101 L (140-400) K/mcL Neutrophils # 3.1 (1.6-8.9) K/mcL BMP 08/29/18 04:48 Sodium 137 Potassium 4.2 Chloride 112 H Carbon Dioxide 22 L BUN 18 Creatinine 1.26 Glucose 121 H Calcium 7.6 L - ABG Interpretation ABG results: ABG ABG pH 7.43 pH Units (7.32-7.45) 08/26/18 11:56 ABG pCO2 35 mmHg (35-45) 08/26/18 11:56 ABG pO2 87 mmHg (85-104) 08/26/18 11:56 ABG O2 Saturation 97 % (95-98) 08/26/18 11:56 PT/INR, D-dimer PT 12.3 Seconds (9.4-12.1) H 08/27/18 04:53 - Attending Attestation I examined this patient and my medical decision-making was reviewed with the Resident Physician. I agree with the documented findings, disposition and treatment plan as described except to the extent set forth below. Current discussion is does he stay in the Hospital for treatment course due to hx of non-compliance or do we DC when ready.
[2018-08-29 05:14] LABS: Basophils % 0.2 %; Eosinophils # 0.2 K/mcL (0.0-0.6); Eosinophils % 3.5 %; Hematocrit 24.6 % (37.5-50.1); Hemoglobin 7.4 g/dL (12.9-16.9); Immature Granulocytes % 0.4 % (0-4); Lymphocytes # 1.1 K/mcL (0.6-4.6); Lymphocytes % 23.4 %; Mean Corpuscular HGB Conc 30.1 g/dL (31.6-35.5); Mean Corpuscular Hemoglobin 26.8 pg (28.0-33.3); Mean Corpuscular Volume 89.1 fL (83.0-100.0); Mean Platelet Volume 10.6 fL (9.4-12.4); Monocytes # 0.4 K/mcL (0.0-1.3); Monocytes % 8.5 %; Neutrophils # 3.1 K/mcL (1.6-8.9); Platelet Count 101 K/mcL (140-400); Red Blood Count 2.76 M/mcL (4.19-5.50); Red Cell Distribution Width 16.9 % (11.5-14.5)
[2018-08-29 05:24] LABS: BUN/Creatinine Ratio 14 (6-26); Blood Urea Nitrogen 18 mg/dL (6-20); Calcium 7.6 mg/dL (8.6-10.3); Carbon Dioxide 22 mEq/L (23-29); Chloride 112 mEq/L (98-107); Glucose 121 mg/dL (70-105); Osmolality,Calculated 287 (280-300); Potassium 4.2 mEq/L (3.5-5.1); Sodium 137 mEq/L (136-145); eGFR For Non-African Americans 59 (> 60)
[2018-08-29] MEDS: Cefepime HCl 2,000 MG in Water for inj. (sterile) 20 ML 20 ML IVP SCH (05:32)
[2018-08-29] MEDS: Pantoprazole 40 MG VIAL IVP SCH ×2 (05:33→18:41)
[2018-08-29] MEDS: Methadone Oral Concentrate 50 MG/5 ML UDC PO SCH (10:11)
[2018-08-29] MEDS: Levofloxacin 750 MG/150 ML 750 MG/150 ML BAG IVPB SCH (11:52)
[2018-08-29] MEDS ORDERED: Aminoglycoside Consult 1 EACH MC ONE (13:05)
--- NOTE | 2018-08-29 14:07 | Oncology Inp Progress Note ---
<Tootie Dowling L - Last Filed: 08/29/18 16:41> Date of Encounter: 08/29/18 Time of Encounter: 13:00 (1) Anemia Current Visit: Yes Status: Acute Assessment and plan: Patient initially presented with severe anemia with hemoglobin of 2.8, s/p 5 units PRBC He appears to have had chronic anemia that has been worsening since around October 2017 MCV is normal White blood cell count normal Mild thrombocytopenia---bone marrow etiology vs. liver etiology vs. secondary to bleeding Stool occult blood positive and ER. No active signs or symptoms of bleeding, reports no history of recent bleeding per patient. CT abdomen and pelvis with no acute process or sign of acute bleed Splenomegaly noted on prior abdominal imaging There is questionable history of hepatitis B and/or C. Quantitative PCR is pending On Xarelto (currently on hold) for h/o PE/DVT as detailed below Plan: Acute decrease in severe anemia with positive Hemoccult stool suggestive of acute GI loss. Recommend GI consultation for consideration of push enteroscopy. Of note patient did have recent EGD/Colonoscopy in July which was negative however his severe anemia would warrant further workup, may consider colonoscopy if push enteroscopy negative Iron, folate, B12 pending No evidence of hemolysis Blood smear appears benign Planning for BMB tomorrow to rule out marrow etiology Thrombocytopenia appears chronic in nature noted on prior labs, mild splenomegaly noted, Hep B/C quantitative PCR pending, consider US to assess liver/spleen Qualifiers: Anemia type: iron deficiency Iron deficiency anemia type: unspecified iron deficiency Qualified Code(s): D50.9 - Iron deficiency anemia, unspecified (2) History of DVT (deep vein thrombosis) Current Visit: No Status: Chronic Assessment and plan: History of bilateral PE evidenced on Neck CTA on 04/27/18 History of DVT, first diagnosed on doppler on 04/27/18 Placed on Xarelto at this time. Denies any other personal or family history of blood clots. Provoked DVT. He has had multiple hospitalizations with admission documents noted on 10/09/17 and 03/05/18 prior to noted DVT/PE. This was also within the 3 month postoperative setting s/p percutaneous screw fixation and pinning of the left hip on 03/06/18. Compliance with anticoagulation since that time is questionable and course of anticoagulation has been fragmented. He is a poor historian in regards to his anticoagulation. From record, he was discharged home on Xarelto on 04/28 then was given rx following d/c again around 07/18. Plan: Xarelto has been on hold in the setting of acute anemia, GIB has not been rule out Planning for GI consult for push enteroscopy BLE venous doppler reveals chronic DVT noted in the left common femoral through popliteal veins Ideally, patient would have 3 months in the setting of provoked DVT, as discussed above AC has been fragmented and compliance is questionable. May consider prophylactic dosing of xarelto at d/c following push enteroscopy, TBD Oncology: Subj Interval history: Mr. Camilo is resting in bed, eating his lunch. No acute events noted over weekend. He is doing well and states he is feeling much improved from admission. Denies pain, s/s bleeding, nausea, vomiting, diarrhea, constipation, chest pain, SOB, abdominal pain. - Constitutional General appearance: cooperative, no acute distress, no febrile - Head Head exam: Present: atraumatic - ENT ENT exam: Present: mucous membranes moist, normal oropharynx - Respiratory Respiratory exam: Present: CTAB. Absent: respiratory distress - Cardiovascular Cardiovascular exam: Present: RRR, +S1, +S2 - GI/Abdominal GI/Abdominal exam: Present: normal bowel sounds, soft. Absent: guarding, rebou nd, tenderness - Extremities Exam Extremities exam: Present: pedal edema. Absent: calf tenderness - Neurological Exam Neurological exam: Present: alert, oriented X3, no focal deficits, strengths equal and symetr throughout - Psychiatric Psychiatric exam: Present: normal affect, normal mood - Skin Skin exam: Present: dry, intact, normal color, warm Oncology: Obj Data - Labs CBC & Chem 7: 08/29/18 04:48 08/29/18 04:48 Consult Discharge Plan - Plan Referrals: NONE,PCP [Primary Care Provider] - Inpatient Charges Provider: [facility] Fern Avila [facility] - Last Filed: 08/29/18 17:13> Date of Encounter: 08/29/18 Oncology: Obj Data - Labs CBC & Chem 7: 08/29/18 04:48 08/29/18 04:48 Inpatient Charges Follow up - Inpatient: [id number] - Attending Attestation I examined this patient and my medical decision-making was reviewed with the Advanced Practice Nurse. I agree with the documented findings, disposition and treatment plan as described except to the extent set forth below. -Patient's anemia like attributable to a LGIB as he is iron deficient from 07/2018 and his FOBT is positive on this admission. -GI c/s, planning for push enteroscopy. Would strongly consider colonoscopy as well for further evaluation. -Will check a CT N/C/A/P w/ IV contrast to evaluate JOURDAN and splenomegaly. Prior scans were done w/o contrast. -Patient was previously on Xarelto, but has been noncompliant and now presents with a LGIB. The risks and benefits in bleeding vs clotting at this time may be greater towards bleeding based on his presentation and FOBT being positive. Will discuss consideration of ppx dosing of Xarelto at discharge. -Will hold off on BMB as his blood smear/ differential does not show any tear drop cells or nucleated RBCs. -Iron studies, B12 level, folate level, and SPEP pending.
[2018-08-29] MEDS ORDERED: Isovue-370 500 ML INFUS..BTL IV ONE (17:07)
--- NOTE | 2018-08-29 17:19 | Internal Med Progress Note ---
<Josh Kimball - Last Filed: 08/29/18 17:08> Hospitalist Progress Note - Encounter Date of Encounter: 08/29/18 Time of Encounter: 09:30 - Subjective Interval History: Patient was seen and examined at bedside this morning. Patient reports that overall he is feeling "fine". He does feel much better and his symptoms improve d. He is denying any symptoms of fevers, chills, weakness, numbness, tingling, dizziness. His only concern this morning is that he wants to know what is causing his anemia. No overnight events - Exam Vitals: Temp Pulse Resp BP Pulse Ox 97.8 F 58 18 106/71 95 08/29/18 15:27 08/29/18 15:27 08/29/18 04:26 08/29/18 15:27 08/29/18 15:27 Exam: Gen.: Vitals noted. No acute distress. AAOx3, resting comfortably in bed. HEENT: PERRL/EOMI, oropharynx clear, Normocephalic, atraumatic, MMM Cardiac: RRR, no murmur, +S1/S2, No BLE edema Pulmonary: CTA bilaterally, no wheezes, rales or rhonchi, equal chest expansion, unlabored breathing Abdomen: soft, nontender, BS noted, no guarding, no palpable HSM Skin: warm and dry, no visible lesions. MSK: ROM intact, no joint swelling noted, gait no assessed while in bed. Non tender calf or clubbing Neuro: A&Ox3, moves all extremities, no focal deficits, sensation intact Psych: Appropriate mood and behavior, AOx3 - Assessment and Plan (1) Anemia Current Visit: Yes Assessment and Plan: - Acute on chronic - H/H on presentation 2.8/10.3. Hemoglobin has improved to 7.4 after 5 units transfusion - Most recent hemoglobin drawn at 07/18/18 shows a baseline of 7-12 - Patient has been worked up for anemia in the past including EGD/colonoscopy which were significant only for nonbleeding internal hemorrhoids and polyp which was not resected on 07/17/18 - He is scheduled to follow-up with hematology never did - He is on home Xarelto for previous history of PE. - Stool occult is positive however no gross red blood noticed on examination per ED physician - Etiology is possibly multifactorial including kidney disease, liver disease, chronic blood loss - Hemodynamically stable - Hematology/oncology has been following, appreciate recommendations - Anemia workup thus far has been unremarkable including normal bilirubin, LDH low at 133. - Remainder of studies pending including haptoglobin, reticulocyte, Maria M test. - Peripheral smear is returned inconclusive however does suggest an element of iron deficiency. - Discussed with hematology this morning and they will plan for a bone marrow biopsy tomorrow. INR has been consulted - Has been evaluated by general surgery who did review films from most recent visit. They do not suggest a repeat EGD/colonoscopy at this time as there are will likely be no changes from previous. Patient may benefit from a outpatient capsule endoscopy versus push endoscopy Plan - Daily labs - Await results of testing and bone marrow biopsy - Holding anticoagulation - Patient will likely be ready for discharge tomorrow after biopsy and follow-up as outpatient (2) Pneumonia Current Visit: Yes Status: Acute Assessment and Plan: - As demonstrated on chest x-ray emergency department - Patient is nonseptic with 0/4 sirs criteria - Lactic acid of 1.7 - Started on azithromycin, ceftriaxone emergency room - We will broaden coverage to cefepime, vancomycin, Levaquin as patient is frequently exposed to inpatient facilities. Day #4 - MRSA swab positive - Reports penicillin allergy Plan - As patient has been afebrile and nonseptic since admission, we will plan to de-escalate antibiotics today to only Levaquin. - We will plan for total of 5 day course of Levaquin which will be completed tomorrow - Patient clinically reports no symptoms - Some suspicion for aspiration given a right upper lobe location, low threshold to broaden for anaerobic coverage - Blood cultures obtained emergency department, will de-escalate antibiotics based on culture results (3) Thrombocytopenia Current Visit: Yes Status: Chronic Assessment and Plan: - Appears to be chronic - Platelets on presentation of 136, this appears to be around baseline. -Today at 101 - No indications for transfusion at this time - Hematology/oncology has been consult, appreciate recommendations (4) CKD (chronic kidney disease) Current Visit: Yes Status: Acute Assessment and Plan: - Based on chart review is states 3 CKD - BUNs/creatinine of 18/1.26 to this appears to be baseline creatinine of 1.1- 2.0 - Anticipate if this were a gross GI bleed and BUN may be more elevated - We will continue monitor and avoid nephrotoxins, renally dose medications (5) History of methadone use Current Visit: Yes Status: Chronic Assessment and Plan: We will continue while inpatient (6) History of pulmonary embolism Current Visit: Yes Status: Chronic Assessment and Plan: Previous history of pulmonary embolism and was started on Xarelto Currently holding anticoagulation due to anemia Bilateral lower shortly Dopplers ordered, show preliminary chronic DVTs Will likely be discharged home without anticoagulation given this chronic anemia We will continue monitor (7) Medical non-compliance Current Visit: Yes Status: Chronic Assessment and Plan: Known history of noncompliance and poor follow-up Patient threatened to leave AMA at this visit Patient convinced to stay at this time however he is high risk for adverse effects due to noncompliance with future (8) Polysubstance abuse Current Visit: Yes Status: Chronic Assessment and Plan: - Previous history of IV drug use -Patient denies current IV drug use however he is on methadone and does admit to abusing benzodiazepines - Urine drug screen positive for benzodiazepines and marijuana - Denies alcohol use - We will continue methadone while Patient (9) Hepatitis C Current Visit: Yes Status: Suspected Assessment and Plan: - Patient reports history of hepatitis B and hepatitis C - Per documentation, he believes he was treated for one but is not sure which one - We will obtain PCR quantification of both, pending (10) DVT prophylaxis Current Visit: Yes Status: Acute Assessment and Plan: EPCD setting of acute on chronic anemia DVT Prophylaxis: EPCD - Summary of Assessment and Plan Summary of Assessment and Plan: (1) Anemia Current Visit: Yes - Patient transferred from the ICU on 08/27/2018 - Patient with known history of chronic anemia - H/H on presentation 2.8/10.3. Hemoglobin is currently 17.3 with hematocrit at 24.3 patient is asymptomatic - Hemoglobin drawn at 07/18/18 shows a baseline of 7-12 - Patient has been worked up for anemia in the past including EGD/colonoscopy which were significant only for nonbleeding internal hemorrhoids and polyp which was not resected - Patient was scheduled for hematology follow-up but did not do so - He is on home Xarelto for previous history of PE. - Stool occult is positive however no gross red blood noticed on examination per ED physician - Etiology is possibly multifactorial including kidney disease, liver disease, chronic blood loss - Blood pressure has been stable. No indications for vasopressors. Expect improvement with transfusions. - Hematology/oncology and gastroenterology has been consulted, appreciate recommendations - Iron studies, B12, folate, haptoglobin, reticulocyte count, peripheral smear, LDH, Maria M test ordered - LDH 133, bilirubin low at 0.2, iron panel in July shows iron deficiency and low saturation - Likely require Lasix given history of mild diastolic heart failure - Holding anticoagulation - Noted in previous echo mentation the patient has threatened to leave AGAINST MEDICAL ADVICE and the risks of such including increased morbidity up to including have been explained in depth to the patient. Qualifiers: Anemia type: iron deficiency Iron deficiency anemia type: unspecified iron deficiency Qualified Code(s): D50.9 - Iron deficiency anemia, unspecified (2) Pneumonia Current Visit: Yes Status: Acute - As demonstrated on chest x-ray emergency department - Patient is nonseptic with 0/4 sirs criteria - Lactic acid of 1.7 - Started on azithromycin, ceftriaxone emergency room and transitioned to cefepime, vancomycin, and Levaquin as inpatient - Continue cefepime, vancomycin, Levaquin. Day #3 - MRSA swab positive - Blood cultures pending, urine culture negative for strep pneumonia antigen. Qualifiers: Pneumonia type: due to unspecified organism Laterality: right Lung location: middle lobe of lung Qualified Code(s): J18.1 - Lobar pneumonia, unspecified organism (3) Thrombocytopenia Current Visit: Yes Status: Chronic - Appears to be chronic - Platelets on presentation of 136, this appears to be around baseline. -Today at 102 - No indications for transfusion at this time - Hematology/oncology has been consult, appreciate recommendations (4) CKD (chronic kidney disease) Current Visit: Yes Status: Acute - Based on chart review is states 3 CKD - BUNs/creatinine of 21/1.40 - which appears to be the patient's baseline - We will continue monitor and avoid nephrotoxins, renally dose medications Qualifiers: Chronic kidney disease stage: stage 3 (moderate) Qualified Code(s): N18.3 - Chronic kidney disease, stage 3 (moderate) (5) History of methadone use Current Visit: Yes Status: Chronic We will dose while inpatient (6) History of pulmonary embolism Current Visit: Yes Status: Chronic Previous history of pulmonary embolism and was started on Xarelto Currently holding anticoagulation due to anemia Bilateral lower shortly Dopplers show chronic thrombosis in the left femoral through popliteal vein We will continue monitor (7) Medical non-compliance Current Visit: Yes Status: Chronic Known history of noncompliance and poor follow-up Patient threatened to leave AMA at this visit Patient convinced to stay at this time however he is high risk for adverse effects due to noncompliance with future (8) Polysubstance abuse Current Visit: Yes Status: Chronic - Previous history of IV drug use -Patient denies current IV drug use however he is on methadone and does admit to abusing benzodiazepines - Urine drug screen positive for benzodiazepines and marijuana - Denies alcohol use - We will continue methadone while Patient (9) Hepatitis C Current Visit: Yes Status: Suspected - Patient reports history of hepatitis B and hepatitis C - Per documentation, he believes he was treated for one but is not sure which one - We will obtain PCR quantification of both Qualifiers: Viral hepatitis chronicity: chronic Hepatic coma status: without hepatic coma Qualified Code(s): B18.2 - Chronic viral hepatitis C (10) DVT prophylaxis Current Visit: Yes Status: Acute EPCDs - Time Spent with Patient Total time spent is greater than 50% in coordination of care (as documented) at patient's floor/unit and/or counseling patient: Internal Medicine: Result - Labs CBC & Chem 7: 08/29/18 04:48 08/29/18 04:48 Labs: Short CBC 08/29/18 Range/Units 04:48 WBC 4.8 (4.3-11.1) K/mcL Hgb 7.4 L (12.9-16.9) g/dL Hct 24.6 L (37.5-50.1) % Plt Count 101 L (140-400) K/mcL Neutrophils # 3.1 (1.6-8.9) K/mcL BMP 08/29/18 04:48 Sodium 137 Potassium 4.2 Chloride 112 H Carbon Dioxide 22 L BUN 18 Creatinine 1.26 Glucose 121 H Calcium 7.6 L - ABG Interpretation ABG results: ABG ABG pH 7.43 pH Units (7.32-7.45) 08/26/18 11:56 ABG pCO2 35 mmHg (35-45) 08/26/18 11:56 ABG pO2 87 mmHg (85-104) 08/26/18 11:56 ABG O2 Saturation 97 % (95-98) 08/26/18 11:56 PT/INR, D-dimer PT 12.3 Seconds (9.4-12.1) H 08/27/18 04:53 Consult Discharge Plan - Plan Referrals: NONE,PCP [Primary Care Provider] - <Oswaldo Carreno - Last Filed: 08/30/18 07:59> Hospitalist Progress Note - Encounter Date of Encounter: 08/30/18 - Exam Vitals: Temp Pulse Resp BP Pulse Ox 96.8 F L 56 12 95/74 93 08/30/18 04:00 08/30/18 04:00 08/30/18 04:00 08/30/18 04:00 08/30/18 04:00 - Time Spent with Patient Total time spent is greater than 50% in coordination of care (as documented) at patient's floor/unit and/or counseling patient: Internal Medicine: Result - Labs CBC & Chem 7: 08/30/18 05:24 08/30/18 00:27 Labs: Short CBC 08/30/18 08/30/18 Range/Units 01:35 05:24 WBC 4.3 4.0 L (4.3-11.1) K/mcL Hgb 7.7 L 7.4 L (12.9-16.9) g/dL Hct 25.5 L 24.9 L (37.5-50.1) % Plt Count 83 L 94 L (140-400) K/mcL Neutrophils # 2.4 2.0 (1.6-8.9) K/mcL BMP 08/30/18 00:27 Sodium 132 L Potassium 4.5 Chloride 110 H Carbon Dioxide 14 L BUN 15 Creatinine 1.16 Glucose 83 Calcium 7.5 L Liver Function 08/30/18 Range/Units 00:27 Total Bilirubin 0.3 (0.3-1.0) mg/dL Direct Bilirubin 0.1 (0.0-0.2) mg/dL AST 31 (13-39) Units/L ALT 14 (7-52) Units/L Alkaline Phosphatase 92 (34-104) Units/L Albumin 1.9 L (3.5-5.7) g/dL - ABG Interpretation ABG results: ABG ABG pH 7.43 pH Units (7.32-7.45) 08/26/18 11:56 ABG pCO2 35 mmHg (35-45) 08/26/18 11:56 ABG pO2 87 mmHg (85-104) 08/26/18 11:56 ABG O2 Saturation 97 % (95-98) 08/26/18 11:56 PT/INR, D-dimer PT 12.3 Seconds (9.4-12.1) H 08/27/18 04:53 - Impressions Impressions Abdomen/Pelvis CT 08/29/18 19:30 IMPRESSION: 1. Stable thoracic and abdominal lymphadenopathy. Stable splenomegaly. A lymphoproliferative disorder such as lymphoma cannot be excluded. 2. Progressive fluid third-spacing with mild bilateral effusions, mild ascites, and body wall edema. 3. Improving bilateral pulmonary opacities compared to the recent exam suggesting an infectious/inflammatory process. 4. Atherosclerosis. Stable 4.9 cm aneurysmal dilatation of the ascending thoracic aorta. Findings suggesting aortic valve stenosis. 5. Multiple staghorn nonobstructing right renal calculi with the largest measuring 1.4 cm. No obstructive uropathy. D/ / 08/29/2018 22:06:33 Mayur Flores MD / felicitas Interpreting Provider: Mayur Flores MD Chest CT 08/29/18 19:30 IMPRESSION: 1. Stable thoracic and abdominal lymphadenopathy. Stable splenomegaly. A lymphoproliferative disorder such as lymphoma cannot be excluded. 2. Progressive fluid third-spacing with mild bilateral effusions, mild ascites, and body wall edema. 3. Improving bilateral pulmonary opacities compared to the recent exam suggesting an infectious/inflammatory process. 4. Atherosclerosis. Stable 4.9 cm aneurysmal dilatation of the ascending thoracic aorta. Findings suggesting aortic valve stenosis. 5. Multiple staghorn nonobstructing right renal calculi with the largest measuring 1.4 cm. No obstructive uropathy. D/ / 08/29/2018 22:06:33 Mayur Flores MD / felicitas Interpreting Provider: Mayur Flores MD Soft Tissue Neck CT 08/29/18 19:30 IMPRESSION: 1. Acute nearly occlusive deep venous thrombus in the left internal jugular vein. 2. No pathologically enlarged lymph node in the neck. 3. Near complete opacification of the right sphenoid sinus may reflect sinusitis if the patient has correlative symptoms. 4. Possible subcentimeter subcutaneous abscess overlying the right anterior mandible. Correlation with direct visualization is recommended. Critical results were called by Dr. Eder Carmona to Jl Manzano NP on 08/29/2018 at 8:52 pm. D/ / Eder Carmona / Eder Carmona Interpreting Provider: Eder Carmona - Attending Attestation I examined this patient and my medical decision-making was reviewed with the Resident Physician. I agree with the documented findings, disposition and treatment plan as described except to the extent set forth below. ____ <Josh Kimball - Last Filed: 08/29/18 17:08> (1) Anemia Qualifiers: Anemia type: iron deficiency Iron deficiency anemia type: unspecified iron deficiency Qualified Code(s): D50.9 - Iron deficiency anemia, unspecified (2) Pneumonia Qualifiers: Pneumonia type: due to unspecified organism Laterality: right Lung location: middle lobe of lung Qualified Code(s): J18.1 - Lobar pneumonia, unspecified organism (4) CKD (chronic kidney disease) Qualifiers: Chronic kidney disease stage: stage 3 (moderate) Qualified Code(s): N18.3 - Chronic kidney disease, stage 3 (moderate) (9) Hepatitis C Qualifiers: Viral hepatitis chronicity: chronic Hepatic coma status: without hepatic coma Qualified Code(s): B18.2 - Chronic viral hepatitis C
--- NOTE | 2018-08-30 01:07 | Event Note ---
Addendum entered and electronically signed by Jl Parra CNP 08/30/18 02:05: Hematology Dr Avila states no need for transfusion unless hemoglobin less than 7. Original Note: Date of Encounter: 08/30/18 Time of Encounter: 20:48 Called by radiology for acute nearly occlusive deep venous thrombus in the left internal jugular vein. Dr Grider and I discussed need for anticoagulation with patient at bedside and is agreeable. Due to anemia and thrombocytopenia spoke with publication editor hematology Dr Avila who is following who recommended first contacting vascular for any potential alternatives to heparin drip and if not, starting heparin drip without bolus and checking H/H q6 hours. Called publication editor vascular Dr Hamm who informed there are no interventions available other than anticoagulation, however recommended considering argatroban over heparin for anticoagulation due to the thrombocytopenia. Discussed heparin versus argatroban with pharmacy, both have similar half lifes for bleeding concern, but argatroban is better indicated due to thrombocytopenia. Argatroban has dose adj ustment for hepatic impairment, and patient has history of hepatitis, however most recent hepatic panel was stable. Will obtain hepatic panel prior to inititiating argatroban. Will monitor H/H q6 hours while on anticoagulation. Due to Child Gracia score >6, will start with recommended reduced rate dosing of argatroban, checked with pharmacy and will still be therapeutic for DVT. Discussed plan with Dr Grider.
[2018-08-30 01:34] LABS: Alanine Aminotransferase 14 Units/L (7-52); Albumin 1.9 g/dL (3.5-5.7); Albumin/Globulin Ratio 0.6 (1.1-2.2); Alkaline Phosphatase 92 Units/L (34-104); Aspartate Amino Transferase 31 Units/L (13-39); Bilirubin,Direct 0.1 mg/dL (0.0-0.2); Bilirubin,Indirect 0.2 mg/dL (0.0-1.2); Bilirubin,Total 0.3 mg/dL (0.3-1.0); Globulin 3.4 g/dL (2.4-3.5); Total Protein 5.3 g/dL (6.4-8.9)
[2018-08-30] MEDS ORDERED: Argatroban 250 MG in D5% in Water 250 ML IVC SCH (02:00)
[2018-08-30 02:01] LABS: Hemoglobin 7.7 g/dL (12.9-16.9)
[2018-08-30 02:03] LABS: Basophils % 0.2 %; Eosinophils # 0.2 K/mcL (0.0-0.6); Eosinophils % 4.5 %; Hematocrit 25.5 % (37.5-50.1); Immature Granulocytes % 0.5 % (0-4); Immature Platelets 1.4 % (1.1-6.1); Lymphocytes # 1.3 K/mcL (0.6-4.6); Mean Corpuscular HGB Conc 30.2 g/dL (31.6-35.5); Mean Corpuscular Hemoglobin 27.3 pg (28.0-33.3); Mean Corpuscular Volume 90.4 fL (83.0-100.0); Mean Platelet Volume 9.6 fL (9.4-12.4); Monocytes # 0.4 K/mcL (0.0-1.3); Monocytes % 9.9 %; Red Blood Count 2.82 M/mcL (4.19-5.50); Red Cell Distribution Width 17.3 % (11.5-14.5); Segmented Neutrophils % 54.9 %
[2018-08-30 02:04] LABS: Neutrophils # 2.4 K/mcL (1.6-8.9); Platelet Count 83 K/mcL (140-400)
[2018-08-30 02:19] LABS: Hypochromasia Present (Not Present); Platelet Estimate Slight Decrease (Normal)
[2018-08-30 02:21] LABS: Polychromasia 1+ (Not Present)
[2018-08-30 02:22] LABS: Anisocytosis 1+ (Not Present)
[2018-08-30 02:58] LABS: Vitamin B12 416 pg/mL (250-1100)
[2018-08-30 02:59] LABS: Folate > 22.3 ng/mL (3.0-16.0)
[2018-08-30] MEDS ORDERED: 0.9 % Sodium Chloride 250 ML ONE (03:05)
[2018-08-30 03:11] LABS: % Iron Saturation 3 % (20-55); Iron 10 mcg/dL (65-175); Transferrin 253 mg/dL (203-362)
[2018-08-30 03:14] LABS: BUN/Creatinine Ratio 13 (6-26); Blood Urea Nitrogen 15 mg/dL (6-20); Calcium 7.5 mg/dL (8.6-10.3); Carbon Dioxide 14 mEq/L (23-29); Chloride 110 mEq/L (98-107); Glucose 83 mg/dL (70-105); Osmolality,Calculated 274 (280-300); Potassium 4.5 mEq/L (3.5-5.1); Sodium 132 mEq/L (136-145); eGFR For Non-African Americans > 60 (> 60)
[2018-08-30 03:53] LABS: Ferritin 18 ng/mL (20-250)
[2018-08-30 05:36] LABS: Immature Granulocytes % 0.5 % (0-4); Red Cell Distribution Width 17.2 % (11.5-14.5)
[2018-08-30 05:38] LABS: Eosinophils # 0.2 K/mcL (0.0-0.6); Eosinophils % 4.5 %; Hematocrit 24.9 % (37.5-50.1); Hemoglobin 7.4 g/dL (12.9-16.9); Immature Platelets 1.3 % (1.1-6.1); Lymphocytes # 1.3 K/mcL (0.6-4.6); Mean Corpuscular HGB Conc 29.7 g/dL (31.6-35.5); Mean Corpuscular Hemoglobin 26.4 pg (28.0-33.3); Mean Corpuscular Volume 88.9 fL (83.0-100.0); Mean Platelet Volume 9.7 fL (9.4-12.4); Monocytes # 0.5 K/mcL (0.0-1.3); Monocytes % 12.3 %; Segmented Neutrophils % 49.7 %
[2018-08-30 05:39] LABS: Platelet Count 94 K/mcL (140-400)
[2018-08-30] MEDS: Pantoprazole 40 MG VIAL IVP SCH ×2 (06:19→18:00)
--- NOTE | 2018-08-30 08:31 | Internal Med Progress Note ---
<Josh Kimball - Last Filed: 08/30/18 09:17> Hospitalist Progress Note - Encounter Date of Encounter: 08/30/18 Time of Encounter: 08:29 - Subjective Interval History: Patient was seen and examined at bedside this morning. He is sleepy this morning but responds to questions appropriately. He has no concerns at this time and denies symptoms of cough, SOB, pain, swelling. Overnight, patient had a CT neck, chest, abd pelvis which revealed lymphadenopathy as well as acute thrombosis in the left internal jugular vein. He was started on agatroban per heme/onc and vascular surgery recommendations. - Exam Vitals: Temp Pulse Resp BP Pulse Ox 98.0 F 56 16 106/74 91 08/30/18 08:00 08/30/18 08:00 08/30/18 08:00 08/30/18 08:00 08/30/18 08:00 Exam: Gen.: Vitals noted. No acute distress. AAOx3, resting comfortably in bed. HEENT: PERRL/EOMI, oropharynx clear, Normocephalic, atraumatic, MMM Cardiac: RRR, no murmur, +S1/S2, No BLE edema Pulmonary: CTA bilaterally, no wheezes, rales or rhonchi, equal chest expansion, unlabored breathing Abdomen: soft, nontender, BS noted, no guarding, maybe some splenomegaly appreciated Skin: warm and dry, no visible lesions. MSK: ROM intact, no joint swelling noted, gait no assessed while in bed. Non tender calf or clubbing Neuro: A&Ox3, moves all extremities, no focal deficits, sensation intact Psych: Appropriate mood and behavior, AOx3 - Assessment and Plan (1) Anemia Current Visit: Yes Assessment and Plan: - Acute on chronic - H/H on presentation 2.8/10.3. Hemoglobin has improved to 7.4 after 5 units transfusion - Most recent hemoglobin drawn at 07/18/18 shows a baseline of 7-12 - Patient has been worked up for anemia in the past including EGD/colonoscopy which were significant only for nonbleeding internal hemorrhoids and polyp which was not resected on 07/17/18 - He is scheduled to follow-up with hematology never did - He is on home Xarelto for previous history of PE. - Stool occult is positive however no gross red blood noticed on examination per ED physician - Etiology is possibly multifactorial including kidney disease, liver disease, chronic blood loss. There is increasing concern for myelodysplastic syndrome - Hemodynamically stable - Hematology/oncology has been following, appreciate recommendations - Anemia workup thus far has been unremarkable including normal bilirubin, LDH low at 133. - Remainder of studies pending including haptoglobin, reticulocyte, Maria M test. - Peripheral smear is returned inconclusive however does suggest an element of iron deficiency. - Discussed with hematology this morning and they will plan for a bone marrow biopsy in future. IR has been consulted - Has been evaluated by general surgery who did review films from most recent visit. They do not suggest a repeat EGD/colonoscopy at this time as there are will likely be no changes from previous. Patient may benefit from a outpatient capsule endoscopy versus push endoscopy --Hematology did order a CT of the neck, chest, abdomen yesterday. Results were significant for acute DVT as below as well as lymphadenopathy and splenomegaly which do raise concerns for lymphoma. Plan - Daily labs - Await results of testing and bone marrow biopsy - Every 6 hours CBCs in the setting of restarting anticoagulation (2) Internal jugular (IJ) vein thromboembolism, acute Current Visit: Yes Status: Acute Assessment and Plan: - As demonstrated on CTA performed last evening - Patient does have a previous history of DVTs and is previously on Xarelto - Patient has not had a history of IJ catheters to provoke - Nocturnal team did discuss anticoagulation options with hematology and vascular surgery last evening - Vascular surgery reported that there are no surgical interventions available at this time - Hematology recommended argatroban due to thrombocytopenia Plan - We will discuss long-term anticoagulations goals with hematology today (3) Pneumonia Current Visit: Yes Status: Acute Assessment and Plan: - As demonstrated on chest x-ray emergency department - Patient is nonseptic with 0/4 sirs criteria - Lactic acid of 1.7 - Started on azithromycin, ceftriaxone emergency room - We will broaden coverage to cefepime, vancomycin, Levaquin as patient is frequently exposed to inpatient facilities. Day #4 - MRSA swab positive - Reports penicillin allergy --CT chest shows improvement of opacities bilaterally. Plan - As patient has been afebrile and nonseptic since admission, we will plan to de-escalate antibiotics yesterday to only Levaquin. - We will plan for total of 5 day course of Levaquin which will be completed today - Patient clinically reports no symptoms - Some suspicion for aspiration given a right upper lobe location, low threshold to broaden for anaerobic coverage - Blood cultures obtained emergency department, will de-escalate antibiotics based on culture results (4) Thrombocytopenia Current Visit: Yes Status: Chronic Assessment and Plan: - Appears to be chronic - Platelets on presentation of 136, this appears to be around baseline. -Today at 94, has been down trending - No indications for transfusion at this time - Hematology/oncology has been consult, appreciate recommendations (5) CKD (chronic kidney disease) Current Visit: Yes Status: Acute Assessment and Plan: - Based on chart review is states 3 CKD - BUNs/creatinine of 15/1.16 to this appears to be baseline creatinine of 1.1- 2.0 - Anticipate if this were a gross GI bleed and BUN may be more elevated - We will continue monitor and avoid nephrotoxins, renally dose medications (6) History of methadone use Current Visit: Yes Status: Chronic Assessment and Plan: We will continue while inpatient Patient is increasingly somnolent this morning and we will decrease dose, appreciate pharmacy assistance (7) History of pulmonary embolism Current Visit: Yes Status: Chronic Assessment and Plan: Previous history of pulmonary embolism and was started on Xarelto Currently holding anticoagulation due to anemia, restarted last evening due to acute DVT of the left internal jugular vein Bilateral lower shortly Dopplers ordered, show preliminary chronic DVTs Unclear if he will be discharged home without anticoagulation given this chronic anemia, appreciate hematology recommendations We will continue monitor (8) Medical non-compliance Current Visit: Yes Status: Chronic Assessment and Plan: Known history of noncompliance and poor follow-up Patient threatened to leave AMA at this visit Patient convinced to stay at this time however he is high risk for adverse effects due to noncompliance with future (9) Polysubstance abuse Current Visit: Yes Status: Chronic Assessment and Plan: - Previous history of IV drug use -Patient denies current IV drug use however he is on methadone and does admit to abusing benzodiazepines - Urine drug screen positive for benzodiazepines and marijuana - Denies alcohol use - We will continue methadone while Patient (10) Hepatitis C Current Visit: Yes Status: Suspected Assessment and Plan: - Patient reports history of hepatitis B and hepatitis C - Per documentation, he believes he was treated for one but is not sure which one - We will obtain PCR quantification of both, penddilcia (11) DVT prophylaxis Current Visit: Yes Status: Acute Assessment and Plan: Started argatroban yesterday by night team We will continue for now and monitor for any signs for the bleeding - Time Spent with Patient Total time spent is greater than 50% in coordination of care (as documented) at patient's floor/unit and/or counseling patient: Internal Medicine: Result - Labs CBC & Chem 7: 08/30/18 05:24 08/30/18 00:27 Labs: Short CBC 08/30/18 08/30/18 Range/Units 01:35 05:24 WBC 4.3 4.0 L (4.3-11.1) K/mcL Hgb 7.7 L 7.4 L (12.9-16.9) g/dL Hct 25.5 L 24.9 L (37.5-50.1) % Plt Count 83 L 94 L (140-400) K/mcL Neutrophils # 2.4 2.0 (1.6-8.9) K/mcL BMP 08/30/18 00:27 Sodium 132 L Potassium 4.5 Chloride 110 H Carbon Dioxide 14 L BUN 15 Creatinine 1.16 Glucose 83 Calcium 7.5 L Liver Function 08/30/18 Range/Units 00:27 Total Bilirubin 0.3 (0.3-1.0) mg/dL Direct Bilirubin 0.1 (0.0-0.2) mg/dL AST 31 (13-39) Units/L ALT 14 (7-52) Units/L Alkaline Phosphatase 92 (34-104) Units/L Albumin 1.9 L (3.5-5.7) g/dL - ABG Interpretation ABG results: ABG ABG pH 7.43 pH Units (7.32-7.45) 08/26/18 11:56 ABG pCO2 35 mmHg (35-45) 08/26/18 11:56 ABG pO2 87 mmHg (85-104) 08/26/18 11:56 ABG O2 Saturation 97 % (95-98) 08/26/18 11:56 PT/INR, D-dimer PT 12.3 Seconds (9.4-12.1) H 08/27/18 04:53 - Impressions Impressions Abdomen/Pelvis CT 08/29/18 19:30 IMPRESSION: 1. Stable thoracic and abdominal lymphadenopathy. Stable splenomegaly. A lymphoproliferative disorder such as lymphoma cannot be excluded. 2. Progressive fluid third-spacing with mild bilateral effusions, mild ascites, and body wall edema. 3. Improving bilateral pulmonary opacities compared to the recent exam suggesting an infectious/inflammatory process. 4. Atherosclerosis. Stable 4.9 cm aneurysmal dilatation of the ascending thoracic aorta. Findings suggesting aortic valve stenosis. 5. Multiple staghorn nonobstructing right renal calculi with the largest measuring 1.4 cm. No obstructive uropathy. D/ / 08/29/2018 22:06:33 Mayur Flores MD / felicitas Interpreting Provider: Mayur Flores MD Chest CT 08/29/18 19:30 IMPRESSION: 1. Stable thoracic and abdominal lymphadenopathy. Stable splenomegaly. A lymphoproliferative disorder such as lymphoma cannot be excluded. 2. Progressive fluid third-spacing with mild bilateral effusions, mild ascites, and body wall edema. 3. Improving bilateral pulmonary opacities compared to the recent exam suggesting an infectious/inflammatory process. 4. Atherosclerosis. Stable 4.9 cm aneurysmal dilatation of the ascending thoracic aorta. Findings suggesting aortic valve stenosis. 5. Multiple staghorn nonobstructing right renal calculi with the largest measuring 1.4 cm. No obstructive uropathy. D/ / 08/29/2018 22:06:33 Mayur Flores MD / felicitas Interpreting Provider: Mayur Flores MD Soft Tissue Neck CT 08/29/18 19:30 IMPRESSION: 1. Acute nearly occlusive deep venous thrombus in the left internal jugular vein. 2. No pathologically enlarged lymph node in the neck. 3. Near complete opacification of the right sphenoid sinus may reflect sinusitis if the patient has correlative symptoms. 4. Possible subcentimeter subcutaneous abscess overlying the right anterior mandible. Correlation with direct visualization is recommended. Critical results were called by Dr. Eder Carmona to Jl Manzano NP on 08/29/2018 at 8:52 pm. D/ / Eder Carmona / Eder Carmona Interpreting Provider: Eder Carmona Consult Discharge Plan - Plan Referrals: NONE,PCP [Primary Care Provider] - <Oswaldo Carreno - Last Filed: 08/30/18 17:30> Hospitalist Progress Note - Encounter Date of Encounter: 08/30/18 - Exam Vitals: Temp Pulse Resp BP Pulse Ox 98.0 F 62 16 113/70 96 08/30/18 14:15 08/30/18 15:30 08/30/18 15:30 08/30/18 15:30 08/30/18 15:30 - Time Spent with Patient Total time spent is greater than 50% in coordination of care (as documented) at patient's floor/unit and/or counseling patient: Internal Medicine: Result - Labs CBC & Chem 7: 08/30/18 10:15 08/30/18 00:27 Labs: Short CBC 08/30/18 08/30/18 08/30/18 Range/Units 01:35 05:24 10:15 WBC 4.3 4.0 L 4.1 L (4.3-11.1) K/mcL Hgb 7.7 L 7.4 L 7.8 L (12.9-16.9) g/dL Hct 25.5 L 24.9 L 26.0 L (37.5-50.1) % Plt Count 83 L 94 L 94 L (140-400) K/mcL Neutrophils # 2.4 2.0 2.1 (1.6-8.9) K/mcL BMP 08/30/18 00:27 Sodium 132 L Potassium 4.5 Chloride 110 H Carbon Dioxide 14 L BUN 15 Creatinine 1.16 Glucose 83 Calcium 7.5 L Liver Function 08/30/18 Range/Units 00:27 Total Bilirubin 0.3 (0.3-1.0) mg/dL Direct Bilirubin 0.1 (0.0-0.2) mg/dL AST 31 (13-39) Units/L ALT 14 (7-52) Units/L Alkaline Phosphatase 92 (34-104) Units/L Albumin 1.9 L (3.5-5.7) g/dL - ABG Interpretation ABG results: ABG ABG pH 7.43 pH Units (7.32-7.45) 08/26/18 11:56 ABG pCO2 35 mmHg (35-45) 08/26/18 11:56 ABG pO2 87 mmHg (85-104) 08/26/18 11:56 ABG O2 Saturation 97 % (95-98) 08/26/18 11:56 PT/INR, D-dimer PT 12.3 Seconds (9.4-12.1) H 08/27/18 04:53 - Impressions Impressions Abdomen/Pelvis CT 08/29/18 19:30 IMPRESSION: 1. Stable thoracic and abdominal lymphadenopathy. Stable splenomegaly. A lymphoproliferative disorder such as lymphoma cannot be excluded. 2. Progressive fluid third-spacing with mild bilateral effusions, mild ascites, and body wall edema. 3. Improving bilateral pulmonary opacities compared to the recent exam suggesting an infectious/inflammatory process. 4. Atherosclerosis. Stable 4.9 cm aneurysmal dilatation of the ascending thoracic aorta. Findings suggesting aortic valve stenosis. 5. Multiple staghorn nonobstructing right renal calculi with the largest measuring 1.4 cm. No obstructive uropathy. D/ / 08/29/2018 22:06:33 Mayur Flores MD / felicitas Interpreting Provider: Mayur Flores MD Chest CT 08/29/18 19:30 IMPRESSION: 1. Stable thoracic and abdominal lymphadenopathy. Stable splenomegaly. A lymphoproliferative disorder such as lymphoma cannot be excluded. 2. Progressive fluid third-spacing with mild bilateral effusions, mild ascites, and body wall edema. 3. Improving bilateral pulmonary opacities compared to the recent exam suggesting an infectious/inflammatory process. 4. Atherosclerosis. Stable 4.9 cm aneurysmal dilatation of the ascending thoracic aorta. Findings suggesting aortic valve stenosis. 5. Multiple staghorn nonobstructing right renal calculi with the largest measuring 1.4 cm. No obstructive uropathy. D/ / 08/29/2018 22:06:33 Mayur Flores MD / felicitas Interpreting Provider: Mayur Flores MD Soft Tissue Neck CT 08/29/18 19:30 IMPRESSION: 1. Acute nearly occlusive deep venous thrombus in the left internal jugular vein. 2. No pathologically enlarged lymph node in the neck. 3. Near complete opacification of the right sphenoid sinus may reflect sinusitis if the patient has correlative symptoms. 4. Possible subcentimeter subcutaneous abscess overlying the right anterior mandible. Correlation with direct visualization is recommended. Critical results were called by Dr. Eder Carmona to Jl Manzano NP on 08/29/2018 at 8:52 pm. D/ / Eder Carmona / Eder Carmona Interpreting Provider: Eder Carmona - Attending Attestation I examined this patient and my medical decision-making was reviewed with the Resident Physician. I agree with the documented findings, disposition and treatment plan as described except to the extent set forth below. He remains somewhat drowsy and chronically ill in appearance, we have elected to stop any anticoagulation, as we really have no solution upon discharge to home. He cannot be counted on to be compliant with any medication at this time anticoagulation with him is just too risky. Unfortunately given this is other comorbid, his prognosis is extremely poor, he should have a conversation with palliative medicine for DNR order. He runs the risk of coming back to the hospital somewhat quickly upon discharge unfortunately. <Josh Kimball - Last Filed: 08/30/18 09:17> (1) Anemia Qualifiers: Anemia type: iron deficiency Iron deficiency anemia type: unspecified iron deficiency Qualified Code(s): D50.9 - Iron deficiency anemia, unspecified (2) Internal jugular (IJ) vein thromboembolism, acute Qualifiers: Laterality: left Qualified Code(s): I82.C12 - Acute embolism and thrombosis of left internal jugular vein (3) Pneumonia Qualifiers: Pneumonia type: due to unspecified organism Laterality: right Lung location: middle lobe of lung Qualified Code(s): J18.1 - Lobar pneumonia, unspecified organism (5) CKD (chronic kidney disease) Qualifiers: Chronic kidney disease stage: stage 3 (moderate) Qualified Code(s): N18.3 - Chronic kidney disease, stage 3 (moderate) (10) Hepatitis C Qualifiers: Viral hepatitis chronicity: chronic Hepatic coma status: without hepatic coma Qualified Code(s): B18.2 - Chronic viral hepatitis C
[2018-08-30 10:30] LABS: Immature Granulocytes % 0.5 % (0-4); Mean Corpuscular Volume 89.3 fL (83.0-100.0); Red Cell Distribution Width 17.2 % (11.5-14.5)
[2018-08-30 10:32] LABS: Basophils % 0.5 %; Eosinophils # 0.2 K/mcL (0.0-0.6); Eosinophils % 4.6 %; Hemoglobin 7.8 g/dL (12.9-16.9); Immature Platelets 1.2 % (1.1-6.1); Lymphocytes # 1.4 K/mcL (0.6-4.6); Lymphocytes % 33.7 %; Mean Corpuscular Hemoglobin 26.8 pg (28.0-33.3); Monocytes # 0.4 K/mcL (0.0-1.3); Monocytes % 9.2 %; Neutrophils # 2.1 K/mcL (1.6-8.9); Red Blood Count 2.91 M/mcL (4.19-5.50); Segmented Neutrophils % 51.5 %
[2018-08-30 10:40] LABS: Platelet Count 94 K/mcL (140-400); Platelet Estimate Decreased (Normal)
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
[2018-08-30] MEDS: Levofloxacin 750 MG/150 ML 750 MG/150 ML BAG IVPB SCH (11:23)
[2018-08-30] MEDS ORDERED: *HR* LORazepam 2 MG/ML VIAL IVP ONE (12:47)
--- NOTE | 2018-08-30 13:30 | Anesthesia Evaluation PreOp ---
Date of Encounter: 08/30/18 Time of Encounter: 13:30 - Past History Planned Operation: Push Enteroscopy Cardiac History: Other (Anemia - admitted 08/26/2018 with Hgb = 2.9) Pulmonary History: Former smoker (1ppd x 40yrs), COPD [employer] History: CVA (x 2 [Most recently 3 months ago - per Pt]. Denies deficits), Other (PTSD) Other Medical History: Hepatic (Hep B&C), Other (Hx Tracheostomy re: hospitaliz ation for Endocarditis ) Anesthesia History: No Prior Anesthetic Complications, Past Anesthesia (EGD/Colon, Clavicle repair, s/p Trach ) Alcohol Use: none Drug use: marijuana, IV Drug Use, prescription drug abuse, other (Benzodiazepines) Medications and Allergies Methadone Oral Concentrate [Methadone] 115 mg PO DAILY 04/25/18 [History] Ferrous Sulfate 325 mg PO BID #60 tablet. 07/07/18 [Rx] Atorvastatin [Lipitor] 40 mg PO DAILY 08/26/18 [History] Rivaroxaban [Xarelto] 20 mg PO DAILY 08/26/18 [History] Allergy/AdvReac Type Severity Reaction Status Date / Time Penicillins Allergy Hives Verified 08/26/18 11:29 - Meds/Allergy Pre-op Review Medications Reviewed: Yes Allergies Reviewed: Yes Beta Blockers on Current Med List: No Anesthesia Results - Labs 08/30/18 10:15 08/30/18 00:27 Laboratory Results Laboratory Tests 10/10/17 08/26/18 08/27/18 11:10 14:16 04:53 PT 12.3 H INR 1.1 Est GFR (Non-Af Amer) Stool Occult Bld Scrn Positive A Hepatitis C Ab Screen Reactive H 08/30/18 00:27 PT INR Est GFR (Non-Af Amer) > 60 Stool Occult Bld Scrn Hepatitis C Ab Screen Impressions Chest X-Ray 08/26/18 08:22 IMPRESSION: New focal airspace opacities in the right lung suspicious for pneumonia. Recommend follow-up to ensure resolution. D/ / Susana Brown MD / Susana Brown MD Interpreting Provider: Susana Brown MD Abdomen/Pelvis CT 08/29/18 19:30 IMPRESSION: 1. Stable thoracic and abdominal lymphadenopathy. Stable splenomegaly. A lymphoproliferative disorder such as lymphoma cannot be excluded. 2. Progressive fluid third-spacing with mild bilateral effusions, mild ascites, and body wall edema. 3. Improving bilateral pulmonary opacities compared to the recent exam suggesting an infectious/inflammatory process. 4. Atherosclerosis. Stable 4.9 cm aneurysmal dilatation of the ascending thoracic aorta. Findings suggesting aortic valve stenosis. 5. Multiple staghorn nonobstructing right renal calculi with the largest measuring 1.4 cm. No obstructive uropathy. D/ / 08/29/2018 22:06:33 Mayur Flores MD / felicitas Interpreting Provider: Mayur Flores MD Chest CT 08/29/18 19:30 IMPRESSION: 1. Stable thoracic and abdominal lymphadenopathy. Stable splenomegaly. A lymphoproliferative disorder such as lymphoma cannot be excluded. 2. Progressive fluid third-spacing with mild bilateral effusions, mild ascites, and body wall edema. 3. Improving bilateral pulmonary opacities compared to the recent exam suggesting an infectious/inflammatory process. 4. Atherosclerosis. Stable 4.9 cm aneurysmal dilatation of the ascending thoracic aorta. Findings suggesting aortic valve stenosis. 5. Multiple staghorn nonobstructing right renal calculi with the largest measuring 1.4 cm. No obstructive uropathy. D/ / 08/29/2018 22:06:33 Mayur Flores MD / felicitas Interpreting Provider: Mayur Flores MD Soft Tissue Neck CT 08/29/18 19:30 IMPRESSION: 1. Acute nearly occlusive deep venous thrombus in the left internal jugular vein. 2. No pathologically enlarged lymph node in the neck. 3. Near complete opacification of the right sphenoid sinus may reflect sinusitis if the patient has correlative symptoms. 4. Possible subcentimeter subcutaneous abscess overlying the right anterior mandible. Correlation with direct visualization is recommended. Critical results were called by Dr. Eder Carmona to Jl Manzano NP on 08/29/2018 at 8:52 pm. D/ / Eder Carmona / Eder Carmona Interpreting Provider: Eder Carmona - Imaging EKG: image reviewed (81bpm - Sinus Rhythm. Electronically Signed On 08-27-2018 5:20:14 EST by Julius Avila) Additional studies: ECHO 04/2018 EV/EV echocardiogram Impressions: LVEF 60-65%. Normal LV chamber size, wall thickness and function. Mild left ventricular diastolic dysfunction. Normal right ventricular structure and function. The number of aortic valve leaflets cannot be determined. There is moderate calcification in the area of the right coronary cusp. Mild aortic stenosis. Mean gradient 19 mmHg. No evidence of pulmonary hypertension. Mildly dilated aortic root measuring 4.3 cm. Findings similar to prior report from 10/10/2017. Anesthesia Exam Vital Signs Temp Pulse Resp BP Pulse Ox 08/30/18 12:00 97.9 F 59 17 97/53 98 08/30/18 08:00 98.0 F 56 16 106/74 91 08/30/18 04:00 96.8 F L 56 12 95/74 93 08/30/18 00:00 98 F 61 16 109/76 96 08/29/18 21:05 100 08/29/18 20:00 97.6 F 60 14 115/86 99 08/29/18 15:27 97.8 F 58 106/71 95 Intake and Output 08/29/18 08/30/18 08/30/18 23:59 07:59 15:59 Intake Total 270 / 270 120 / 120 20.5 / 20.5 Output Total 300 / 300 1250 / 1250 300 / 300 Balance -30 / -30 -1130 / -1130 -279.5 / -279.5 Intake: IV Fluids 150 / 150 20.5 / 20.5 Argatroban 250 MG In Dextrose 5 20.5 / 20.5 % 250 ML @ 0.5 MCG/KG/MIN 2.23 mls/hr IVC CONT AKANKSHA Rx#: [id number] Levaquin Premix 750mg/150 mL 150 / 150 750 mg In 150 ml @ 100 mls/hr IVPB Q24H [facility] Rx#:[id number] Oral 120 / 120 120 / 120 Output: Urine 300 / 300 1250 / 1250 300 / 300 Other: # Urine Diapers 1 Weight 72.5 kg Patient Weight 08/30/18 23:59 Weight 72.5 kg Height: 5'10" Weight: 159# BMI = 23 NPO (# of Hours): MNOc - HEENT Pupil (Motor): Pupils equal, EOMI Mallampati: II Teeth: Edentulous Oral Opening: Greater than 3 - [employer] LOC: Oriented [employer] Motor: Normal RUE, Normal LUE, Normal RLE, Normal LLE, Normal Face [employer] Sensory: Normal: RUE, LUE, RLE, LLE, Face - Cardiac Rhythm: Regular Murmur: Systolic (3/6) - Pulmonary Breath Sounds: bilateral Clear Respiratory Effort: Symmetrical Anesthesia Assess/Plan ASA Score: 4 (Acute Jugular DVT, Multi-substance abuse, COPD, Smoker, Hep B&C) Level of consciousness: Cooperative, Oriented, Tranquil Anesthetic Plan: MAC Autologous Blood: Yes Monitoring Plan: Standard Monitors Recovery Plan: Other Anes Supervising Prov Stmt: Pt seen/evaluated, R&B discussed, questions answered and consent obtained. Carmine Puentes MD
[2018-08-30] MEDS ORDERED: *HR* Propofol 200 MG/20 ML VIAL IVP ONE (14:29)
[2018-08-30] MEDS ORDERED: Lidocaine -MPF 2% 2 ML VIAL ONE (14:29)
[2018-08-30] MEDS ORDERED: Simethicone 40 MG/0.6 ML MLS IR ONE (14:35)
[2018-08-30] MEDS ORDERED: Tetracaine/Benzocaine/Butamben 1 SPRAY AEROSOL MM ONE (14:35)
--- NOTE | 2018-08-30 14:54 | Oncology Inp Progress Note ---
<Michael Avila - Last Filed: 08/30/18 16:19> Date of Encounter: 08/30/18 Oncology: Obj Data - Labs CBC & Chem 7: 08/30/18 10:15 08/30/18 00:27 Consult Discharge Plan - Plan Referrals: NONE,PCP [Primary Care Provider] - Inpatient Charges Provider: Dr. Fern Avila Follow up - Inpatient: [id number] - Attending Attestation I examined this patient and my medical decision-making was reviewed with the Advanced Practice Nurse. I agree with the documented findings, disposition and treatment plan as described except to the extent set forth below. -CT Neck w/contrast shows nearly occlusive DVT in left IJV. Now on Argatroban gtt -Push enteroscopy shows LA grade esophagitis, and a possible polypoid villous adenoma. Will speak with GI to consider colonoscopy as he came in with a Hgb of 2.8 and was FOBT+. -Will c/s IR to perform core needle biopsy of left axillary JOURDAN measuring 1.2 x 3.4 cm. He also has mild splenomegaly and stable JOURDAN. -Will check peripheral blood flow cytometry, SPEP, serum FLCs -He is iron deficient, and will administer IV Venofer 400 mg Plan discussed in detail with the patient. He is agreeable to being NPO for the colonoscopy if it is needed. We also discussed the risks of bleeding vs clotti ng if he is placed on therapeutic anticoagulation at discharge, and he understands that this decision must be made carefully as he presented with a Hgb of 2.8 with a positive FOBT. <Tootie Dowling - Last Filed: 08/30/18 16:58> Date of Encounter: 08/30/18 Time of Encounter: 12:00 (1) Anemia Current Visit: Yes Status: Acute Assessment and plan: Patient initially presented with severe anemia with hemoglobin of 2.8, s/p 5 units PRBC He appears to have had chronic anemia that has been worsening since around October 2017 MCV is normal White blood cell count normal Mild thrombocytopenia---bone marrow etiology vs. liver etiology vs. secondary to bleeding Stool occult blood positive and ER. No active signs or symptoms of bleeding, reports no history of recent bleeding per patient. There is questionable history of hepatitis B and/or C. Quantitative PCR is pending On Xarelto prior to admission (currently on hold) for h/o PE/DVT CT chest/abdomen/pelvis--- reveals stable thoracic and abdominal lymphadenopathy, stable splenomegaly measuring 3.4 cm craniocaudad dimension, progressive fluid third-spacing with mild bilateral effusions, mild ascites, and body wall edema, improving bilateral pulmonary opacities, atherosclerosis with a stable 4.9 cm aneurysmal dilatation of the descending thoracic aorta, multiple staghorn nonobstructing right renal calculi. Liver appears normal. CT neck---Acute nearly occlusive deep venous thrombus in the left internal jugular vein. Plan: He was started on argatroban last evening for acute left IJ DVT Etiology unclear, he does not appear to have a history of central line placement Acute decrease in severe anemia on admission with positive Hemoccult stool suggestive of GI loss. S/P push enteroscopy today which was negative for bleeding etiology, shows LA grade esophagitis, and a possible polypoid villous adenoma Would recommend colonoscopy prior to discharge--- will discuss with GI Iron 10,3% saturation, Ferritin 18----IV venofer 400 mg ordered x1 No evidence of hemolysis Blood smear appears benign His bleeding risk outweighs clotting risk with his presentation of such severe anemia, this was discussed in detail with patient today, will likely recommend reduced prophylactic dosing of Xarelto 10 mg daily at discharge pending colonoscopy findings, continue argatroban at this time due to short half life Qualifiers: Anemia type: iron deficiency Iron deficiency anemia type: unspecified iron deficiency Qualified Code(s): D50.9 - Iron deficiency anemia, unspecified (2) History of DVT (deep vein thrombosis) Current Visit: No Status: Chronic Assessment and plan: History of bilateral PE evidenced on Neck CTA on 04/27/18 History of DVT, first diagnosed on doppler on 04/27/18 Placed on Xarelto at this time. Denies any other personal or family history of blood clots. Provoked DVT. He has had multiple hospitalizations with admission documents noted on 10/09/17 and 03/05/18 prior to noted DVT/PE. This was also within the 3 month postoperative setting s/p percutaneous screw fixation and pinning of the left hip on 03/06/18. Compliance with anticoagulation since that time is questionable and course of anticoagulation has been fragmented. He is a poor historian in regards to his anticoagulation. From record, he was discharged home on Xarelto on 04/28 then was given rx following d/c again around 07/18. Plan: Xarelto has been on hold in the setting of acute anemia, BLE venous doppler reveals chronic DVT noted in the left common femoral through popliteal veins Plan as detailed in anemia section in light of acute DVT in left IJ (3) Lymphadenopathy Current Visit: Yes Status: Acute Assessment and plan: CT chest/abdomen/pelvis notes stable thoracic and abdominal lymphadenopathy and stable splenomegaly. He appears to have enlarged precarinal, aortopulmonary window, and subcarinal lymph nodes with a precarinal lymph node measuring 1.3 x 2.5 cm. Stable bilateral borderline enlarged hilar lymph nodes.Stable splenomegaly measuring 13.4 cm in craniocaudad dimension. Enlarged portacaval lymph node measuring 1.5 x 2.1 cm stable compared to the prior exam. There are multiple borderline enlarged retroperitoneal peripancreatic and periaortic lymph nodes which appear stable. Stable bilateral axillary lymphadenopathy with a left axillary lymph node measuring 1.2 x 3.4 cm is stable compared to the prior exam. Plan: Consult IR for core needle bx Left axillary LN Given CT findings lymphoma is within differential We will also check peripheral blood flow Oncology: Subj Interval history: Resting in bed, as noted in event note CT imaging revealed acute DVT in the left IJ and he was started on agatroban drip overnight. Denies any s/s bleeding. He has recently returned from push enteroscopy, tolerated procedure well. He is happy to have an advanced diet. Denies chest pain, SOB, nausea, vomiting, bowel changes. - Constitutional General appearance: cooperative, no acute distress, no febrile - Head Head exam: Present: atraumatic - ENT ENT exam: Present: mucous membranes moist, normal oropharynx - Neck Neck exam: Absent: lymphadenopathy Additional comments: no palpable cervical or axillary JOURDAN - Respiratory Respiratory exam: Present: decreased breath sounds. Absent: respiratory distress - Cardiovascular Cardiovascular exam: Present: RRR, +S1, +S2 - GI/Abdominal GI/Abdominal exam: Present: normal bowel sounds, soft. Absent: guarding, rebound, tenderness - Extremities Exam Extremities exam: Present: normal inspection. Absent: calf tenderness - Neurological Exam Neurological exam: Present: alert, oriented X3, no focal deficits, strengths equal and symetr throughout - Psychiatric Psychiatric exam: Present: normal affect, normal mood - Skin Skin exam: Present: dry, intact, normal color, warm Oncology: Obj Data - Labs CBC & Chem 7: 0115/19 10:15 08/30/18 00:27 Inpatient Charges Provider: Dr. Fern Avila
[2018-08-30] MEDS ORDERED: Iron Sucrose Complex 400 MG in 0.9 % Sodium Chloride 250 ML IVPB ONE (15:31)
[2018-08-30] MEDS: Methadone Oral Concentrate 50 MG/5 ML UDC PO SCH (15:50)
[2018-08-30 18:42] LABS: Hematocrit 24.5 % (37.5-50.1); Hemoglobin 7.2 g/dL (12.9-16.9)
[2018-08-31] MEDS ORDERED: 0.9 % Sodium Chloride 250 ML ONE (00:05)
[2018-08-31 00:46] LABS: HBV Quant Log by PCR NOT DETECTED log IU/mL; HBV Quant by PCR NOT DETECTED
[2018-08-31 02:21] LABS: HCV Quant Log 4.72 log IU/mL
[2018-08-31 03:10] LABS: Basophils % 0.3 %; Eosinophils # 0.2 K/mcL (0.0-0.6); Eosinophils % 5.8 %; Hematocrit 24.2 % (37.5-50.1); Hemoglobin 7.2 g/dL (12.9-16.9); Immature Granulocytes % 0.5 % (0-4); Immature Platelets 1.2 % (1.1-6.1); Lymphocytes # 1.2 K/mcL (0.6-4.6); Lymphocytes % 29.3 %; Mean Corpuscular HGB Conc 29.8 g/dL (31.6-35.5); Mean Corpuscular Hemoglobin 26.7 pg (28.0-33.3); Mean Corpuscular Volume 89.6 fL (83.0-100.0); Mean Platelet Volume 9.7 fL (9.4-12.4); Monocytes # 0.5 K/mcL (0.0-1.3); Monocytes % 12.1 %; Neutrophils # 2.1 K/mcL (1.6-8.9); Red Cell Distribution Width 17.3 % (11.5-14.5)
[2018-08-31 03:11] LABS: Platelet Count 82 K/mcL (140-400)
[2018-08-31 03:30] LABS: BUN/Creatinine Ratio 9 (6-26); Blood Urea Nitrogen 13 mg/dL (6-20); Calcium 7.4 mg/dL (8.6-10.3); Carbon Dioxide 26 mEq/L (23-29); Chloride 109 mEq/L (98-107); Glucose 99 mg/dL (70-105); Osmolality,Calculated 286 (280-300); Potassium 4.1 mEq/L (3.5-5.1); Sodium 138 mEq/L (136-145); eGFR For Non-African Americans 51 (> 60)
[2018-08-31 04:59] LABS: Bilirubin,Urine Negative (Negative); Blood,Urine Large (Negative); Clarity,Urine Cloudy (Clear); Color,Urine Dark Yellow (Yellow); Glucose,Urine (UA) Normal (Normal); Ketones,Urine Negative (Negative); Leukocyte Esterase,Urine Small (Negative); Nitrite,Urine Negative (Negative); Protein,Urine 30 mg/dL (Neg-Trace); Specific Gravity,Urine 1.018 (1.010-1.025); Urobilinogen,Urine Normal (Normal)
[2018-08-31 05:02] LABS: Bacteria,Urine None Seen per hpf (None-Few); Hyaline Casts,Urine None Seen per lpf (None-Few); RBC,Urine TNTC per hpf (0-3); Squamous Epithelial Cell,Urine Few per lpf (None-Few)
[2018-08-31] MEDS: Pantoprazole 40 MG VIAL IVP SCH ×2 (06:59→17:59)
[2018-08-31 08:07] LABS: Alpha 2 Globulin (PEP) 0.54 g/dL (0.48-1.05); Beta Globulin (PEP) 0.83 g/dL (0.48-1.10)
--- NOTE | 2018-08-31 08:35 | Internal Med Progress Note ---
<Brent Ibrahim - Last Filed: 08/31/18 14:49> Hospitalist Progress Note - Encounter Date of Encounter: 08/31/18 - Exam Vitals: Temp Pulse Resp BP Pulse Ox 98.4 F 56 16 90/63 94 08/31/18 12:18 08/31/18 12:18 08/31/18 12:18 08/31/18 12:18 08/31/18 12:18 - Assessment and Plan (1) Anemia Current Visit: Yes Status: Acute (2) Internal jugular (IJ) vein thromboembolism, acute Current Visit: Yes Status: Acute (3) Thrombocytopenia Current Visit: Yes Status: Chronic (4) Lymphadenopathy Current Visit: Yes Status: Acute (5) CKD (chronic kidney disease) Current Visit: Yes Status: Acute (6) History of pulmonary embolism Current Visit: Yes Status: Chronic (7) Polysubstance abuse Current Visit: Yes Status: Chronic (8) Medical non-compliance Current Visit: Yes Status: Chronic (9) Tobacco abuse Current Visit: Yes Status: Chronic - Time Spent with Patient Total time spent is greater than 50% in coordination of care (as documented) at patient's floor/unit and/or counseling patient: Internal Medicine: Result - Labs CBC & Chem 7: 08/31/18 02:58 08/31/18 02:58 Labs: Short CBC 08/30/18 08/31/18 Range/Units 17:45 02:58 WBC 4.0 L (4.3-11.1) K/mcL Hgb 7.2 L 7.2 L (12.9-16.9) g/dL Hct 24.5 L 24.2 L (37.5-50.1) % Plt Count 82 L (140-400) K/mcL Neutrophils # 2.1 (1.6-8.9) K/mcL BMP 08/31/18 02:58 Sodium 138 Potassium 4.1 Chloride 109 H Carbon Dioxide 26 BUN 13 Creatinine 1.43 H Glucose 99 Calcium 7.4 L Urine 08/31/18 Range/Units 04:40 Urine Color Dark Yellow (Yellow) Urine Clarity Cloudy A (Clear) Urine pH 6.0 (5.0-8.0) pH Units Ur Specific [place] 1.018 (1.010-1.025) Urine Protein 30 H (Neg-Trace) mg/dL Urine Glucose (UA) Normal (Normal) mg/dL - ABG Interpretation ABG results: ABG ABG pH 7.43 pH Units (7.32-7.45) 08/26/18 11:56 ABG pCO2 35 mmHg (35-45) 08/26/18 11:56 ABG pO2 87 mmHg (85-104) 08/26/18 11:56 ABG O2 Saturation 97 % (95-98) 08/26/18 11:56 PT/INR, D-dimer PT 12.3 Seconds (9.4-12.1) H 08/27/18 04:53 Consult Discharge Plan - Plan Referrals: NONE,PCP [Primary Care Provider] - - Attending Attestation I examined this patient and my medical decision-making was reviewed with the Resident Physician on 08/31/18. I agree with the documented findings, disposit ion and treatment plan as described except to the extent set forth below. Mr Camilo is currently admitted for anemia and IJ thrombosis. He remains moderate to high risk due to potential for worsening clinical status. Mr Camilo is resting in bed. His hemoglobin has been stable around 7. He is to have colonoscopy tomorrow. No fever or chills. No overt source of bleeding found to account for hemoglobin of 2.8 on admit. He is also to have bone marrow biopsy and biopsy of lymph node per hematology. Exam alert Comfortable in bed Pale skin Mucus membranes dry Heart not tachy at this time No wheeze or rales Abd soft No edema Moves all extremities I/P 1. Anemia chronic iron deficient - work up thus far has shown no overt bleeding source. Bone marrow biopsy pending as well as LN biopsy. At this point he is high risk for further anemia but also high risk for clotting (had DVT, PE and IJ thrombus). Monitoring H/H 2. Hematuria - currently argatroban on hold. Will need urology work up as well if on anticoagulant. 3. Lymphadenopathy 4. IJ thombosis 5. Hematuria 6. CKD 3 7. Thrombocytopenia Further diagnoses and plan as above. Pt high risk for both clotting and bleeding at this time. <Josh Kimball - Last Filed: 08/31/18 17:19> Hospitalist Progress Note - Encounter Date of Encounter: 08/31/18 Time of Encounter: 09:25 - Subjective Interval History: Patient was seen and examined at bedside this morning. He is sleepy this morning but responds to questions appropriately. He has no concerns at this time and denies symptoms of cough, SOB, pain, swelling. He states he is having normal bowel movements without any evidence of blood. Push endoscopy yesterday did not show obvious source of bleed. Patient did have a long discussion as far as compliance and following up with primary care physician upon discharge which he states he is more than willing to do if he is provided with another PCP. We also did have a discussion as far as the risks and benefits of anticoagulation as an outpatient. At this point, there is no clear answer on what would be recommended. I asked the patient to think this over and we would not attempt to identify reversible conditions. - Exam Vitals: Temp Pulse Resp BP Pulse Ox 98.8 F 62 18 114/77 89 08/31/18 04:25 08/31/18 04:25 08/31/18 04:25 08/31/18 04:25 08/31/18 04:25 Exam: Gen.: Vitals noted. No acute distress. AAOx3, resting comfortably in bed. Mildly pale HEENT: PERRL/EOMI, oropharynx clear, Normocephalic, atraumatic, MMM Cardiac: RRR, no murmur, +S1/S2, No BLE edema Pulmonary: CTA bilaterally, no wheezes, rales or rhonchi, equal chest expansion, unlabored breathing Abdomen: soft, nontender, BS noted, no guarding, maybe some splenomegaly apprec iated, distended today Skin: warm and dry, no visible lesions. MSK: ROM intact, no joint swelling noted, gait no assessed while in bed. Non tender calf or clubbing Neuro: A&Ox3, moves all extremities, no focal deficits, sensation intact Psych: Appropriate mood and behavior, AOx3 - Assessment and Plan (1) Anemia Current Visit: Yes Assessment and Plan: - Acute on chronic - H/H on presentation 2.8/10.3. Hemoglobin has improved to 7.2 after 5 units transfusion and remained stable - Most recent hemoglobin drawn at 07/18/18 shows a baseline of 7-12 - Patient has been worked up for anemia in the past including EGD/colonoscopy which were significant only for nonbleeding internal hemorrhoids and polyp which was not resected on 07/17/18. Push enteroscopy 08/30/18 shows no obvious source of bleed. - He is scheduled to follow-up with hematology never did - He is on home Xarelto for previous history of PE. - Stool occult is positive however no gross red blood noticed on examination per ED physician - Etiology is possibly multifactorial including kidney disease, liver disease, chronic blood loss. There is increasing concern for myelodysplastic syndrome - Hemodynamically stable - Hematology/oncology has been following, appreciate recommendations - Anemia workup thus far has been unremarkable including normal bilirubin, LDH low at 133. - Remainder of studies pending including haptoglobin, reticulocyte, Maria M test. - Peripheral smear is returned inconclusive however does suggest an element of i lubna deficiency. --Hematology did order a CT of the neck, chest, abdomen yesterday. Results were significant for acute DVT as below as well as lymphadenopathy and splenomegaly which do raise concerns for lymphoma. Plan - Daily labs - Hematology not recommending BMB as peripheral smear was not indicative for bone marrow disease. Recommending colonoscopy. Will be done tomorrow - May ask pulmonology to biopsy lymph nodes later this week. - Argatroban currently being for hematuria this morning. This is a difficult decision makers far as anticoagulation as an outpatient. Patient does have a propensity to bleed and is notably a poor follow-up history. He was relatively asymptomatic when he came in with a hemoglobin of 2 and may not be aware that he has had bleeding. He also had hematuria this morning while on argatroban. On the other hand, patient does seem to demonstrate a high pro pensity for thrombosis. An IVC filter may be warranted in the future however this would not address his internal jugular thrombosis. I did talk to the patient today and ultimately what it might come down to his patient preference after thorough discussions of the risk and benefits of both. I do appreciate hematology input as far as their recommendations (2) Internal jugular (IJ) vein thromboembolism, acute Current Visit: Yes Status: Acute Assessment and Plan: - As demonstrated on CTA performed last evening - Patient does have a previous history of DVTs and is previously on Xarelto - Patient has not had a history of IJ catheters to provoke - Nocturnal team did discuss anticoagulation options with hematology and vascular surgery last evening - Vascular surgery reported that there are no surgical interventions available at this time - Hematology recommended argatroban due to thrombocytopenia, currently held due to hematuria and BMB Plan - We will discuss long-term anticoagulations goals with patient after results of BMB (3) Pneumonia Current Visit: Yes Status: Acute Assessment and Plan: - As demonstrated on chest x-ray emergency department - Patient is nonseptic with 0/4 sirs criteria - Lactic acid of 1.7 - Started on azithromycin, ceftriaxone emergency room - Previously on cefepime, vancomycin, Levaquin as patient is frequently exposed to inpatient facilities. Day #5 - MRSA swab positive - Reports penicillin allergy --CT chest shows improvement of opacities bilaterally. Plan - As patient has been afebrile and nonseptic since admission, we will plan to de-escalate antibiotics yesterday to only Levaquin. - We will plan for total of 5 day course of Levaquin which has been completed - Patient clinically reports no symptoms - Some suspicion for aspiration given a right upper lobe location, low threshold to broaden for anaerobic coverage - Blood cultures obtained emergency department, will de-escalate antibiotics based on culture results (4) Thrombocytopenia Current Visit: Yes Status: Chronic Assessment and Plan: - Appears to be chronic - Platelets on presentation of 136, this appears to be around baseline. -Today at 82, has been down trending - No indications for transfusion at this time - Hematology/oncology has been consult, appreciate recommendations (5) CKD (chronic kidney disease) Current Visit: Yes Status: Acute Assessment and Plan: - Based on chart review is states 3 CKD - BUNs/creatinine of 13/1.43 to this appears to be baseline creatinine of 1.1- 2.0 - Anticipate if this were a gross GI bleed and BUN may be more elevated - We will continue monitor and avoid nephrotoxins, renally dose medications (6) History of methadone use Current Visit: Yes Status: Chronic Assessment and Plan: We will continue while inpatient Patient is increasingly somnolent this morning and we will decrease dose, appreciate pharmacy assistance (7) History of pulmonary embolism Current Visit: Yes Status: Chronic Assessment and Plan: As above Previous history of pulmonary embolism and was started on Xarelto Currently holding anticoagulation due to anemia, restarted last evening due to acute DVT of the left internal jugular vein Bilateral lower shortly Dopplers ordered, show preliminary chronic DVTs Unclear if he will be discharged home without anticoagulation given this chronic anemia, appreciate hematology recommendations We will continue monitor (8) Medical non-compliance Current Visit: Yes Status: Chronic Assessment and Plan: Known history of noncompliance and poor follow-up Patient threatened to leave AMA at this visit Patient convinced to stay at this time however he is high risk for adverse effects due to noncompliance with future (9) Polysubstance abuse Current Visit: Yes Status: Chronic Assessment and Plan: - Previous history of IV drug use -Patient denies current IV drug use however he is on methadone and does admit to abusing benzodiazepines - Urine drug screen positive for benzodiazepines and marijuana - Denies alcohol use - We will continue methadone while Patient (10) Hepatitis C Current Visit: Yes Status: Suspected Assessment and Plan: - Patient reports history of hepatitis B and hepatitis C - Per documentation, he believes he was treated for one but is not sure which one - We will obtain PCR quantification of both, pending (11) DVT prophylaxis Current Visit: Yes Status: Acute Assessment and Plan: Currently being held as above - Time Spent with Patient Total time spent is greater than 50% in coordination of care (as documented) at patient's floor/unit and/or counseling patient: Internal Medicine: Result - Labs CBC & Chem 7: 08/31/18 14:30 08/31/18 02:58 Labs: Short CBC 08/30/18 08/30/18 08/31/18 Range/Units 10:15 17:45 02:58 WBC 4.1 L 4.0 L (4.3-11.1) K/mcL Hgb 7.8 L 7.2 L 7.2 L (12.9-16.9) g/dL Hct 26.0 L 24.5 L 24.2 L (37.5-50.1) % Plt Count 94 L 82 L (140-400) K/mcL Neutrophils # 2.1 2.1 (1.6-8.9) K/mcL BMP 08/31/18 02:58 Sodium 138 Potassium 4.1 Chloride 109 H Carbon Dioxide 26 BUN 13 Creatinine 1.43 H Glucose 99 Calcium 7.4 L Urine 08/31/18 Range/Units 04:40 Urine Color Dark Yellow (Yellow) Urine Clarity Cloudy A (Clear) Urine pH 6.0 (5.0-8.0) pH Units Ur Specific [place] 1.018 (1.010-1.025) Urine Protein 30 H (Neg-Trace) mg/dL Urine Glucose (UA) Normal (Normal) mg/dL - ABG Interpretation ABG results: ABG ABG pH 7.43 pH Units (7.32-7.45) 08/26/18 11:56 ABG pCO2 35 mmHg (35-45) 08/26/18 11:56 ABG pO2 87 mmHg (85-104) 08/26/18 11:56 ABG O2 Saturation 97 % (95-98) 08/26/18 11:56 PT/INR, D-dimer PT 12.3 Seconds (9.4-12.1) H 08/27/18 04:53 <Brent Ibrahim - Last Filed: 08/31/18 14:49> (1) Anemia Qualifiers: Anemia type: iron deficiency Iron deficiency anemia type: other iron deficiency Qualified Code(s): D50.8 - Other iron deficiency anemias (2) Internal jugular (IJ) vein thromboembolism, acute Qualifiers: Laterality: left Qualified Code(s): I82.C12 - Acute embolism and thrombosis of left internal jugular vein (5) CKD (chronic kidney disease) Qualifiers: Chronic kidney disease stage: stage 3 (moderate) Qualified Code(s): N18.3 - Chronic kidney disease, stage 3 (moderate) <Josh Kimball - Last Filed: 08/31/18 17:19> (1) Anemia Qualifiers: Anemia type: iron deficiency Iron deficiency anemia type: other iron deficiency Qualified Code(s): D50.8 - Other iron deficiency anemias (2) Internal jugular (IJ) vein thromboembolism, acute Qualifiers: Laterality: left Qualified Code(s): I82.C12 - Acute embolism and thrombosis of left internal jugular vein (3) Pneumonia Qualifiers: Pneumonia type: due to unspecified organism Laterality: right Lung location: middle lobe of lung Qualified Code(s): J18.1 - Lobar pneumonia, unspecified organism (5) CKD (chronic kidney disease) Qualifiers: Chronic kidney disease stage: stage 3 (moderate) Qualified Code(s): N18.3 - Chronic kidney disease, stage 3 (moderate) (10) Hepatitis C Qualifiers: Viral hepatitis chronicity: chronic Hepatic coma status: without hepatic coma Qualified Code(s): B18.2 - Chronic viral hepatitis C
[2018-08-31] MEDS: Methadone Oral Concentrate 50 MG/5 ML UDC PO SCH (08:47)
--- NOTE | 2018-08-31 11:24 | Event Note ---
Date of Encounter: 08/31/18 Time of Encounter: 11:23 Plan for colonoscopy tomorrow. Clear liquid diet today, no red or purple. NPO at midnight. If unable tolerate NuLytely please use MiraLAX prep. If not clear by 6 AM, give 2 tap water enemas.
[2018-08-31 14:41] LABS: Hematocrit 26.2 % (37.5-50.1); Hemoglobin 7.9 g/dL (12.9-16.9); Immature Platelets 1.5 % (1.1-6.1); Mean Corpuscular HGB Conc 30.2 g/dL (31.6-35.5); Mean Corpuscular Hemoglobin 26.9 pg (28.0-33.3); Mean Corpuscular Volume 89.1 fL (83.0-100.0); Mean Platelet Volume 9.7 fL (9.4-12.4); Red Blood Count 2.94 M/mcL (4.19-5.50); Red Cell Distribution Width 17.1 % (11.5-14.5)
[2018-08-31 14:52] LABS: INR 1.2; Prothrombin Time 13.4 Seconds (9.4-12.1)
[2018-08-31 14:55] LABS: Activated Partial Thrombo Time 40.2 Seconds (26.0-36.0)
--- NOTE | 2018-08-31 15:16 | Oncology Inp Progress Note ---
<Tootie Dowling L - Last Filed: 08/31/18 18:35> Date of Encounter: 08/31/18 Time of Encounter: 16:00 (1) Anemia Current Visit: Yes Status: Acute Assessment and plan: Patient initially presented with severe anemia with hemoglobin of 2.8, s/p 5 units PRBC He appears to have had chronic anemia that has been worsening since around October 2017 MCV is normal White blood cell count normal Mild thrombocytopenia---bone marrow etiology vs. liver etiology vs. secondary to bleeding Stool occult blood positive and ER. No active signs or symptoms of bleeding, reports no history of recent bleeding per patient. There is questionable history of hepatitis B and/or C. Quantitative PCR is pending On Xarelto prior to admission (currently on hold) for h/o PE/DVT CT chest/abdomen/pelvis--- reveals stable thoracic and abdominal lymphadenopat hy, stable splenomegaly measuring 3.4 cm craniocaudad dimension, progressive fluid third-spacing with mild bilateral effusions, mild ascites, and body wall edema, improving bilateral pulmonary opacities, atherosclerosis with a stable 4.9 cm aneurysmal dilatation of the descending thoracic aorta, multiple staghorn nonobstructing right renal calculi. Liver appears normal. CT neck---Acute nearly occlusive deep venous thrombus in the left internal jugular vein. Plan: He was started on argatroban for acute left IJ DVT, currently on hold for development of acute hematuria overnight Recommend to continue to hold argatroban secondary to bleeding risk, will give x1 dose of arixtra today, no AC tomorrow due to colonoscopy AC plan for d/c is TBD, will trend platelets tomorrow, if plt count will allow would recommend prophylactic dose of xarelto at d/c We will follow along to make further AC recommendations Acute decrease in severe anemia on admission with positive Hemoccult stool suggestive of GI loss S/P push enteroscopy which was negative for bleeding etiology, shows LA grade esophagitis, and a possible polypoid villous adenoma He is planned for colonoscopy tomorrow Blood smear appears benign Qualifiers: Anemia type: iron deficiency Iron deficiency anemia type: other iron deficiency Qualified Code(s): D50.8 - Other iron deficiency anemias (2) History of DVT (deep vein thrombosis) Current Visit: No Status: Chronic Assessment and plan: History of bilateral PE evidenced on Neck CTA on 04/27/18 History of DVT, first diagnosed on doppler on 04/27/18 Placed on Xarelto at this time. Denies any other personal or family history of blood clots. Provoked DVT. He has had multiple hospitalizations with admission documents noted on 10/09/17 and 03/05/18 prior to noted DVT/PE. This was also within the 3 month postoperative setting s/p percutaneous screw fixation and pinning of the left hip on 03/06/18. Compliance with anticoagulation since that time is questionable and course of anticoagulation has been fragmented. He is a poor historian in regards to his anticoagulation. From record, he was discharged home on Xarelto on 04/28 then was given rx following d/c again around 07/18. Plan: Plan as detailed in anemia section (3) Lymphadenopathy Current Visit: Yes Status: Acute Assessment and plan: CT chest/abdomen/pelvis notes stable thoracic and abdominal lymphadenopathy and stable splenomegaly. He appears to have enlarged precarinal, aortopulmonary window, and subcarinal lymph nodes with a precarinal lymph node measuring 1.3 x 2.5 cm. Stable bilateral borderline enlarged hilar lymph nodes.Stable splenomegaly measuring 13.4 cm in craniocaudad dimension. Enlarged portacaval lymph node measuring 1.5 x 2.1 cm stable compared to the prior exam. There are multiple borderline enlarged retroperitoneal peripancreatic and periaortic lymph nodes which appear stable. Stable bilateral axillary lymphadenopathy with a left axillary lymph node measuring 1.2 x 3.4 cm is stable compared to the prior exam. Plan: Discussed bx with IR, feel as though axillary LN biopsy would be of low yield At this time, we will plan for outpatient PET scan and further discussion on bx as outpatient Peripheral blood flow-pending Oncology: Subj Interval history: Resting in bed. Overnight he developed significant hematuria and his argatroban gtt was stopped. Hematuria has since resolved. he denies pain. Reports increased anxiety today. appetite is stable. He is starting prep for colonoscopy tomorrow - Constitutional General appearance: cooperative, no acute distress, no febrile - Head Head exam: Present: atraumatic - ENT ENT exam: Present: mucous membranes moist, normal oropharynx - Respiratory Respiratory exam: Present: decreased breath sounds, CTAB. Absent: respiratory distress - Cardiovascular Cardiovascular exam: Present: RRR, +S1, +S2 - GI/Abdominal GI/Abdominal exam: Present: normal bowel sounds, soft. Absent: tenderness - Extremities Exam Extremities exam: Present: normal inspection. Absent: calf tenderness - Neurological Exam Neurological exam: Present: alert, oriented X3, no focal deficits, strengths equal and symetr throughout - Psychiatric Psychiatric exam: Present: agitated, anxious - Skin Skin exam: Present: dry, intact, normal color, warm Oncology: Obj Data - Labs CBC & Chem 7: 08/31/18 14:30 08/31/18 02:58 Consult Discharge Plan - Plan Referrals: NONE,PCP [Primary Care Provider] - Inpatient Charges [facility] - Last Filed: 08/31/18 18:57> Date of Encounter: 08/31/18 Oncology: Obj Data - Labs CBC & Chem 7: 08/31/18 14:30 08/31/18 02:58 Inpatient Charges Provider: Dr. Fern Avila Follow up - Inpatient: [id number] - Attending Attestation I examined this patient and my medical decision-making was reviewed with the Advanced Practice Nurse. I agree with the documented findings, disposition and treatment plan as described except to the extent set forth below. Patient now with platelets of 79, hematuria, and initially presented with LGIB. As a result, will d/c Argatroban gtt and start on Arixtra 2.5 mg SQ for DVT ppx. He has a colonoscopy scheduled for tomorrow so will not receive any DVT ppx prior to that tomorrow am Will plan for PET/CT as an outpatient to evaluate patients JOURDAN and then consider a biopsy at that time Will determine patient's anticoagulation goals for discharge following colonoscopy, and based on his platelet count and what his bleeding vs clotting risk is at that time
[2018-08-31 15:30] LABS: IFE Reflexed NOT DONE
[2018-08-31 15:31] LABS: HCV Quant Interpretation DETECTED (Not Detected)
[2018-08-31 15:32] LABS: HBV Quant Interpretation NOT DETECTED (Not Detected)
[2018-08-31] MEDS ORDERED: SODIUM CHLORIDE/NAHCO3/KCL/PEG 4,000 ML SOLN.RECON PO ONE (17:00)
[2018-08-31 17:13] LABS: Complement C3 105 mg/dL (87-200)
[2018-08-31] MEDS ORDERED: *HR* Fondaparinux 2.5 MG/0.5 ML SYRINGE SQ ONE (18:00)
[2018-08-31] MEDS: hydrOXYzine pamoate 25 MG CAPSULE PO PRN (19:14)
--- NOTE | 2018-08-31 21:42 | Anesthesia Evaluation PreOp ---
Date of Encounter: 08/31/18 Time of Encounter: 18:00 - Past History Planned Operation: Colonoscopy Cardiac History: Other (Anemia Hgb 2.9 admission s/p 5 units PRBC, Thrombo cytopenia) Pulmonary History: Former smoker (1ppd x 40yrs), COPD ORACLE DBA History: CVA, Other (PTSD) Other Medical History: Hepatic (Hep B&C), Other (Poly-substance abuse) Anesthesia History: Past Anesthesia (Tracheostomy 1988) Alcohol Use: none Drug use: marijuana, IV Drug Use, prescription drug abuse, other (Benzodiazepines) Medications and Allergies Methadone Oral Concentrate [Methadone] 115 mg PO DAILY 04/25/18 [History] Ferrous Sulfate 325 mg PO BID #60 tablet. 07/07/18 [Rx] Atorvastatin [Lipitor] 40 mg PO DAILY 08/26/18 [History] Rivaroxaban [Xarelto] 20 mg PO DAILY 08/26/18 [History] Allergy/AdvReac Type Severity Reaction Status Date / Time Penicillins Allergy Hives Verified 08/26/18 11:29 - Meds/Allergy Pre-op Review Medications Reviewed: Yes Allergies Reviewed: Yes Beta Blockers on Current Med List: No Anesthesia Results - Labs 08/31/18 14:30 08/31/18 02:58 - Imaging EKG: report reviewed (SR) Additional studies: ECHO LVEF 60-65%, mild 19 mmHg gradient, no pulm htn Anesthesia Exam Vital Signs/O2 Sat/Glucose, Most Current Temp Pulse Resp BP Pulse Ox 08/31/18 20:29 97.5 F L 59 16 110/79 94 Height: 5'10 Weight: 156 lbs NPO (# of Hours): MN Pain Scale: 0 - HEENT Pupil (Motor): Pupils equal, EOMI Mallampati: II Teeth: Edentulous Oral Opening: Greater than 3 - ORACLE DBA LOC: Oriented ORACLE DBA Motor: Normal RUE, Normal LUE, Normal RLE, Normal LLE, Normal Face ORACLE DBA Sensory: Normal: RUE, LUE, RLE, LLE, Face - Cardiac Rhythm: Regular Murmur: None JVD: No Carotid Bruit: No - Pulmonary Breath Sounds: bilateral Clear Respiratory Effort: Symmetrical Anesthesia Assess/Plan ASA Score: 4 (Severe Anemia on admission, Hepatitis,COPD, Polysubstance Abuse) Level of consciousness: Cooperative, Oriented Anesthetic Plan: MAC Autologous Blood: No Monitoring Plan: Standard Monitors Recovery Plan: Other (Discussed MAC, agrees to proceed)
[2018-09-01 04:11] LABS: Basophils % 0.6 %; Eosinophils # 0.2 K/mcL (0.0-0.6); Eosinophils % 6.1 %; Hematocrit 27.1 % (37.5-50.1); Hemoglobin 8.1 g/dL (12.9-16.9); Immature Granulocytes % 0.9 % (0-4); Immature Platelets 1.3 % (1.1-6.1); Lymphocytes # 1.2 K/mcL (0.6-4.6); Mean Corpuscular HGB Conc 29.9 g/dL (31.6-35.5); Mean Corpuscular Hemoglobin 26.7 pg (28.0-33.3); Mean Corpuscular Volume 89.4 fL (83.0-100.0); Mean Platelet Volume 10.1 fL (9.4-12.4); Monocytes # 0.4 K/mcL (0.0-1.3); Monocytes % 11.1 %; Neutrophils # 1.6 K/mcL (1.6-8.9); Red Blood Count 3.03 M/mcL (4.19-5.50); Red Cell Distribution Width 16.7 % (11.5-14.5); Segmented Neutrophils % 46.3 %
[2018-09-01 04:28] LABS: Platelet Count 75 K/mcL (140-400)
[2018-09-01 04:30] LABS: BUN/Creatinine Ratio 8 (6-26); Blood Urea Nitrogen 10 mg/dL (6-20); Calcium 7.7 mg/dL (8.6-10.3); Carbon Dioxide 27 mEq/L (23-29); Chloride 110 mEq/L (98-107); Glucose 76 mg/dL (70-105); Magnesium 1.7 mg/dL (1.6-2.6); Osmolality,Calculated 286 (280-300); Phosphorous 3.8 mg/dL (2.7-4.5); Potassium 3.6 mEq/L (3.5-5.1); Sodium 139 mEq/L (136-145); eGFR For Non-African Americans 59 (> 60)
[2018-09-01] MEDS: Pantoprazole 40 MG VIAL IVP SCH (06:52)
[2018-09-01] MEDS: Methadone Oral Concentrate 50 MG/5 ML UDC PO SCH (08:43)
--- NOTE | 2018-09-01 08:57 | Internal Med Progress Note ---
<Josh Kimball - Last Filed: 09/01/18 16:10> Hospitalist Progress Note - Encounter Date of Encounter: 09/01/18 Time of Encounter: 08:51 - Subjective Interval History: Patient was seen and examined at bedside this morning. He states that overall he feels a little bit better. Reports improvement of fatigue and has no complaints at this time. Denies dizziness, SOB, cough, chest pain, n/v. Has been taking the bowel prep for colonoscopy and states his bowel movements are almost clear. - Exam Vitals: Temp Pulse Resp BP Pulse Ox 98.0 F 57 15 115/86 97 09/01/18 07:04 09/01/18 07:04 09/01/18 07:04 09/01/18 07:04 09/01/18 07:04 Exam: Gen.: Vitals noted. No acute distress. AAOx3, resting comfortably in bed. Mildly pale HEENT: PERRL/EOMI, oropharynx clear, Normocephalic, atraumatic, MMM Cardiac: RRR, no murmur, +S1/S2, No BLE edema Pulmonary: CTA bilaterally, no wheezes, rales or rhonchi, equal chest expansion, unlabored breathing Abdomen: soft, nontender, BS noted, no guarding, non distended Skin: warm and dry, no visible lesions. MSK: ROM intact, no joint swelling noted, gait no assessed while in bed. Non tender calf or clubbing Neuro: A&Ox3, moves all extremities, no focal deficits, sensation intact Psych: Appropriate mood and behavior, AOx3 - Assessment and Plan (1) Anemia Current Visit: Yes Assessment and Plan: - Acute on chronic - H/H on presentation 2.8/10.3. Hemoglobin has improved to 8.1 today after 5 units transfusion since admission and remained stable - Most recent hemoglobin drawn at 07/18/18 shows a baseline of 7-12 - Patient has been worked up for anemia in the past including EGD/colonoscopy which were significant only for nonbleeding internal hemorrhoids and polyp which was not resected on 07/17/18. Push enteroscopy 08/30/18 shows no obvious source of bleed, possible villous adenoma. - He is scheduled to follow-up with hematology never did - He was on home Xarelto for previous history of PE. - Stool occult is positive however no gross red blood noticed on examination per ED physician - Etiology is possibly multifactorial including kidney disease, liver disease, chronic blood loss, iron deficiency. - Hematology/oncology has been following, appreciate recommendations - Anemia workup thus far has been unremarkable except for iron deficiency. Peripheral smear does not show evidence of myelodysplasia and hematology is recommending BMB and PET scan as outpatient. - Previous hematuria on arbatroban. Hematology has started arixtra last evening. --Hematology did order a CT of the neck, chest, abdomen. Results were significant for acute DVT as below as well as lymphadenopathy and splenomegaly which do raise concerns for lymphoma. Plan - Daily labs - Hematology not recommending BMB as peripheral smear was not indicative for bone marrow disease. - Colonoscopy today with GI. - May ask pulmonology to biopsy lymph nodes later this week. - Argatroban stopped, continue arixtra. Per heme onc note, may recommend DVT prophylactic dose of xarelto on discharge. This is a difficult decision makers far as anticoagulation as an outpatient. Patient does have a propensity to bleed and is notably a poor follow-up history. He was relatively asymptomatic when he came in with a hemoglobin of 2 and may not be aware that he has had bleeding. He also had hematuria this morning while on argatroban. On the other hand, patient does seem to demonstrate a high propensity for thrombosis. An IVC filter may be warranted in the future however this would not address his internal jugular thrombosis. I did talk to the patient today and ultimately what it might come down to his patient preference a fter thorough discussions of the risk and benefits of both. 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 Started arixtra. Plan - We will discuss long-term anticoagulations goals with patient - High risk for both bleeding and thrombosis - May consider dvt prophylactic dosing with close outpatient follow up (3) Pneumonia Current Visit: Yes Status: Resolved Assessment and Plan: - As demonstrated on chest x-ray emergency department - Patient is nonseptic with 0/4 sirs criteria - Lactic acid of 1.7 - Started on azithromycin, ceftriaxone emergency room - Previously on cefepime, vancomycin, Levaquin as patient is frequently exposed to inpatient facilities. - De-escalated to levaquin and has completed 5 day course. Will discontinue and monitor - MRSA swab positive --CT chest shows improvement of opacities bilaterally. Plan - Patient clinically reports no symptoms - Blood cultures obtained emergency department, negative. strep negative. - Stop all abx (4) Thrombocytopenia Current Visit: Yes Status: Chronic Assessment and Plan: - Appears to be chronic, however continues to decline. - Platelets on presentation of 136, this appears to be around baseline. -Today at 75, has been down trending - No indications for transfusion at this time - Hematology/oncology has been consult, appreciate recommendations (5) CKD (chronic kidney disease) Current Visit: Yes Status: Acute Assessment and Plan: - Based on chart review is states 3 CKD - BUNs/creatinine of /.27 to this appears to be baseline creatinine of 1.1- 2.0 - Anticipate if this were a gross GI bleed and BUN may be more elevated - We will continue monitor and avoid nephrotoxins, renally dose medications (6) History of methadone use Current Visit: Yes Status: Chronic Assessment and Plan: We will continue while inpatient Patient was previously increasingly somnolent this morning and we will decrease dose, appreciate pharmacy assistance (7) History of pulmonary embolism Current Visit: Yes Status: Chronic Assessment and Plan: As above Previous history of pulmonary embolism and was started on Xarelto Plans for Anticoagulation as above Bilateral lower shortly Dopplers ordered, show preliminary chronic DVTs Unclear if he will be discharged home without anticoagulation given this chronic anemia, appreciate hematology recommendations We will continue monitor (8) Medical non-compliance Current Visit: Yes Status: Chronic Assessment and Plan: Known history of noncompliance and poor follow-up Patient threatened to leave AMA at this visit Patient convinced to stay at this time however he is high risk for adverse effects due to noncompliance with future (9) Polysubstance abuse Current Visit: Yes Status: Chronic Assessment and Plan: - Previous history of IV drug use -Patient denies current IV drug use however he is on methadone and does admit to abusing benzodiazepines - Urine drug screen positive for benzodiazepines and marijuana - Denies alcohol use - We will continue methadone while Patient (10) Hepatitis C Current Visit: Yes Status: Suspected Assessment and Plan: - Patient reports history of hepatitis B and hepatitis C - Per documentation, he believes he was treated for one but is not sure which one - We will obtain PCR quantification of both, pending (11) DVT prophylaxis Current Visit: Yes Status: Acute Assessment and Plan: as above (12) Mediastinal lymphadenopathy Current Visit: Yes Status: Chronic Assessment and Plan: -As demonstrated on CT scan, stable from previous - unclear etiology - Will ask pulmonology to evaluate with possible biopsy - NPO midnight. hold all anticoagulation until after biopsy - Time Spent with Patient Total time spent is greater than 50% in coordination of care (as documented) at patient's floor/unit and/or counseling patient: Internal Medicine: Result - Labs CBC & Chem 7: 09/01/18 03:45 09/01/18 03:45 Labs: Short CBC 08/31/18 09/01/18 Range/Units 14:30 03:45 WBC 3.9 L 3.4 L (4.3-11.1) K/mcL Hgb 7.9 L 8.1 L (12.9-16.9) g/dL Hct 26.2 L 27.1 L (37.5-50.1) % Plt Count 79 L 75 L (140-400) K/mcL Neutrophils # 1.6 (1.6-8.9) K/mcL BMP 09/01/18 03:45 Sodium 139 Potassium 3.6 Chloride 110 H Carbon Dioxide 27 BUN 10 Creatinine 1.27 Glucose 76 Calcium 7.7 L - ABG Interpretation ABG results: ABG ABG pH 7.43 pH Units (7.32-7.45) 08/26/18 11:56 ABG pCO2 35 mmHg (35-45) 08/26/18 11:56 ABG pO2 87 mmHg (85-104) 08/26/18 11:56 ABG O2 Saturation 97 % (95-98) 08/26/18 11:56 PT/INR, D-dimer PT 13.4 Seconds (9.4-12.1) H 08/31/18 14:30 Consult Discharge Plan - Plan Referrals: NONE,PCP [Primary Care Provider] - <Brent Ibrahim - Last Filed: 09/01/18 17:14> Hospitalist Progress Note - Encounter Date of Encounter: 09/01/18 - Exam Vitals: Temp Pulse Resp BP Pulse Ox 98.0 F 56 14 130/93 89 09/01/18 15:52 09/01/18 15:52 09/01/18 15:52 09/01/18 15:52 09/01/18 15:52 - Assessment and Plan (1) Anemia Current Visit: Yes Status: Acute (2) Internal jugular (IJ) vein thromboembolism, acute Current Visit: Yes Status: Acute (3) Thrombocytopenia Current Visit: Yes Status: Chronic (4) Lymphadenopathy Current Visit: Yes Status: Acute (5) CKD (chronic kidney disease) Current Visit: Yes Status: Acute (6) History of pulmonary embolism Current Visit: Yes Status: Chronic (7) Polysubstance abuse Current Visit: Yes Status: Chronic (8) Medical non-compliance Current Visit: Yes Status: Chronic (9) Tobacco abuse Current Visit: Yes Status: Chronic - Time Spent with Patient Total time spent is greater than 50% in coordination of care (as documented) at patient's floor/unit and/or counseling patient: Internal Medicine: Result - Labs CBC & Chem 7: 09/01/18 03:45 09/01/18 03:45 Labs: Short CBC 09/01/18 Range/Units 03:45 WBC 3.4 L (4.3-11.1) K/mcL Hgb 8.1 L (12.9-16.9) g/dL Hct 27.1 L (37.5-50.1) % Plt Count 75 L (140-400) K/mcL Neutrophils # 1.6 (1.6-8.9) K/mcL BMP 09/01/18 03:45 Sodium 139 Potassium 3.6 Chloride 110 H Carbon Dioxide 27 BUN 10 Creatinine 1.27 Glucose 76 Calcium 7.7 L - ABG Interpretation ABG results: ABG ABG pH 7.43 pH Units (7.32-7.45) 08/26/18 11:56 ABG pCO2 35 mmHg (35-45) 08/26/18 11:56 ABG pO2 87 mmHg (85-104) 08/26/18 11:56 ABG O2 Saturation 97 % (95-98) 08/26/18 11:56 PT/INR, D-dimer PT 13.4 Seconds (9.4-12.1) H 08/31/18 14:30 - Attending Attestation I examined this patient and my medical decision-making was reviewed with the Resident Physician on 09/01/18. I agree with the documented findings, dispositi on and treatment plan as described except to the extent set forth below. Mr Camilo is currently admitted for anemia and hypercoagulable state. He remains moderate to high risk due to potential for worsening clinical state. Mr Clinton is resting at this time. No fever or chills. No CP. To have colonoscopy today. Exam alert Comfortable Mucus membranes dry Heart not tachy No wheeze abd soft No edema I/P 1. Anemia - colonoscopy today 2. Hypercoagulable - appreciate heme input 3. Lymphadenopathy Further diagnoses and plan as above. <Josh Kimball - Last Filed: 09/01/18 16:10> (1) Anemia Qualifiers: Anemia type: iron deficiency Iron deficiency anemia type: other iron deficiency Qualified Code(s): D50.8 - Other iron deficiency anemias (2) Internal jugular (IJ) vein thromboembolism, acute Qualifiers: Laterality: left Qualified Code(s): I82.C12 - Acute embolism and thrombosis of left internal jugular vein (3) Pneumonia Qualifiers: Pneumonia type: due to unspecified organism Laterality: right Lung location: middle lobe of lung Qualified Code(s): J18.1 - Lobar pneumonia, unspecified organism (5) CKD (chronic kidney disease) Qualifiers: Chronic kidney disease stage: stage 3 (moderate) Qualified Code(s): N18.3 - Chronic kidney disease, stage 3 (moderate) (10) Hepatitis C Qualifiers: Viral hepatitis chronicity: chronic Hepatic coma status: without hepatic coma Qualified Code(s): B18.2 - Chronic viral hepatitis C <Brent Ibrahim - Last Filed: 09/01/18 17:14> (1) Anemia Qualifiers: Anemia type: iron deficiency Iron deficiency anemia type: other iron deficiency Qualified Code(s): D50.8 - Other iron deficiency anemias (2) Internal jugular (IJ) vein thromboembolism, acute Qualifiers: Laterality: left Qualified Code(s): I82.C12 - Acute embolism and thrombosis of left internal jugular vein (5) CKD (chronic kidney disease) Qualifiers: Chronic kidney disease stage: stage 3 (moderate) Qualified Code(s): N18.3 - Chronic kidney disease, stage 3 (moderate)
[2018-09-01] MEDS ORDERED: *HR* Propofol 200 MG/20 ML VIAL IVP ONE (14:06)
--- NOTE | 2018-09-01 14:58 | Anesthesia Evaluation Post Op ---
Date of Encounter: 09/01/18 Time of Encounter: 14:55 - Vital Signs Vital Signs: see nursing notes - Lungs Lungs: Clear Ascult./Percussion - Airway Airway: Non-obstructed - Cardiovascular Regular Rate - Mental Status Mental Status: Asleep without brisk response to light stimulation, Baseline Status - Pain Pain Scale: 0 Pain Scale used: Numeric (1 - 10) - Hydration Hydration: NPO - Discharge PostOp Status: Transfer Patient to floor
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
--- NOTE | 2018-09-01 16:22 | Oncology Inp Progress Note ---
<DowlingTootie L - Last Filed: 09/01/18 17:20> Date of Encounter: 09/01/18 Time of Encounter: 15:00 (1) Anemia Current Visit: Yes Status: Acute Assessment and plan: Patient initially presented with severe anemia with hemoglobin of 2.8, s/p 5 units PRBC He appears to have had chronic anemia that has been worsening since around October 2017 MCV is normal White blood cell count normal Mild thrombocytopenia---bone marrow etiology vs. liver etiology vs. secondary to bleeding Stool occult blood positive and ER. No active signs or symptoms of bleeding, reports no history of recent bleeding per patient. There is questionable history of hepatitis B and/or C. Quantitative PCR is pending On Xarelto prior to admission (currently on hold) for h/o PE/DVT CT chest/abdomen/pelvis--- reveals stable thoracic and abdominal lymphadenopat hy, stable splenomegaly measuring 3.4 cm craniocaudad dimension, progressive fluid third-spacing with mild bilateral effusions, mild ascites, and body wall edema, improving bilateral pulmonary opacities, atherosclerosis with a stable 4.9 cm aneurysmal dilatation of the descending thoracic aorta, multiple staghorn nonobstructing right renal calculi. Liver appears normal. CT neck---Acute nearly occlusive deep venous thrombus in the left internal jugular vein. Blood smear appears benign S/P push enteroscopy which was negative for bleeding etiology, shows LA grade esophagitis, and a possible polypoid villous adenoma S/P colonoscopy with grade II non bleeding hemorrhoids Plan: Hgb stable at this time Argatroban held secondary to development of acute hematuria He was given Arixtra x1 dose, held today secondary to planned colonoscopy, now AC on hold for bronchoscopy tomorrow, pulmonology was consulted by primary team AC plan for d/c is TBD, will trend platelets tomorrow, if plt count will allow would recommend prophylactic dose of xarelto at d/c We will follow along to make further AC recommendations Qualifiers: Anemia type: iron deficiency Iron deficiency anemia type: other iron deficiency Qualified Code(s): D50.8 - Other iron deficiency anemias (2) History of DVT (deep vein thrombosis) Current Visit: No Status: Chronic Assessment and plan: History of bilateral PE evidenced on Neck CTA on 04/27/18 History of DVT, first diagnosed on doppler on 04/27/18 Placed on Xarelto at this time. Denies any other personal or family history of blood clots. Provoked DVT. He has had multiple hospitalizations with admission documents noted on 10/09/17 and 03/05/18 prior to noted DVT/PE. This was also within the 3 month postoperative setting s/p percutaneous screw fixation and pinning of the left hip on 03/06/18. Compliance with anticoagulation since that time is questionable and course of anticoagulation has been fragmented. He is a poor historian in regards to his anticoagulation. From record, he was discharged home on Xarelto on 04/28 then was given rx following d/c again around 07/18. Plan: Plan as detailed in anemia section (3) Lymphadenopathy Current Visit: Yes Status: Acute Assessment and plan: CT chest/abdomen/pelvis notes stable thoracic and abdominal lymphadenopathy and stable splenomegaly. He appears to have enlarged precarinal, aortopulmonary window, and subcarinal lymph nodes with a precarinal lymph node measuring 1.3 x 2.5 cm. Stable bilateral borderline enlarged hilar lymph nodes.Stable splenomegaly measuring 13.4 cm in craniocaudad dimension. Enlarged portacaval lymph node measuring 1.5 x 2.1 cm stable compared to the prior exam. There are multiple borderline enlarged retroperitoneal peripancreatic and periaortic lymph nodes which appear stable. Stable bilateral axillary lymphadenopathy with a left axillary lymph node measuring 1.2 x 3.4 cm is stable compared to the prior exam. Plan: Discussed bx with IR, feel as though axillary LN biopsy would be of low yield Recommended outpatient PET scan and further discussion on bx as outpatient Peripheral blood flow-pending Pulmonology has now been consulted by primary team, patient is planned for bronchoscopy tomorrow with bx Oncology: Subj Interval history: Resting in bed. Reports generalized pain. Appetite is stable. Denies fevers, chills, nausea, vomiting or diarrhea. - Constitutional General appearance: cooperative, no acute distress, no febrile - Head Head exam: Present: atraumatic - ENT ENT exam: Present: mucous membranes moist, normal oropharynx - Respiratory Respiratory exam: Present: decreased breath sounds, CTAB. Absent: respiratory distress - Cardiovascular Cardiovascular exam: Present: RRR - GI/Abdominal GI/Abdominal exam: Present: normal bowel sounds, soft. Absent: tenderness - Extremities Exam Extremities exam: Present: normal inspection. Absent: calf tenderness - Neurological Exam Neurological exam: Present: alert, oriented X3, no focal deficits, strengths equal and symetr throughout - Psychiatric Psychiatric exam: Present: normal affect, normal mood - Skin Skin exam: Present: dry, intact, normal color, warm Oncology: Obj Data - Labs CBC & Chem 7: 09/01/18 03:45 09/01/18 03:45 Consult Discharge Plan - Plan Referrals: NONE,PCP [Primary Care Provider] - Inpatient Charges [facility] Last Filed: 09/01/18 17:29> Date of Encounter: 09/01/18 Oncology: Obj Data - Labs CBC & Chem 7: 09/01/18 03:45 09/01/18 03:45 Inpatient Charges Provider: Dr. Fern Avila Follow up - Inpatient: [id number] - Attending Attestation I examined this patient and my medical decision-making was reviewed with the Advanced Practice Nurse. I agree with the documented findings, disposition and treatment plan as described except to the extent set forth below. Pulmonary planning on bronchoscopy with biopsy. Currently holding anticoagulation. Will determine goals for anticoagulation based on bleeding vs clotting risk, and level of platelets at time of discharge Patient states he will follow up with me in [facility] in two weeks Will obtain PET/CT as an outpatient
--- NOTE | 2018-09-01 17:55 | Anesthesia Evaluation PreOp ---
Date of Encounter: 09/01/18 Time of Encounter: 19:32 - Past History Planned Operation: EBUS Cardiac History: Hyperlipidemia, Other (Mild aortic stenosis. Mean gradient 19 mmHg by echo 04/25/2018 , Acute nearly occlusive deep venous thrombus in the left internal jugular vein by CT 08/29/2018) Pulmonary History: Smoker (30 years), COPD, Other (H/O PE, pneumonia by chest CT 08/29/2018) SPECIAL AGENT IN CHARGE History: CVA (denies residual deficit) Other Medical History: Hepatic, GERD, Other (thrombocytopenia) Anesthesia History: No Prior Anesthetic Complications, Past Anesthesia Alcohol Use: none Drug use: marijuana, IV Drug Use (H/O heroin use, stopped 7 years ago, on methadone), prescription drug abuse, other (Benzodiazepines) Medications and Allergies Methadone Oral Concentrate [Methadone] 115 mg PO DAILY 04/25/18 [History] Ferrous Sulfate 325 mg PO BID #60 tablet. 07/07/18 [Rx] Atorvastatin [Lipitor] 40 mg PO DAILY 08/26/18 [History] Rivaroxaban [Xarelto] 20 mg PO DAILY 08/26/18 [History] Allergy/AdvReac Type Severity Reaction Status Date / Time Penicillins Allergy Hives Verified 08/26/18 11:29 - Meds/Allergy Pre-op Review Medications Reviewed: Yes Allergies Reviewed: Yes Beta Blockers on Current Med List: No Anesthesia Results - Labs 09/01/18 03:45 09/01/18 03:45 - Imaging EKG: report reviewed (08/26/2018 Sinus Rhythm.) Additional studies: 08/29/[address] IMPRESSION: 1. Acute nearly occlusive deep venous thrombus in the left internal jugular vein. 2. No pathologically enlarged lymph node in the neck. 3. Near complete opacification of the right sphenoid sinus may reflect sinusitis if the patient has correlative symptoms. 4. Possible subcentimeter subcutaneous abscess overlying the right anterior mandible. Correlation with direct visualization is recommended. Critical results were called by Dr. Eder Carmona to Jl Manzano NP on 08/29/2018 at 8:52 pm. 08/29/[address] IMPRESSION: 1. Stable thoracic and abdominal lymphadenopathy. Stable splenomegaly. A lymphoproliferative disorder such as lymphoma cannot be excluded. 2. Progressive fluid third-spacing with mild bilateral effusions, mild ascites, and body wall edema. 3. Improving bilateral pulmonary opacities compared to the recent exam suggesting an infectious/inflammatory process. 4. Atherosclerosis. Stable 4.9 cm aneurysmal dilatation of the ascending thoracic aorta. Findings suggesting aortic valve stenosis. 5. Multiple staghorn nonobstructing right renal calculi with the largest measuring 1.4 cm. No obstructive uropathy. 04/25/2018 Echo Impressions: LVEF 60-65%. Normal LV chamber size, wall thickness and function. Mild left ventricular diastolic dysfunction. Normal right ventricular structure and function. The number of aortic valve leaflets cannot be determined. There is moderate calcification in the area of the right coronary cusp. Mild aortic stenosis. Mean gradient 19 mmHg. No evidence of pulmonary hypertension. Mildly dilated aortic root measuring 4.3 cm. Findings similar to prior report from 10/10/2017. Aortic Valve Peak Júnior: 2.85 m/sec Mean Júnior: 2.08 m/sec Peak Grad: 32.00 mmHg Mean Grad: 19.00 mmHg Valve Area: 2.12 cm2 Findings: Study Quality * Technically adequate exam. ECG Findings * Normal sinus rhythm. Left Ventricle * LVEF 60-65%. * Normal LV chamber size, wall thickness and function. * Mild left ventricular diastolic dysfunction. Right Ventricle * Normal right ventricular structure and function. Left Atrium * Normal left atrial size. Right Atrium * Normal right atrial size. Aortic Valve * The number of aortic valve leaflets cannot be determined. There is moderate calcification in the area of the right coronary cusp. * No aortic regurgitation. * Mild aortic stenosis. Mean gradient 19 mmHg. Mitral Valve * Normal mitral valve structure and function. * No mitral regurgitation. * No mitral stenosis. Tricuspid Valve * Normal tricuspid valve structure and function. * Trace tricuspid regurgitation. * No evidence of pulmonary hypertension. Pulmonic Valve * Normal pulmonic valve structure and function. * No pulmonic regurgitation. Aorta * Mildly dilated aortic root measuring 4.3 cm. Pericardium * The pericardium appears normal. IVC * Normal IVC dimensions and inspiratory collapse. Pulmonary Artery * Normal visualized portions of the main pulmonary artery. Anesthesia Exam Vital Signs/O2 Sat/Glucose, Most Recent Temp Pulse Resp BP Pulse Ox 98.0 F 56 14 130/93 89 09/01/18 15:52 09/01/18 15:52 09/01/18 15:52 09/01/18 15:52 09/01/18 15:52 Blood Glucose* 81 Height: 5'10"/1.78m Weight: 153 lbs/69.7 kg NPO (# of Hours): 8 Pain Scale: 0 Pain Scale Used: Numeric (1 - 10) - HEENT Pupil (Motor): EOMI Mallampati: II Teeth: Edentulous Oral Opening: Greater than 3 - SPECIAL AGENT IN CHARGE LOC: Oriented SPECIAL AGENT IN CHARGE Motor: Normal RUE, Normal LUE, Normal RLE, Normal LLE, Normal Face SPECIAL AGENT IN CHARGE Sensory: Normal: RUE, LUE, RLE, LLE, Face - Cardiac Rhythm: Regular Murmur: Systolic - Pulmonary Breath Sounds: bilateral Clear Respiratory Effort: Symmetrical Anesthesia Assess/Plan ASA Score: 4 (Patient understands that he is at increased risk for perioperative complications including myocardial infarct, arrhythmias, CVA, post op vent support/ICU stay, and . Patient wishes to proceed.) Level of consciousness: Cooperative, Oriented, Tranquil Anesthetic Plan: General Monitoring Plan: Standard Monitors Recovery Plan: PACU
[2018-09-02 05:07] LABS: Basophils % 0.2 %; Eosinophils # 0.2 K/mcL (0.0-0.6); Hematocrit 25.7 % (37.5-50.1); Hemoglobin 7.6 g/dL (12.9-16.9); Immature Granulocytes % 0.2 % (0-4); Immature Platelets 1.5 % (1.1-6.1); Lymphocytes % 24.8 %; Mean Corpuscular HGB Conc 29.6 g/dL (31.6-35.5); Mean Corpuscular Hemoglobin 26.5 pg (28.0-33.3); Mean Corpuscular Volume 89.5 fL (83.0-100.0); Mean Platelet Volume 9.4 fL (9.4-12.4); Monocytes # 0.4 K/mcL (0.0-1.3); Monocytes % 8.9 %; Neutrophils # 2.5 K/mcL (1.6-8.9); Red Blood Count 2.87 M/mcL (4.19-5.50); Red Cell Distribution Width 16.4 % (11.5-14.5); Segmented Neutrophils % 61.9 %
[2018-09-02 05:11] LABS: INR 1.1; Prothrombin Time 12.5 Seconds (9.4-12.1)
[2018-09-02 05:15] LABS: Platelet Count 59 K/mcL (140-400)
[2018-09-02] MEDS: Methadone Oral Concentrate 50 MG/5 ML UDC PO SCH (08:14)
--- NOTE | 2018-09-02 09:01 | Pulmonology Progress Note ---
<Bethany Carey - Last Filed: 09/02/18 10:32> Date of Encounter: 09/02/18 Time of Encounter: 08:59 Assessment and Plan (1) Mediastinal lymphadenopathy Current Visit: Yes Status: Chronic This is a 57 y/o M with PMHx significant for CHF, COPD, GERD, HTN, polysubstance abuse who initially presented to the ED with facial swelling. - Further evaluation revealed initial Hb/Hct = 2.9/10 - severe acute on chronic anemia; given 5U PRBCs in ICU; Hb remained stable 7-8 since initial admission - Hx of PE on Xarelto; hx of noncompliance with follow-up with heme/onc; however, Xarelto currently held due to anemia - Eval for source of bleeding thus far negative - only indicative of Iron- deficiency anemia - EGD/ Colonoscopy - unchanged from previous study in Jul 2018 with evidence on non-bleeding internal hemorrhoids - CT Chest indicated acute DVT, Internal Jugular Vein Thrombosis, lymphadenopathy, splenomegaly; B/L Lower Extremity venous dopplers indicated chronic DVTs - findings suspicious for lymphoma - Currently resting comfortably in no acute distress; remains afebrile without leukocytosis PLAN: - Bronchoscopy today to evaluate mediastinal lymphadenopathy further - pt currently NPO - Hold anticoagulation - Cont to monitor vitals, O2 Sat; maintain O2 > 88% Subjective Principal diagnosis: Anemia Interval history: Pt seen and examined resting comfortably at bedside in no acute distress. No events overnight. No shortness of breath on room air. Denies fevers/chills, headaches, chest pain, SOB, abdominal pain, n/v/d. Plan for bronchoscopy today to evaluate mediastinal lymphadenopathy - currently NPO. Consent obtained. Objective PUL Vital signs: Last Vital Signs Temp 98.1 F 09/02/18 07:54 Pulse 66 09/02/18 07:54 Resp 22 09/02/18 07:54 BP 115/82 09/02/18 07:54 Pulse Ox 98 09/02/18 07:54 General appearance: no acute distress, alert Eyes: nonicteric ENT: oropharynx moist Neck: supple, lymphadenopathy Effort: normal Auscultation: bilateral: clear Cardiovascular: regular rate and rhythm, murmur noted Gastrointestinal: normoactive bowel sounds, soft, non-tender, non-distended Extremities: no cyanosis, no edema normal mental status, non-focal exam, pupils equal and round, CN II-XII normal mood appropriate, affect normal Results - Laboratory Findings CBC and BMP: 09/02/18 04:00 09/01/18 03:45 ABG ABG pH 7.43 pH Units (7.32-7.45) 08/26/18 11:56 ABG pCO2 35 mmHg (35-45) 08/26/18 11:56 ABG pO2 87 mmHg (85-104) 08/26/18 11:56 ABG O2 Saturation 97 % (95-98) 08/26/18 11:56 PT/INR, D-dimer PT 12.5 Seconds (9.4-12.1) H 09/02/18 04:00 Abnormal lab findings: Abnormal lab results WBC 4.0 K/mcL (4.3-11.1) L 09/02/18 04:00 RBC 2.87 M/mcL (4.19-5.50) L 09/02/18 04:00 Hgb 7.6 g/dL (12.9-16.9) L 09/02/18 04:00 Hct 25.7 % (37.5-50.1) L 09/02/18 04:00 MCH 26.5 pg (28.0-33.3) L 09/02/18 04:00 MCHC 29.6 g/dL (31.6-35.5) L 09/02/18 04:00 RDW 16.4 % (11.5-14.5) H 09/02/18 04:00 Plt Count 59 K/mcL (140-400) L 09/02/18 04:00 Nucleated RBCs/100 WBC 0.3 /100 WBC (0) H 08/26/18 12:22 Platelet Estimate Decreased (Normal) L 08/30/18 10:15 Polychromasia 1+ (Not Present) A 08/30/18 01:35 Hypochromasia Present (Not Present) A 08/30/18 01:35 Poikilocytosis 1+ (Not Present) A 08/26/18 12:22 Anisocytosis 1+ (Not Present) A 08/30/18 01:35 Microcytosis Present (Not Present) A 08/26/18 12:22 Percent Retic 4.1 % (1.6-2.8) H 08/26/18 15:33 Retic Hgb Equivalent 17.6 pg (28.61-36.33) L 08/26/18 15:33 PT 12.5 Seconds (9.4-12.1) H 09/02/18 04:00 APTT 40.2 Seconds (26.0-36.0) H 08/31/18 14:30 Chloride 110 mEq/L (98-107) H 09/01/18 03:45 Est GFR (Non-Af Amer) 59 (> 60) L 09/01/18 03:45 Calcium 7.7 mg/dL (8.6-10.3) L 09/01/18 03:45 Iron 10 mcg/dL (65-175) L 08/30/18 01:42 % Saturation 3 % (20-55) L 08/30/18 01:42 Ferritin 18 ng/mL (20-250) L 08/30/18 01:42 Lactate Dehydrogenase 133 Units/L (140-271) L 08/26/18 15:35 Serum Total Protein 5.3 g/dL (6.4-8.9) L 08/30/18 00:27 Total Protein (PEP) 4.70 g/dL (6.00-8.30) L 08/26/18 16:34 Albumin 1.9 g/dL (3.5-5.7) L 08/30/18 00:27 Albumin (PEP) 1.75 g/dL (3.75-5.01) L 08/26/18 16:34 Albumin/Globulin Ratio 0.6 (1.1-2.2) L 08/30/18 00:27 HDL Cholesterol 23 mg/dL (40-59) L 08/26/18 12:22 Folate > 22.3 ng/mL (3.0-16.0) H 08/30/18 01:42 Urine Clarity Cloudy (Clear) A 08/31/18 04:40 Urine Protein 30 mg/dL (Neg-Trace) H 08/31/18 04:40 Urine Blood Large (Negative) H 08/31/18 04:40 Ur Leukocyte Esterase Small (Negative) H 08/31/18 04:40 Urine Microscopic RBC TNTC per hpf (0-3) H 08/31/18 04:40 Urine Microscopic WBC 5-15 per hpf (0-3) H 08/31/18 04:40 Nasal Screen MRSA (PCR) Positive (Negative) A 08/27/18 08:15 Stool Occult Bld Scrn Positive (Negative) A 08/26/18 14:16 U Benzodiazepines Scrn Positive ng/mL (Ujrurn=874) H 08/26/18 18:42 U Marijuana (THC) Screen Positive ng/mL (Cutoff = 50) H 08/26/18 18:42 Hepatitis C RNA Quant DETECTED (Not Detected) A 08/26/18 16:31 - Microbiology Findings Microbiology Findings: Microbiology, Last 48 Hours 08/26/18 11:26 Blood Culture - Final Peripheral Venipuncture No growth. Final report. 08/26/18 11:26 Blood Culture - Final Peripheral Venipuncture No growth. Final report. - Clinical Findings Intake & Output: Intake & Output 09/01/18 09/02/18 09/02/18 23:59 07:59 15:59 Intake Total 120 / 120 0 / 0 Output Total 0 / 0 0 / 0 Balance 120 / 120 0 / 0 Weight 64.7 kg Consult Discharge Plan - Plan Referrals: NONE,PCP [Primary Care Provider] - <Mariana Moreno - Last Filed: 09/02/18 15:51> Date of Encounter: 09/02/18 Objective PUL Vital signs: Last Vital Signs Temp 99.2 F 09/02/18 13:04 Pulse 72 09/02/18 13:04 Resp 12 09/02/18 13:04 BP 112/72 09/02/18 13:04 Pulse Ox 90 09/02/18 13:04 Results - Laboratory Findings CBC and BMP: 09/02/18 04:00 09/01/18 03:45 ABG ABG pH 7.43 pH Units (7.32-7.45) 08/26/18 11:56 ABG pCO2 35 mmHg (35-45) 08/26/18 11:56 ABG pO2 87 mmHg (85-104) 08/26/18 11:56 ABG O2 Saturation 97 % (95-98) 08/26/18 11:56 PT/INR, D-dimer PT 12.5 Seconds (9.4-12.1) H 09/02/18 04:00 Abnormal lab findings: Abnormal lab results WBC 4.0 K/mcL (4.3-11.1) L 09/02/18 04:00 RBC 2.87 M/mcL (4.19-5.50) L 09/02/18 04:00 Hgb 7.6 g/dL (12.9-16.9) L 09/02/18 04:00 Hct 25.7 % (37.5-50.1) L 09/02/18 04:00 MCH 26.5 pg (28.0-33.3) L 09/02/18 04:00 MCHC 29.6 g/dL (31.6-35.5) L 09/02/18 04:00 RDW 16.4 % (11.5-14.5) H 09/02/18 04:00 Plt Count 59 K/mcL (140-400) L 09/02/18 04:00 Nucleated RBCs/100 WBC 0.3 /100 WBC (0) H 08/26/18 12:22 Platelet Estimate Decreased (Normal) L 08/30/18 10:15 Polychromasia 1+ (Not Present) A 08/30/18 01:35 Hypochromasia Present (Not Present) A 08/30/18 01:35 Poikilocytosis 1+ (Not Present) A 08/26/18 12:22 Anisocytosis 1+ (Not Present) A 08/30/18 01:35 Microcytosis Present (Not Present) A 08/26/18 12:22 Percent Retic 4.1 % (1.6-2.8) H 08/26/18 15:33 Retic Hgb Equivalent 17.6 pg (28.61-36.33) L 08/26/18 15:33 PT 12.5 Seconds (9.4-12.1) H 09/02/18 04:00 APTT 40.2 Seconds (26.0-36.0) H 08/31/18 14:30 Chloride 110 mEq/L (98-107) H 09/01/18 03:45 Est GFR (Non-Af Amer) 59 (> 60) L 09/01/18 03:45 Calcium 7.7 mg/dL (8.6-10.3) L 09/01/18 03:45 Iron 10 mcg/dL (65-175) L 08/30/18 01:42 % Saturation 3 % (20-55) L 08/30/18 01:42 Ferritin 18 ng/mL (20-250) L 08/30/18 01:42 Serum Total Protein 5.3 g/dL (6.4-8.9) L 08/30/18 00:27 Total Protein (PEP) 4.70 g/dL (6.00-8.30) L 08/26/18 16:34 Albumin 1.9 g/dL (3.5-5.7) L 08/30/18 00:27 Albumin (PEP) 1.75 g/dL (3.75-5.01) L 08/26/18 16:34 Albumin/Globulin Ratio 0.6 (1.1-2.2) L 08/30/18 00:27 HDL Cholesterol 23 mg/dL (40-59) L 08/26/18 12:22 Folate > 22.3 ng/mL (3.0-16.0) H 08/30/18 01:42 Urine Clarity Cloudy (Clear) A 08/31/18 04:40 Urine Protein 30 mg/dL (Neg-Trace) H 08/31/18 04:40 Urine Blood Large (Negative) H 08/31/18 04:40 Ur Leukocyte Esterase Small (Negative) H 08/31/18 04:40 Urine Microscopic RBC TNTC per hpf (0-3) H 08/31/18 04:40 Urine Microscopic WBC 5-15 per hpf (0-3) H 08/31/18 04:40 Nasal Screen MRSA (PCR) Positive (Negative) A 08/27/18 08:15 Stool Occult Bld Scrn Positive (Negative) A 08/26/18 14:16 U Benzodiazepines Scrn Positive ng/mL (Tqgrlc=913) H 08/26/18 18:42 U Marijuana (THC) Screen Positive ng/mL (Cutoff = 50) H 08/26/18 18:42 Hepatitis C RNA Quant DETECTED (Not Detected) A 08/26/18 16:31 - Microbiology Findings Microbiology Findings: Microbiology, Last 48 Hours 09/02/18 12:31 Respiratory Culture - Preliminary Left Lower Lobe Lung 08/26/18 11:26 Blood Culture - Final Peripheral Venipuncture No growth. Final report. 08/26/18 11:26 Blood Culture - Final Peripheral Venipuncture No growth. Final report. - Clinical Findings Intake & Output: Intake & Output 09/01/18 09/02/18 09/02/18 23:59 07:59 15:59 Intake Total 120 / 120 0 / 0 Output Total 0 / 0 0 / 0 Balance 120 / 120 0 / 0 Weight 64.7 kg - Attending Attestation I examined this patient and my medical decision-making was reviewed with the Resident Physician. I agree with the documented findings, disposition and treatment plan as described except to the extent set forth below. Patient seen and examined. Labs, radiology, chart personally reviewed. Agree with resident's history and physical, assessment, plan with following comments: RIBBER: Patient follows commands, Pulmonary: Acceptable oxygenation and ventilation. Patient is scheduled to have bronchoscopy today. A bronchoscopy is recommended. The procedure , risks, benefits, complications, and expected outcomes have been reviewed. Benefits of diagnosis, as well as risks to include bleeding, infection, pneumothorax which may require surgical intervention, and in a small population. The patient is aware that sometimes test is nondiagnostic. Discussed with patient and agrees to proceed. Patient can resume his anticoagulation after bronchoscopy tonight. We will continue follow-up.
[2018-09-02] MEDS: hydrOXYzine pamoate 25 MG CAPSULE PO PRN (10:25)
[2018-09-02] MEDS ORDERED: Lidocaine -MPF 2% 2 ML VIAL ONE (11:13)
[2018-09-02] MEDS ORDERED: *HR* Propofol 200 MG/20 ML VIAL IVP ONE ×2 (11:13→11:36)
[2018-09-02] MEDS ORDERED: Ondansetron 4 MG/2 ML VIAL ONE (11:13)
[2018-09-02] MEDS ORDERED: *HR* PHENYLEPHRINE 1,000 MCG/10 ML SYRINGE IVP ONE (11:35)
[2018-09-02] MEDS ORDERED: Lidocaine -MPF 4% 5 ML AMPUL ONE (11:36)
[2018-09-02] MEDS ORDERED: EPHEDrine 50 MG/ML VIAL ONE (12:13)
--- NOTE | 2018-09-02 13:15 | Anesthesia Evaluation Post Op ---
Date of Encounter: 09/02/18 Time of Encounter: 13:15 - Vital Signs Vital Signs: Vital Signs/O2 Sat/Glucose, Most Recent Temp Pulse Resp BP Pulse Ox 99.2 F 72 12 112/72 90 09/02/18 13:04 09/02/18 13:04 09/02/18 13:04 09/02/18 13:04 09/02/18 13:04 Blood Glucose* 81 - Lungs Lungs: Clear Ascult./Percussion - Airway Airway: Non-obstructed - Cardiovascular Regular Rate - Mental Status Mental Status: Alert & Oriented, Answers Appropriately - Pain Pain Scale: 0 - Nausea Vomiting Nausea Vomiting: Not Present - Hydration Hydration: NPO - Discharge PostOp Status: Transfer Patient to floor
--- NOTE | 2018-09-02 14:35 | Oncology Inp Progress Note ---
Addendum entered and electronically signed by Tootie Dowling CNP 09/02/18 18:34: This addendum is to serve as my signature for this document. Addendum entered and electronically signed by Pierre Dang MD 09/02/18 18:31: He was lethargic and be examined him. We will check serum ammonia level [id number] Original Note: <Pierre Dang - Last Filed: 09/02/18 17:32> Date of Encounter: 09/02/18 Oncology: Obj Data - Labs CBC & Chem 7: 09/02/18 04:00 09/01/18 03:45 Consult Discharge Plan - Plan Referrals: NONE,PCP [Primary Care Provider] - - Attending Attestation I examined this patient and my medical decision-making was reviewed with the Advanced Practice Nurse. I agree with the documented findings, disposition and treatment plan as described except to the extent set forth below. 1. Admitted with acute anemia hemoglobin 2.8 he received transfusions currently hemoglobin between 7-8. He also received IV iron. He was on anticoagulation on admission which was held Push enteroscopy would Grade A reflux and adenomatous polyp. Pathology pending. Also gastritis. Colonoscopy negative for major bleeding sources 2. Positive hepatitis C with viral load 4.2 logs. He needs treatment as an outpatient 3. Thrombocytopenia. This is chronic since 2017. He did have a drop in platelets since admission from around 90,000-59,000. We will continue observation. Fibrinogen 290. I do further workup including ITP workup as an outpatient. Again treating hepatitis C may improve thrombocytopenia 4. Nonspecific thoracic and axillary adenopathy. CT neck, chest abdomen and pelvis August 2018showed nonspecific adenopathy. IR could not biopsy that. He also has a small precarinal lymph node about 1.5 cm and he had a bronchoscopy and biopsy right 5. History of polysubstance abuse in the past <Tootie Dowling - Last Filed: 09/02/18 18:10> Date of Encounter: 09/02/18 Time of Encounter: 13:30 (1) Anemia Current Visit: Yes Status: Acute Assessment and plan: Patient initially presented with severe anemia with hemoglobin of 2.8, s/p 5 units PRBC He appears to have had chronic anemia that has been worsening since around October 2017 MCV is normal White blood cell count normal Now with worsening thrombocytopenia---bone marrow etiology vs. liver etiology---Hepatitis C RNA positive vs. secondary to bleeding Stool occult blood positive and ER. No active signs or symptoms of bleeding, reports no history of recent bleeding per patient. Xarelto was stopped on admission (review history in blood clot section) CT chest/abdomen/pelvis--- reveals stable thoracic and abdominal lymphadenopathy, stable splenomegaly measuring 3.4 cm craniocaudad dimension, progressive fluid third-spacing with mild bilateral effusions, mild ascites, and body wall edema, improving bilateral pulmonary opacities, atherosclerosis with a stable 4.9 cm aneurysmal dilatation of the descending thoracic aorta, multiple staghorn nonobstructing right renal calculi. Liver appears normal. CT neck---Acute nearly occlusive deep venous thrombus in the left internal jugular vein. Blood smear appears benign S/P push enteroscopy which was negative for bleeding etiology, shows LA grade esophagitis, and a possible polypoid villous adenoma S/P colonoscopy with grade II non bleeding hemorrhoids SPEP no monoclonal proteins PNH pending Plan: Hgb stable at this time S/P venofer Etiology unclear--- bleed prior to admission (although scopes have been negative) vs. HAREDEP vs. bone marrow etiology (less likely) Qualifiers: Anemia type: iron deficiency Iron deficiency anemia type: other iron deficiency Qualified Code(s): D50.8 - Other iron deficiency anemias (2) History of DVT (deep vein thrombosis) Current Visit: No Status: Chronic Assessment and plan: History of bilateral PE evidenced on Neck CTA on 04/27/18 History of DVT, first diagnosed on doppler on 04/27/18 Placed on Xarelto at this time. Denies any other personal or family history of blood clots. Provoked DVT. He has had multiple hospitalizations with admission documents noted on 10/09/17 and 03/05/18 prior to noted DVT/PE. This was also within the 3 month postoperative setting s/p percutaneous screw fixation and pinning of the left hip on 03/06/18. Compliance with anticoagulation since that time is questionable and course of anticoagulation has been fragmented. He is a poor historian in regards to his anticoagulation. From record, he was discharged home on Xarelto on 04/28 then was given rx following d/c again around 07/18. CT soft tissue neck 08/29/17 revealed acute nearly occlusive deep venous thrombus in the left internal jugular vein. Plan: Argatroban gtt was held secondary to development of acute hematuria He was given Arixtra x1 dose, held for planned colonoscopy, then placed on hold for bronchoscopy, pulmonology was consulted by primary team Given his severe anemia on presentation as well as worsening thrombocytopenia (plt today 59), he is not a good candidate for anticoagulation at discharge. Patients bleeding versus clotting risk has been discussed on multiple occassions with patient. Currently, his risk for bleeding outweighs risk for starting AC for discharge home given his thrombocytopenia Etiology of worsening thrombocytopenia unclear---bone marrow etiology vs. liver etiology--Hepatitis C RNA Detected vs. infection Repeat fibrinogen and LDH pending PNH pending (3) Lymphadenopathy Current Visit: Yes Status: Acute Assessment and plan: CT chest/abdomen/pelvis notes stable thoracic and abdominal lymphadenopathy and stable splenomegaly. He appears to have enlarged precarinal, aortopulmonary window, and subcarinal lymph nodes with a precarinal lymph node measuring 1.3 x 2.5 cm. Stable bilateral borderline enlarged hilar lymph nodes.Stable splenomegaly measuring 13.4 cm in craniocaudad dimension. Enlarged portacaval lymph node measuring 1.5 x 2.1 cm stable compared to the pr ior exam. There are multiple borderline enlarged retroperitoneal peripancreatic and periaortic lymph nodes which appear stable. Stable bilateral axillary lymphadenopathy with a left axillary lymph node measuring 1.2 x 3.4 cm is stable compared to the prior exam. Plan: Discussed bx with IR, feel as though axillary LN biopsy would be of low yield Recommended outpatient PET scan and further discussion on bx as outpatient Peripheral blood flow-pending Pulmonology has now been consulted by primary team, S/P bronchoscopy with biopsy today Oncology: Subj Interval history: sitting on side of bed. tolerated bronchoscopy well. continues to report generalized pain, asking for next dose of methadone. Denies chest pain, SOB, nausea vomiting, diarrhea, headache, dizziness, visual changes, fevers or chills. Denies any s/s bleeding. NO acute events noted overnight. - Constitutional General appearance: cooperative, no acute distress, no febrile - Head Head exam: Present: atraumatic - ENT ENT exam: Present: mucous membranes moist, normal oropharynx - Respiratory Respiratory exam: Present: decreased breath sounds, CTAB. Absent: respiratory distress - Cardiovascular Cardiovascular exam: Present: RRR, +S1, +S2 - GI/Abdominal GI/Abdominal exam: Present: normal bowel sounds, soft. Absent: guarding, rebound, tenderness - Extremities Exam Extremities exam: Present: normal inspection. Absent: calf tenderness - Neurological Exam Neurological exam: Present: alert, oriented X3, no focal deficits, strengths equal and symetr throughout - Psychiatric Psychiatric exam: Present: normal affect, normal mood - Skin Skin exam: Present: dry, intact, normal color, warm Oncology: Obj Data - Labs CBC & Chem 7: 09/02/18 04:00 09/01/18 03:45 Inpatient Charges Provider: Dr. Michael Dang
--- NOTE | 2018-09-02 16:04 | Internal Med Progress Note ---
<Josh Kimball - Last Filed: 09/02/18 15:59> Hospitalist Progress Note - Encounter Date of Encounter: 09/02/18 Time of Encounter: 10:10 - Subjective Interval History: Patient was seen and examined at bedside this morning. He is lethargic this morning but notably just received his dose of hydroxyzine and has had his methad one this morning. He states that overall he is doing well but is hoping we can find an answer to his abnormal lab results. No questions or concerns. No events overnight - Exam Vitals: Temp Pulse Resp BP Pulse Ox 99.2 F 72 12 112/72 90 09/02/18 13:04 09/02/18 13:04 09/02/18 13:04 09/02/18 13:04 09/02/18 13:04 Exam: Gen.: Vitals noted. No acute distress. AAOx3, resting comfortably in bed. Mildly pale, lethargic and somnolent this morning. HEENT: PERRL/EOMI, oropharynx clear, Normocephalic, atraumatic, MMM Cardiac: RRR, no murmur, +S1/S2, No BLE edema Pulmonary: CTA bilaterally, no wheezes, rales or rhonchi, equal chest expansion, unlabored breathing Abdomen: soft, nontender, BS noted, no guarding, non distended Skin: warm and dry, no visible lesions. MSK: ROM intact, no joint swelling noted, gait no assessed while in bed. Non tender calf or clubbing Neuro: A&Ox3, moves all extremities, no focal deficits, sensation intact Psych: Appropriate mood and behavior, AOx3 - Assessment and Plan (1) Anemia Current Visit: Yes Assessment and Plan: - Acute on chronic - H/H on presentation 2.8/10.3. Hemoglobin has improved to 7.6 today after 5 units transfusion since admission and remained stable - Most recent hemoglobin drawn at 07/18/18 shows a baseline of 7-12 - Patient has been worked up for anemia in the past including EGD/colonoscopy which were significant only for nonbleeding internal hemorrhoids and polyp which was not resected on 07/17/18. Push enteroscopy 08/30/18 shows no obvious source of bleed, possible villous adenoma. - He is scheduled to follow-up with hematology never did - He was on home Xarelto for previous history of PE. - Stool occult is positive however no gross red blood noticed on examination per ED physician - Etiology is possibly multifactorial including kidney disease, liver disease, chronic blood loss, iron deficiency. - Hematology/oncology has been following, appreciate recommendations - Anemia workup thus far has been unremarkable except for iron deficiency. Perip heral smear does not show evidence of myelodysplasia and hematology is recommending BMB and PET scan as outpatient. - Previous hematuria on arbatroban. Hematology recommending no anticoagulation as outpatient due to thrombocytopenia currently. -CT of the neck, chest, abdomen. Results were significant for acute DVT as below as well as lymphadenopathy and splenomegaly which do raise concerns for lymphoma. - Colonoscopy shows no signs of bleed - Bronchoscopy today shows normal appearing LN, biopsied and pending. Plan - Daily labs - Hematology not recommending BMB as peripheral smear was not indicative for bone marrow disease. - Argatroban stopped, continue arixtra. Per heme onc note, no anticoagulation at discharge at this time. - Given his thrombocytopenia continues to worsen, will need continued monitoring This is a difficult decision makers far as anticoagulation as an outpatient. Patient does have a propensity to bleed and is notably a poor follow-up history. He was relatively asymptomatic when he came in with a hemoglobin of 2 and may not be aware that he has had bleeding. He also had hematuria this morning while on argatroban. On the other hand, patient does seem to demonstrate a high propensity for thrombosis. An IVC filter may be warranted in the future however this would not address his internal jugular thrombosis. 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 Started arixtra. Plan - We will discuss long-term anticoagulations goals with patient - High risk for both bleeding and thrombosis - Hematology currently not recommending anticoagulation at this time (3) Pneumonia Current Visit: Yes Status: Resolved Assessment and Plan: - As demonstrated on chest x-ray emergency department - Patient is nonseptic with 0/4 sirs criteria - Lactic acid of 1.7 - Started on azithromycin, ceftriaxone emergency room - Previously on cefepime, vancomycin, Levaquin as patient is frequently exposed to inpatient facilities. - De-escalated to levaquin and has completed 5 day course. Will discontinue and monitor - MRSA swab positive --CT chest shows improvement of opacities bilaterally. Plan - Patient clinically reports no symptoms - Blood cultures obtained emergency department, negative. strep negative. - Stop all abx (4) Thrombocytopenia Current Visit: Yes Status: Chronic Assessment and Plan: - Appears to be chronic, however continues to decline. - Unclear etiology however some may be related to bone marrow suppression, acute illness, malnutrition. Questionable liver disease - Platelets on presentation of 136, this appears to be around baseline. -Today at 59, has been down trending - No indications for transfusion at this time - Hematology/oncology has been consult, appreciate recommendations (5) CKD (chronic kidney disease) Current Visit: Yes Status: Acute Assessment and Plan: - Based on chart review is states 3 CKD - BUNs/creatinine most recently 05/16.27 to this appears to be baseline creatinine of 1.1-2.0 - Anticipate if this were a gross GI bleed and BUN may be more elevated - We will continue monitor and avoid nephrotoxins, renally dose medications (6) History of methadone use Current Visit: Yes Status: Chronic Assessment and Plan: We will continue while inpatient Patient was previously increasingly somnolent this morning and we will decrease dose, appreciate pharmacy assistance (7) History of pulmonary embolism Current Visit: Yes Status: Chronic Assessment and Plan: As above Previous history of pulmonary embolism and was started on Xarelto Plans for Anticoagulation as above Bilateral lower shortly Dopplers ordered, show preliminary chronic DVTs Unclear if he will be discharged home without anticoagulation given this chronic anemia, appreciate hematology recommendations We will continue monitor (8) Medical non-compliance Current Visit: Yes Status: Chronic Assessment and Plan: Known history of noncompliance and poor follow-up Patient threatened to leave AMA at this visit Patient convinced to stay at this time however he is high risk for adverse effects due to noncompliance with future (9) Polysubstance abuse Current Visit: Yes Status: Chronic Assessment and Plan: - Previous history of IV drug use -Patient denies current IV drug use however he is on methadone and does admit to abusing benzodiazepines - Urine drug screen positive for benzodiazepines and marijuana - Denies alcohol use - We will continue methadone while Patient (10) Hepatitis C Current Visit: Yes Status: Suspected Assessment and Plan: - Patient reports history of hepatitis B and hepatitis C - Per documentation, he believes he was treated for one but is not sure which one - We will obtain PCR quantification of both, pending (11) DVT prophylaxis Current Visit: Yes Status: Acute Assessment and Plan: As above (12) Mediastinal lymphadenopathy Current Visit: Yes Status: Chronic Assessment and Plan: -As demonstrated on CT scan, stable from previous - unclear etiology - Will ask pulmonology, appreciate recommendations - Biopsy with bronchoscopy today. Pending results - Time Spent with Patient Total time spent is greater than 50% in coordination of care (as documented) at patient's floor/unit and/or counseling patient: Internal Medicine: Result - Labs CBC & Chem 7: 09/02/18 04:00 09/01/18 03:45 Labs: Short CBC 09/02/18 Range/Units 04:00 WBC 4.0 L (4.3-11.1) K/mcL Hgb 7.6 L (12.9-16.9) g/dL Hct 25.7 L (37.5-50.1) % Plt Count 59 L (140-400) K/mcL Neutrophils # 2.5 (1.6-8.9) K/mcL - ABG Interpretation ABG results: ABG ABG pH 7.43 pH Units (7.32-7.45) 08/26/18 11:56 ABG pCO2 35 mmHg (35-45) 08/26/18 11:56 ABG pO2 87 mmHg (85-104) 08/26/18 11:56 ABG O2 Saturation 97 % (95-98) 08/26/18 11:56 PT/INR, D-dimer PT 12.5 Seconds (9.4-12.1) H 09/02/18 04:00 Consult Discharge Plan - Plan Referrals: NONE,PCP [Primary Care Provider] - <Brent Ibrahim - Last Filed: 09/02/18 16:28> Hospitalist Progress Note - Encounter Date of Encounter: 09/02/18 - Exam Vitals: Temp Pulse Resp BP Pulse Ox 99.2 F 72 12 112/72 90 09/02/18 13:04 09/02/18 13:04 09/02/18 13:04 09/02/18 13:04 09/02/18 13:04 - Assessment and Plan (1) Anemia Current Visit: Yes Status: Acute (2) Internal jugular (IJ) vein thromboembolism, acute Current Visit: Yes Status: Acute (3) Thrombocytopenia Current Visit: Yes Status: Chronic (4) Lymphadenopathy Current Visit: Yes Status: Acute (5) CKD (chronic kidney disease) Current Visit: Yes Status: Acute (6) History of pulmonary embolism Current Visit: Yes Status: Chronic (7) Polysubstance abuse Current Visit: Yes Status: Chronic (8) Medical non-compliance Current Visit: Yes Status: Chronic (9) Tobacco abuse Current Visit: Yes Status: Chronic - Time Spent with Patient Total time spent is greater than 50% in coordination of care (as documented) at patient's floor/unit and/or counseling patient: Internal Medicine: Result - Labs CBC & Chem 7: 09/02/18 04:00 09/01/18 03:45 Labs: Short CBC 09/02/18 Range/Units 04:00 WBC 4.0 L (4.3-11.1) K/mcL Hgb 7.6 L (12.9-16.9) g/dL Hct 25.7 L (37.5-50.1) % Plt Count 59 L (140-400) K/mcL Neutrophils # 2.5 (1.6-8.9) K/mcL - ABG Interpretation ABG results: ABG ABG pH 7.43 pH Units (7.32-7.45) 08/26/18 11:56 ABG pCO2 35 mmHg (35-45) 08/26/18 11:56 ABG pO2 87 mmHg (85-104) 08/26/18 11:56 ABG O2 Saturation 97 % (95-98) 08/26/18 11:56 PT/INR, D-dimer PT 12.5 Seconds (9.4-12.1) H 09/02/18 04:00 - Attending Attestation I examined this patient and my medical decision-making was reviewed with the Resident Physician on 09/02/18. I agree with the documented findings, disposition and treatment plan as described except to the extent set forth below. Mr Camilo is currently admitted for anemia and thrombocytopenia. He is to have bronch today. He remains moderate to high risk due to potential for worsening clinical status. Mr Camilo is awaiting bronchoscopy. No CP or SOB at this time. No abd pain or GI issues currently. No bleeding on colonoscopy. Exam Alert. Comfortable Mucus membranes dry Heart reg and not tachycardic Lungs clear at this time Abd soft No edema I/P 1. Anemia - Stable today. Continuing to follow 2. Thrombocytopenia - Recheck tomorrow. 3. Lymphadenopathy - bronch and biopsy today. Hold anticoagulation. Further diagnoses and plan as above. <Josh Kimball - Last Filed: 09/02/18 15:59> (1) Anemia Qualifiers: Anemia type: iron deficiency Iron deficiency anemia type: other iron deficiency Qualified Code(s): D50.8 - Other iron deficiency anemias (2) Internal jugular (IJ) vein thromboembolism, acute Qualifiers: Laterality: left Qualified Code(s): I82.C12 - Acute embolism and thrombosis of left internal jugular vein (3) Pneumonia Qualifiers: Pneumonia type: due to unspecified organism Laterality: right Lung location: middle lobe of lung Qualified Code(s): J18.1 - Lobar pneumonia, unspecified organism (5) CKD (chronic kidney disease) Qualifiers: Chronic kidney disease stage: stage 3 (moderate) Qualified Code(s): N18.3 - Chronic kidney disease, stage 3 (moderate) (10) Hepatitis C Qualifiers: Viral hepatitis chronicity: chronic Hepatic coma status: without hepatic coma Qualified Code(s): B18.2 - Chronic viral hepatitis C <Brent Ibrahim - Last Filed: 09/02/18 16:28> (1) Anemia Qualifiers: Anemia type: iron deficiency Iron deficiency anemia type: other iron deficiency Qualified Code(s): D50.8 - Other iron deficiency anemias (2) Internal jugular (IJ) vein thromboembolism, acute Qualifiers: Laterality: left Qualified Code(s): I82.C12 - Acute embolism and thrombosis of left internal jugular vein (5) CKD (chronic kidney disease) Qualifiers: Chronic kidney disease stage: stage 3 (moderate) Qualified Code(s): N18.3 - Chronic kidney disease, stage 3 (moderate)
[2018-09-02 17:50] LABS: Appearance of Body Fluid Cloudy (Clear); Volume of Body Fluid 25 mL
[2018-09-03 04:41] LABS: Kappa Qnt Free Light Chains 15.1 mg/dL (0.33-1.94); Lambda Qnt Free Light Chains 14.3 mg/dL (0.57-2.63)
[2018-09-03 05:38] LABS: Immature Granulocytes % 0.5 % (0-4)
[2018-09-03 05:39] LABS: Basophils % 0.3 %; Eosinophils # 0.1 K/mcL (0.0-0.6); Eosinophils % 3.4 %; Hematocrit 24.3 % (37.5-50.1); Lymphocytes # 1.2 K/mcL (0.6-4.6); Mean Corpuscular HGB Conc 28.8 g/dL (31.6-35.5); Mean Corpuscular Hemoglobin 26.2 pg (28.0-33.3); Mean Platelet Volume 10.6 fL (9.4-12.4); Monocytes # 0.4 K/mcL (0.0-1.3); Monocytes % 9.8 %; Red Blood Count 2.67 M/mcL (4.19-5.50)
[2018-09-03 05:56] LABS: BUN/Creatinine Ratio 8 (6-26); Blood Urea Nitrogen 11 mg/dL (6-20); Calcium 7.6 mg/dL (8.6-10.3); Carbon Dioxide 30 mEq/L (23-29); Chloride 107 mEq/L (98-107); Glucose 144 mg/dL (70-105); Osmolality,Calculated 288 (280-300); Potassium 4.4 mEq/L (3.5-5.1); Sodium 138 mEq/L (136-145); eGFR For Non-African Americans 53 (> 60)
[2018-09-03 06:15] LABS: Neutrophils # 2.1 K/mcL (1.6-8.9); Platelet Count 53 K/mcL (140-400)
[2018-09-03 06:41] LABS: Anisocytosis 1+ (Not Present); Hypochromasia Present (Not Present); Platelet Estimate Decreased (Normal)
[2018-09-03 08:12] LABS: Immunoglobulin A 446 mg/dL (68-408); Immunoglobulin G 1340 mg/dL (768-1632); Immunoglobulin M 77 mg/dL (35-263)
[2018-09-03] MEDS: Methadone Oral Concentrate 50 MG/5 ML UDC PO SCH (09:37)
--- NOTE | 2018-09-03 16:39 | Internal Med Progress Note ---
Hospitalist Progress Note - Encounter Date of Encounter: 09/03/18 Time of Encounter: 12:15 - Subjective Interval History: Mr Camilo is currently admitted for anemia and thrombocytopenia. He remains moderate to high risk due to potential risk for worsening clinical status. Mr Camilo is tearful. He is worried for cancer. His platelets are stable at this time compared to yesterday. He realizes that he has to follow up for this condition. - Exam Vitals: Temp Pulse Resp BP Pulse Ox 98.2 F 64 16 113/69 92 09/03/18 15:19 09/03/18 15:19 09/03/18 15:19 09/03/18 15:19 09/03/18 15:19 Exam: General: Alert and oriented. Comfortable at this time. Skin: Normal color, no rash, no lesions. H: Normocephalic. EENT: EOMI, Mucus membranes moist. Cardiovascular: Normal S1 & S2, No JVD. Pulse regular. Not tachycardic. Lungs: No rhonchi or wheeze. Abdomen: Soft, non-tender, no rigidity. Normal bowel sounds. Extremities: No deformity, no edema or tenderness, Neurological: Normal cognition and motor skills. Pulses: radial pulses normal +2. Rest of the physical exam is non contributory - Assessment and Plan (1) Anemia Current Visit: Yes Status: Acute Assessment and Plan: Hemoglobin is stable today. No overt bleeding noted. Recheck tomorrow. (2) Internal jugular (IJ) vein thromboembolism, acute Current Visit: Yes Status: Acute Assessment and Plan: Currently off anticoagulation due to bleeding risk and thrombocytopenia. (3) Thrombocytopenia Current Visit: Yes Status: Chronic Assessment and Plan: Platelets are about the same as yesterday. Recheck tomorrow - if stable anticipate d/c if OK. (4) Lymphadenopathy Current Visit: Yes Status: Acute Assessment and Plan: Outpatient follow up. (5) CKD (chronic kidney disease) Current Visit: Yes Status: Chronic Assessment and Plan: Creatinine up and down but essentially the same. (6) History of pulmonary embolism Current Visit: Yes Status: Chronic Assessment and Plan: Chronic issue. (7) Polysubstance abuse Current Visit: Yes Status: Chronic Assessment and Plan: Chronic issue. (8) Medical non-compliance Current Visit: Yes Status: Chronic (9) Tobacco abuse Current Visit: Yes Status: Chronic Assessment and Plan: Cessation counselling. - Time Spent with Patient Total time spent is greater than 50% in coordination of care (as documented) at patient's floor/unit and/or counseling patient: Internal Medicine: Result - Labs CBC & Chem 7: 09/03/18 05:20 09/03/18 05:20 Labs: Short CBC 09/03/18 Range/Units 05:20 WBC 3.8 L (4.3-11.1) K/mcL Hgb 7.0 L (12.9-16.9) g/dL Hct 24.3 L (37.5-50.1) % Plt Count 53 L (140-400) K/mcL Neutrophils # 2.1 (1.6-8.9) K/mcL BMP 09/03/18 05:20 Sodium 138 Potassium 4.4 Chloride 107 Carbon Dioxide 30 H BUN 11 Creatinine 1.38 H Glucose 144 H Calcium 7.6 L - ABG Interpretation ABG results: ABG ABG pH 7.43 pH Units (7.32-7.45) 08/26/18 11:56 ABG pCO2 35 mmHg (35-45) 08/26/18 11:56 ABG pO2 87 mmHg (85-104) 08/26/18 11:56 ABG O2 Saturation 97 % (95-98) 08/26/18 11:56 PT/INR, D-dimer PT 12.5 Seconds (9.4-12.1) H 09/02/18 04:00 Consult Discharge Plan - Plan Referrals: NONE,PCP [Primary Care Provider] - (1) Anemia Qualifiers: Anemia type: iron deficiency Iron deficiency anemia type: other iron deficiency Qualified Code(s): D50.8 - Other iron deficiency anemias (2) Internal jugular (IJ) vein thromboembolism, acute Qualifiers: Laterality: left Qualified Code(s): I82.C12 - Acute embolism and thrombosis of left internal jugular vein (5) CKD (chronic kidney disease) Qualifiers: Chronic kidney disease stage: stage 3 (moderate) Qualified Code(s): N18.3 - Chronic kidney disease, stage 3 (moderate)
[2018-09-03] MEDS: hydrOXYzine pamoate 25 MG CAPSULE PO PRN (21:22)
[2018-09-04 05:29] LABS: Hematocrit 24.9 % (37.5-50.1); Hemoglobin 7.3 g/dL (12.9-16.9); Mean Corpuscular HGB Conc 29.3 g/dL (31.6-35.5); Mean Platelet Volume 9.3 fL (9.4-12.4)
[2018-09-04 05:30] LABS: Immature Platelets 1.5 % (1.1-6.1); Mean Corpuscular Hemoglobin 26.5 pg (28.0-33.3); Mean Corpuscular Volume 90.5 fL (83.0-100.0); Red Blood Count 2.75 M/mcL (4.19-5.50); Red Cell Distribution Width 16.9 % (11.5-14.5)
[2018-09-04 05:46] LABS: BUN/Creatinine Ratio 12 (6-26); Blood Urea Nitrogen 15 mg/dL (6-20); Calcium 7.6 mg/dL (8.6-10.3); Carbon Dioxide 30 mEq/L (23-29); Chloride 107 mEq/L (98-107); Glucose 100 mg/dL (70-105); Magnesium 1.7 mg/dL (1.6-2.6); Osmolality,Calculated 289 (280-300); Potassium 4.2 mEq/L (3.5-5.1); Sodium 139 mEq/L (136-145); eGFR For Non-African Americans 60 (> 60)
[2018-09-04] MEDS: Methadone Oral Concentrate 50 MG/5 ML UDC PO SCH (08:49)
--- NOTE | 2018-09-04 10:28 | Discharge Summary ---
- NOTES TO OUTPATIENT PROVIDER Notes to Outpatient Provider: Pt admitted for anemia with hemoglobin of 2.8. Work up negative for bleeding. WBC and platelets decreased as well. Anticoagulation was held. He was transfused. He had bronchoscopy and biopsies pending. He is to follow up with heme in 2 weeks. Orders not resulted at time of discharge: Pending orders 08/26/18 11:07 Sputum Culture [Culture,Sputum with Gram Stain] [RM] Stat 08/31/18 02:58 Peripheral Bld Flow-[facility] Routine 09/02/18 12:26 Tissue Flow Cytometry Routine 09/02/18 12:30 Cytology [PTH] Routine 09/02/18 12:31 AFB Culture, Respiratory [TB] Routine AFB Smear [TB] Routine Culture,Respiratory [RM] Routine Fungal Culture [MYC] Routine 09/04/18 10:26 Red Blood Cells [BBK] Stat Date of Encounter: 09/04/18 Time of Encounter: 10:28 - Discharge Diagnosis (1) Internal jugular (IJ) vein thromboembolism, acute Priority: Primary Status: Acute Qualifiers: Laterality: left Qualified Code(s): I82.C12 - Acute embolism and thrombosis of left internal jugular vein (2) Anemia Priority: Primary Status: Chronic Qualifiers: Anemia type: iron deficiency Iron deficiency anemia type: other iron deficiency Qualified Code(s): D50.8 - Other iron deficiency anemias (3) Thrombocytopenia Priority: Secondary Status: Chronic (4) Lymphadenopathy Priority: Secondary Status: Acute (5) CKD (chronic kidney disease) Priority: Secondary Status: Chronic Qualifiers: Chronic kidney disease stage: stage 3 (moderate) Qualified Code(s): N18.3 - Chronic kidney disease, stage 3 (moderate) (6) History of pulmonary embolism Priority: Secondary Status: Chronic (7) Polysubstance abuse Priority: Secondary Status: Chronic (8) Medical non-compliance Priority: Secondary Status: Chronic (9) Tobacco abuse Priority: Secondary Status: Chronic (10) Esophagitis Priority: Secondary Status: Chronic Hospital course: Mr. Camilo is a 57 year old male with hx of polysubstance abuse presented to ED with weakness. He was found to have hemoglobin of 2.8 and subsequently admitted. Mr Camilo was admitted to ICU. He was transfused PRBCs. He was evaluated by heme/onc and GI. His stool was guiac positive. He underwent EGD which showed esophagitis. Colonoscopy did not show bleeding. His hemoglobin stabilized around 7-8 but his platelets decreased. He was found to have L IJ thrombus as well (hx of PE). Anticoagulation was held due to platelets and hematuria. There was thought to have lymph node biopsy and bone marrow biopsy but these will be pursued in outpatient. He was seen by pulm and had bronchoscopy and biopsy and results are pending. He had no further acute issues. There was discussion regarding anticoagulation. Due to low platelets it was felt by hematology that he should be off anticoagulation at this time and reassess in 2 weeks. He needs PET scan. It is understood that his risk of clotting is very high but his risk of bleeding outweighs this at this time. Today he is afebrile. He received another unit of blood. Platelet stable around 50K. He will be discharged home and is to follow up outpatient. He was encouraged to be compliant. Discharge discussed with: patient Time spent discussing smoking cessation with patient: 3 to 10 minutes - Time Spent with Patient Total time spent providing and/or coordinating discharge services:39min - Discharge Medications Prescriptions: Omeprazole [PriLOSEC] 20 mg PO DAILY@0630 #30 capsule. Home Medications: Ferrous Sulfate 325 mg PO BID #60 tablet. 07/07/18 [Rx] Atorvastatin [Lipitor] 40 mg PO DAILY 08/26/18 [History] Methadone Oral Concentrate [Methadone] 100 mg PO DAILY #0 09/04/18 [Rx] Omeprazole [PriLOSEC] 20 mg PO DAILY@0630 #30 capsule. 09/04/18 [Rx] Allergies/Adverse Reactions: 3 Allergy/AdvReac Type Severity Reaction Status Date / Time Penicillins Allergy Hives Verified 08/26/18 11:29 Date of admission: 08/29/18 10:08 Primary care physician: PCP NONE Consults: 08/26/18 10:33 Consult to Invasive Line Access Team [CONS] Routine Reason for Consult: obtain peripheral access Line Type: Midline PICC line indications: Limited vascular access 08/26/18 11:39 Consult to Invasive Line Access Team [CONS] Routine Reason for Consult: limited vascular access-unable to obtain labs Line Type: EPIV 08/26/18 15:38 Consult to Oncology Hematology [CONS] Routine Consulting Provider: Michael Avila Reason for Consult: anemia, thombocytopenia Call Completed: Yes 08/27/18 07:44 Consult to Physician [CONS] Routine Consulting Provider: Stefano Coh Reason for Consult: Suspect GI bleed, Hgb 2.8 Call Completed: Yes 08/29/18 14:55 Consult to Gastroenterology [CONS] Routine Consulting Provider: Gastroenterology Mackenzie Reason for Consult: recent colonscopy/EGD 08/02, presented with severe anemia hgb 2.8, consider push enteroscopy? Call Completed: Yes 08/31/18 10:53 Consult to Interventional Radiology [CONS] Routine Consulting Provider: Radiology Interventional Cols Reason for Consult: Left axillary LN core needle biopsy---patient is on arg atroban gtt Call Completed: Yes 09/01/18 12:58 Consult to Pulmonology [CONS] Routine Consulting Provider: Pulm [facility] Mackenzie Reason for Consult: Mediastinal lymphadenopathy Call Completed: Yes Discharging clinician: Brent Ibrahim Anticipated date of discharge: 09/04/18 - Constitutional Vitals: Temp Pulse Resp BP Pulse Ox 98 F 69 16 112/85 89 09/04/18 06:51 09/04/18 06:51 09/04/18 06:51 09/04/18 06:51 09/04/18 06:51 General appearance: Present: A&O X 3 Exam: See below - Head Head exam: Present: normocephalic - Eye Eye exam: Present: EOMI, conjuntiva pink - ENT ENT exam: Present: mucous membranes moist - Respiratory Respiratory exam: Present: CTAB. Absent: rales, rhonchi, wheezes - Cardiovascular Cardiovascular exam: Present: RRR. Absent: systolic murmur, tachycardia - GI/Abdominal GI/Abdominal exam: Present: soft. Absent: tenderness - Extremities Exam Extremities exam: Present: warm. Absent: tenderness - Neurological Exam Neurological exam: Present: alert, oriented X3 - Skin Skin exam: Present: dry, warm - Patient Status Disposition: Home, Self-Care Condition: Fair Functional capacity at discharge: independent ambulation Overall status at discharge: patient is progressing back to baseline - Discharge Instructions Follow Up With: NONE,PCP [Primary Care Provider] - Forms: ED Satisfaction Letter, Work/School Release Additional Instructions: Follow up with hematology (Dr. Pretty) in 2 weeks. - Diet and Activity Activity: increase activity as tolerated Diet: advance to your usual diet
[2018-09-04] MEDS ORDERED: 0.9 % Sodium Chloride 500 ML ONE (13:06)
[2018-09-04 16:35] VITALS: BP 107/94
== END 2018-09-04 19:14 | disposition home or self-care (01) | DRG 139 ==
LOC: EMEROOARM 08:07 → ICNU 08:07 → 2NENU 08-27 15:37 → SUATTDRO 08-29 10:08
PROVIDERS: ADMIT Internal Medicine; ATTEND Internal Medicine

== ENCOUNTER 2019-02-13 11:39 | Inpatient (IN) ==
[2019-02-13] MEDS ORDERED: Naloxone 0.4 MG/ML INJ ONE (11:51)
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
[2019-02-13 13:20] LABS: Basophils % 0.3 %; Eosinophils # 0.2 K/mcL (0.0-0.6); Eosinophils % 4.3 %; Hematocrit 35.3 % (37.5-50.1); Hemoglobin 10.5 g/dL (12.9-16.9); Immature Granulocytes % 0.3 % (0-4); Lymphocytes # 1.5 K/mcL (0.6-4.6); Mean Corpuscular HGB Conc 29.7 g/dL (31.6-35.5); Mean Corpuscular Hemoglobin 24.9 pg (28.0-33.3); Mean Corpuscular Volume 83.6 fL (83.0-100.0); Mean Platelet Volume 9.2 fL (9.4-12.4); Monocytes # 0.4 K/mcL (0.0-1.3); Monocytes % 11.2 %; Neutrophils # 1.8 K/mcL (1.6-8.9); Platelet Count 112 K/mcL (140-400); Red Blood Count 4.22 M/mcL (4.19-5.50); Red Cell Distribution Width 16.9 % (11.5-14.5); Segmented Neutrophils % 45.9 %; White Blood Count 3.9 K/mcL (4.3-11.1)
[2019-02-13 13:51] LABS: Alanine Aminotransferase 36 Units/L (7-52); Albumin/Globulin Ratio 0.9 (1.1-2.2); Alkaline Phosphatase 99 Units/L (34-104); Aspartate Amino Transferase 44 Units/L (13-39); BUN/Creatinine Ratio 27 (6-26); Bilirubin,Total 0.3 mg/dL (0.3-1.0); Blood Urea Nitrogen 33 mg/dL (6-20); Calcium 8.4 mg/dL (8.6-10.3); Carbon Dioxide 26 mEq/L (23-29); Chloride 103 mEq/L (98-107); Globulin 3.4 g/dL (2.4-3.5); Glucose 88 mg/dL (70-105); Osmolality,Calculated 289 (280-300); Potassium 4.5 mEq/L (3.5-5.1); Sodium 136 mEq/L (136-145); Total Protein 6.4 g/dL (6.4-8.9); eGFR For African Americans > 60 (> 60); eGFR For Non-African Americans > 60 (> 60)
[2019-02-13 14:16] LABS: Amphetamine Screen,Urine Negative ng/mL (Cutoff=1000); Barbiturate Screen,Urine Negative ng/mL (Cutoff=200); Benzodiazepines Screen,Urine Negative ng/mL (Cutoff=200); Cannabinoid Screen,Urine Positive ng/mL (Cutoff = 50); Cocaine Screen,Urine Positive ng/mL (Cutoff= 300); Opiate Screen,Urine Negative ng/mL (Cutoff=300); Phencyclidine Screen,Urine Negative ng/mL (Cutoff=25)
[2019-02-13 14:31] LABS: Thyroid Stimulating Hormone 3.137 mcIU/mL (0.340-5.600)
[2019-02-13 14:47] LABS: Acetaminophen < 10 mcg/mL (10-20); Ethanol < 10 mg/dL (Less than 10); Salicylate < 2.5 mg/dL (15.0-30.0)
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
[2019-02-13] MEDS: Naloxone 0.4 MG/ML INJ IVP PRN ×2 (16:00→17:06)
[2019-02-13] MEDS ORDERED: MVI, adult with vitamin K 10 ML in 0.9 % Sodium Chloride 1,000 ML IVC ONE (16:51)
[2019-02-13] MEDS ORDERED: Naloxone 2 MG in 0.9 % Sodium Chloride 500 ML IVC SCH (22:00)
[2019-02-14] MEDS ORDERED: Aspirin 325 MG TABLET PO ONE (00:18)
[2019-02-14 05:12] LABS: Basophils % 0.3 %; Eosinophils # 0.2 K/mcL (0.0-0.6); Eosinophils % 6.2 %; Hematocrit 32.9 % (37.5-50.1); Hemoglobin 9.9 g/dL (12.9-16.9); Immature Granulocytes % 1.1 % (0-4); Lymphocytes # 1.3 K/mcL (0.6-4.6); Lymphocytes % 36.4 %; Mean Corpuscular HGB Conc 30.1 g/dL (31.6-35.5); Mean Corpuscular Hemoglobin 24.9 pg (28.0-33.3); Mean Corpuscular Volume 82.7 fL (83.0-100.0); Mean Platelet Volume 9.5 fL (9.4-12.4); Monocytes # 0.3 K/mcL (0.0-1.3); Monocytes % 8.4 %; Neutrophils # 1.7 K/mcL (1.6-8.9); Platelet Count 112 K/mcL (140-400); Red Blood Count 3.98 M/mcL (4.19-5.50); Segmented Neutrophils % 47.6 %; White Blood Count 3.6 K/mcL (4.3-11.1)
[2019-02-14 05:26] LABS: Anisocytosis 1+ (Not Present); Platelet Estimate Slight Decrease (Normal)
[2019-02-14 05:28] LABS: BUN/Creatinine Ratio 21 (6-26); Blood Urea Nitrogen 25 mg/dL (6-20); Carbon Dioxide 28 mEq/L (23-29); Chloride 111 mEq/L (98-107); Glucose 69 mg/dL (70-105); Osmolality,Calculated 295 (280-300); Potassium 4.5 mEq/L (3.5-5.1); Sodium 141 mEq/L (136-145); eGFR For African Americans > 60 (> 60); eGFR For Non-African Americans > 60 (> 60)
--- NOTE | 2019-02-14 07:58 | Internal Med Progress Note ---
Hospitalist Progress Note - Encounter Date of Encounter: 02/14/19 Time of Encounter: 07:58 - Subjective Interval History: Patient seen and examined this morning to bedside. No acute overnight events. Patient much more alert and oriented. Able to provide good history. Mentioned he took his methadone the night before around 4 AM when he woke up as the methadone clinic "frowns upon"if the bottle was empty. He received extra doses of methadone at the clinic. He denied taking any other medication. Denied any suicidal ideation. He said he was feeling better and doing well as far as his previous CT scans. - Exam Vitals: Temp Pulse Resp BP Pulse Ox 97.7 F 56 13 103/70 94 02/14/19 07:43 02/14/19 07:43 02/14/19 07:43 02/14/19 07:43 02/14/19 07:43 Exam: General: In no acute distress. Respiratory exam: CTAB. no accessory muscle use, rales, rhonchi, wheezes Cardiovascular exam: RRR, +S1, +S2. no murmur, gallop, rubs. GI/Abdominal exam: Non-tender, Non-distended, normal bowel sounds, soft, no peritoneal signs. Extremities exam: trace pedal edema, pulses palpable in b/l lower extremities. no calf tenderness Neurological exam: CN II-XII intact, AO X3, no focal deficits. Skin exam: No skin rash - Summary of Assessment and Plan Summary of Assessment and Plan: Assessment Acute Drug overdose-Methadone Utox positive for cocaine, benzo Toxic metabolic encphelopathy iron deficiency anemia leukopenia, thrombocytopenia Lt occipital acute stroke Possible suicidal ideation. Chronic h/o IVDU Polysubstance abuse Hep C Cirrhosis COPD DVT LIJV b/l PE 2018 HTN GERD anxiety, PTSD CKD3 splenomegaly h/o thoracic/axilallary JOURDAN recent hernia surgery Plan - Patient likely has toxic metabolic encephalopathy from methadone overdose as he took around 200 mg of methdone with extradose. Improved with narcan drip. Will stop drip now. f/u EKG for QTc. c/w tele monitor and sitter until psych evaluation. Await psych evaluation but denies any suicidal ideation or feeling depressed. Doesn't know why he said so yesterday. DC continuous pulse oxygen monitor. Hold metadone for now. - Head CT with Lt occipital stroke. No focal deficit. Await MRI, ECHO, carotid. Neurology following. appreciate recommendations. c/w aspirin. May change to plavix if MRI positive. - leukopenia, Thrombocytopenia and anemia likely related to cirrhosis and hepatitis C history as well as iron deficiency. Stable. Monitor for now. Follows oncology as outpatient. Was on xarelto for LIJV DVT but developed severe anemia and it was stopped per hemonc. Improved thoracic/axillary JOURDAN. Recent workup negative for malignancy - Renal function appeared to be at baseline. Monitor for now. - keep on epcd for dvt ppx. Internal Medicine: Result - Labs CBC & Chem 7: 02/14/19 04:27 02/14/19 04:27 Labs: Short CBC 02/13/19 02/14/19 Range/Units 13:09 04:27 WBC 3.9 L 3.6 L (4.3-11.1) K/mcL Hgb 10.5 L 9.9 L (12.9-16.9) g/dL Hct 35.3 L 32.9 L (37.5-50.1) % Plt Count 112 L 112 L (140-400) K/mcL Neutrophils # 1.8 1.7 (1.6-8.9) K/mcL BMP 02/13/19 02/14/19 12:57 04:27 Sodium 136 141 Potassium 4.5 4.5 Chloride 103 111 H Carbon Dioxide 26 28 BUN 33 H 25 H Creatinine 1.21 1.21 Glucose 88 69 L Calcium 8.4 L 8.0 L Liver Function 02/13/19 Range/Units 12:57 Total Bilirubin 0.3 (0.3-1.0) mg/dL AST 44 H (13-39) Units/L ALT 36 (7-52) Units/L Alkaline Phosphatase 99 (34-104) Units/L Albumin 3.0 L (3.5-5.7) g/dL - Impressions Impressions Head CT 02/13/19 16:00 IMPRESSION: 1. No acute intracranial hemorrhage or mass. 2. Subtle focus of asymmetric low-attenuation at the woodward-white interface of the left occipital lobe, concerning for acute ischemic change. Suggest clinical correlation, and consider further characterization with a follow-up brain MRI. The findings were sent to the [facility] at 4:50 pm on 02/13/2019to be communicated to a licensed caregiver. D/ / Josh Alvarez MD / Josh Alvarez MD Interpreting Provider: Josh Alvarez MD Consult Discharge Plan - Plan Referrals: NONE,PCP [Primary Care Provider] -
[2019-02-14] MEDS: Aspirin 81 MG TAB.CHEW PO SCH (10:08)
[2019-02-14] MEDS: Cyanocobalamin (B-12) 1,000 MCG TABLET PO SCH (10:09)
[2019-02-14] MEDS: Multivit/Ca/Min/Fe/FA 1 TAB TABLET PO SCH (10:09)
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
--- NOTE | 2019-02-14 13:48 | Electrocardiograph Report ---
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
--- NOTE | 2019-02-14 16:38 | Electrocardiograph Report ---
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
[2019-02-14] MEDS: cloNIDine HCl 0.1 MG TABLET PO SCH (20:51)
[2019-02-14] MEDS ORDERED: Mirtazapine 15 MG TABLET PO SCH (21:00)
[2019-02-14] MEDS ORDERED: Melatonin 3 MG TABLET PO PRN (22:42)
[2019-02-15 07:53] VITALS: BP 115/75
[2019-02-15] MEDS: Multivit/Ca/Min/Fe/FA 1 TAB TABLET PO SCH (08:52)
[2019-02-15] MEDS: cloNIDine HCl 0.1 MG TABLET PO SCH (08:53)
[2019-02-15] MEDS: Cyanocobalamin (B-12) 1,000 MCG TABLET PO SCH (08:53)
[2019-02-15] MEDS: Aspirin 81 MG TAB.CHEW PO SCH (08:53)
--- NOTE | 2019-02-15 10:09 | Neurology Progress Note ---
<Aquilino Page J - Last Filed: 02/15/19 14:07> Date of Encounter: 02/15/19 Time of Encounter: 10:06 Assessment and Plan (1) Stroke Status: Suspected Acute CVA ruled out with negative neuro imaging Carotid duplex with nonstenotic plaque bilaterally 10/17/18 Echocardiogram EF 55%, mild , mild, TR, mild PHTN Neurological exam finds no focal deficits Previously taking ASA and Lipitor daily, continue at d/c Discussed aggressive risk factor modification including illicit drug use cessation Neurology will sign off Subjective Principal diagnosis: overdose Interval history: The patient was seen in f/u by neurology for evaluation of suspected acute CVA d/t CT findings. An MRI of the brain was completed which ruled out an acute CVA as it did not identify any acute ischemic changes. The patient remains intact neurologically. I discussed the need for continuing ASA and statin therapy for further stroke prevention with a h/o CVA. Additionally, I discussed cessation of illicit drug abuse and aggressive risk factor modifications. He denies any concerns and is anxious for discharge. He denies any further questions and agrees with the neurology plan of care. Objective - Constitutional Vitals: Temp Pulse Resp BP Pulse Ox 98.4 F 56 20 115/75 93 02/15/19 07:50 02/15/19 07:50 02/15/19 05:44 02/15/19 07:50 02/15/19 07:50 Exam: Exam: Examination: General Examination: *CONSTITUTIONAL: Alert and oriented place, person, time/date and situation. no acute distress, *GENERAL APPEARANCE OF PATIENT appears healthy and well groomed *EYES: pupils equal, round, reactive to light and accommodation, conjunctiva clear *CARDIOVASCULAR no peripheral edema, distal temperature normal, dorsalis pedis pulses normal. Musculoskeletal: *GAIT AND STATION normal, with normal Romberg testing, no abnormalities such as broad base gait or spasticity *ASSESSMENT OF MUSCLE STRENGTH IN THE UPPER AND LOWER EXTREMITIES bilateral deltoid, bicep, tricep, health support specialist strength, hip flexors ,anterior tibialis, dorsoflexion of the foot 5/5 *MUSCLE TONE IN THE UPPER AND LOWER EXTREMITIES normal. No abnormal movements, fasciculations or atrophy identified. Neurological: *ORIENTATION to person, situation, time and place *RECURRENT AND REMOTE MEMORY intact *ATTENTION AND CONCENTRATION are normal *LANGUAGE FUNCTION no significant aphasia or dysarthia was noted. *FUND OF KNOWLEDGE aware of current events, past history, vocabulary *MENTAL attention span and concentration normal. *CN II optic fundi were normal, no papilledema noted. *CN III,IV, PERRLA extraocular eye movements were full, no nystagmus and no ptosis noted. *CN V shows normal sensation and jaw opens symmetrically. *CN VII shows normal facial movement symmetrically, upper and lower bilaterally. *CN VIII shows no significant hearing loss on exam *CN IX,,X palate elevated symmetrically *CN XI normal strength in the sternocleidomastoid muscles, symmetrical shoulder shrugging. *CN XII tongue protruded in the midline, with normal strength and movement. *SENSORY EXAMINATION light touch intact *REFLEXES: deep tendon reflexes were normal and symmetrical , grade 2/4 diffusely, no pathological reflexes were noted. *CEREBELLAR TESTING normal finger to nose, heel/knee/wilkerson *PAIN LEVEL 0/10 Results - Laboratory Findings CBC and BMP: 02/14/19 04:27 02/14/19 04:27 Abnormal lab findings: Abnormal lab results WBC 3.6 K/mcL (4.3-11.1) L 02/14/19 04:27 RBC 3.98 M/mcL (4.19-5.50) L 02/14/19 04:27 Hgb 9.9 g/dL (12.9-16.9) L 02/14/19 04:27 Hct 32.9 % (37.5-50.1) L 02/14/19 04:27 MCV 82.7 fL (83.0-100.0) L 02/14/19 04:27 MCH 24.9 pg (28.0-33.3) L 02/14/19 04:27 MCHC 30.1 g/dL (31.6-35.5) L 02/14/19 04:27 RDW 17.0 % (11.5-14.5) H 02/14/19 04:27 Plt Count 112 K/mcL (140-400) L 02/14/19 04:27 MPV 9.2 fL (9.4-12.4) L 02/13/19 13:09 Slight Decrease (Normal) L 02/14/19 04:27 1+ (Not Present) A 02/14/19 04:27 Chloride 111 mEq/L (98-107) H 02/14/19 04:27 BUN 25 mg/dL (6-20) H 02/14/19 04:27 27 (6-26) H 02/13/19 12:57 Glucose 69 mg/dL (70-105) L 02/14/19 04:27 POC Glucose 108 mg/dL (70-99) H 02/14/19 16:08 Calcium 8.0 mg/dL (8.6-10.3) L 02/14/19 04:27 AST 44 Units/L (13-39) H 02/13/19 12:57 3.0 g/dL (3.5-5.7) L 02/13/19 12:57 0.9 (1.1-2.2) L 02/13/19 12:57 Positive (Negative) A 02/14/19 Unknown Salicylates < 2.5 mg/dL (15.0-30.0) L 02/13/19 12:57 Acetaminophen < 10 mcg/mL (10-20) L 02/13/19 12:57 Positive ng/mL (Cutoff= 300) H 02/13/19 13:37 U Marijuana (THC) Screen Positive ng/mL (Cutoff = 50) H 02/13/19 13:37 Consult Discharge Plan - Plan Instructions: Anxiety (DC) Referrals: Franky Perez, [Partnered Physician] - 04/05/19 1:00 pm NONE,PCP [Primary Care Provider] - <Alex Durham I - Last Filed: 02/15/19 16:40> Date of Encounter: 02/15/19 Assessment and Plan (1) Stroke Status: Suspected I have personally performed a face to face diagnostic evaluation, including HPI, EXAM, which is included in the Assesment and plan, which was discussed with Aquilino Page CNP, I agree with the above outlined documentation. No evidence of any stroke on imaging studies or on exam Alex Durham MD. NeurologyI Qualifiers: CVA mechanism: unspecified Qualified Code(s): I63.9 - Cerebral infarction, unspecified Objective - Constitutional Vitals: Temp Pulse Resp BP Pulse Ox 98.4 F 56 20 115/75 93 02/15/19 07:50 02/15/19 07:50 07/03/19 05:44 02/15/19 07:50 02/15/19 07:50 Results - Laboratory Findings CBC and BMP: 02/14/19 04:27 02/14/19 04:27 Abnormal lab findings: Abnormal lab results WBC 3.6 K/mcL (4.3-11.1) L 02/14/19 04:27 RBC 3.98 M/mcL (4.19-5.50) L 02/14/19 04:27 Hgb 9.9 g/dL (12.9-16.9) L 02/14/19 04:27 Hct 32.9 % (37.5-50.1) L 02/14/19 04:27 MCV 82.7 fL (83.0-100.0) L 02/14/19 04:27 MCH 24.9 pg (28.0-33.3) L 02/14/19 04:27 MCHC 30.1 g/dL (31.6-35.5) L 02/14/19 04:27 RDW 17.0 % (11.5-14.5) H 02/14/19 04:27 Plt Count 112 K/mcL (140-400) L 02/14/19 04:27 MPV 9.2 fL (9.4-12.4) L 02/13/19 13:09 Slight Decrease (Normal) L 02/14/19 04:27 1+ (Not Present) A 02/14/19 04:27 Chloride 111 mEq/L (98-107) H 02/14/19 04:27 BUN 25 mg/dL (6-20) H 02/14/19 04:27 27 (6-26) H 02/13/19 12:57 Glucose 69 mg/dL (70-105) L 02/14/19 04:27 POC Glucose 106 mg/dL (70-99) H 02/15/19 05:52 Calcium 8.0 mg/dL (8.6-10.3) L 02/14/19 04:27 AST 44 Units/L (13-39) H 02/13/19 12:57 3.0 g/dL (3.5-5.7) L 02/13/19 12:57 0.9 (1.1-2.2) L 02/13/19 12:57 Positive (Negative) A 02/14/19 Unknown Salicylates < 2.5 mg/dL (15.0-30.0) L 02/13/19 12:57 Acetaminophen < 10 mcg/mL (10-20) L 02/13/19 12:57 Positive ng/mL (Cutoff= 300) H 02/13/19 13:37 U Marijuana (THC) Screen Positive ng/mL (Cutoff = 50) H 02/13/19 13:37
[2019-02-15] MEDS ORDERED: Methadone Oral Concentrate 50 MG/5 ML UDC PO ONE (10:32)
--- NOTE | 2019-02-15 13:51 | Discharge Summary ---
- NOTES TO OUTPATIENT PROVIDER Notes to Outpatient Provider: Came with the mehtadone overdose. Stable at discharge. Orders not resulted at time of discharge: Pending orders 02/14/19 06:00 EKG [ECG 12 lead ECG] [ECG] AM 0600 02/15/19 12:00 MRSA Surveillance Screen [MOLMIC] Routine Date of Encounter: 02/15/19 Time of Encounter: 12:30 - Discharge Diagnosis (1) Toxic encephalopathy Priority: Secondary Status: Acute (2) Drug overdose Priority: Primary Status: Acute Qualifiers: Encounter type: initial encounter Injury intent: accidental or unintentional Qualified Code(s): T50.901A - Poisoning by unspecified drugs, m edicaments and biological substances, accidental (unintentional), initial encounter (3) PTSD (post-traumatic stress disorder) Priority: Secondary Status: Acute Hospital course: Mr. Camilo is a 58 year old male who presented to the hospital and that her mental status, found to have methadone overdose with 200 mg extra over his usual dose. Patient was initially started on Narcan drip which was discontinued. Neurology was consulted because a CT scan was concerning for infarct. Patient did not have any focal deficits. MRI was also done, no acute stroke as per MRI report. Neurology mentioned to continue the patient on aspirin and atorvastatin. There were also concerns about the patient's suicidal ideation but the patient denies any suicidal ideation currently. Psychiatry was consulted, patient is currently on antidepressants. 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 Patient will follow-up with outpatient psychiatry consultation as well as methadone rehabilitation program. Patient understands his current condition and he was to follow up with both services. Patient is currently feeling fine and is stable to be discharged to home. Plan discussed with the patient and social media intern. - Time Spent with Patient Total time spent providing and/or coordinating discharge services: 46 minutes - Discharge Medications Prescriptions: Continued Atorvastatin [Lipitor] 40 mg PO DAILY Multivitamin [Daily Multiple Vitamin] 1 each PO DAILY Aspirin 81 mg PO DAILY Docusate [Colace] 100 mg PO DAILY PRN PRN Reason: Constipation Mirtazapine [Remeron] 15 mg PO HS Methadone Oral Concentrate [Methadone] 100 mg PO DAILY Promethazine [Phenergan] 25 mg PO BID PRN PRN Reason: Nausea Ferrous Sulfate 325 mg PO DAILY #30 tablet. Cyanocobalamin (Vitamin B-12) [Vitamin B-12] 1,000 mcg PO DAILY #30 capsule Home Medications: Atorvastatin [Lipitor] 40 mg PO DAILY 08/26/18 [History] Aspirin 81 mg PO DAILY 10/05/18 [History] Docusate [Colace] 100 mg PO DAILY PRN 10/05/18 [History] Methadone Oral Concentrate [Methadone] 100 mg PO DAILY 10/05/18 [History] Mirtazapine [Remeron] 15 mg PO HS 10/05/18 [History] Multivitamin [Daily Multiple Vitamin] 1 each PO DAILY 10/05/18 [History] Promethazine [Phenergan] 25 mg PO BID PRN 01/03/19 [History] Cyanocobalamin (Vitamin B-12) [Vitamin B-12] 1,000 mcg PO DAILY #30 capsule 02/07/19 [Rx] Ferrous Sulfate 325 mg PO DAILY #30 tablet. 02/07/19 [Rx] Allergies/Adverse Reactions: Allergy/AdvReac Type Severity Reaction Status Date / Time Penicillins Allergy Hives Verified 02/07/19 09:55 Date of admission: 02/13/19 16:23 Primary care physician: PCP NONE Consults: 02/13/19 12:20 Consult to Invasive Line Access Team [CONS] Stat Reason for Consult: Limited IV access due to drug use Line Type: Midline 02/13/19 13:45 Consult to Psychiatry [CONS] Routine Consulting Provider: Psychiatry [facility] Reason consult: [place] slip on chart [place] Slip initiated date and time: 02/13/19 1345 Call Completed: No 02/13/19 14:24 Consult to Invasive Line Access Team [CONS] Routine Reason for Consult: poor access Line Type: EPIV 02/14/19 06:06 Consult to Neurology [CONS] Routine Consulting Provider: Neurology [facility] Reason for Consult: stroke Call Completed: Yes - Constitutional Vitals: Temp Pulse Resp BP Pulse Ox 98.4 F 56 20 115/75 93 02/15/19 07:50 02/15/19 07:50 02/15/19 05:44 02/15/19 07:50 02/15/19 07:50 Exam: General: Alert and oriented, no physical distress, able to follow commands. HEENT: No thyromegaly, no lymphadenopathy, no discharge. Eyes: No discharge. Respiratory: Normal vesicular breathing, no added sounds, breathing equal in both sides. CVS: Normal heart sounds, no murmurs, no edema. Extremities: No peripheral edema, peripheral pulses intact. Lymph nodes: No lymphadenopathy Gastrointestinal: Soft, nontender abdomen, normal abdominal sounds. No distention noted. Genitourinary: No paravertebral tenderness. Neurological: Alert and oriented. No focal deficits. Cranial nerves II-XII intact. - Patient Status Disposition: Home, Self-Care Condition: Good Functional capacity at discharge: independent ambulation Overall status at discharge: patient is back to baseline - Discharge Instructions Follow Up With: Franky Perez [Partnered Physician] - 04/05/19 1:00 pm NONE,PCP [Primary Care Provider] - - Diet and Activity Activity: resume usual activities as tolerated Diet: advance to your usual diet
== END 2019-02-15 16:28 | disposition home or self-care (01) | DRG 812 ==
LOC: EMEROOARM 11:39 → 3BNU 11:39 → SUATTDRO 16:23 → 2NENU 20:15
PROVIDERS: ADMIT Internal Medicine Nephrology; ATTEND Internal Medicine

== ENCOUNTER 2019-04-01 13:48 | Inpatient (IN) ==
[2019-04-01 14:32] LABS: Immature Granulocytes % 0.3 % (0-4); Red Cell Distribution Width 19.6 % (11.5-14.5)
[2019-04-01 14:34] LABS: Basophils % 0.6 %; Eosinophils % 1.2 %; Hematocrit 37.5 % (37.5-50.1); Hemoglobin 11.4 g/dL (12.9-16.9); Immature Platelets 1.6 % (1.1-6.1); Lymphocytes # 0.9 K/mcL (0.6-4.6); Mean Corpuscular HGB Conc 30.4 g/dL (31.6-35.5); Mean Corpuscular Hemoglobin 25.7 pg (28.0-33.3); Mean Corpuscular Volume 84.7 fL (83.0-100.0); Mean Platelet Volume 9.3 fL (9.4-12.4); Monocytes # 0.3 K/mcL (0.0-1.3); Monocytes % 8.6 %; Neutrophils # 2.1 K/mcL (1.6-8.9); Platelet Count 95 K/mcL (140-400); Red Blood Count 4.43 M/mcL (4.19-5.50); Segmented Neutrophils % 62.3 %; White Blood Count 3.3 K/mcL (4.3-11.1)
[2019-04-01 14:40] LABS: Bilirubin,Urine Negative (Negative); Blood,Urine Large (Negative); Color,Urine Yellow (Yellow); Glucose,Urine (UA) Normal (Normal); Ketones,Urine Negative (Negative); Leukocyte Esterase,Urine Moderate (Negative); Nitrite,Urine Negative (Negative); PH,Urine 5.5 pH Units (5.0-8.0); Protein,Urine 100 mg/dL (Neg-Trace); Specific Gravity,Urine 1.019 (1.010-1.025); Urobilinogen,Urine Normal (Normal)
[2019-04-01 14:43] LABS: Bacteria,Urine None Seen per hpf (None-Few); RBC,Urine 50-100 per hpf (0-3); Squamous Epithelial Cell,Urine Many per lpf (None-Few); WBC,Urine 15-30 per hpf (0-3)
[2019-04-01 14:46] LABS: Clarity,Urine Slightly Hazy (Clear)
[2019-04-01 14:48] LABS: Amphetamine Screen,Urine Negative ng/mL (Cutoff=1000); Barbiturate Screen,Urine Negative ng/mL (Cutoff=200); Benzodiazepines Screen,Urine Negative ng/mL (Cutoff=200); Cannabinoid Screen,Urine Negative ng/mL (Cutoff = 50); Cocaine Screen,Urine Negative ng/mL (Cutoff= 300); Opiate Screen,Urine Negative ng/mL (Cutoff=300); Phencyclidine Screen,Urine Negative ng/mL (Cutoff=25)
[2019-04-01 14:54] LABS: Acetaminophen < 10 mcg/mL (10-20); Alanine Aminotransferase 37 Units/L (7-52); Albumin 3.5 g/dL (3.5-5.7); Alkaline Phosphatase 103 Units/L (34-104); Aspartate Amino Transferase 37 Units/L (13-39); BUN/Creatinine Ratio 22 (6-26); Bilirubin,Direct 0.2 mg/dL (0.0-0.2); Bilirubin,Indirect 0.2 mg/dL (0.0-1.2); Bilirubin,Total 0.4 mg/dL (0.3-1.0); Blood Urea Nitrogen 32 mg/dL (6-20); Calcium 8.8 mg/dL (8.6-10.3); Carbon Dioxide 22 mEq/L (23-29); Chloride 105 mEq/L (98-107); Ethanol < 10 mg/dL (Less than 10); Globulin 3.5 g/dL (2.4-3.5); Glucose 98 mg/dL (70-105); Osmolality,Calculated 293 (280-300); Potassium 3.9 mEq/L (3.5-5.1); Salicylate < 2.5 mg/dL (15.0-30.0); Sodium 138 mEq/L (136-145); eGFR For African Americans > 60 (> 60); eGFR For Non-African Americans 51 (> 60)
[2019-04-01 14:57] LABS: Granular Casts,Urine Moderate per lpf (None Seen); Hyaline Casts,Urine Few per lpf (None-Few)
[2019-04-01 14:58] LABS: Amorphous Sediment,Urine Many (Few)
[2019-04-01 15:06] LABS: Thyroid Stimulating Hormone 4.021 mcIU/mL (0.340-5.600)
[2019-04-01] MEDS ORDERED: 0.9 % Sodium Chloride 1,000 ML IVC ONE (16:32)
[2019-04-01] MEDS ORDERED: *HR* LORazepam 2 MG/ML VIAL IM ONE (17:02)
[2019-04-01] MEDS ORDERED: Haloperidol Lactate 5 MG/ML VIAL IM ONE (17:50)
[2019-04-01] MEDS ORDERED: Naloxone 0.4 MG/ML INJ IVP PRN (22:00)
[2019-04-01] MEDS ORDERED: Ondansetron 4 MG/2 ML VIAL IVP PRN (22:10)
[2019-04-01] MEDS ORDERED: 0.9 % Sodium Chloride 1,000 ML IVC SCH (22:15)
[2019-04-01] MEDS ORDERED: cefTRIAXone 1,000 MG in 0.9 % Sodium Chloride Mini Bag 100 ML IVPB ONE (22:22)
[2019-04-01 22:44] LABS: Troponin I < 0.03 ng/mL (< 0.04)
[2019-04-02] MEDS: D5% in 0.9% NACL 1,000 ML IVC SCH ×3 (00:20→23:29)
[2019-04-02 03:40] LABS: Alanine Aminotransferase 29 Units/L (7-52); Albumin 2.9 g/dL (3.5-5.7); Albumin/Globulin Ratio 0.9 (1.1-2.2); Alkaline Phosphatase 86 Units/L (34-104); Aspartate Amino Transferase 34 Units/L (13-39); BUN/Creatinine Ratio 21 (6-26); Bilirubin,Total 0.3 mg/dL (0.3-1.0); Blood Urea Nitrogen 25 mg/dL (6-20); Calcium 8.3 mg/dL (8.6-10.3); Carbon Dioxide 22 mEq/L (23-29); Chloride 112 mEq/L (98-107); Globulin 3.1 g/dL (2.4-3.5); Glucose 84 mg/dL (70-105); Magnesium 2.1 mg/dL (1.6-2.6); Osmolality,Calculated 290 (280-300); Phosphorous 3.4 mg/dL (2.7-4.5); Potassium 4.4 mEq/L (3.5-5.1); Sodium 138 mEq/L (136-145); eGFR For African Americans > 60 (> 60); eGFR For Non-African Americans > 60 (> 60)
[2019-04-02 03:43] LABS: Eosinophils % 1.1 %; Hematocrit 34.3 % (37.5-50.1); Hemoglobin 10.6 g/dL (12.9-16.9); Mean Corpuscular HGB Conc 30.9 g/dL (31.6-35.5)
[2019-04-02 03:45] LABS: Basophils % 0.6 %; Immature Granulocytes % 0.3 % (0-4); Lymphocytes # 1.4 K/mcL (0.6-4.6); Lymphocytes % 38.5 %; Mean Corpuscular Hemoglobin 25.5 pg (28.0-33.3); Mean Corpuscular Volume 82.7 fL (83.0-100.0); Mean Platelet Volume 9.7 fL (9.4-12.4); Monocytes # 0.4 K/mcL (0.0-1.3); Monocytes % 10.5 %; Neutrophils # 1.7 K/mcL (1.6-8.9); Red Blood Count 4.15 M/mcL (4.19-5.50); Red Cell Distribution Width 19.5 % (11.5-14.5); White Blood Count 3.5 K/mcL (4.3-11.1)
[2019-04-02 03:48] LABS: Platelet Count 89 K/mcL (140-400)
[2019-04-02 04:02] LABS: Prothrombin Time 11.9 Seconds (9.4-12.1)
[2019-04-02 04:05] LABS: Activated Partial Thrombo Time 32.6 Seconds (26.0-36.0)
[2019-04-02] MEDS ORDERED: *HR* Heparin 5,000 UNIT/ML VIAL SQ SCH (06:00)
[2019-04-02] MEDS ORDERED: Ipratropium/Albuterol Neb 3 ML IH PRN (06:12)
[2019-04-02] MEDS: Azithromycin 500 MG in 0.9 % Sodium Chloride 250 ML IVPB SCH (10:03)
[2019-04-02] MEDS: Nicotine 21 MG PATCH.TD24 TD SCH (10:03)
[2019-04-02] MEDS: Aspirin 81 MG TAB.CHEW PO SCH (10:04)
[2019-04-02] MEDS: Multivit/Ca/Min/Fe/FA 1 TAB TABLET PO SCH (10:05)
[2019-04-02] MEDS: Cyanocobalamin (B-12) 1,000 MCG TABLET PO SCH (10:05)
[2019-04-02] MEDS: Mirtazapine 15 MG TABLET PO SCH (20:27)
[2019-04-03] MEDS ORDERED: *HR* Promethazine 25 MG/ML VIAL IVP ONE (03:05)
[2019-04-03] MEDS ORDERED: Haloperidol Lactate 5 MG/ML VIAL IVP ONE (03:05)
[2019-04-03] MEDS ORDERED: Haloperidol Lactate 5 MG/ML VIAL ONE (03:07)
[2019-04-03] MEDS ORDERED: *HR* Promethazine 25 MG/ML VIAL ONE (03:08)
[2019-04-03] MEDS: Azithromycin 500 MG in 0.9 % Sodium Chloride 250 ML IVPB SCH (05:52)
[2019-04-03 08:26] LABS: Basophils % 0.3 %; Hemoglobin 10.1 g/dL (12.9-16.9)
[2019-04-03 08:28] LABS: Eosinophils # 0.1 K/mcL (0.0-0.6); Eosinophils % 2.6 %; Hematocrit 32.2 % (37.5-50.1); Immature Granulocytes % 2.6 % (0-4); Immature Platelets 2.2 % (1.1-6.1); Lymphocytes # 1.4 K/mcL (0.6-4.6); Lymphocytes % 45.7 %; Mean Corpuscular HGB Conc 31.4 g/dL (31.6-35.5); Mean Corpuscular Hemoglobin 25.8 pg (28.0-33.3); Mean Corpuscular Volume 82.4 fL (83.0-100.0); Mean Platelet Volume 9.5 fL (9.4-12.4); Monocytes # 0.3 K/mcL (0.0-1.3); Monocytes % 10.9 %; Neutrophils # 1.1 K/mcL (1.6-8.9); Red Blood Count 3.91 M/mcL (4.19-5.50); Red Cell Distribution Width 19.7 % (11.5-14.5); Segmented Neutrophils % 37.9 %
[2019-04-03 08:37] LABS: BUN/Creatinine Ratio 19 (6-26); Blood Urea Nitrogen 21 mg/dL (6-20); Carbon Dioxide 23 mEq/L (23-29); Chloride 113 mEq/L (98-107); Glucose 98 mg/dL (70-105); Osmolality,Calculated 295 (280-300); Potassium 4.8 mEq/L (3.5-5.1); Sodium 141 mEq/L (136-145); eGFR For African Americans > 60 (> 60); eGFR For Non-African Americans > 60 (> 60)
[2019-04-03 08:51] LABS: Platelet Count 73 K/mcL (140-400)
[2019-04-03] MEDS ORDERED: Methadone Oral Concentrate 50 MG/5 ML UDC PO ONE (09:00)
[2019-04-03] MEDS: Nicotine 21 MG PATCH.TD24 TD SCH (11:33)
[2019-04-03] MEDS: Multivit/Ca/Min/Fe/FA 1 TAB TABLET PO SCH (11:33)
[2019-04-03] MEDS: Cyanocobalamin (B-12) 1,000 MCG TABLET PO SCH (11:33)
[2019-04-03] MEDS: Aspirin 81 MG TAB.CHEW PO SCH (11:33)
[2019-04-03] MEDS: Mirtazapine 15 MG TABLET PO SCH (21:15)
[2019-04-04] MEDS: Azithromycin 500 MG in 0.9 % Sodium Chloride 250 ML IVPB SCH (06:05)
[2019-04-04] MEDS: Aspirin 81 MG TAB.CHEW PO SCH (07:37)
[2019-04-04] MEDS: Cyanocobalamin (B-12) 1,000 MCG TABLET PO SCH (07:38)
[2019-04-04] MEDS: Multivit/Ca/Min/Fe/FA 1 TAB TABLET PO SCH (07:38)
[2019-04-04] MEDS: Nicotine 21 MG PATCH.TD24 TD SCH (07:38)
[2019-04-04 16:43] LABS: Basophils % 0.3 %; Eosinophils # 0.1 K/mcL (0.0-0.6); Eosinophils % 2.1 %; Hematocrit 34.8 % (37.5-50.1); Hemoglobin 11.1 g/dL (12.9-16.9); Immature Granulocytes % 0.9 % (0-4); Lymphocytes # 1.4 K/mcL (0.6-4.6); Lymphocytes % 41.2 %; Mean Corpuscular HGB Conc 31.9 g/dL (31.6-35.5); Mean Corpuscular Hemoglobin 25.9 pg (28.0-33.3); Mean Corpuscular Volume 81.1 fL (83.0-100.0); Mean Platelet Volume 9.4 fL (9.4-12.4); Monocytes # 0.4 K/mcL (0.0-1.3); Monocytes % 10.7 %; Neutrophils # 1.5 K/mcL (1.6-8.9); Platelet Count 104 K/mcL (140-400); Red Blood Count 4.29 M/mcL (4.19-5.50); Red Cell Distribution Width 19.2 % (11.5-14.5); Segmented Neutrophils % 44.8 %; White Blood Count 3.3 K/mcL (4.3-11.1)
[2019-04-04 16:53] LABS: BUN/Creatinine Ratio 26 (6-26); Blood Urea Nitrogen 28 mg/dL (6-20); Calcium 8.5 mg/dL (8.6-10.3); Carbon Dioxide 26 mEq/L (23-29); Chloride 108 mEq/L (98-107); Glucose 104 mg/dL (70-105); Osmolality,Calculated 290 (280-300); Potassium 4.6 mEq/L (3.5-5.1); Sodium 137 mEq/L (136-145); eGFR For African Americans > 60 (> 60); eGFR For Non-African Americans > 60 (> 60)
[2019-04-04] MEDS ORDERED: *HR* LORazepam 2 MG/ML VIAL IVP ONE (21:36)
[2019-04-04] MEDS ORDERED: *HR* OxyCODONE Immed Rel 5 MG TABLET PO ONE (21:37)
[2019-04-04] MEDS: Mirtazapine 15 MG TABLET PO SCH (22:15)
[2019-04-05] MEDS: Azithromycin 500 MG in 0.9 % Sodium Chloride 250 ML IVPB SCH (06:10)
[2019-04-05] MEDS: D5% in 0.9% NACL 1,000 ML IVC SCH (07:41)
[2019-04-05 07:55] VITALS: BP 119/70
== END 2019-04-05 10:02 | disposition other institution (70) | DRG 52 ==
LOC: EMEROOARM 13:48 → 3BNU 13:48
PROVIDERS: ADMIT Internal Medicine; ATTEND Internal Medicine

== ENCOUNTER 2019-09-07 15:48 | Inpatient (IN) ==
[2019-09-07 16:59] LABS: Basophils % 0.1 %; Hematocrit 38.9 % (37.5-50.1); Hemoglobin 13.1 g/dL (12.9-16.9); Immature Granulocytes % 2.4 % (0-4); Lymphocytes # 0.2 K/mcL (0.6-4.6); Lymphocytes % 1.9 %; Mean Corpuscular HGB Conc 33.7 g/dL (31.6-35.5); Mean Corpuscular Hemoglobin 29.8 pg (28.0-33.3); Mean Corpuscular Volume 88.6 fL (83.0-100.0); Mean Platelet Volume 8.7 fL (9.4-12.4); Monocytes # 0.8 K/mcL (0.0-1.3); Monocytes % 6.3 %; Neutrophils # 11.2 K/mcL (1.6-8.9); Platelet Count 97 K/mcL (140-400); Red Blood Count 4.39 M/mcL (4.19-5.50); Red Cell Distribution Width 14.3 % (11.5-14.5); Segmented Neutrophils % 89.3 %; White Blood Count 12.5 K/mcL (4.3-11.1)
[2019-09-07 17:00] LABS: Prothrombin Time 11.3 Seconds (9.4-12.1)
[2019-09-07 17:03] LABS: Activated Partial Thrombo Time 27.8 Seconds (26.0-36.0)
[2019-09-07 17:22] LABS: Calcium 8.4 mg/dL (8.6-10.3); Potassium 3.9 mEq/L (3.5-5.1)
[2019-09-07 17:26] LABS: Troponin I 0.1 ng/mL (< 0.04)
[2019-09-07 17:44] LABS: Alanine Aminotransferase 128 Units/L (7-52); Albumin 3.3 g/dL (3.5-5.7); Alkaline Phosphatase 85 Units/L (34-104); Aspartate Amino Transferase 322 Units/L (13-39); Bilirubin,Direct 0.5 mg/dL (0.0-0.2); Bilirubin,Indirect 0.5 mg/dL (0.0-1.0); Creatine Kinase 7443 Units/L (30-223); Ethanol < 10 mg/dL (Less than 10); Globulin 3.4 g/dL (2.4-3.5); Total Protein 6.7 g/dL (6.4-8.9)
[2019-09-07] MEDS ORDERED: 0.9 % Sodium Chloride 1,000 ML IVC ONE (17:48)
[2019-09-07] MEDS ORDERED: Aspirin 325 MG TABLET PO ONE (17:55)
[2019-09-07] MEDS ORDERED: Naloxone 0.4 MG/ML INJ IVP PRN (18:16)
[2019-09-07] MEDS ORDERED: Ondansetron ODT 4 MG TAB.RAPDIS SL PRN (18:16)
[2019-09-07] MEDS ORDERED: 0.9 % Sodium Chloride 1,000 ML IVC SCH (18:30)
[2019-09-07] MEDS ORDERED: Haloperidol Lactate 5 MG/ML VIAL IVP PRN (18:37)
[2019-09-07] MEDS ORDERED: Nicotine 14 MG PATCH.TD24 TD SCH (19:00)
[2019-09-07 19:09] LABS: Hepatitis B Surface Antigen Nonreactive (Nonreactive)
[2019-09-07 19:38] LABS: Hepatitis B Core IgM Nonreactive (Nonreactive)
[2019-09-07] MEDS: *HR* Heparin 5,000 UNIT/ML VIAL SQ SCH (22:26)
[2019-09-07] MEDS: 0.9 % Sodium Chloride 1,000 ML IVC SCH (22:41)
[2019-09-07 22:56] LABS: Bilirubin,Urine Small (Negative); Blood,Urine Large (Negative); Clarity,Urine Cloudy (Clear); Color,Urine Dark Yellow (Yellow); Glucose,Urine (UA) Normal (Normal); Ketones,Urine Trace mg/dL (Negative); Leukocyte Esterase,Urine Moderate (Negative); Nitrite,Urine Negative (Negative); PH,Urine 5.5 pH Units (5.0-8.0); Protein,Urine >=300 mg/dL (Neg-Trace); Specific Gravity,Urine 1.019 (1.010-1.025); Urobilinogen,Urine Normal (Normal)
[2019-09-07 22:59] LABS: Bacteria,Urine None Seen per hpf (None-Few); Hyaline Casts,Urine None Seen per lpf (None-Few); RBC,Urine 50-100 per hpf (0-3); Squamous Epithelial Cell,Urine Moderate per lpf (None-Few); WBC,Urine 15-30 per hpf (0-3)
[2019-09-07 23:10] LABS: Amphetamine Screen,Urine Positive ng/mL (Cutoff=1000); Barbiturate Screen,Urine Negative ng/mL (Cutoff=200); Benzodiazepines Screen,Urine Negative ng/mL (Cutoff=200); Cannabinoid Screen,Urine Positive ng/mL (Cutoff = 50); Cocaine Screen,Urine Negative ng/mL (Cutoff= 300); Opiate Screen,Urine Negative ng/mL (Cutoff=300); Phencyclidine Screen,Urine Negative ng/mL (Cutoff=25)
[2019-09-07 23:31] LABS: Protein/Creatinine Ratio,Urine 2.87 mg/mg (0.00-0.20); Sodium, Urine 17.8 mEq/L
[2019-09-07 23:49] LABS: Hepatitis C Virus Antibody Reactive (Nonreactive)
[2019-09-08] MEDS ORDERED: *HR* LORazepam 1 MG TABLET PO ONE (03:30)
[2019-09-08 05:02] LABS: Hepatitis A Antibody IgM Nonreactive (Nonreactive)
[2019-09-08] MEDS: *HR* Heparin 5,000 UNIT/ML VIAL SQ SCH ×2 (06:15→19:14)
[2019-09-08] MEDS ORDERED: Nicotine 14 MG PATCH.TD24 TD SCH (09:00)
[2019-09-08 09:08] LABS: Basophils % 0.1 %
[2019-09-08 09:09] LABS: White Blood Count 12.2 K/mcL (4.3-11.1)
[2019-09-08 09:10] LABS: Hematocrit 35.2 % (37.5-50.1); Hemoglobin 12.1 g/dL (12.9-16.9); Immature Granulocytes % 2.2 % (0-4); Immature Platelets 0.9 % (1.1-6.1); Lymphocytes # 0.3 K/mcL (0.6-4.6); Lymphocytes % 2.7 %; Mean Corpuscular HGB Conc 34.4 g/dL (31.6-35.5); Mean Corpuscular Hemoglobin 29.8 pg (28.0-33.3); Mean Corpuscular Volume 86.7 fL (83.0-100.0); Mean Platelet Volume 8.2 fL (9.4-12.4); Monocytes # 0.9 K/mcL (0.0-1.3); Monocytes % 7.4 %; Neutrophils # 10.7 K/mcL (1.6-8.9); Red Blood Count 4.06 M/mcL (4.19-5.50); Red Cell Distribution Width 14.3 % (11.5-14.5); Segmented Neutrophils % 87.6 %
[2019-09-08 09:15] LABS: Acinetobacter baumannii by PCR Not Detected (Not Detect); Candida albicans by PCR Not Detected (Not Detect); Candida glabrata by PCR Not Detected (Not Detect); Candida krusei by PCR Not Detected (Not Detect); Candida parapsilosis by PCR Not Detected (Not Detect); Candida tropicalis by PCR Not Detected (Not Detect); Enterobacter cloacae Cmplx PCR Not Detected (Not Detect); Enterobacteriaceae by PCR Not Detected (Not Detect); Enterococcus by PCR Not Detected (Not Detect); Escherichia coli by PCR Not Detected (Not Detect); Klebsiella oxytoca by PCR Not Detected (Not Detect); Klebsiella pneumoniae by PCR Not Detected (Not Detect); Proteus by PCR Not Detected (Not Detect); Pseudomonas aeruginosa by PCR Not Detected (Not Detect); Serratia marcescens by PCR Not Detected (Not Detect); Staphylococcus aureus by PCR Not Detected (Not Detect); Staphylococcus by PCR Not Detected (Not Detect); Streptococcus agalactiae(B)PCR Not Detected (Not Detect); Streptococcus pneumoniae PCR Not Detected (Not Detect); Streptococcus pyogenes (A) PCR DETECTED (Not Detect); blaKPC Carbapenem-Resist Gene Not Detected (Not Detect); mecA Methicillin-Resist Gene Not Detected (Not Detect); vanA/B Vancomycin-Resist Genes Not Detected (Not Detect)
[2019-09-08 09:25] LABS: Platelet Count 88 K/mcL (140-400); Platelet Estimate Decreased (Normal)
[2019-09-08 09:32] LABS: Albumin 2.9 g/dL (3.5-5.7); Albumin/Globulin Ratio 0.9 (1.1-2.2); Bilirubin,Total 0.9 mg/dL (0.3-1.0); Calcium 7.8 mg/dL (8.6-10.3); Globulin 3.1 g/dL (2.4-3.5); Magnesium 2.6 mg/dL (1.6-2.6); Potassium 3.9 mEq/L (3.5-5.1); Troponin I 0.06 ng/mL (< 0.04)
[2019-09-08] MEDS ORDERED: Clindamycin 600 MG/50 ML 600 MG/50 ML IV.SOLN IVPB SCH (09:32)
[2019-09-08] MEDS ORDERED: cefTRIAXone 2,000 MG in 0.9 % Sodium Chloride Mini Bag 100 ML IVPB SCH (09:32)
[2019-09-08] MEDS: 0.9 % Sodium Chloride 1,000 ML IVC SCH ×2 (10:07→21:45)
[2019-09-08] MEDS ORDERED: Mirtazapine 15 MG TABLET PO PRN ×2 (10:17→19:59)
[2019-09-08] MEDS ORDERED: *HR* LORazepam 2 MG/ML VIAL IVP PRN ×5 (10:17→19:59)
[2019-09-08] MEDS ORDERED: cloNIDine HCl 0.1 MG TABLET PO PRN ×2 (10:22→19:59)
[2019-09-08] MEDS ORDERED: *HR* HYDROcodone/Acet 5/325 mg TABLET PO PRN ×2 (15:56→19:59)
[2019-09-08] MEDS ORDERED: *HR* FentaNYL (PF) 100 MCG/2 ML VIAL ONE (16:25)
[2019-09-08] MEDS ORDERED: Ondansetron 4 MG/2 ML VIAL ONE (16:25)
[2019-09-08] MEDS ORDERED: *HR* Midazolam HCl 2 MG/2 ML VIAL ONE (16:25)
[2019-09-08] MEDS ORDERED: *HR* Propofol 200 MG/20 ML VIAL IVP ONE (16:25)
[2019-09-08] MEDS ORDERED: Dexamethasone 4 MG/ML VIAL ONE (16:25)
[2019-09-08] MEDS ORDERED: *HR* Succinylcholine 200 MG/10 ML VIAL IVP ONE (16:26)
[2019-09-08] MEDS ORDERED: *HR* Rocuronium Bromide 50 MG/5 ML VIAL ONE (16:26)
[2019-09-08] MEDS ORDERED: Ondansetron 4 MG/2 ML VIAL IVP ONE ×2 (17:17→19:59)
[2019-09-08] MEDS ORDERED: *HR* HYDROmorphone (PF) 1 MG/ML SYRINGE IVP PRN ×2 (17:17→19:59)
[2019-09-08] MEDS ORDERED: *HR* OxyCODONE Immed Rel 5 MG TABLET PO PRN ×2 (17:17→19:59)
[2019-09-08] MEDS ORDERED: Clindamycin 600 MG/50 ML 600 MG/50 ML IV.SOLN IVPB ONE (17:36)
[2019-09-08] MEDS ORDERED: Haloperidol Lactate 5 MG/ML VIAL IVP PRN (19:59)
[2019-09-08] MEDS ORDERED: Naloxone 0.4 MG/ML INJ IVP PRN (19:59)
[2019-09-08] MEDS ORDERED: Ondansetron ODT 4 MG TAB.RAPDIS SL PRN (19:59)
[2019-09-08] MEDS ORDERED: PARoxetine 20 MG TABLET PO SCH (21:00)
[2019-09-08] MEDS: PARoxetine 20 MG TABLET PO SCH (21:44)
[2019-09-08] MEDS: Clindamycin 600 MG/50 ML 600 MG/50 ML IV.SOLN IVPB SCH (23:43)
[2019-09-09 01:21] LABS: Mean Corpuscular Volume 88.4 fL (83.0-100.0); Red Blood Count 3.62 M/mcL (4.19-5.50)
[2019-09-09 01:23] LABS: Hemoglobin 10.7 g/dL (12.9-16.9); Immature Platelets 0.9 % (1.1-6.1); Mean Corpuscular HGB Conc 33.4 g/dL (31.6-35.5); Mean Corpuscular Hemoglobin 29.6 pg (28.0-33.3); Red Cell Distribution Width 14.5 % (11.5-14.5); White Blood Count 7.1 K/mcL (4.3-11.1)
[2019-09-09 01:32] LABS: Calcium 7.2 mg/dL (8.6-10.3); Platelet Count 72 K/mcL (140-400); Potassium 4.5 mEq/L (3.5-5.1)
[2019-09-09 02:18] LABS: Lymphocytes # 1.3 K/mcL (0.6-4.6); Neutrophils # 5.8 K/mcL (1.6-8.9); Toxic Granulation Present (Not Present)
[2019-09-09 02:20] LABS: Anisocytosis 1+ (Not Present); Reactive Lymphocytes Present (Not Present)
[2019-09-09 02:21] LABS: Platelet Estimate Decreased (Normal)
[2019-09-09] MEDS: *HR* Heparin 5,000 UNIT/ML VIAL SQ SCH ×2 (05:00→17:42)
[2019-09-09] MEDS: 0.9 % Sodium Chloride 1,000 ML IVC SCH (06:13)
[2019-09-09] MEDS: Clindamycin 600 MG/50 ML 600 MG/50 ML IV.SOLN IVPB SCH ×2 (07:40→15:46)
[2019-09-09] MEDS: Thiamine (B-1) 100 MG TABLET PO SCH (07:41)
[2019-09-09] MEDS: Aspirin 81 MG TAB.CHEW PO SCH (07:41)
[2019-09-09] MEDS: Cyanocobalamin (B-12) 1,000 MCG TABLET PO SCH (07:41)
[2019-09-09] MEDS: Folic Acid 1 MG TABLET PO SCH (07:41)
[2019-09-09] MEDS: Nicotine 14 MG PATCH.TD24 TD SCH (07:42)
[2019-09-09] MEDS: cefTRIAXone 2,000 MG in 0.9 % Sodium Chloride Mini Bag 100 ML IVPB SCH (08:42)
[2019-09-09] MEDS ORDERED: Aspirin 81 MG TAB.CHEW PO SCH (09:00)
[2019-09-09] MEDS ORDERED: Thiamine (B-1) 100 MG TABLET PO SCH (09:00)
[2019-09-09] MEDS ORDERED: Cyanocobalamin (B-12) 1,000 MCG TABLET PO SCH (09:00)
[2019-09-09] MEDS ORDERED: Folic Acid 1 MG TABLET PO SCH (09:00)
[2019-09-09] MEDS: *HR* HYDROcodone/Acet 5/325 mg TABLET PO PRN (15:46)
[2019-09-09] MEDS: PARoxetine 20 MG TABLET PO SCH (21:51)
[2019-09-09] MEDS: *HR* OxyCODONE Immed Rel 5 MG TABLET PO PRN (21:51)
[2019-09-10] MEDS: Clindamycin 600 MG/50 ML 600 MG/50 ML IV.SOLN IVPB SCH ×3 (00:16→15:33)
[2019-09-10] MEDS: 0.9 % Sodium Chloride 1,000 ML IVC SCH (02:39)
[2019-09-10 02:50] LABS: Red Cell Distribution Width 14.6 % (11.5-14.5)
[2019-09-10 02:52] LABS: Basophils % 0.1 %; Hematocrit 31.8 % (37.5-50.1); Hemoglobin 10.8 g/dL (12.9-16.9); Immature Granulocytes % 6.1 % (0-4); Immature Platelets 1.9 % (1.1-6.1); Lymphocytes # 0.5 K/mcL (0.6-4.6); Lymphocytes % 6.3 %; Mean Corpuscular Hemoglobin 29.8 pg (28.0-33.3); Mean Corpuscular Volume 87.8 fL (83.0-100.0); Monocytes # 0.7 K/mcL (0.0-1.3); Monocytes % 8.8 %; Neutrophils # 5.9 K/mcL (1.6-8.9); Red Blood Count 3.62 M/mcL (4.19-5.50); Segmented Neutrophils % 78.7 %; White Blood Count 7.5 K/mcL (4.3-11.1)
[2019-09-10 02:53] LABS: Platelet Count 82 K/mcL (140-400)
[2019-09-10 03:00] LABS: Albumin 2.3 g/dL (3.5-5.7); Albumin/Globulin Ratio 0.8 (1.1-2.2); Bilirubin,Direct 0.2 mg/dL (0.0-0.2); Bilirubin,Indirect 0.2 mg/dL (0.0-1.0); Bilirubin,Total 0.4 mg/dL (0.3-1.0); Calcium 7.2 mg/dL (8.6-10.3); Globulin 2.9 g/dL (2.4-3.5); Total Protein 5.2 g/dL (6.4-8.9)
[2019-09-10 03:24] LABS: Platelet Estimate Decreased (Normal)
[2019-09-10 03:25] LABS: Anisocytosis 1+ (Not Present)
[2019-09-10] MEDS: *HR* Heparin 5,000 UNIT/ML VIAL SQ SCH ×2 (04:57→18:18)
[2019-09-10] MEDS: Cyanocobalamin (B-12) 1,000 MCG TABLET PO SCH (08:56)
[2019-09-10] MEDS: Aspirin 81 MG TAB.CHEW PO SCH (08:56)
[2019-09-10] MEDS: Folic Acid 1 MG TABLET PO SCH (08:56)
[2019-09-10] MEDS: Thiamine (B-1) 100 MG TABLET PO SCH (08:57)
[2019-09-10] MEDS: cefTRIAXone 2,000 MG in 0.9 % Sodium Chloride Mini Bag 100 ML IVPB SCH (08:57)
[2019-09-10] MEDS: Nicotine 14 MG PATCH.TD24 TD SCH (08:58)
[2019-09-10] MEDS: *HR* OxyCODONE Immed Rel 5 MG TABLET PO PRN ×3 (08:59→18:17)
[2019-09-10] MEDS: *HR* LORazepam 2 MG/ML VIAL IVP PRN ×2 (18:20→18:27)
[2019-09-10] MEDS: *HR* HYDROcodone/Acet 5/325 mg TABLET PO PRN (21:06)
[2019-09-11] MEDS: *HR* OxyCODONE Immed Rel 5 MG TABLET PO PRN ×5 (01:19→19:53)
[2019-09-11 01:31] LABS: Basophils % 0.2 %
[2019-09-11 01:33] LABS: Eosinophils # 0.1 K/mcL (0.0-0.6); Hematocrit 35.2 % (37.5-50.1); Hemoglobin 11.4 g/dL (12.9-16.9); Immature Platelets 1.6 % (1.1-6.1); Lymphocytes # 0.8 K/mcL (0.6-4.6); Lymphocytes % 15.9 %; Mean Corpuscular HGB Conc 32.4 g/dL (31.6-35.5); Mean Corpuscular Hemoglobin 29.7 pg (28.0-33.3); Mean Corpuscular Volume 91.7 fL (83.0-100.0); Mean Platelet Volume 9.2 fL (9.4-12.4); Monocytes # 0.5 K/mcL (0.0-1.3); Monocytes % 10.3 %; Neutrophils # 3.7 K/mcL (1.6-8.9); Red Blood Count 3.84 M/mcL (4.19-5.50); Red Cell Distribution Width 14.6 % (11.5-14.5); Segmented Neutrophils % 71.6 %; White Blood Count 5.2 K/mcL (4.3-11.1)
[2019-09-11 01:44] LABS: Platelet Count 94 K/mcL (140-400)
[2019-09-11 01:50] LABS: Calcium 7.4 mg/dL (8.6-10.3); Potassium 3.6 mEq/L (3.5-5.1)
[2019-09-11] MEDS: *HR* HYDROcodone/Acet 5/325 mg TABLET PO PRN (04:24)
[2019-09-11] MEDS: *HR* Heparin 5,000 UNIT/ML VIAL SQ SCH ×2 (05:36→18:12)
[2019-09-11] MEDS: Aspirin 81 MG TAB.CHEW PO SCH (08:44)
[2019-09-11] MEDS: Thiamine (B-1) 100 MG TABLET PO SCH (08:44)
[2019-09-11] MEDS: Nicotine 14 MG PATCH.TD24 TD SCH (08:44)
[2019-09-11] MEDS: Cyanocobalamin (B-12) 1,000 MCG TABLET PO SCH (08:45)
[2019-09-11] MEDS: cefTRIAXone 2,000 MG in 0.9 % Sodium Chloride Mini Bag 100 ML IVPB SCH (08:46)
[2019-09-11 09:03] LABS: Serine Protease-3 Antibody 4 AU/mL (0-19)
[2019-09-11] MEDS: Folic Acid 1 MG TABLET PO SCH (11:04)
[2019-09-11] MEDS ORDERED: Ondansetron 4 MG/2 ML VIAL IVP ONE (20:10)
[2019-09-11] MEDS ORDERED: *HR* OxyCODONE Immed Rel 5 MG TABLET PO PRN (20:10)
[2019-09-11] MEDS ORDERED: Ondansetron 4 MG/2 ML VIAL ONE (21:11)
[2019-09-11] MEDS ORDERED: *HR* FentaNYL (PF) 100 MCG/2 ML VIAL ONE ×2 (21:11)
[2019-09-11] MEDS ORDERED: Lidocaine -MPF 2% 2 ML VIAL ONE (21:11)
[2019-09-11] MEDS ORDERED: *HR* Propofol 200 MG/20 ML VIAL IVP ONE (21:11)
[2019-09-11] MEDS ORDERED: Dexamethasone 4 MG/ML VIAL ONE (21:11)
[2019-09-11] MEDS ORDERED: Ringers Solution, Lactated 1,000 ML ONE (22:34)
[2019-09-11] MEDS: *HR* Promethazine 25 MG/ML VIAL IVP PRN ×2 (22:38→23:01)
[2019-09-11] MEDS: *HR* HYDROmorphone (PF) 1 MG/ML SYRINGE IVP PRN ×2 (22:57→23:07)
[2019-09-11] MEDS ORDERED: *HR* Labetalol 20 MG/4 ML SYRINGE IVP ONE (23:19)
[2019-09-12] MEDS ORDERED: Naloxone 0.4 MG/ML INJ IVP PRN (00:07)
[2019-09-12] MEDS ORDERED: *HR* LORazepam 2 MG/ML VIAL IVP PRN ×3 (00:07)
[2019-09-12] MEDS ORDERED: *HR* HYDROmorphone (PF) 1 MG/ML SYRINGE IVP PRN (00:07)
[2019-09-12] MEDS ORDERED: Ondansetron ODT 4 MG TAB.RAPDIS SL PRN (00:07)
[2019-09-12] MEDS ORDERED: Ondansetron 4 MG/2 ML VIAL IVP ONE (00:07)
[2019-09-12] MEDS ORDERED: Haloperidol Lactate 5 MG/ML VIAL IVP PRN (00:07)
[2019-09-12] MEDS ORDERED: *HR* HYDROcodone/Acet 5/325 mg TABLET PO PRN (00:07)
[2019-09-12] MEDS ORDERED: 0.9 % Sodium Chloride 1,000 ML IVC SCH (00:07)
[2019-09-12 04:03] LABS: Basophils % 0.2 %; Eosinophils % 0.2 %; Mean Corpuscular HGB Conc 33.9 g/dL (31.6-35.5); Mean Corpuscular Hemoglobin 30.1 pg (28.0-33.3)
[2019-09-12 04:05] LABS: Hematocrit 34.2 % (37.5-50.1); Hemoglobin 11.6 g/dL (12.9-16.9); Immature Granulocytes % 0.7 % (0-4); Immature Platelets 2.1 % (1.1-6.1); Lymphocytes # 0.4 K/mcL (0.6-4.6); Lymphocytes % 9.9 %; Mean Corpuscular Volume 88.8 fL (83.0-100.0); Mean Platelet Volume 9.1 fL (9.4-12.4); Monocytes # 0.3 K/mcL (0.0-1.3); Monocytes % 7.9 %; Neutrophils # 3.2 K/mcL (1.6-8.9); Platelet Count 80 K/mcL (140-400); Red Blood Count 3.85 M/mcL (4.19-5.50); Red Cell Distribution Width 14.6 % (11.5-14.5); Segmented Neutrophils % 81.1 %
[2019-09-12 04:13] LABS: BUN/Creatinine Ratio 28 (6-26); Blood Urea Nitrogen 41 mg/dL (6-20); Calcium 7.5 mg/dL (8.6-10.3); Carbon Dioxide 23 mEq/L (23-29); Chloride 109 mEq/L (98-107); Glucose 116 mg/dL (70-105); Osmolality,Calculated 295 (280-300); Potassium 4.4 mEq/L (3.5-5.1); Sodium 137 mEq/L (136-145); eGFR For African Americans > 60 (> 60); eGFR For Non-African Americans 50 (> 60)
[2019-09-12] MEDS: *HR* Heparin 5,000 UNIT/ML VIAL SQ SCH ×2 (05:15→17:38)
[2019-09-12] MEDS: cefTRIAXone 2,000 MG in 0.9 % Sodium Chloride Mini Bag 100 ML IVPB SCH (08:08)
[2019-09-12] MEDS: Nicotine 14 MG PATCH.TD24 TD SCH (08:15)
[2019-09-12] MEDS: Folic Acid 1 MG TABLET PO SCH (08:20)
[2019-09-12] MEDS: Aspirin 81 MG TAB.CHEW PO SCH (08:20)
[2019-09-12] MEDS: Thiamine (B-1) 100 MG TABLET PO SCH (08:20)
[2019-09-12] MEDS: Cyanocobalamin (B-12) 1,000 MCG TABLET PO SCH (08:21)
[2019-09-12] MEDS: *HR* OxyCODONE Immed Rel 5 MG TABLET PO PRN ×3 (09:34→17:37)
[2019-09-13] MEDS: *HR* OxyCODONE Immed Rel 5 MG TABLET PO PRN ×4 (03:55→17:37)
[2019-09-13 04:00] LABS: Mean Corpuscular Volume 89.4 fL (83.0-100.0)
[2019-09-13 04:02] LABS: Basophils % 0.2 %; Eosinophils # 0.1 K/mcL (0.0-0.6); Eosinophils % 2.7 %; Hematocrit 31.9 % (37.5-50.1); Hemoglobin 10.5 g/dL (12.9-16.9); Immature Granulocytes % 2.5 % (0-4); Immature Platelets 2.2 % (1.1-6.1); Lymphocytes % 22.3 %; Mean Corpuscular HGB Conc 32.9 g/dL (31.6-35.5); Mean Corpuscular Hemoglobin 29.4 pg (28.0-33.3); Mean Platelet Volume 9.5 fL (9.4-12.4); Monocytes # 0.5 K/mcL (0.0-1.3); Monocytes % 11.3 %; Neutrophils # 2.7 K/mcL (1.6-8.9); Red Blood Count 3.57 M/mcL (4.19-5.50); Red Cell Distribution Width 14.6 % (11.5-14.5); White Blood Count 4.4 K/mcL (4.3-11.1)
[2019-09-13 04:06] LABS: Platelet Count 89 K/mcL (140-400)
[2019-09-13 04:14] LABS: Albumin 2.1 g/dL (3.5-5.7); Albumin/Globulin Ratio 0.7 (1.1-2.2); Bilirubin,Total 0.3 mg/dL (0.3-1.0); Calcium 7.4 mg/dL (8.6-10.3); Globulin 2.9 g/dL (2.4-3.5); Potassium 3.8 mEq/L (3.5-5.1)
[2019-09-13] MEDS: *HR* Heparin 5,000 UNIT/ML VIAL SQ SCH ×2 (06:09→17:33)
[2019-09-13] MEDS: Cyanocobalamin (B-12) 1,000 MCG TABLET PO SCH (09:09)
[2019-09-13] MEDS: cloNIDine HCl 0.1 MG TABLET PO PRN ×2 (09:09→20:57)
[2019-09-13] MEDS: Folic Acid 1 MG TABLET PO SCH (09:10)
[2019-09-13] MEDS: Aspirin 81 MG TAB.CHEW PO SCH (09:10)
[2019-09-13] MEDS: Thiamine (B-1) 100 MG TABLET PO SCH (09:10)
[2019-09-13] MEDS: cefTRIAXone 2,000 MG in 0.9 % Sodium Chloride Mini Bag 100 ML IVPB SCH (09:11)
[2019-09-13] MEDS: Nicotine 14 MG PATCH.TD24 TD SCH (09:11)
[2019-09-13] MEDS ORDERED: cloNIDine HCl 0.1 MG TABLET PO ONE (15:06)
[2019-09-14] MEDS: *HR* OxyCODONE Immed Rel 5 MG TABLET PO PRN ×4 (00:06→21:21)
[2019-09-14 03:54] LABS: Basophils % 0.5 %
[2019-09-14 03:55] LABS: Eosinophils # 0.1 K/mcL (0.0-0.6); Eosinophils % 2.8 %; Hematocrit 31.2 % (37.5-50.1); Hemoglobin 10.3 g/dL (12.9-16.9); Immature Granulocytes % 4.9 % (0-4); Immature Platelets 2.1 % (1.1-6.1); Lymphocytes # 1.2 K/mcL (0.6-4.6); Lymphocytes % 28.3 %; Mean Corpuscular Hemoglobin 29.4 pg (28.0-33.3); Mean Corpuscular Volume 89.1 fL (83.0-100.0); Mean Platelet Volume 9.3 fL (9.4-12.4); Monocytes # 0.5 K/mcL (0.0-1.3); Monocytes % 10.7 %; Neutrophils # 2.3 K/mcL (1.6-8.9); Red Cell Distribution Width 14.4 % (11.5-14.5); Segmented Neutrophils % 52.8 %; White Blood Count 4.3 K/mcL (4.3-11.1)
[2019-09-14 03:56] LABS: Platelet Count 96 K/mcL (140-400)
[2019-09-14 04:06] LABS: Alanine Aminotransferase 43 Units/L (7-52); Albumin 2.1 g/dL (3.5-5.7); Albumin/Globulin Ratio 0.7 (1.1-2.2); Alkaline Phosphatase 73 Units/L (34-104); Aspartate Amino Transferase 33 Units/L (13-39); BUN/Creatinine Ratio 21 (6-26); Bilirubin,Direct 0.1 mg/dL (0.0-0.2); Bilirubin,Indirect 0.3 mg/dL (0.0-1.0); Bilirubin,Total 0.4 mg/dL (0.3-1.0); Blood Urea Nitrogen 30 mg/dL (6-20); Calcium 7.6 mg/dL (8.6-10.3); Carbon Dioxide 25 mEq/L (23-29); Chloride 106 mEq/L (98-107); Creatine Kinase 41 Units/L (30-223); Globulin 2.9 g/dL (2.4-3.5); Glucose 95 mg/dL (70-105); Osmolality,Calculated 286 (280-300); Sodium 135 mEq/L (136-145); eGFR For African Americans > 60 (> 60); eGFR For Non-African Americans 52 (> 60)
[2019-09-14] MEDS: *HR* Heparin 5,000 UNIT/ML VIAL SQ SCH ×2 (04:58→15:55)
[2019-09-14] MEDS: Thiamine (B-1) 100 MG TABLET PO SCH (07:49)
[2019-09-14] MEDS: Folic Acid 1 MG TABLET PO SCH (07:49)
[2019-09-14] MEDS: cefTRIAXone 2,000 MG in 0.9 % Sodium Chloride Mini Bag 100 ML IVPB SCH (07:49)
[2019-09-14] MEDS: Cyanocobalamin (B-12) 1,000 MCG TABLET PO SCH (07:49)
[2019-09-14] MEDS: Nicotine 14 MG PATCH.TD24 TD SCH (07:49)
[2019-09-14] MEDS: Aspirin 81 MG TAB.CHEW PO SCH (07:50)
[2019-09-14] MEDS ORDERED: *HR* Promethazine 25 MG/ML VIAL IVP PRN (13:27)
[2019-09-14] MEDS ORDERED: *HR* EPINEPHrine 30 MG/30 ML MDV ONE (16:29)
[2019-09-14] MEDS ORDERED: Neosporin OINT 15 GM TUBE TP ONE (16:29)
[2019-09-14] MEDS ORDERED: Bupivacaine/EPI 1:200k 0.5%PF 10 ML VIAL ONE (16:29)
[2019-09-14] MEDS ORDERED: Dexamethasone 4 MG/ML VIAL ONE (16:41)
[2019-09-14] MEDS ORDERED: *HR* Midazolam HCl 2 MG/2 ML VIAL ONE (16:41)
[2019-09-14] MEDS ORDERED: Ondansetron 4 MG/2 ML VIAL ONE (16:41)
[2019-09-14] MEDS: Albuterol 2.5 MG/3 ML NEBULIZER IH ONE ×2 (16:41→16:44)
[2019-09-14] MEDS ORDERED: *HR* FentaNYL (PF) 100 MCG/2 ML VIAL ONE ×2 (16:41→17:49)
[2019-09-14] MEDS ORDERED: *HR* Propofol 200 MG/20 ML VIAL IVP ONE (16:41)
[2019-09-14] MEDS ORDERED: Lidocaine -MPF 2% 2 ML VIAL ONE (16:41)
[2019-09-14] MEDS ORDERED: *HR* HYDROMORPHONE 2 MG/ML VIAL ONE (17:05)
[2019-09-14] MEDS ORDERED: *HR* PHENYLEPHRINE 1,000 MCG/10 ML SYRINGE IVP ONE (17:19)
[2019-09-14] MEDS ORDERED: *HR* OxyCODONE Immed Rel 5 MG TABLET PO PRN ×2 (17:29→19:20)
[2019-09-14] MEDS ORDERED: Ondansetron 4 MG/2 ML VIAL IVP ONE ×2 (17:29→19:20)
[2019-09-14] MEDS ORDERED: *HR* HYDROmorphone (PF) 1 MG/ML SYRINGE IVP PRN ×2 (17:29→19:20)
[2019-09-14] MEDS: *HR* Promethazine 25 MG/ML VIAL IVP PRN ×2 (18:40→18:54)
[2019-09-14] MEDS ORDERED: Ondansetron ODT 4 MG TAB.RAPDIS SL PRN (19:20)
[2019-09-14] MEDS ORDERED: Haloperidol Lactate 5 MG/ML VIAL IVP PRN (19:20)
[2019-09-14] MEDS ORDERED: cloNIDine HCl 0.1 MG TABLET PO PRN (19:20)
[2019-09-14] MEDS ORDERED: *HR* LORazepam 2 MG/ML VIAL IVP PRN ×2 (19:20)
[2019-09-14] MEDS ORDERED: Naloxone 0.4 MG/ML INJ IVP PRN (19:20)
[2019-09-15] MEDS ORDERED: *HR* LORazepam 2 MG/ML VIAL IVP ONE (01:02)
[2019-09-15 01:43] LABS: Basophils % 0.3 %; Eosinophils # 0.1 K/mcL (0.0-0.6); Eosinophils % 2.6 %; Hematocrit 30.2 % (37.5-50.1); Hemoglobin 9.9 g/dL (12.9-16.9); Immature Granulocytes % 4.2 % (0-4); Lymphocytes # 0.9 K/mcL (0.6-4.6); Lymphocytes % 24.6 %; Mean Corpuscular HGB Conc 32.8 g/dL (31.6-35.5); Mean Corpuscular Hemoglobin 29.5 pg (28.0-33.3); Mean Corpuscular Volume 89.9 fL (83.0-100.0); Mean Platelet Volume 9.9 fL (9.4-12.4); Monocytes # 0.4 K/mcL (0.0-1.3); Monocytes % 10.2 %; Neutrophils # 2.2 K/mcL (1.6-8.9); Platelet Count 101 K/mcL (140-400); Red Blood Count 3.36 M/mcL (4.19-5.50); Red Cell Distribution Width 14.4 % (11.5-14.5); Segmented Neutrophils % 58.1 %; White Blood Count 3.8 K/mcL (4.3-11.1)
[2019-09-15 02:01] LABS: Albumin 2.1 g/dL (3.5-5.7); Albumin/Globulin Ratio 0.7 (1.1-2.2); Bilirubin,Total 0.3 mg/dL (0.3-1.0); Calcium 7.6 mg/dL (8.6-10.3); Globulin 3.1 g/dL (2.4-3.5); Potassium 4.1 mEq/L (3.5-5.1); Total Protein 5.2 g/dL (6.4-8.9)
[2019-09-15] MEDS: *HR* OxyCODONE Immed Rel 5 MG TABLET PO PRN ×4 (03:41→21:15)
[2019-09-15] MEDS: *HR* Heparin 5,000 UNIT/ML VIAL SQ SCH ×2 (05:15→16:59)
[2019-09-15] MEDS: Nicotine 14 MG PATCH.TD24 TD SCH (08:57)
[2019-09-15] MEDS: cefTRIAXone 2,000 MG in Water for inj. (sterile) 20 ML IVP SCH (08:58)
[2019-09-15] MEDS: *HR* Promethazine 25 MG/ML VIAL IVP PRN ×2 (09:02→16:59)
[2019-09-15] MEDS: Cyanocobalamin (B-12) 1,000 MCG TABLET PO SCH (09:03)
[2019-09-15] MEDS: Thiamine (B-1) 100 MG TABLET PO SCH (09:03)
[2019-09-15] MEDS: Aspirin 81 MG TAB.CHEW PO SCH (09:04)
[2019-09-15] MEDS: Folic Acid 1 MG TABLET PO SCH (09:04)
[2019-09-15] MEDS ORDERED: 0.9 % Sodium Chloride 1,000 ML IV ONE (12:42)
[2019-09-15] MEDS ORDERED: Melatonin 3 MG TABLET PO ONE (21:40)
[2019-09-16] MEDS: *HR* OxyCODONE Immed Rel 5 MG TABLET PO PRN ×4 (01:45→16:30)
[2019-09-16 04:28] LABS: Basophils % 0.5 %; Eosinophils # 0.1 K/mcL (0.0-0.6); Eosinophils % 3.5 %; Hematocrit 27.8 % (37.5-50.1); Immature Granulocytes % 4.3 % (0-4); Lymphocytes # 1.3 K/mcL (0.6-4.6); Lymphocytes % 34.4 %; Mean Corpuscular HGB Conc 32.4 g/dL (31.6-35.5); Mean Corpuscular Hemoglobin 29.5 pg (28.0-33.3); Mean Corpuscular Volume 91.1 fL (83.0-100.0); Mean Platelet Volume 9.7 fL (9.4-12.4); Monocytes # 0.4 K/mcL (0.0-1.3); Monocytes % 11.8 %; Neutrophils # 1.7 K/mcL (1.6-8.9); Platelet Count 101 K/mcL (140-400); Red Blood Count 3.05 M/mcL (4.19-5.50); Red Cell Distribution Width 14.2 % (11.5-14.5); Segmented Neutrophils % 45.5 %; White Blood Count 3.7 K/mcL (4.3-11.1)
[2019-09-16 04:47] LABS: Calcium 7.6 mg/dL (8.6-10.3); Potassium 4.4 mEq/L (3.5-5.1)
[2019-09-16] MEDS: *HR* Heparin 5,000 UNIT/ML VIAL SQ SCH ×2 (05:22→16:30)
[2019-09-16] MEDS: Nicotine 14 MG PATCH.TD24 TD SCH (07:57)
[2019-09-16] MEDS: cefTRIAXone 2,000 MG in Water for inj. (sterile) 20 ML IVP SCH (07:58)
[2019-09-16] MEDS: Aspirin 81 MG TAB.CHEW PO SCH (07:58)
[2019-09-16] MEDS: Cyanocobalamin (B-12) 1,000 MCG TABLET PO SCH (07:58)
[2019-09-16] MEDS: Folic Acid 1 MG TABLET PO SCH (07:58)
[2019-09-16] MEDS: Thiamine (B-1) 100 MG TABLET PO SCH (07:58)
[2019-09-16] MEDS ORDERED: 0.9 % Sodium Chloride 1,000 ML IVC SCH (12:00)
[2019-09-16] MEDS: *HR* Promethazine 25 MG/ML VIAL IVP PRN (22:19)
[2019-09-17] MEDS: *HR* Heparin 5,000 UNIT/ML VIAL SQ SCH ×2 (05:17→17:35)
[2019-09-17] MEDS: *HR* OxyCODONE Immed Rel 5 MG TABLET PO PRN ×2 (05:17→10:18)
[2019-09-17 05:53] LABS: Basophils % 0.5 %; Eosinophils # 0.1 K/mcL (0.0-0.6); Eosinophils % 2.6 %; Hematocrit 28.4 % (37.5-50.1); Hemoglobin 9.2 g/dL (12.9-16.9); Immature Granulocytes % 2.6 % (0-4); Lymphocytes # 1.3 K/mcL (0.6-4.6); Lymphocytes % 34.5 %; Mean Corpuscular HGB Conc 32.4 g/dL (31.6-35.5); Mean Corpuscular Hemoglobin 29.3 pg (28.0-33.3); Mean Corpuscular Volume 90.4 fL (83.0-100.0); Mean Platelet Volume 8.9 fL (9.4-12.4); Monocytes # 0.5 K/mcL (0.0-1.3); Monocytes % 12.1 %; Neutrophils # 1.8 K/mcL (1.6-8.9); Platelet Count 119 K/mcL (140-400); Red Blood Count 3.14 M/mcL (4.19-5.50); Red Cell Distribution Width 14.2 % (11.5-14.5); Segmented Neutrophils % 47.7 %; White Blood Count 3.8 K/mcL (4.3-11.1)
[2019-09-17 06:12] LABS: BUN/Creatinine Ratio 22 (6-26); Blood Urea Nitrogen 31 mg/dL (6-20); Calcium 8.1 mg/dL (8.6-10.3); Carbon Dioxide 23 mEq/L (23-29); Chloride 106 mEq/L (98-107); Glucose 97 mg/dL (70-105); Osmolality,Calculated 286 (280-300); Potassium 4.6 mEq/L (3.5-5.1); Sodium 135 mEq/L (136-145); eGFR For African Americans > 60 (> 60); eGFR For Non-African Americans 53 (> 60)
[2019-09-17] MEDS: Nicotine 14 MG PATCH.TD24 TD SCH (08:46)
[2019-09-17] MEDS: Thiamine (B-1) 100 MG TABLET PO SCH (08:47)
[2019-09-17] MEDS: cefTRIAXone 2,000 MG in Water for inj. (sterile) 20 ML IVP SCH (08:47)
[2019-09-17] MEDS: Cyanocobalamin (B-12) 1,000 MCG TABLET PO SCH (08:47)
[2019-09-17] MEDS: Folic Acid 1 MG TABLET PO SCH (08:47)
[2019-09-17] MEDS: Aspirin 81 MG TAB.CHEW PO SCH (08:47)
[2019-09-17] MEDS: *HR* HYDROmorphone (PF) 1 MG/ML SYRINGE IVP PRN ×2 (15:02→20:03)
[2019-09-17] MEDS: Mirtazapine 15 MG TABLET PO SCH (20:03)
[2019-09-18] MEDS: *HR* LORazepam 2 MG/ML VIAL IVP PRN ×2 (02:32→14:05)
[2019-09-18 02:59] LABS: Basophils % 0.4 %; Eosinophils # 0.1 K/mcL (0.0-0.6); Eosinophils % 2.3 %; Hemoglobin 9.2 g/dL (12.9-16.9); Immature Granulocytes % 1.5 % (0-4); Lymphocytes # 1.3 K/mcL (0.6-4.6); Lymphocytes % 26.2 %; Mean Corpuscular HGB Conc 32.9 g/dL (31.6-35.5); Mean Corpuscular Hemoglobin 29.6 pg (28.0-33.3); Mean Platelet Volume 9.2 fL (9.4-12.4); Monocytes # 0.6 K/mcL (0.0-1.3); Monocytes % 13.3 %; Neutrophils # 2.7 K/mcL (1.6-8.9); Platelet Count 152 K/mcL (140-400); Red Blood Count 3.11 M/mcL (4.19-5.50); Red Cell Distribution Width 14.1 % (11.5-14.5); Segmented Neutrophils % 56.3 %; White Blood Count 4.8 K/mcL (4.3-11.1)
[2019-09-18 03:18] LABS: BUN/Creatinine Ratio 23 (6-26); Blood Urea Nitrogen 31 mg/dL (6-20); Calcium 8.6 mg/dL (8.6-10.3); Carbon Dioxide 25 mEq/L (23-29); Chloride 104 mEq/L (98-107); Glucose 111 mg/dL (70-105); Osmolality,Calculated 287 (280-300); Potassium 4.4 mEq/L (3.5-5.1); Sodium 135 mEq/L (136-145); eGFR For African Americans > 60 (> 60); eGFR For Non-African Americans 55 (> 60)
[2019-09-18] MEDS: *HR* Heparin 5,000 UNIT/ML VIAL SQ SCH ×2 (07:13→18:37)
[2019-09-18] MEDS: Aspirin 81 MG TAB.CHEW PO SCH (09:35)
[2019-09-18] MEDS: Folic Acid 1 MG TABLET PO SCH (09:35)
[2019-09-18] MEDS: Thiamine (B-1) 100 MG TABLET PO SCH (09:35)
[2019-09-18] MEDS: cefTRIAXone 2,000 MG in Water for inj. (sterile) 20 ML IVP SCH (09:36)
[2019-09-18] MEDS: Cyanocobalamin (B-12) 1,000 MCG TABLET PO SCH (09:36)
[2019-09-18] MEDS: *HR* HYDROmorphone (PF) 1 MG/ML SYRINGE IVP PRN ×2 (09:36→18:47)
[2019-09-18] MEDS: Nicotine 14 MG PATCH.TD24 TD SCH (09:41)
[2019-09-18] MEDS: *HR* HYDROcodone/Acet 5/325 mg TABLET PO PRN (12:54)
[2019-09-18] MEDS: Mirtazapine 15 MG TABLET PO SCH (21:51)
[2019-09-19] MEDS: *HR* Heparin 5,000 UNIT/ML VIAL SQ SCH ×2 (05:12→17:53)
[2019-09-19 05:32] LABS: Basophils % 0.4 %; Eosinophils # 0.1 K/mcL (0.0-0.6); Eosinophils % 1.8 %; Hematocrit 26.1 % (37.5-50.1); Hemoglobin 8.6 g/dL (12.9-16.9); Immature Granulocytes % 0.7 % (0-4); Lymphocytes # 1.2 K/mcL (0.6-4.6); Lymphocytes % 25.9 %; Mean Corpuscular Hemoglobin 29.6 pg (28.0-33.3); Mean Corpuscular Volume 89.7 fL (83.0-100.0); Mean Platelet Volume 9.2 fL (9.4-12.4); Monocytes # 0.6 K/mcL (0.0-1.3); Monocytes % 12.5 %; Neutrophils # 2.7 K/mcL (1.6-8.9); Platelet Count 152 K/mcL (140-400); Red Blood Count 2.91 M/mcL (4.19-5.50); Red Cell Distribution Width 14.2 % (11.5-14.5); Segmented Neutrophils % 58.7 %; White Blood Count 4.6 K/mcL (4.3-11.1)
[2019-09-19 05:50] LABS: BUN/Creatinine Ratio 25 (6-26); Blood Urea Nitrogen 37 mg/dL (6-20); Calcium 8.6 mg/dL (8.6-10.3); Carbon Dioxide 25 mEq/L (23-29); Chloride 105 mEq/L (98-107); Glucose 136 mg/dL (70-105); Osmolality,Calculated 295 (280-300); Potassium 4.4 mEq/L (3.5-5.1); Sodium 137 mEq/L (136-145); eGFR For African Americans > 60 (> 60); eGFR For Non-African Americans 50 (> 60)
[2019-09-19] MEDS: cefTRIAXone 2,000 MG in Water for inj. (sterile) 20 ML IVP SCH (08:59)
[2019-09-19] MEDS: *HR* HYDROcodone/Acet 5/325 mg TABLET PO PRN (09:00)
[2019-09-19] MEDS: Aspirin 81 MG TAB.CHEW PO SCH (09:00)
[2019-09-19] MEDS: Cyanocobalamin (B-12) 1,000 MCG TABLET PO SCH (09:00)
[2019-09-19] MEDS: Folic Acid 1 MG TABLET PO SCH (09:00)
[2019-09-19] MEDS: Thiamine (B-1) 100 MG TABLET PO SCH (09:00)
[2019-09-19] MEDS: Nicotine 14 MG PATCH.TD24 TD SCH (09:01)
[2019-09-19] MEDS: *HR* OxyCODONE Immed Rel 5 MG TABLET PO PRN ×2 (15:34→21:41)
[2019-09-19] MEDS: Mirtazapine 15 MG TABLET PO SCH (20:28)
[2019-09-20 04:12] LABS: Hematocrit 22.9 % (37.5-50.1); Hemoglobin 7.5 g/dL (12.9-16.9)
[2019-09-20 04:26] LABS: Calcium 8.1 mg/dL (8.6-10.3); Potassium 4.2 mEq/L (3.5-5.1)
[2019-09-20] MEDS: *HR* Heparin 5,000 UNIT/ML VIAL SQ SCH (05:29)
[2019-09-20] MEDS: Cyanocobalamin (B-12) 1,000 MCG TABLET PO SCH (08:07)
[2019-09-20] MEDS: Thiamine (B-1) 100 MG TABLET PO SCH (08:07)
[2019-09-20] MEDS: Aspirin 81 MG TAB.CHEW PO SCH (08:08)
[2019-09-20] MEDS: *HR* OxyCODONE Immed Rel 5 MG TABLET PO PRN ×2 (08:08→13:49)
[2019-09-20] MEDS: cefTRIAXone 2,000 MG in Water for inj. (sterile) 20 ML IVP SCH (08:08)
[2019-09-20] MEDS: Folic Acid 1 MG TABLET PO SCH (08:08)
[2019-09-20] MEDS: Nicotine 14 MG PATCH.TD24 TD SCH (08:09)
[2019-09-20 11:33] VITALS: BP 107/68
== END 2019-09-20 15:35 | DRG 710 ==
LOC: 2ANU 15:48 → EMEROOARM 15:48 → 2ANU 19:40 → SUATTDRO 09-08 14:34 → 3NENU 09-08 23:23
PROVIDERS: ADMIT Internal Medicine; ATTEND Internal Medicine
PROC: ORTFASC (2019-09-14 17:30)

== ENCOUNTER 2019-09-25 17:05 | Observation (INO) ==
[2019-09-25] MEDS ORDERED: cefTRIAXone 1,000 MG in Water for inj. (sterile) 10 ML IVP ONE ×2 (18:17→22:00)
[2019-09-25 19:29] LABS: Calcium 7.8 mg/dL (8.6-10.3); Potassium 4.1 mEq/L (3.5-5.1)
[2019-09-25 20:29] LABS: Hematocrit 16.4 % (37.5-50.1); Immature Granulocytes % 0.5 % (0-4)
[2019-09-25 20:30] LABS: Basophils % 0.3 %; Eosinophils # 0.1 K/mcL (0.0-0.6); Lymphocytes % 28.2 %; Mean Corpuscular HGB Conc 30.5 g/dL (31.6-35.5); Mean Corpuscular Hemoglobin 30.1 pg (28.0-33.3); Mean Corpuscular Volume 98.8 fL (83.0-100.0); Monocytes # 0.6 K/mcL (0.0-1.3); Monocytes % 9.9 %; Neutrophils # 3.7 K/mcL (1.6-8.9); Platelet Count 181 K/mcL (140-400); Red Blood Count 1.66 M/mcL (4.19-5.50); Red Cell Distribution Width 16.2 % (11.5-14.5); Segmented Neutrophils % 60.1 %; White Blood Count 6.2 K/mcL (4.3-11.1)
[2019-09-25 20:35] LABS: Lymphocytes # 1.8 K/mcL (0.6-4.6)
[2019-09-25 21:06] LABS: Hypochromasia Present (Not Present); Platelet Estimate Slight Decrease (Normal)
[2019-09-25] MEDS ORDERED: Naloxone 0.4 MG/ML INJ IVP PRN (21:39)
[2019-09-25] MEDS ORDERED: 0.9 % Sodium Chloride 250 ML IVC SCH (21:45)
[2019-09-25] MEDS ORDERED: CefTRIAXone 1,000 MG VIAL IM ONE (21:50)
[2019-09-25] MEDS: Nicotine 21 MG PATCH.TD24 TD SCH (22:32)
[2019-09-26] MEDS ORDERED: hydrOXYzine pamoate 25 MG CAPSULE PO ONE (01:40)
[2019-09-26 08:16] LABS: Basophils % 0.5 %; Eosinophils # 0.1 K/mcL (0.0-0.6); Eosinophils % 2.1 %; Hematocrit 21.4 % (37.5-50.1); Hemoglobin 6.9 g/dL (12.9-16.9); Immature Granulocytes % 0.3 % (0-4); Lymphocytes # 1.6 K/mcL (0.6-4.6); Lymphocytes % 43.9 %; Mean Corpuscular HGB Conc 32.2 g/dL (31.6-35.5); Mean Corpuscular Hemoglobin 30.3 pg (28.0-33.3); Mean Corpuscular Volume 93.9 fL (83.0-100.0); Mean Platelet Volume 9.3 fL (9.4-12.4); Monocytes # 0.5 K/mcL (0.0-1.3); Neutrophils # 1.5 K/mcL (1.6-8.9); Platelet Count 148 K/mcL (140-400); Red Blood Count 2.28 M/mcL (4.19-5.50); Red Cell Distribution Width 15.8 % (11.5-14.5); Segmented Neutrophils % 41.2 %; White Blood Count 3.7 K/mcL (4.3-11.1)
[2019-09-26 08:27] LABS: Calcium 7.2 mg/dL (8.6-10.3); Magnesium 2.1 mg/dL (1.6-2.6); Phosphorous 3.7 mg/dL (2.7-4.5); Potassium 3.8 mEq/L (3.5-5.1)
[2019-09-26 10:41] LABS: Alanine Aminotransferase 30 Units/L (7-52); Albumin 2.4 g/dL (3.5-5.7); Albumin/Globulin Ratio 0.8 (1.1-2.2); Alkaline Phosphatase 64 Units/L (34-104); Aspartate Amino Transferase 37 Units/L (13-39); Bilirubin,Direct 0.1 mg/dL (0.0-0.2); Bilirubin,Indirect 0.3 mg/dL (0.0-1.0); Bilirubin,Total 0.4 mg/dL (0.3-1.0); C-Reactive Protein < 5 mg/L (Less than 10); Globulin 3.1 g/dL (2.4-3.5); Total Protein 5.5 g/dL (6.4-8.9)
[2019-09-26] MEDS ORDERED: Mirtazapine 15 MG TABLET PO PRN (10:54)
[2019-09-26] MEDS: Nicotine 21 MG PATCH.TD24 TD SCH (10:58)
[2019-09-26] MEDS: cefTRIAXone 2,000 MG in 0.9 % Sodium Chloride Mini Bag 100 ML IVPB SCH (10:59)
[2019-09-26] MEDS ORDERED: 0.9 % Sodium Chloride 1,000 ML IVC SCH (11:00)
[2019-09-26 12:46] LABS: Bilirubin,Urine Negative (Negative); Blood,Urine Large (Negative); Clarity,Urine Clear (Clear); Color,Urine Yellow (Yellow); Glucose,Urine (UA) Normal (Normal); Ketones,Urine Negative (Negative); Leukocyte Esterase,Urine Small (Negative); Nitrite,Urine Negative (Negative); Protein,Urine 100 mg/dL (Neg-Trace); Specific Gravity,Urine 1.018 (1.010-1.025); Urobilinogen,Urine Normal (Normal)
[2019-09-26 12:48] LABS: Bacteria,Urine None Seen per hpf (None-Few); Hyaline Casts,Urine None Seen per lpf (None-Few); RBC,Urine TNTC per hpf (0-3); Squamous Epithelial Cell,Urine Moderate per lpf (None-Few); WBC,Urine 15-30 per hpf (0-3)
[2019-09-26 13:22] LABS: Prothrombin Time 10.9 Seconds (9.4-12.1)
[2019-09-26 13:25] LABS: Activated Partial Thrombo Time 28.3 Seconds (26.0-36.0)
[2019-09-26 13:26] LABS: Hematocrit 24.2 % (37.5-50.1); Hemoglobin 7.7 g/dL (12.9-16.9); Mean Corpuscular HGB Conc 31.8 g/dL (31.6-35.5); Mean Corpuscular Hemoglobin 29.6 pg (28.0-33.3); Mean Corpuscular Volume 93.1 fL (83.0-100.0); Mean Platelet Volume 9.2 fL (9.4-12.4); Platelet Count 153 K/mcL (140-400); Red Cell Distribution Width 15.9 % (11.5-14.5); White Blood Count 4.2 K/mcL (4.3-11.1)
[2019-09-26 13:40] LABS: Creatinine,Urine 94 mg/dL; Sodium, Urine 47.7 mEq/L
[2019-09-26 14:10] LABS: Amphetamine Screen,Urine Negative ng/mL (Cutoff=1000); Barbiturate Screen,Urine Negative ng/mL (Cutoff=200); Benzodiazepines Screen,Urine Negative ng/mL (Cutoff=200); Cannabinoid Screen,Urine Negative ng/mL (Cutoff = 50); Cocaine Screen,Urine Negative ng/mL (Cutoff= 300); Opiate Screen,Urine Negative ng/mL (Cutoff=300); Phencyclidine Screen,Urine Negative ng/mL (Cutoff=25)
[2019-09-26] MEDS: PARoxetine 20 MG TABLET PO SCH (20:40)
[2019-09-27 01:34] LABS: Hemoglobin 6.9 g/dL (12.9-16.9); Mean Corpuscular HGB Conc 32.9 g/dL (31.6-35.5); Mean Corpuscular Hemoglobin 29.6 pg (28.0-33.3); Mean Corpuscular Volume 90.1 fL (83.0-100.0); Platelet Count 141 K/mcL (140-400); Red Blood Count 2.33 M/mcL (4.19-5.50); Red Cell Distribution Width 15.8 % (11.5-14.5); White Blood Count 2.9 K/mcL (4.3-11.1)
[2019-09-27 01:46] LABS: Calcium 7.4 mg/dL (8.6-10.3); Potassium 3.7 mEq/L (3.5-5.1)
[2019-09-27] MEDS: cefTRIAXone 2,000 MG in 0.9 % Sodium Chloride Mini Bag 100 ML IVPB SCH (08:02)
[2019-09-27] MEDS: Nicotine 21 MG PATCH.TD24 TD SCH (08:03)
[2019-09-27] MEDS ORDERED: 0.9 % Sodium Chloride 250 ML ONE (09:27)
[2019-09-27] MEDS: Methadone Oral Concentrate 50 MG/5 ML UDC PO SCH (11:09)
[2019-09-27] MEDS ORDERED: Mirtazapine 15 MG TABLET PO PRN (12:49)
[2019-09-27] MEDS: Pantoprazole 40 MG VIAL IVP SCH (15:07)
[2019-09-27 15:17] LABS: Hematocrit 24.4 % (37.5-50.1); Hemoglobin 7.9 g/dL (12.9-16.9)
[2019-09-27] MEDS: cephALEXin 500 MG CAPSULE PO SCH (20:35)
[2019-09-27] MEDS: PARoxetine 20 MG TABLET PO SCH (20:35)
[2019-09-27] MEDS ORDERED: *HR* LORazepam 2 MG/ML VIAL IVP ONE (20:53)
[2019-09-28] MEDS: Pantoprazole 40 MG VIAL IVP SCH ×2 (05:45→06:09)
[2019-09-28 05:47] LABS: Hematocrit 26.3 % (37.5-50.1); Hemoglobin 8.2 g/dL (12.9-16.9); Mean Corpuscular HGB Conc 31.2 g/dL (31.6-35.5); Mean Corpuscular Hemoglobin 28.9 pg (28.0-33.3); Mean Corpuscular Volume 92.6 fL (83.0-100.0); Platelet Count 130 K/mcL (140-400); Red Blood Count 2.84 M/mcL (4.19-5.50); White Blood Count 2.7 K/mcL (4.3-11.1)
[2019-09-28 06:07] LABS: Calcium 7.7 mg/dL (8.6-10.3)
[2019-09-28] MEDS: Methadone Oral Concentrate 50 MG/5 ML UDC PO SCH (08:03)
[2019-09-28] MEDS: cephALEXin 500 MG CAPSULE PO SCH (08:05)
[2019-09-28] MEDS: Nicotine 21 MG PATCH.TD24 TD SCH (08:05)
[2019-09-28] MEDS ORDERED: Methadone Oral Concentrate 50 MG/5 ML UDC PO ONE (08:30)
[2019-09-28] MEDS ORDERED: Folic Acid 1 MG TABLET PO SCH (09:00)
[2019-09-28] MEDS ORDERED: Methadone Oral Concentrate 50 MG/5 ML UDC PO SCH (09:00)
[2019-09-28] MEDS ORDERED: Thiamine (B-1) 100 MG TABLET PO SCH (09:00)
[2019-09-28] MEDS ORDERED: Cyanocobalamin (B-12) 1,000 MCG TABLET PO SCH (09:00)
[2019-09-28 12:28] VITALS: BP 171/84
[2019-09-28] MEDS ORDERED: Lidocaine -MPF 2% 2 ML VIAL ONE (13:33)
[2019-09-28] MEDS ORDERED: *HR* Propofol 200 MG/20 ML VIAL IVP ONE (13:33)
[2019-09-28] MEDS ORDERED: FLU Vac QV 19-20 (6Month+)/PF 0.5 ML SYRINGE IM ONE (15:56)
[2019-09-29] MEDS ORDERED: Methadone Oral Concentrate 50 MG/5 ML UDC PO SCH (09:00)
== END 2019-09-28 16:36 | disposition home or self-care (01) ==
LOC: 3ANU 17:05 → EMEROOARM 17:05 → SUATTDRO 20:52 → 3ANU 21:21
PROVIDERS: ADMIT Internal Medicine; ATTEND Internal Medicine
PROC: ENDOEBX (2019-09-28 13:50)

== ENCOUNTER 2019-12-12 12:41 | Inpatient (IN) ==
[2019-12-12] MEDS ORDERED: cefTRIAXone 2,000 MG in Water for inj. (sterile) 20 ML IVP ONE (13:29)
[2019-12-12] MEDS ORDERED: Azithromycin 500 MG in 0.9 % Sodium Chloride 250 ML IVPB ONE (13:29)
[2019-12-12 13:45] LABS: Bilirubin,Urine Small (Negative); Blood,Urine Large (Negative); Clarity,Urine Cloudy (Clear); Color,Urine Dark Yellow (Yellow); Glucose,Urine (UA) Normal (Normal); Ketones,Urine Trace mg/dL (Negative); Leukocyte Esterase,Urine Small (Negative); Nitrite,Urine Negative (Negative); Protein,Urine 100 mg/dL (Neg-Trace); Specific Gravity,Urine 1.022 (1.010-1.025); Urobilinogen,Urine Normal (Normal)
[2019-12-12 13:48] LABS: Bacteria,Urine None Seen per hpf (None-Few); Hyaline Casts,Urine Few per lpf (None-Few); RBC,Urine TNTC per hpf (0-3); Squamous Epithelial Cell,Urine Many per lpf (None-Few); WBC,Urine 50-100 per hpf (0-3)
[2019-12-12 14:16] LABS: Hemoglobin 12.3 g/dL (12.9-16.9)
[2019-12-12 14:18] LABS: Basophils % 0.6 %; Eosinophils # 0.1 K/mcL (0.0-0.6); Hematocrit 40.1 % (37.5-50.1); Immature Granulocytes % 0.4 % (0-4); Immature Platelets 1.9 % (1.1-6.1); Lymphocytes # 1.1 K/mcL (0.6-4.6); Lymphocytes % 21.9 %; Mean Corpuscular HGB Conc 30.7 g/dL (31.6-35.5); Mean Corpuscular Hemoglobin 25.7 pg (28.0-33.3); Mean Corpuscular Volume 83.9 fL (83.0-100.0); Mean Platelet Volume 8.9 fL (9.4-12.4); Monocytes # 0.5 K/mcL (0.0-1.3); Monocytes % 9.9 %; Neutrophils # 3.4 K/mcL (1.6-8.9); Red Blood Count 4.78 M/mcL (4.19-5.50); Red Cell Distribution Width 16.6 % (11.5-14.5); Segmented Neutrophils % 66.2 %; White Blood Count 5.1 K/mcL (4.3-11.1)
[2019-12-12 14:26] LABS: INR 1.1; Prothrombin Time 12.4 Seconds (9.4-12.1)
[2019-12-12 14:36] LABS: Alanine Aminotransferase 43 Units/L (7-52); Albumin 3.2 g/dL (3.5-5.7); Albumin/Globulin Ratio 0.8 (1.1-2.2); Alkaline Phosphatase 87 Units/L (34-104); Aspartate Amino Transferase 62 Units/L (13-39); Bilirubin,Direct 0.2 mg/dL (0.0-0.2); Bilirubin,Indirect 0.3 mg/dL (0.0-1.0); Bilirubin,Total 0.5 mg/dL (0.3-1.0); Globulin 4.1 g/dL (2.4-3.5); Total Protein 7.3 g/dL (6.4-8.9); Troponin I < 0.03 ng/mL (< 0.04)
[2019-12-12 14:44] LABS: Platelet Count 91 K/mcL (140-400)
[2019-12-12 14:54] LABS: Ferritin 58 ng/mL (20-250)
[2019-12-12 16:24] LABS: BUN/Creatinine Ratio 15 (6-26); Blood Urea Nitrogen 24 mg/dL (6-20); Calcium 9.2 mg/dL (8.6-10.3); Carbon Dioxide 25 mEq/L (23-29); Chloride 104 mEq/L (98-107); Glucose 130 mg/dL (70-105); Osmolality,Calculated 290 (280-300); Potassium 4.3 mEq/L (3.5-5.1); Sodium 137 mEq/L (136-145); eGFR For African Americans 53 (> 60); eGFR For Non-African Americans 44 (> 60)
[2019-12-12] MEDS ORDERED: 0.9 % Sodium Chloride 1,000 ML IVC ONE (17:23)
[2019-12-12] MEDS ORDERED: Ondansetron 4 MG/2 ML VIAL IVP PRN (17:28)
[2019-12-12] MEDS ORDERED: Naloxone 0.4 MG/ML INJ IVP PRN (17:28)
[2019-12-12] MEDS ORDERED: NON-FORMULARY MEDICATION 1 EACH EACH (Naloxone 4 MG) NS SCH (17:30)
[2019-12-12] MEDS: *HR* Heparin 5,000 UNIT/ML VIAL SQ SCH (21:26)
[2019-12-12] MEDS: PARoxetine 20 MG TABLET PO SCH ×2 (21:27→23:02)
[2019-12-13 05:36] LABS: Hemoglobin 11.2 g/dL (12.9-16.9); Mean Corpuscular Hemoglobin 25.6 pg (28.0-33.3); Mean Corpuscular Volume 85.4 fL (83.0-100.0); Red Cell Distribution Width 16.7 % (11.5-14.5)
[2019-12-13 05:37] LABS: Basophils % 0.6 %; Eosinophils # 0.1 K/mcL (0.0-0.6); Eosinophils % 3.6 %; Hematocrit 37.4 % (37.5-50.1); Immature Granulocytes % 0.3 % (0-4); Immature Platelets 2.1 % (1.1-6.1); Lymphocytes # 1.3 K/mcL (0.6-4.6); Lymphocytes % 37.3 %; Mean Corpuscular HGB Conc 29.9 g/dL (31.6-35.5); Mean Platelet Volume 9.9 fL (9.4-12.4); Monocytes # 0.4 K/mcL (0.0-1.3); Monocytes % 10.3 %; Neutrophils # 1.7 K/mcL (1.6-8.9); Red Blood Count 4.38 M/mcL (4.19-5.50); Segmented Neutrophils % 47.9 %; White Blood Count 3.6 K/mcL (4.3-11.1)
[2019-12-13 05:38] LABS: Platelet Count 80 K/mcL (140-400)
[2019-12-13 05:54] LABS: Calcium 8.5 mg/dL (8.6-10.3); Phosphorous 3.8 mg/dL (2.7-4.5); Potassium 3.8 mEq/L (3.5-5.1)
[2019-12-13] MEDS: *HR* Heparin 5,000 UNIT/ML VIAL SQ SCH ×2 (05:59→07:11)
[2019-12-13] MEDS: Folic Acid 1 MG TABLET PO SCH (08:37)
[2019-12-13] MEDS: Aspirin 81 MG TAB.CHEW PO SCH (08:37)
[2019-12-13] MEDS: Thiamine (B-1) 100 MG TABLET PO SCH (08:37)
[2019-12-13] MEDS: Cyanocobalamin (B-12) 1,000 MCG TABLET PO SCH (08:39)
[2019-12-13] MEDS ORDERED: Methadone Oral Concentrate 50 MG/5 ML UDC PO SCH (09:00)
[2019-12-13] MEDS ORDERED: cefTRIAXone 1,000 MG in Water for inj. (sterile) 10 ML IVP SCH (09:00)
[2019-12-13] MEDS ORDERED: Azithromycin 500 MG in 0.9 % Sodium Chloride 250 ML IVPB SCH (09:00)
[2019-12-13] MEDS: Methadone Oral Concentrate 50 MG/5 ML UDC PO SCH (10:44)
[2019-12-13] MEDS ORDERED: Lactulose Oral Soln 20 GM/30 ML UDC PO ONE (13:27)
[2019-12-13] MEDS: *HR* Enoxaparin 40 MG/0.4 ML SYRINGE SQ SCH ×2 (20:26→21:09)
[2019-12-13] MEDS: PARoxetine 20 MG TABLET PO SCH (20:27)
[2019-12-13] MEDS: Mirtazapine 15 MG TABLET PO PRN (20:40)
[2019-12-14] MEDS: Thiamine (B-1) 100 MG TABLET PO SCH (09:10)
[2019-12-14] MEDS: Aspirin 81 MG TAB.CHEW PO SCH (09:10)
[2019-12-14] MEDS: Cyanocobalamin (B-12) 1,000 MCG TABLET PO SCH (09:10)
[2019-12-14] MEDS: Folic Acid 1 MG TABLET PO SCH (09:10)
[2019-12-14] MEDS: Methadone Oral Concentrate 50 MG/5 ML UDC PO SCH (09:11)
[2019-12-14] MEDS ORDERED: Lactulose Oral Soln 20 GM/30 ML UDC PO PRN (13:35)
[2019-12-14] MEDS: PARoxetine 20 MG TABLET PO SCH (20:06)
[2019-12-14] MEDS: *HR* Enoxaparin 40 MG/0.4 ML SYRINGE SQ SCH (20:22)
[2019-12-15] MEDS: Methadone Oral Concentrate 50 MG/5 ML UDC PO SCH (08:57)
[2019-12-15] MEDS: Folic Acid 1 MG TABLET PO SCH (08:58)
[2019-12-15] MEDS: Cyanocobalamin (B-12) 1,000 MCG TABLET PO SCH (08:58)
[2019-12-15] MEDS: Thiamine (B-1) 100 MG TABLET PO SCH (08:58)
[2019-12-15] MEDS: Aspirin 81 MG TAB.CHEW PO SCH (08:59)
[2019-12-15] MEDS: PARoxetine 20 MG TABLET PO SCH (20:18)
[2019-12-15] MEDS: *HR* Enoxaparin 40 MG/0.4 ML SYRINGE SQ SCH (20:34)
[2019-12-15] MEDS: Mirtazapine 15 MG TABLET PO PRN (23:43)
[2019-12-16] MEDS: Folic Acid 1 MG TABLET PO SCH (08:13)
[2019-12-16] MEDS: Cyanocobalamin (B-12) 1,000 MCG TABLET PO SCH (08:13)
[2019-12-16] MEDS: Thiamine (B-1) 100 MG TABLET PO SCH (08:13)
[2019-12-16] MEDS: Aspirin 81 MG TAB.CHEW PO SCH (08:13)
[2019-12-16] MEDS: Methadone Oral Concentrate 50 MG/5 ML UDC PO SCH (08:14)
[2019-12-16] MEDS: PARoxetine 20 MG TABLET PO SCH (20:00)
[2019-12-16] MEDS: Lactulose Oral Soln 20 GM/30 ML UDC PO SCH (20:00)
[2019-12-16] MEDS: *HR* Enoxaparin 40 MG/0.4 ML SYRINGE SQ SCH (20:33)
[2019-12-17] MEDS: Methadone Oral Concentrate 50 MG/5 ML UDC PO SCH (07:58)
[2019-12-17] MEDS: Lactulose Oral Soln 20 GM/30 ML UDC PO SCH ×2 (07:59→20:23)
[2019-12-17] MEDS: Folic Acid 1 MG TABLET PO SCH (08:00)
[2019-12-17] MEDS: Cyanocobalamin (B-12) 1,000 MCG TABLET PO SCH (08:00)
[2019-12-17] MEDS: Aspirin 81 MG TAB.CHEW PO SCH (08:00)
[2019-12-17] MEDS: Thiamine (B-1) 100 MG TABLET PO SCH (08:00)
[2019-12-17] MEDS: PARoxetine 20 MG TABLET PO SCH (20:22)
[2019-12-17] MEDS: *HR* Enoxaparin 40 MG/0.4 ML SYRINGE SQ SCH (20:33)
[2019-12-17] MEDS: Mirtazapine 15 MG TABLET PO PRN (21:20)
[2019-12-18] MEDS: Melatonin 3 MG TABLET PO PRN ×2 (00:26→21:12)
[2019-12-18] MEDS: Thiamine (B-1) 100 MG TABLET PO SCH (08:32)
[2019-12-18] MEDS: Lactulose Oral Soln 20 GM/30 ML UDC PO SCH ×3 (08:32→21:09)
[2019-12-18] MEDS: Methadone Oral Concentrate 50 MG/5 ML UDC PO SCH (08:33)
[2019-12-18] MEDS: Aspirin 81 MG TAB.CHEW PO SCH (08:34)
[2019-12-18] MEDS: Folic Acid 1 MG TABLET PO SCH (08:34)
[2019-12-18] MEDS: Cyanocobalamin (B-12) 1,000 MCG TABLET PO SCH (08:34)
[2019-12-18] MEDS: PARoxetine 20 MG TABLET PO SCH (21:02)
[2019-12-18] MEDS: *HR* Enoxaparin 40 MG/0.4 ML SYRINGE SQ SCH (21:03)
[2019-12-19] MEDS ORDERED: Acetaminophen 325 MG TABLET PO PRN (01:34)
[2019-12-19] MEDS: Thiamine (B-1) 100 MG TABLET PO SCH (07:44)
[2019-12-19] MEDS: Lactulose Oral Soln 20 GM/30 ML UDC PO SCH ×2 (07:44→08:20)
[2019-12-19] MEDS: Aspirin 81 MG TAB.CHEW PO SCH (07:45)
[2019-12-19] MEDS: Folic Acid 1 MG TABLET PO SCH (07:45)
[2019-12-19] MEDS: Cyanocobalamin (B-12) 1,000 MCG TABLET PO SCH (07:45)
[2019-12-19] MEDS: Methadone Oral Concentrate 50 MG/5 ML UDC PO SCH (07:45)
[2019-12-19 12:09] VITALS: BP 104/72
== END 2019-12-19 17:22 | disposition home or self-care (01) | DRG 137 ==
LOC: EMEROOARM 12:41 → 2NENU 12:41 → SUATTDRO 16:20 → 2NENU 17:30
PROVIDERS: ADMIT Internal Medicine; ATTEND Internal Medicine

== ENCOUNTER 2020-02-15 08:12 | Inpatient (IN) ==
[2020-02-15] MEDS ORDERED: 0.9 % Sodium Chloride 1,000 ML IVC ONE (08:24)
[2020-02-15 08:46] LABS: Basophils % 0.6 %; Eosinophils % 0.8 %; Hemoglobin 8.7 g/dL (12.9-16.9); Immature Granulocytes % 0.2 % (0-4); Lymphocytes # 0.9 K/mcL (0.6-4.6); Mean Corpuscular HGB Conc 32.2 g/dL (31.6-35.5); Mean Corpuscular Hemoglobin 25.4 pg (28.0-33.3); Mean Corpuscular Volume 78.7 fL (83.0-100.0); Mean Platelet Volume 9.2 fL (9.4-12.4); Monocytes # 0.4 K/mcL (0.0-1.3); Monocytes % 7.8 %; Neutrophils # 3.8 K/mcL (1.6-8.9); Platelet Count 109 K/mcL (140-400); Red Blood Count 3.43 M/mcL (4.19-5.50); Red Cell Distribution Width 17.8 % (11.5-14.5); Segmented Neutrophils % 73.6 %; White Blood Count 5.1 K/mcL (4.3-11.1)
[2020-02-15 09:02] LABS: INR 1.1; Prothrombin Time 12.3 Seconds (9.4-12.1)
[2020-02-15 09:05] LABS: Activated Partial Thrombo Time 41.2 Seconds (26.0-36.0)
[2020-02-15 09:07] LABS: Blood Urea Nitrogen > 130 mg/dL (6-20); Carbon Dioxide 20 mEq/L (23-29); Chloride 89 mEq/L (98-107); Glucose 118 mg/dL (70-105); Potassium 5.2 mEq/L (3.5-5.1); Sodium 131 mEq/L (136-145); Troponin I 0.03 ng/mL (< 0.04); eGFR For African Americans 5 (> 60); eGFR For Non-African Americans 4 (> 60)
[2020-02-15] MEDS ORDERED: Azithromycin 500 MG in 0.9 % Sodium Chloride 250 ML IVPB ONE (09:19)
[2020-02-15] MEDS ORDERED: cefTRIAXone 1,000 MG in 0.9 % Sodium Chloride Mini Bag 100 ML IVPB ONE (09:19)
[2020-02-15] MEDS ORDERED: Ondansetron 4 MG/2 ML VIAL IVP PRN (11:59)
[2020-02-15] MEDS ORDERED: Naloxone 0.4 MG/ML INJ IVP PRN (11:59)
[2020-02-15] MEDS ORDERED: 0.9 % Sodium Chloride 1,000 ML IVC SCH (12:00)
[2020-02-15 12:15] LABS: Creatine Kinase 24 Units/L (30-223)
[2020-02-15] MEDS: 0.9 % Sodium Chloride 1,000 ML IVC SCH ×2 (13:33→21:56)
[2020-02-15 14:03] LABS: Bilirubin,Urine Negative (Negative); Blood,Urine Moderate (Negative); Clarity,Urine Turbid (Clear); Color,Urine Light-Red (Yellow); Glucose,Urine (UA) Normal (Normal); Ketones,Urine Negative (Negative); Leukocyte Esterase,Urine Small (Negative); Nitrite,Urine Negative (Negative); Protein,Urine 200 mg/dL (Neg-Trace); Specific Gravity,Urine 1.013 (1.010-1.025); Urobilinogen,Urine Normal (Normal)
[2020-02-15 14:04] LABS: Creatinine,Urine 36 mg/dL; Sodium, Urine 37.4 mEq/L
[2020-02-15 14:27] LABS: Amphetamine Screen,Urine Negative ng/mL (Cutoff=1000); Barbiturate Screen,Urine Negative ng/mL (Cutoff=200); Benzodiazepines Screen,Urine Positive ng/mL (Cutoff=200); Cannabinoid Screen,Urine Negative ng/mL (Cutoff = 50); Cocaine Screen,Urine Positive ng/mL (Cutoff= 300); Opiate Screen,Urine Negative ng/mL (Cutoff=300); Phencyclidine Screen,Urine Negative ng/mL (Cutoff=25)
[2020-02-15 14:30] LABS: RBC,Urine TNTC per hpf (0-3)
[2020-02-15 14:31] LABS: Squamous Epithelial Cell,Urine Present per hpf (None-Few); WBC,Urine Present per hpf (0-3)
[2020-02-15] MEDS: Cefepime HCl 1,000 MG in 0.9 % Sodium Chloride Mini Bag 100 ML IVPB SCH (17:23)
[2020-02-15] MEDS: *HR* Heparin 5,000 UNIT/ML VIAL SQ SCH (17:24)
[2020-02-15] MEDS ORDERED: Cefepime HCl 1,000 MG in 0.9 % Sodium Chloride Mini Bag 100 ML IVPB SCH (18:00)
[2020-02-15 20:46] LABS: Blood Urea Nitrogen > 130 mg/dL (6-20); C-Reactive Protein 78 mg/L (Less than 10); Calcium 7.4 mg/dL (8.6-10.3); Carbon Dioxide 19 mEq/L (23-29); Chloride 94 mEq/L (98-107); Glucose 45 mg/dL (70-105); Potassium 5.5 mEq/L (3.5-5.1); Sodium 133 mEq/L (136-145); eGFR For African Americans 5 (> 60); eGFR For Non-African Americans 5 (> 60)
[2020-02-15] MEDS: Lactulose Oral Soln 20 GM/30 ML UDC PO SCH (21:55)
[2020-02-16 03:07] LABS: Hematocrit 26.8 % (37.5-50.1); Hemoglobin 8.4 g/dL (12.9-16.9); Mean Corpuscular HGB Conc 31.3 g/dL (31.6-35.5); Mean Corpuscular Hemoglobin 25.1 pg (28.0-33.3); Mean Platelet Volume 9.6 fL (9.4-12.4); Platelet Count 101 K/mcL (140-400); Red Blood Count 3.35 M/mcL (4.19-5.50); Red Cell Distribution Width 17.6 % (11.5-14.5); White Blood Count 4.7 K/mcL (4.3-11.1)
[2020-02-16 03:08] LABS: Basophils % 0.6 %; Eosinophils # 0.1 K/mcL (0.0-0.6); Eosinophils % 1.9 %; Immature Granulocytes % 1.1 % (0-4); Lymphocytes % 21.4 %; Monocytes # 0.4 K/mcL (0.0-1.3); Monocytes % 7.5 %; Neutrophils # 3.2 K/mcL (1.6-8.9); Segmented Neutrophils % 67.5 %
[2020-02-16 03:19] LABS: Blood Urea Nitrogen > 130 mg/dL (6-20); Calcium 7.5 mg/dL (8.6-10.3); Carbon Dioxide 20 mEq/L (23-29); Chloride 98 mEq/L (98-107); Glucose 51 mg/dL (70-105); Magnesium 2.4 mg/dL (1.6-2.6); Potassium 5.5 mEq/L (3.5-5.1); Sodium 136 mEq/L (136-145); eGFR For African Americans 5 (> 60); eGFR For Non-African Americans 4 (> 60)
[2020-02-16] MEDS: *HR* Heparin 5,000 UNIT/ML VIAL SQ SCH ×2 (04:14→18:11)
[2020-02-16] MEDS: Lactulose Oral Soln 20 GM/30 ML UDC PO SCH ×2 (07:31→20:59)
[2020-02-16] MEDS: Azithromycin 500 MG in 0.9 % Sodium Chloride 250 ML IVPB SCH (07:31)
[2020-02-16 09:21] LABS: Complement C3 120 mg/dL (87-200)
[2020-02-16 09:39] LABS: Bilirubin,Urine Negative (Negative); Blood,Urine Large (Negative); Clarity,Urine Turbid (Clear); Color,Urine Light-Red (Yellow); Glucose,Urine (UA) Normal (Normal); Ketones,Urine Negative (Negative); Leukocyte Esterase,Urine Small (Negative); Nitrite,Urine Negative (Negative); Protein,Urine 100 mg/dL (Neg-Trace); RBC,Urine TNTC per hpf (0-3); Specific Gravity,Urine 1.013 (1.010-1.025); Urobilinogen,Urine Normal (Normal); WBC,Urine 30-50 per hpf (0-3)
[2020-02-16 10:30] LABS: Protein/Creatinine Ratio,Urine 9.89 mg/mg (0.00-0.20)
[2020-02-16 11:20] LABS: % Iron Saturation 19 % (20-55); Alanine Aminotransferase 13 Units/L (7-52); Albumin 1.8 g/dL (3.5-5.7); Albumin/Globulin Ratio 0.4 (1.1-2.2); Alkaline Phosphatase 83 Units/L (34-104); Aspartate Amino Transferase 25 Units/L (13-39); Bilirubin,Direct 0.1 mg/dL (0.0-0.2); Bilirubin,Indirect 0.3 mg/dL (0.0-1.0); Bilirubin,Total 0.4 mg/dL (0.3-1.0); C-Reactive Protein 80 mg/L (Less than 10); Globulin 4.6 g/dL (2.4-3.5); Iron 33 mcg/dL (65-175); Total Protein 6.4 g/dL (6.4-8.9); Transferrin 127 mg/dL (203-362)
[2020-02-16 11:34] LABS: Folate > 22.3 ng/mL (3.0-16.0); Vitamin B12 1274 pg/mL (250-1100)
[2020-02-16 11:44] LABS: Ferritin 95 ng/mL (20-250)
[2020-02-16] MEDS: D5% in Lactated Ringers 1,000 ML IVC SCH (12:58)
[2020-02-16] MEDS ORDERED: Heparin 1,000 UNITS/500 mL 500 ML ONE (13:58)
[2020-02-16] MEDS ORDERED: Lidocaine/EPI 1:100k 1% 50 ML VIAL ONE (13:58)
[2020-02-16] MEDS ORDERED: *HR* Heparin 5,000 UNIT/ML VIAL ONE (14:26)
[2020-02-16] MEDS ORDERED: Isovue-300 50ML VIAL IVP ONE (14:50)
[2020-02-16] MEDS: Cefepime HCl 1,000 MG in 0.9 % Sodium Chloride Mini Bag 100 ML IVPB SCH (18:10)
[2020-02-16 19:08] LABS: Blood Urea Nitrogen > 130 mg/dL (6-20); Calcium 7.6 mg/dL (8.6-10.3); Carbon Dioxide 20 mEq/L (23-29); Chloride 99 mEq/L (98-107); Glucose 122 mg/dL (70-105); Potassium 5.3 mEq/L (3.5-5.1); Sodium 136 mEq/L (136-145); eGFR For African Americans 5 (> 60); eGFR For Non-African Americans 4 (> 60)
[2020-02-17] MEDS: D5% in Lactated Ringers 1,000 ML IVC SCH (03:09)
[2020-02-17 03:28] LABS: Hematocrit 23.6 % (37.5-50.1); Hemoglobin 7.3 g/dL (12.9-16.9); Mean Corpuscular HGB Conc 30.9 g/dL (31.6-35.5); Mean Corpuscular Hemoglobin 24.8 pg (28.0-33.3); Mean Corpuscular Volume 80.3 fL (83.0-100.0); Mean Platelet Volume 9.2 fL (9.4-12.4); Red Blood Count 2.94 M/mcL (4.19-5.50); Red Cell Distribution Width 17.9 % (11.5-14.5); White Blood Count 4.3 K/mcL (4.3-11.1)
[2020-02-17 03:29] LABS: Platelet Count 90 K/mcL (140-400)
[2020-02-17 03:48] LABS: Blood Urea Nitrogen > 130 mg/dL (6-20); Calcium 7.6 mg/dL (8.6-10.3); Carbon Dioxide 18 mEq/L (23-29); Chloride 100 mEq/L (98-107); Glucose 97 mg/dL (70-105); Potassium 5.2 mEq/L (3.5-5.1); Sodium 135 mEq/L (136-145); eGFR For African Americans 5 (> 60); eGFR For Non-African Americans 4 (> 60)
[2020-02-17] MEDS: *HR* Heparin 5,000 UNIT/ML VIAL SQ SCH ×2 (05:28→16:22)
[2020-02-17] MEDS ORDERED: 0.9 % Sodium Chloride 250 ML IVC PRN (07:38)
[2020-02-17] MEDS ORDERED: *HR* Heparin 10,000 UNIT/10 ML VIAL IV PRN ×2 (07:38)
[2020-02-17] MEDS ORDERED: 0.9 % Sodium Chloride 1,000 ML PRIME SCH (07:45)
[2020-02-17] MEDS: Azithromycin 500 MG in 0.9 % Sodium Chloride 250 ML IVPB SCH (08:05)
[2020-02-17] MEDS: Lactulose Oral Soln 20 GM/30 ML UDC PO SCH ×2 (08:18→20:23)
[2020-02-17 09:56] LABS: Hepatitis B Surface Antibody 56.72 mIU/mL
[2020-02-17 10:07] LABS: Hepatitis B Surface Antigen Nonreactive (Nonreactive)
[2020-02-17] MEDS: cefTRIAXone 2,000 MG in Water for inj. (sterile) 20 ML IVP SCH (10:34)
[2020-02-17] MEDS: *HR* Methadone 10 MG TABLET PO SCH (11:41)
[2020-02-18] MEDS: *HR* OxyCODONE Immed Rel 5 MG TABLET PO PRN ×2 (02:19→20:09)
[2020-02-18 02:53] LABS: Hematocrit 25.1 % (37.5-50.1); Immature Platelets 1.4 % (1.1-6.1); Mean Corpuscular HGB Conc 31.9 g/dL (31.6-35.5); Mean Corpuscular Hemoglobin 25.5 pg (28.0-33.3); Mean Corpuscular Volume 79.9 fL (83.0-100.0); Mean Platelet Volume 9.2 fL (9.4-12.4); Red Blood Count 3.14 M/mcL (4.19-5.50); Red Cell Distribution Width 18.3 % (11.5-14.5); White Blood Count 4.5 K/mcL (4.3-11.1)
[2020-02-18 03:11] LABS: Calcium 7.4 mg/dL (8.6-10.3); Potassium 4.2 mEq/L (3.5-5.1)
[2020-02-18] MEDS: *HR* Heparin 5,000 UNIT/ML VIAL SQ SCH ×2 (05:43→16:39)
[2020-02-18] MEDS: *HR* Methadone 10 MG TABLET PO SCH (08:54)
[2020-02-18] MEDS: cefTRIAXone 2,000 MG in Water for inj. (sterile) 20 ML IVP SCH (08:57)
[2020-02-18] MEDS: Azithromycin 500 MG in 0.9 % Sodium Chloride 250 ML IVPB SCH (08:58)
[2020-02-18] MEDS: Lactulose Oral Soln 20 GM/30 ML UDC PO SCH ×2 (08:59→19:57)
[2020-02-18] MEDS ORDERED: *HR* Methadone 10 MG TABLET PO ONE (09:27)
[2020-02-18 10:51] LABS: ANA IgG by ELISA NONE DETECTED (None Detected)
[2020-02-18] MEDS ORDERED: Melatonin 3 MG TABLET PO ONE (20:33)
[2020-02-18] MEDS: Nicotine 21 MG PATCH.TD24 TD SCH (21:23)
[2020-02-19] MEDS ORDERED: Melatonin 3 MG TABLET PO ONE (00:53)
[2020-02-19] MEDS: *HR* OxyCODONE Immed Rel 5 MG TABLET PO PRN (04:18)
[2020-02-19 04:42] LABS: Hematocrit 23.4 % (37.5-50.1); Hemoglobin 7.3 g/dL (12.9-16.9); Immature Platelets 1.1 % (1.1-6.1); Mean Corpuscular HGB Conc 31.2 g/dL (31.6-35.5); Mean Corpuscular Hemoglobin 25.1 pg (28.0-33.3); Mean Corpuscular Volume 80.4 fL (83.0-100.0); Red Blood Count 2.91 M/mcL (4.19-5.50); Red Cell Distribution Width 17.7 % (11.5-14.5); White Blood Count 4.7 K/mcL (4.3-11.1)
[2020-02-19] MEDS: *HR* Heparin 5,000 UNIT/ML VIAL SQ SCH ×2 (04:56→16:49)
[2020-02-19 05:00] LABS: Calcium 7.5 mg/dL (8.6-10.3); Potassium 4.2 mEq/L (3.5-5.1)
[2020-02-19] MEDS ORDERED: *HR* Methadone 10 MG TABLET PO ONE (07:01)
[2020-02-19] MEDS ORDERED: *HR* Heparin 10,000 UNIT/10 ML VIAL IV PRN ×2 (07:28)
[2020-02-19] MEDS ORDERED: 0.9 % Sodium Chloride 250 ML IVC PRN (07:28)
[2020-02-19] MEDS: Cefdinir 300 MG CAPSULE PO SCH (08:18)
[2020-02-19] MEDS: Lactulose Oral Soln 20 GM/30 ML UDC PO SCH ×2 (08:18→19:49)
[2020-02-19] MEDS: Nicotine 21 MG PATCH.TD24 TD SCH (08:18)
[2020-02-19] MEDS: Azithromycin 250 MG TABLET PO SCH (08:18)
[2020-02-19] MEDS ORDERED: Nicotine 2 MG GUM BC PRN (17:39)
[2020-02-20] MEDS: *HR* OxyCODONE Immed Rel 5 MG TABLET PO PRN (01:10)
[2020-02-20 02:27] LABS: APTT (LE Anticoag) 64 sec (32-48); Diluted Russell VVT Confirm NEGATIVE ratio (Negative); Diluted Russell Viper Venom 96 sec (33-44); LE APTT D Heparin Neutralized 57 sec (32-48); LE Coag APTT Mixing 43 sec (32-48); LE Coag Reptilase Time 21.1 sec (<=21.9); LE Dil. Russell Viper Mix 1:1 59 sec (33-44); LE Hexagonal Phospholipid Neut NEGATIVE (Negative); PT (LE-Anticoag) 15.7 sec (12.0-15.5); Thrombin Time 25.9 sec (14.7-19.5)
[2020-02-20 03:31] LABS: Hematocrit 25.8 % (37.5-50.1); Immature Platelets 1.7 % (1.1-6.1); Mean Corpuscular Hemoglobin 25.2 pg (28.0-33.3); Mean Corpuscular Volume 81.4 fL (83.0-100.0); Mean Platelet Volume 9.2 fL (9.4-12.4); Red Blood Count 3.17 M/mcL (4.19-5.50); Red Cell Distribution Width 17.6 % (11.5-14.5); White Blood Count 6.1 K/mcL (4.3-11.1)
[2020-02-20 03:53] LABS: Calcium 7.9 mg/dL (8.6-10.3)
[2020-02-20 05:13] LABS: Uric Acid 4.4 mg/dL (2.3-7.6)
[2020-02-20] MEDS: *HR* Heparin 5,000 UNIT/ML VIAL SQ SCH ×2 (05:58→17:27)
[2020-02-20] MEDS ORDERED: *HR* Heparin 10,000 UNIT/10 ML VIAL IV PRN ×2 (07:23)
[2020-02-20] MEDS ORDERED: 0.9 % Sodium Chloride 250 ML IVC PRN (07:23)
[2020-02-20] MEDS ORDERED: 0.9 % Sodium Chloride 1,000 ML PRIME SCH (07:30)
[2020-02-20] MEDS ORDERED: *HR* Methadone 10 MG TABLET PO SCH (09:00)
[2020-02-20] MEDS: Azithromycin 250 MG TABLET PO SCH (10:20)
[2020-02-20] MEDS: Nicotine 21 MG PATCH.TD24 TD SCH (10:21)
[2020-02-20] MEDS: Lactulose Oral Soln 20 GM/30 ML UDC PO SCH ×2 (10:21→20:45)
[2020-02-20] MEDS: Cefdinir 300 MG CAPSULE PO SCH (10:21)
[2020-02-20] MEDS: Doxycycline 100 MG CAPSULE PO SCH (20:45)
[2020-02-21] MEDS: *HR* Heparin 5,000 UNIT/ML VIAL SQ SCH ×2 (05:03→16:58)
[2020-02-21 07:58] LABS: Calcium 7.5 mg/dL (8.6-10.3); Potassium 4.3 mEq/L (3.5-5.1)
[2020-02-21] MEDS: *HR* Methadone 10 MG TABLET PO SCH (08:26)
[2020-02-21] MEDS: Lactulose Oral Soln 20 GM/30 ML UDC PO SCH ×3 (08:26→20:20)
[2020-02-21] MEDS: Doxycycline 100 MG CAPSULE PO SCH ×2 (08:27→20:20)
[2020-02-21] MEDS: Nicotine 21 MG PATCH.TD24 TD SCH (08:27)
[2020-02-21] MEDS ORDERED: *HR* Midazolam HCl 2 MG/2 ML VIAL IVP ONE (13:44)
[2020-02-21] MEDS ORDERED: *HR* FentaNYL (PF) 100 MCG/2 ML VIAL IVP ONE (13:44)
[2020-02-21] MEDS ORDERED: Clindamycin 600 MG/50 ML 600 MG/50 ML IV.SOLN IVPB STA (13:44)
[2020-02-21] MEDS ORDERED: 0.9 % Sodium Chloride 500 ML ONE (13:48)
[2020-02-21] MEDS ORDERED: *HR* Heparin 5,000 UNIT/ML VIAL ONE (14:17)
[2020-02-21] MEDS ORDERED: Lidocaine/EPI 1:100k 1% 50 ML VIAL ONE (14:20)
[2020-02-21] MEDS ORDERED: Heparin 1,000 UNITS/500 mL 500 ML ONE (14:20)
[2020-02-21] MEDS: traZODone 50 MG TABLET PO SCH (20:20)
[2020-02-22] MEDS: traZODone 50 MG TABLET PO SCH (00:23)
[2020-02-22] MEDS: *HR* Heparin 5,000 UNIT/ML VIAL SQ SCH ×2 (06:09→17:46)
[2020-02-22 07:01] LABS: Calcium 7.4 mg/dL (8.6-10.3); Potassium 4.4 mEq/L (3.5-5.1)
[2020-02-22] MEDS ORDERED: 0.9 % Sodium Chloride 250 ML IVC PRN (07:49)
[2020-02-22] MEDS ORDERED: *HR* Heparin 10,000 UNIT/10 ML VIAL IV PRN ×2 (07:49)
[2020-02-22] MEDS ORDERED: 0.9 % Sodium Chloride 1,000 ML PRIME SCH (08:00)
[2020-02-22] MEDS: *HR* Methadone 10 MG TABLET PO SCH (08:50)
[2020-02-22] MEDS: Doxycycline 100 MG CAPSULE PO SCH ×2 (08:50→21:46)
[2020-02-22] MEDS: Nicotine 21 MG PATCH.TD24 TD SCH (08:51)
[2020-02-22] MEDS: Lactulose Oral Soln 20 GM/30 ML UDC PO SCH ×2 (08:51→21:47)
[2020-02-22] MEDS: ALPRAZolam 0.5 MG TABLET PO SCH (21:46)
[2020-02-23] MEDS: *HR* Heparin 5,000 UNIT/ML VIAL SQ SCH ×2 (05:52→18:40)
[2020-02-23 07:36] LABS: Calcium 7.7 mg/dL (8.6-10.3); Potassium 4.3 mEq/L (3.5-5.1)
[2020-02-23] MEDS: *HR* Methadone 10 MG TABLET PO SCH (08:33)
[2020-02-23] MEDS: Doxycycline 100 MG CAPSULE PO SCH ×2 (08:34→20:21)
[2020-02-23] MEDS: Nicotine 21 MG PATCH.TD24 TD SCH (08:34)
[2020-02-23] MEDS: Lactulose Oral Soln 20 GM/30 ML UDC PO SCH ×2 (08:34→20:20)
[2020-02-23] MEDS: ALPRAZolam 0.5 MG TABLET PO SCH (20:21)
[2020-02-24 02:19] LABS: Calcium 7.5 mg/dL (8.6-10.3); Potassium 4.4 mEq/L (3.5-5.1)
[2020-02-24] MEDS: *HR* Heparin 5,000 UNIT/ML VIAL SQ SCH ×2 (05:38→17:46)
[2020-02-24] MEDS ORDERED: *HR* Heparin 10,000 UNIT/10 ML VIAL IV PRN (07:41)
[2020-02-24] MEDS ORDERED: 0.9 % Sodium Chloride 250 ML IVC PRN (07:41)
[2020-02-24] MEDS: Doxycycline 100 MG CAPSULE PO SCH ×2 (08:42→21:30)
[2020-02-24] MEDS: Lactulose Oral Soln 20 GM/30 ML UDC PO SCH ×2 (08:44→21:31)
[2020-02-24] MEDS: *HR* Methadone 10 MG TABLET PO SCH (08:46)
[2020-02-24] MEDS: Nicotine 21 MG PATCH.TD24 TD SCH (08:48)
[2020-02-24] MEDS: ALPRAZolam 0.5 MG TABLET PO SCH (21:30)
[2020-02-25 03:23] LABS: Calcium 7.4 mg/dL (8.6-10.3); Potassium 4.7 mEq/L (3.5-5.1)
[2020-02-25] MEDS: *HR* Heparin 5,000 UNIT/ML VIAL SQ SCH ×2 (05:36→17:01)
[2020-02-25] MEDS: *HR* Methadone 10 MG TABLET PO SCH (09:23)
[2020-02-25] MEDS: Nicotine 21 MG PATCH.TD24 TD SCH (09:23)
[2020-02-25] MEDS: Lactulose Oral Soln 20 GM/30 ML UDC PO SCH ×2 (09:23→20:19)
[2020-02-25] MEDS: ALPRAZolam 0.5 MG TABLET PO SCH (20:19)
[2020-02-26 02:23] LABS: Calcium 7.4 mg/dL (8.6-10.3)
[2020-02-26] MEDS: *HR* Heparin 5,000 UNIT/ML VIAL SQ SCH ×2 (05:16→16:53)
[2020-02-26] MEDS: Nicotine 21 MG PATCH.TD24 TD SCH (08:31)
[2020-02-26] MEDS: *HR* Methadone 10 MG TABLET PO SCH (08:31)
[2020-02-26] MEDS: Lactulose Oral Soln 20 GM/30 ML UDC PO SCH ×2 (08:32→19:58)
[2020-02-26] MEDS: ALPRAZolam 0.5 MG TABLET PO SCH (19:58)
[2020-02-27 02:40] LABS: Hematocrit 23.4 % (37.5-50.1)
[2020-02-27 02:42] LABS: Hemoglobin 7.2 g/dL (12.9-16.9); Immature Platelets 2.5 % (1.1-6.1); Mean Corpuscular HGB Conc 30.8 g/dL (31.6-35.5); Mean Corpuscular Volume 84.5 fL (83.0-100.0); Mean Platelet Volume 9.9 fL (9.4-12.4); Red Blood Count 2.77 M/mcL (4.19-5.50); Red Cell Distribution Width 17.5 % (11.5-14.5); White Blood Count 3.5 K/mcL (4.3-11.1)
[2020-02-27 02:47] LABS: Calcium 7.6 mg/dL (8.6-10.3); Potassium 5.7 mEq/L (3.5-5.1)
[2020-02-27] MEDS: *HR* Heparin 5,000 UNIT/ML VIAL SQ SCH ×2 (05:40→16:01)
[2020-02-27] MEDS ORDERED: 0.9 % Sodium Chloride 250 ML IVC PRN (07:16)
[2020-02-27] MEDS ORDERED: *HR* Heparin 10,000 UNIT/10 ML VIAL IV PRN ×2 (07:16→11:24)
[2020-02-27] MEDS: Nicotine 21 MG PATCH.TD24 TD SCH (08:15)
[2020-02-27] MEDS: *HR* Methadone 10 MG TABLET PO SCH (08:15)
[2020-02-27] MEDS: Lactulose Oral Soln 20 GM/30 ML UDC PO SCH ×2 (08:15→20:45)
[2020-02-27] MEDS: ALPRAZolam 0.5 MG TABLET PO SCH (20:45)
[2020-02-28 01:57] LABS: Mean Corpuscular Volume 80.9 fL (83.0-100.0)
[2020-02-28 01:59] LABS: Hematocrit 24.2 % (37.5-50.1); Hemoglobin 7.6 g/dL (12.9-16.9); Mean Corpuscular HGB Conc 31.4 g/dL (31.6-35.5); Mean Corpuscular Hemoglobin 25.4 pg (28.0-33.3); Mean Platelet Volume 10.5 fL (9.4-12.4); Red Blood Count 2.99 M/mcL (4.19-5.50); Red Cell Distribution Width 17.4 % (11.5-14.5); White Blood Count 3.6 K/mcL (4.3-11.1)
[2020-02-28 02:07] LABS: Calcium 7.5 mg/dL (8.6-10.3); Potassium 5.1 mEq/L (3.5-5.1)
[2020-02-28] MEDS: *HR* Heparin 5,000 UNIT/ML VIAL SQ SCH ×2 (05:54→17:39)
[2020-02-28] MEDS: Lactulose Oral Soln 20 GM/30 ML UDC PO SCH ×2 (07:45→21:15)
[2020-02-28] MEDS: *HR* Methadone 10 MG TABLET PO SCH (07:45)
[2020-02-28] MEDS: Nicotine 21 MG PATCH.TD24 TD SCH (07:45)
[2020-02-28] MEDS: ALPRAZolam 0.5 MG TABLET PO SCH (22:22)
[2020-02-29 02:01] LABS: Hematocrit 23.9 % (37.5-50.1); Immature Platelets 3.2 % (1.1-6.1); Mean Corpuscular HGB Conc 29.3 g/dL (31.6-35.5); Mean Corpuscular Hemoglobin 24.9 pg (28.0-33.3); Mean Corpuscular Volume 85.1 fL (83.0-100.0); Mean Platelet Volume 9.7 fL (9.4-12.4); Red Blood Count 2.81 M/mcL (4.19-5.50); Red Cell Distribution Width 17.5 % (11.5-14.5); White Blood Count 2.6 K/mcL (4.3-11.1)
[2020-02-29 02:20] LABS: Calcium 7.4 mg/dL (8.6-10.3); Potassium 5.3 mEq/L (3.5-5.1)
[2020-02-29] MEDS: *HR* Heparin 5,000 UNIT/ML VIAL SQ SCH ×2 (06:11→17:25)
[2020-02-29] MEDS ORDERED: *HR* Heparin 10,000 UNIT/10 ML VIAL IV PRN (07:28)
[2020-02-29] MEDS ORDERED: 0.9 % Sodium Chloride 250 ML IVC PRN (07:28)
[2020-02-29] MEDS ORDERED: 0.9 % Sodium Chloride 1,000 ML PRIME SCH (07:30)
[2020-02-29] MEDS: Nicotine 21 MG PATCH.TD24 TD SCH (08:49)
[2020-02-29] MEDS: *HR* Methadone 10 MG TABLET PO SCH (08:50)
[2020-02-29] MEDS: Lactulose Oral Soln 20 GM/30 ML UDC PO SCH ×2 (08:51→22:30)
[2020-02-29] MEDS: ALPRAZolam 0.5 MG TABLET PO SCH (22:31)
[2020-03-01] MEDS: *HR* Heparin 5,000 UNIT/ML VIAL SQ SCH ×2 (05:47→18:47)
[2020-03-01] MEDS: Lactulose Oral Soln 20 GM/30 ML UDC PO SCH ×2 (08:58→21:48)
[2020-03-01] MEDS: Nicotine 21 MG PATCH.TD24 TD SCH (08:58)
[2020-03-01] MEDS: *HR* Methadone 10 MG TABLET PO SCH (08:59)
[2020-03-01] MEDS: ALPRAZolam 0.5 MG TABLET PO SCH (21:47)
[2020-03-02] MEDS: *HR* Heparin 5,000 UNIT/ML VIAL SQ SCH ×2 (05:24→17:23)
[2020-03-02] MEDS ORDERED: 0.9 % Sodium Chloride 250 ML IVC PRN (07:33)
[2020-03-02] MEDS ORDERED: *HR* Heparin 10,000 UNIT/10 ML VIAL IV PRN (07:49)
[2020-03-02] MEDS: Lactulose Oral Soln 20 GM/30 ML UDC PO SCH (08:19)
[2020-03-02] MEDS: *HR* Methadone 10 MG TABLET PO SCH (08:19)
[2020-03-02] MEDS: Nicotine 21 MG PATCH.TD24 TD SCH (08:20)
[2020-03-02 10:59] LABS: Hemoglobin 8.3 g/dL (12.9-16.9)
[2020-03-02 11:00] LABS: Calcium 7.4 mg/dL (8.6-10.3)
[2020-03-02 11:01] LABS: Hematocrit 26.9 % (37.5-50.1); Immature Platelets 3.2 % (1.1-6.1); Mean Corpuscular HGB Conc 30.9 g/dL (31.6-35.5); Mean Corpuscular Hemoglobin 26.5 pg (28.0-33.3); Mean Corpuscular Volume 85.9 fL (83.0-100.0); Mean Platelet Volume 9.8 fL (9.4-12.4); Red Blood Count 3.13 M/mcL (4.19-5.50); Red Cell Distribution Width 16.9 % (11.5-14.5); White Blood Count 2.6 K/mcL (4.3-11.1)
[2020-03-02] MEDS: ALPRAZolam 0.5 MG TABLET PO SCH (22:29)
[2020-03-03] MEDS: Lactulose Oral Soln 20 GM/30 ML UDC PO SCH ×2 (00:06→08:57)
[2020-03-03 03:38] LABS: Hemoglobin 9.7 g/dL (12.9-16.9)
[2020-03-03 03:40] LABS: Hematocrit 30.2 % (37.5-50.1); Immature Platelets 6.3 % (1.1-6.1); Mean Corpuscular HGB Conc 32.1 g/dL (31.6-35.5); Mean Corpuscular Hemoglobin 26.8 pg (28.0-33.3); Mean Corpuscular Volume 83.4 fL (83.0-100.0); Mean Platelet Volume 10.2 fL (9.4-12.4); Red Blood Count 3.62 M/mcL (4.19-5.50); Red Cell Distribution Width 17.1 % (11.5-14.5); White Blood Count 4.3 K/mcL (4.3-11.1)
[2020-03-03 03:47] LABS: Potassium 5.2 mEq/L (3.5-5.1)
[2020-03-03] MEDS: *HR* Heparin 5,000 UNIT/ML VIAL SQ SCH (04:23)
[2020-03-03 08:02] VITALS: BP 103/67
[2020-03-03] MEDS: Nicotine 21 MG PATCH.TD24 TD SCH (08:57)
[2020-03-03] MEDS: *HR* Methadone 10 MG TABLET PO SCH (08:57)
== END 2020-03-03 11:30 | DRG 469 ==
LOC: EMEROOARM 08:12 → 2NENU 08:12 → SUATTDRO 12:17 → 2NENU 12:42 → 2ANU 02-16 12:46
PROVIDERS: ADMIT Internal Medicine; ATTEND Internal Medicine
PROC: IRPERMA (2020-02-21 13:30)

== ENCOUNTER 2020-11-13 05:51 | Inpatient (IN) ==
[2020-11-13 07:07] LABS: Basophils % 0.2 %; Eosinophils # 0.1 K/mcL (0.0-0.6); Eosinophils % 1.8 %; Immature Granulocytes % 0.8 % (0-4); Lymphocytes # 0.9 K/mcL (0.6-4.6); Mean Corpuscular HGB Conc 30.7 g/dL (31.6-35.5); Mean Corpuscular Hemoglobin 30.2 pg (28.0-33.3); Mean Corpuscular Volume 98.6 fL (83.0-100.0); Mean Platelet Volume 9.6 fL (9.4-12.4); Monocytes # 0.5 K/mcL (0.0-1.3); Monocytes % 9.9 %; Red Blood Count 1.39 M/mcL (4.19-5.50); Red Cell Distribution Width 21.4 % (11.5-14.5); Segmented Neutrophils % 69.3 %
[2020-11-13 07:11] LABS: Neutrophils # 3.5 K/mcL (1.6-8.9); Platelet Count 87 K/mcL (140-400)
[2020-11-13 07:13] LABS: Hemoglobin 4.2 g/dL (12.9-16.9)
[2020-11-13 07:14] LABS: Hematocrit 13.7 % (37.5-50.1)
[2020-11-13 07:18] LABS: INR 1.1; Prothrombin Time 12.3 Seconds (9.4-12.1)
[2020-11-13 07:21] LABS: Activated Partial Thrombo Time 25.7 Seconds (26.0-36.0)
[2020-11-13 07:27] LABS: Alanine Aminotransferase 23 Units/L (7-52); Albumin 2.8 g/dL (3.5-5.7); Albumin/Globulin Ratio 1.1 (1.1-2.2); Alkaline Phosphatase 61 Units/L (34-104); Aspartate Amino Transferase 29 Units/L (13-39); BUN/Creatinine Ratio 12 (6-26); Bilirubin,Total 0.3 mg/dL (0.3-1.0); Blood Urea Nitrogen 61 mg/dL (6-20); Calcium 7.9 mg/dL (8.6-10.3); Carbon Dioxide 22 mEq/L (23-29); Chloride 95 mEq/L (98-107); Globulin 2.6 g/dL (2.4-3.5); Glucose 89 mg/dL (70-105); Lipase 33 Units/L (11-82); Magnesium 1.4 mg/dL (1.6-2.6); Osmolality,Calculated 283 (280-300); Potassium 3.8 mEq/L (3.5-5.1); Sodium 128 mEq/L (136-145); Total Protein 5.4 g/dL (6.4-8.9); eGFR For African Americans 15 (> 60); eGFR For Non-African Americans 12 (> 60)
[2020-11-13 07:29] LABS: Troponin I < 0.03 ng/mL (< 0.04)
[2020-11-13] MEDS ORDERED: Ondansetron 4 MG/2 ML VIAL IVP PRN (07:54)
[2020-11-13] MEDS ORDERED: Naloxone 0.4 MG/ML INJ IVP PRN (07:54)
[2020-11-13] MEDS ORDERED: *HR* HYDROcodone/Acet 5/325 mg TABLET PO PRN (07:54)
[2020-11-13] MEDS ORDERED: 0.9 % Sodium Chloride 250 ML IVC SCH (08:00)
[2020-11-13] MEDS ORDERED: Albuterol 2.5 MG/3 ML NEBULIZER IH PRN (08:29)
[2020-11-13] MEDS ORDERED: 0.9 % Sodium Chloride 500 ML ONE (08:51)
[2020-11-13] MEDS: Pantoprazole 40 MG VIAL IVP SCH ×2 (10:46→17:46)
[2020-11-13] MEDS ORDERED: NON-FORMULARY MEDICATION 1 EACH EACH (Lactulose [Enulose] 10 GM/15 ML Solution) PO PRN (11:12)
[2020-11-13] MEDS: Methadone Oral Concentrate 50 MG/5 ML UDC PO SCH (11:56)
[2020-11-13] MEDS ORDERED: 0.9 % Sodium Chloride 250 ML ONE (12:49)
[2020-11-13] MEDS ORDERED: SODIUM CHLORIDE/NAHCO3/KCL/PEG 4,000 ML SOLN.RECON PO ONE (17:00)
[2020-11-13 17:50] LABS: Hematocrit 19.2 % (37.5-50.1)
[2020-11-13 17:53] LABS: Hemoglobin 6.3 g/dL (12.9-16.9)
[2020-11-13] MEDS ORDERED: Furosemide 60 MG in 0.9 % Sodium Chloride 50 ML IVP ONE (20:00)
[2020-11-13] MEDS ORDERED: traZODone 50 MG TABLET PO SCH (21:00)
[2020-11-13] MEDS: Mirtazapine 15 MG TABLET PO SCH (22:09)
[2020-11-13] MEDS: Melatonin 3 MG TABLET PO SCH (22:11)
[2020-11-13] MEDS: PARoxetine 20 MG TABLET PO SCH (22:11)
[2020-11-13] MEDS: Lactulose Oral Soln 20 GM/30 ML UDC PO SCH (22:11)
[2020-11-14] MEDS: Pantoprazole 40 MG VIAL IVP SCH ×2 (06:23→16:20)
[2020-11-14] MEDS ORDERED: 0.9 % Sodium Chloride 2,000 ML ONE (06:53)
[2020-11-14] MEDS ORDERED: 0.9 % Sodium Chloride 250 ML IVC PRN (07:16)
[2020-11-14] MEDS ORDERED: 0.9 % Sodium Chloride 1,000 ML PRIME SCH (07:30)
[2020-11-14 08:27] LABS: Calcium 7.6 mg/dL (8.6-10.3); Magnesium 1.6 mg/dL (1.6-2.6); Phosphorous 3.9 mg/dL (2.7-4.5); Potassium 3.4 mEq/L (3.5-5.1)
[2020-11-14] MEDS: Renal Vitamin 1 CAP CAPSULE PO SCH (09:33)
[2020-11-14] MEDS: Lactulose Oral Soln 20 GM/30 ML UDC PO SCH ×2 (09:33→21:17)
[2020-11-14] MEDS: Megestrol Acetate 400 MG/10 ML UDC PO SCH (09:33)
[2020-11-14] MEDS: Methadone Oral Concentrate 50 MG/5 ML UDC PO SCH (09:34)
[2020-11-14 11:03] LABS: Adenovirus Not Detected (Not Detect); Bordetella Pertussis Not Detected (Not Detect); Chlamydophila pneumoniae Not Detected (Not Detect); Coronavirus 229E Not Detected (Not Detect); Coronavirus HKU1 Not Detected (Not Detect); Coronavirus NL63 Not Detected (Not Detect); Coronavirus OC43 Not Detected (Not Detect); Human Metapneumovirus Not Detected (Not Detect); Human Rhinovirus/Enterovirus Not Detected (Not Detect); Influenza A Subtype 2009 H1 Not Detected (Not Detect); Influenza B Not Detected (Not Detect); Mycoplasma pneumoniae Not Detected (Not Detect); Parainfluenza Virus 1 Not Detected (Not Detect); Parainfluenza Virus 2 Not Detected (Not Detect); Parainfluenza Virus 3 Not Detected (Not Detect); Parainfluenza Virus 4 Not Detected (Not Detect); Respiratory Syncytial Virus Not Detected (Not Detect); SARS-CoV-2 Not Detected (Not Detect)
[2020-11-14] MEDS: Albumin 25% 25gram/100mL 25 GM/100 ML IV.SOLN IVPB SCH ×2 (13:10→16:23)
[2020-11-14] MEDS ORDERED: Lidocaine -MPF 2% 2 ML VIAL ONE (13:35)
[2020-11-14 13:45] LABS: Mean Platelet Volume 9.3 fL (9.4-12.4)
[2020-11-14 13:48] LABS: Hemoglobin 8.8 g/dL (12.9-16.9); Mean Corpuscular HGB Conc 33.8 g/dL (31.6-35.5); Mean Corpuscular Hemoglobin 30.2 pg (28.0-33.3); Mean Corpuscular Volume 89.3 fL (83.0-100.0); Red Blood Count 2.91 M/mcL (4.19-5.50); Red Cell Distribution Width 19.9 % (11.5-14.5); Retculocyte # 0.14 M/mcL (0.05-0.10); Reticulocyte % 4.7 % (1.6-2.8); White Blood Count 3.2 K/mcL (4.3-11.1)
[2020-11-14 14:00] LABS: Amphetamine Screen,Urine Negative ng/mL (Cutoff=1000); Barbiturate Screen,Urine Negative ng/mL (Cutoff=200); Benzodiazepines Screen,Urine Negative ng/mL (Cutoff=200); Cannabinoid Screen,Urine Negative ng/mL (Cutoff = 50); Cocaine Screen,Urine Negative ng/mL (Cutoff= 300); Opiate Screen,Urine Negative ng/mL (Cutoff=300); Phencyclidine Screen,Urine Negative ng/mL (Cutoff=25)
[2020-11-14] MEDS ORDERED: Darbepoetin 100 MCG/0.5 ML SYRINGE SQ SCH (14:30)
[2020-11-14 16:36] LABS: Hematocrit 22.9 % (37.5-50.1); Hemoglobin 7.9 g/dL (12.9-16.9)
[2020-11-14] MEDS ORDERED: SODIUM CHLORIDE/NAHCO3/KCL/PEG 4,000 ML SOLN.RECON PO ONE (17:00)
[2020-11-14] MEDS ORDERED: *HR* LORazepam 0.5 MG TABLET PO PRN (18:35)
[2020-11-14] MEDS: PARoxetine 20 MG TABLET PO SCH (21:15)
[2020-11-14] MEDS: Mirtazapine 15 MG TABLET PO SCH (21:15)
[2020-11-14] MEDS: Melatonin 3 MG TABLET PO SCH (21:17)
[2020-11-15] MEDS: Pantoprazole 40 MG VIAL IVP SCH (05:41)
[2020-11-15] MEDS ORDERED: 0.9 % Sodium Chloride 250 ML IVC PRN (07:15)
[2020-11-15] MEDS ORDERED: Lidocaine -MPF 2% 2 ML VIAL ONE (08:06)
[2020-11-15] MEDS ORDERED: *HR* Midazolam HCl 2 MG/2 ML VIAL ONE (08:49)
[2020-11-15] MEDS: Renal Vitamin 1 CAP CAPSULE PO SCH (09:39)
[2020-11-15] MEDS: Megestrol Acetate 400 MG/10 ML UDC PO SCH (09:39)
[2020-11-15] MEDS: Methadone Oral Concentrate 50 MG/5 ML UDC PO SCH (09:39)
[2020-11-15] MEDS: Lactulose Oral Soln 20 GM/30 ML UDC PO SCH (09:39)
[2020-11-15 11:16] LABS: Hematocrit 21.8 % (37.5-50.1); Mean Corpuscular HGB Conc 32.1 g/dL (31.6-35.5); Mean Corpuscular Hemoglobin 30.2 pg (28.0-33.3); Mean Platelet Volume 9.4 fL (9.4-12.4); Red Blood Count 2.32 M/mcL (4.19-5.50); Red Cell Distribution Width 19.9 % (11.5-14.5)
[2020-11-15 11:17] LABS: Platelet Count 57 K/mcL (140-400)
[2020-11-15] MEDS ORDERED: Albumin 25% 25gram/100mL 25 GM/100 ML IV.SOLN IVPB SCH (12:00)
[2020-11-15] MEDS ORDERED: Iron Sucrose Complex 400 MG in 0.9 % Sodium Chloride 250 ML IVPB ONE (12:38)
[2020-11-15 12:45] LABS: Calcium 7.5 mg/dL (8.6-10.3); Phosphorous 2.1 mg/dL (2.7-4.5)
[2020-11-15 13:12] LABS: Folate > 22.3 ng/mL (3.0-16.0); Vitamin B12 729 pg/mL (250-1100)
[2020-11-15 13:50] VITALS: BP 112/64
[2020-11-16] MEDS ORDERED: Albumin 25% 25gram/100mL 25 GM/100 ML IV.SOLN IVPB SCH (12:00)
== END 2020-11-15 16:18 | DRG 241 ==
LOC: 2ANU 05:51 → EMEROOARM 05:51 → SUATTDRO 08:23 → 2ANU 09:38
PROVIDERS: ADMIT Internal Medicine; ATTEND Internal Medicine

== ENCOUNTER 2021-01-03 17:21 | Inpatient (IN) ==
[2021-01-03] MEDS ORDERED: 0.9 % Sodium Chloride 1,000 ML IVC ONE (18:01)
[2021-01-03] MEDS ORDERED: Pantoprazole 40 MG VIAL IVP ONE (18:01)
[2021-01-03 18:34] LABS: Red Cell Distribution Width 16.7 % (11.5-14.5)
[2021-01-03 18:36] LABS: Basophils % 0.2 %; Hematocrit 18.6 % (37.5-50.1); Immature Granulocytes % 1.4 % (0-4); Lymphocytes # 0.7 K/mcL (0.6-4.6); Lymphocytes % 7.8 %; Mean Corpuscular HGB Conc 32.3 g/dL (31.6-35.5); Mean Corpuscular Hemoglobin 30.3 pg (28.0-33.3); Mean Corpuscular Volume 93.9 fL (83.0-100.0); Mean Platelet Volume 9.7 fL (9.4-12.4); Monocytes # 0.5 K/mcL (0.0-1.3); Monocytes % 6.1 %; Platelet Count 103 K/mcL (140-400); Red Blood Count 1.98 M/mcL (4.19-5.50); Segmented Neutrophils % 84.5 %; White Blood Count 8.8 K/mcL (4.3-11.1)
[2021-01-03 18:40] LABS: Neutrophils # 7.4 K/mcL (1.6-8.9)
[2021-01-03 18:54] LABS: INR 1.4; Prothrombin Time 15.7 Seconds (9.4-12.1)
[2021-01-03 18:56] LABS: Activated Partial Thrombo Time 27.6 Seconds (26.0-36.0)
[2021-01-03 19:01] LABS: Platelet Estimate Slight Decrease (Normal)
[2021-01-03 19:03] LABS: Albumin/Globulin Ratio 0.9 (1.1-2.2); Bilirubin,Total 0.5 mg/dL (0.3-1.0); Calcium 8.3 mg/dL (8.6-10.3); Globulin 3.2 g/dL (2.4-3.5); Polychromasia 1+ (Not Present); Potassium 3.4 mEq/L (3.5-5.1); Total Protein 6.2 g/dL (6.4-8.9); Troponin I 0.06 ng/mL (< 0.04)
[2021-01-03 19:04] LABS: Hypochromasia Present (Not Present); Toxic Granulation Present (Not Present)
[2021-01-03 19:05] LABS: Anisocytosis 1+ (Not Present)
[2021-01-03] MEDS ORDERED: Naloxone 0.4 MG/ML INJ IVP PRN (20:27)
[2021-01-03] MEDS ORDERED: Ondansetron 4 MG/2 ML VIAL IVP PRN (20:27)
[2021-01-03] MEDS ORDERED: 0.9 % Sodium Chloride 250 ML ONE ×2 (20:29→20:49)
[2021-01-03] MEDS ORDERED: 0.9 % Sodium Chloride 1,000 ML IVC SCH (20:30)
[2021-01-03 21:48] LABS: Folate 14.4 ng/mL (3.0-16.0)
[2021-01-04 02:20] LABS: Hematocrit 23.5 % (37.5-50.1); Hemoglobin 7.4 g/dL (12.9-16.9); Mean Corpuscular HGB Conc 31.5 g/dL (31.6-35.5); Mean Corpuscular Volume 92.2 fL (83.0-100.0); Mean Platelet Volume 9.9 fL (9.4-12.4); Red Blood Count 2.55 M/mcL (4.19-5.50); White Blood Count 4.7 K/mcL (4.3-11.1)
[2021-01-04 02:21] LABS: Platelet Count 94 K/mcL (140-400)
[2021-01-04] MEDS: Pantoprazole 40 MG in 0.9 % Sodium Chloride Mini Bag 100 ML IVC SCH ×6 (02:22→22:26)
[2021-01-04 02:28] LABS: INR 1.3; Prothrombin Time 15.3 Seconds (9.4-12.1)
[2021-01-04 02:31] LABS: Activated Partial Thrombo Time 23.3 Seconds (26.0-36.0)
[2021-01-04 02:36] LABS: Albumin 2.6 g/dL (3.5-5.7); Albumin/Globulin Ratio 0.9 (1.1-2.2); Bilirubin,Total 0.8 mg/dL (0.3-1.0); Calcium 7.8 mg/dL (8.6-10.3); Globulin 2.9 g/dL (2.4-3.5); Potassium 3.2 mEq/L (3.5-5.1); Total Protein 5.5 g/dL (6.4-8.9)
[2021-01-04 06:27] LABS: Troponin I 0.05 ng/mL (< 0.04)
[2021-01-04 07:54] LABS: Influenza A PCR Negative (Negative); Influenza B PCR Negative (Negative); Resp. Syncytial Virus PCR Negative (Negative)
[2021-01-04] MEDS ORDERED: 0.9 % Sodium Chloride 1,000 ML IVC ONE (08:06)
[2021-01-04 08:25] LABS: SARS-CoV-2 by PCR (In House) Negative (Negative)
[2021-01-04] MEDS ORDERED: *HR* LORazepam 0.5 MG TABLET PO PRN (14:53)
[2021-01-04 17:07] LABS: Hemoglobin 7.5 g/dL (12.9-16.9)
[2021-01-04 17:09] LABS: Hematocrit 23.4 % (37.5-50.1)
[2021-01-04] MEDS: Methadone Oral Concentrate 50 MG/5 ML UDC PO SCH (18:13)
[2021-01-04] MEDS: Lactulose Oral Soln 20 GM/30 ML UDC PO SCH (20:44)
[2021-01-04] MEDS: Mirtazapine 15 MG TABLET PO SCH (20:45)
[2021-01-04] MEDS: Melatonin 3 MG TABLET PO SCH (20:45)
[2021-01-04] MEDS: *HR* LORazepam 0.5 MG TABLET PO PRN (20:52)
[2021-01-05 02:03] LABS: Hemoglobin 7.8 g/dL (12.9-16.9); Mean Corpuscular Hemoglobin 29.1 pg (28.0-33.3); Red Blood Count 2.68 M/mcL (4.19-5.50)
[2021-01-05 02:05] LABS: Hematocrit 24.8 % (37.5-50.1); Mean Corpuscular HGB Conc 31.5 g/dL (31.6-35.5); Mean Corpuscular Volume 92.5 fL (83.0-100.0); Mean Platelet Volume 9.6 fL (9.4-12.4); Red Cell Distribution Width 18.2 % (11.5-14.5); White Blood Count 3.9 K/mcL (4.3-11.1)
[2021-01-05 02:13] LABS: Calcium 7.7 mg/dL (8.6-10.3); Potassium 3.9 mEq/L (3.5-5.1)
[2021-01-05] MEDS: Pantoprazole 40 MG in 0.9 % Sodium Chloride Mini Bag 100 ML IVC SCH ×2 (03:24→08:52)
[2021-01-05] MEDS ORDERED: *HR* Propofol 200 MG/20 ML VIAL IVP ONE ×2 (09:31→10:00)
[2021-01-05] MEDS ORDERED: Lidocaine -MPF 2% 2 ML VIAL ONE (09:31)
[2021-01-05] MEDS ORDERED: PEG/Electrolytes/Ascorbic Acid 1 EACH POWD.PACK PO ONE (11:21)
[2021-01-05] MEDS: Lactulose Oral Soln 20 GM/30 ML UDC PO SCH ×2 (11:45→19:59)
[2021-01-05] MEDS: Megestrol Acetate 400 MG/10 ML UDC PO SCH (11:45)
[2021-01-05] MEDS: Methadone Oral Concentrate 50 MG/5 ML UDC PO SCH (11:45)
[2021-01-05 15:10] LABS: Hemoglobin 8.5 g/dL (12.9-16.9)
[2021-01-05] MEDS: Pantoprazole 40 MG VIAL IVP SCH (17:33)
[2021-01-05] MEDS: Melatonin 3 MG TABLET PO SCH (19:58)
[2021-01-05] MEDS: Mirtazapine 15 MG TABLET PO SCH (19:59)
[2021-01-05] MEDS: *HR* LORazepam 0.5 MG TABLET PO PRN (20:01)
[2021-01-06] MEDS: Pantoprazole 40 MG VIAL IVP SCH ×2 (02:02→18:17)
[2021-01-06 05:54] LABS: Calcium 7.4 mg/dL (8.6-10.3); Potassium 3.4 mEq/L (3.5-5.1)
[2021-01-06 06:47] LABS: Hematocrit 25.3 % (37.5-50.1); Hemoglobin 7.9 g/dL (12.9-16.9); Immature Platelets 2.3 % (1.1-6.1); Mean Corpuscular HGB Conc 31.2 g/dL (31.6-35.5); Mean Corpuscular Hemoglobin 29.2 pg (28.0-33.3); Mean Corpuscular Volume 93.4 fL (83.0-100.0); Mean Platelet Volume 9.2 fL (9.4-12.4); Red Blood Count 2.71 M/mcL (4.19-5.50); Red Cell Distribution Width 18.2 % (11.5-14.5); White Blood Count 4.1 K/mcL (4.3-11.1)
[2021-01-06] MEDS ORDERED: 0.9 % Sodium Chloride 2,000 ML ONE (07:10)
[2021-01-06] MEDS ORDERED: 0.9 % Sodium Chloride 250 ML IVC PRN (07:46)
[2021-01-06] MEDS ORDERED: *HR* Heparin 10,000 UNIT/10 ML VIAL IV PRN (07:46)
[2021-01-06] MEDS ORDERED: Lidocaine -MPF 2% 5 ML VIAL ONE (07:52)
[2021-01-06] MEDS ORDERED: 0.9 % Sodium Chloride 1,000 ML PRIME SCH (08:00)
[2021-01-06] MEDS: Lactulose Oral Soln 20 GM/30 ML UDC PO SCH (08:14)
[2021-01-06] MEDS: Methadone Oral Concentrate 50 MG/5 ML UDC PO SCH (08:17)
[2021-01-06] MEDS: Megestrol Acetate 400 MG/10 ML UDC PO SCH (08:38)
[2021-01-06 17:36] VITALS: BP 135/84
== END 2021-01-06 18:44 | disposition home or self-care (01) | DRG 241 ==
LOC: EMEROOARM 17:21 → 2NNU 17:21 → SUATTDRO 21:20 → 2NNU 23:33 → 2NENU 01-05 22:26
PROVIDERS: ADMIT Internal Medicine; ATTEND Family Medicine
PROC: ENDOEBX (2021-01-05 09:30)